=== PATIENT | female | born 1990 | race Caucasian/White ===

== ENCOUNTER 2023-03-01 14:51 | Outpatient (CLI) | payer MEDICAID, SELFPAY ==
--- NOTE | 2023-03-01 15:00 | US_ITS ---
Patient: ENRRIQUE PÉREZ Facility:?[facility] Patient ID:?[id number] Site Patient ID:?[id number] Site :?1990 Study:?US-OB Pelvis TV dating/viability-03/01/2023 4:54:35 PM Ordering Physician:?[facility] Final Report: INDICATION: Follow up viability COMPARISON: 02/18/2023 TECHNIQUE: Real-time crocker-scale imaging of the pelvis was performed. FINDINGS: Intrauterine gestational sac is present with mean sac diameter of 14.2 cm, 6 weeks 0 days. pole noted with crown-rump length of 5 millimeters, 6 weeks 1 day. No growth since the prior study. No heart tones. Right ovary normal. Left ovary not visualized. No ectopic. IMPRESSION: Intrauterine demise. Dictated by Jani Blair MD @ 03/02/2023 7:12:06 AM Signed by:?Jani Blair MD @03/02/2023 7:12:06 AM (Electronic Signature)
== END 2023-03-01 14:52 | disposition home or self-care (01) ==
LOC: US 14:55
PROVIDERS: Visit Provider Obstetrics & Gynecology
DX: O20.0 Threatened abortion (principal)
CPT/HCPCS: 76817

== ENCOUNTER 2023-03-13 21:11 | Emergency (ER) | payer MEDICAID, SELFPAY ==
[2023-03-13 21:16] VITALS: BP 127/81; PULSE 99; RESP 16; TEMP 36.6; O2SAT 96; BMI 42.1
--- NOTE | 2023-03-13 21:30 | CRLHL7_ITS ---
For Patients: As a result of the Century Cures Act, medical imaging exams and procedure reports are released immediately into your electronic medical record. You may view this report before your referring provider. If you have questions, please contact your health care provider. INDICATION: TECHNIQUE: Ultrasound pelvis transabdominal and transvaginal for better assessment or to better visualize the endometrium. Real-time sonographic images with spectral and color Doppler imaging of the ovaries were obtained. COMPARISON: March 01 2023 FINDINGS: Uterus: 8.5 x 4.8 x 5.5 cm. Normal echotexture of the myometrium. 2.3 x 1.8 x 1.9 cm heterogeneous mass in the uterine fundus. Endometrium: Transvaginal imaging was performed to better evaluate the endometrium. 9 mm in thickness. No sign of endometrial mass or fluid. There is a small amount of vascularity within the endometrium. Right ovary: 3.4 x 2.7 x 3.1 cm. No ovarian or adnexal masses. Normal venous blood flow. Arterial blood flow could not be detected. Left ovary: Surgically absent. Cul-de-sac: Small amount free fluid. IMPRESSION: Vascularity within the endometrium is concerning for retained products of conception. Additionally, arterial blood flow could not be detected in the right ovary. Although this could be to the deep posterior location of the right ovary, ovarian torsion cannot be excluded. Recommend gynecology consultation. Greater than 2 cm uterine fibroid. Findings discussed with Dr. Arzola at 12:14 a.m. on March 14, 2023. Dictated by Soila Mcclain MD @ 03/14/2023 12:15:10 AM (Electronically Signed)
[2023-03-13 22:03] LABS: Appearance Urine Clear (Clear); Bilirubin Urine Negative (Negative); Blood Urine 2+ (Negative); Color Urine Yellow (Yellow); Glucose Urine Negative (Negative); Ketones Urine Negative (Negative); Leukocyte Esterase Urine Negative (Negative); Nitrite Urine Negative (Negative); Protein Urine Negative (Negative); Specific Gravity Urine 1.025 (1.000-1.030); Urobilinogen Urine 0.2 (0.2-1.0); pH Urine 5.5 (5.0-8.5)
[2023-03-13 22:16] LABS: Basophils Absolute Auto 0.04 K/uL (0.00-0.30); Basophils Percent Auto 0.4 % (0.0-3.0); Eosinophils Absolute Auto 0.36 K/uL (0.00-0.50); Eosinophils Percent Auto 3.7 % (0.0-7.0); Hematocrit 38.5 % (33.0-51.0); Hemoglobin* 12.4 gm/dL (12.0-16.0); Immature Granulocytes Abs Auto 0.02 K/uL (0.00-0.30); Immature Granulocytes Pct Auto 0.2 %; Lymphocytes Absolute Auto 2.98 K/uL (0.90-2.90); Lymphocytes Percent Auto 30.4 % (20-44); Mean Corpuscular HGB Conc 32 gm/dL (32-36); Mean Corpuscular Hemoglobin 27 pg (26-34); Mean Corpuscular Volume 85 fL (80-100); Monocytes Percent Auto 6.3 % (0.0-11.0); Neutrophils Absolute Auto 5.77 K/uL (1.7-7.0); Platelet Count* 213 K/uL (140-440); RDW Coefficient of Variation % 13.9 % (11.5-15.5); Red Blood Count 4.54 m/uL (4.00-5.20); White Blood Count* 9.79 K/uL (4.50-11.00)
[2023-03-13 22:22] LABS: Slide Review Reflex No
[2023-03-13 22:26] LABS: WBC Urine 0-2 (0-5)
[2023-03-13 22:28] LABS: Chloride* 107 mmol/L (96-114); Potassium* 3.9 mmol/L (3.6-5.1); Sodium* 139 mmol/L (135-149)
[2023-03-13 22:30] LABS: Amylase* 63 U/L (18-89)
[2023-03-13 22:31] LABS: Anion Gap 9 mEq/L (7-15); Blood Urea Nitrogen* 12 mg/dL (5-24); Calcium* 9.6 mg/dL (8.4-10.6); Carbon Dioxide* 23 mmol/L (20-32); Creatinine* 0.7 mg/dL (0.5-1.5); Estimated Glomerular Filt Rate 119 ml/min; Glucose* 81 mg/dL (60-115)
--- NOTE | 2023-03-13 22:53 | ED_ITS ---
HPI - Abdominal Pain General Chief Complaint: Abdominal Pain Stated Complaint: severe cramping after DNC Time Seen by Provider: 03/13/23 21:15 History of Present Illness HPI narrative: Patient is a 33-year-old woman who had a D&C for missed 3 days ago. She has had some intermittent vaginal bleeding and cramping since. She has had no fevers no chills no night sweats no other abdominal pain. She is having normal bowel movements. She has had no change in her urination. She has had no chest pain shortness of breath nausea or vomiting. No other significant symptoms patient has no chronic pelvic issues. Related Data Home Medications Medication Instructions Recorded Confirmed escitalopram oxalate 20 mg tablet 20 mg PO DAILY 03/13/23 03/13/23 Allergies Allergy/AdvReac Type Severity Reaction Status Date / Time prednisone AdvReac Mild Mood Swings Verified 03/13/23 21:42 trazodone AdvReac Mild Mood Swings Verified 03/13/23 21:42 Review of Systems Status of ROS Reports: 10 or more systems reviewed and unremarkable except as noted in History and below [facility] Medical History premature rupture of membranes (PPROM) with onset of labor within 24 hours of rupture in third trimester, antepartum ?O42.013 - premature rupture of membranes, onset of labor within 24 hours of rupture, third trimester (ICD-10) 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 - depression (ICD-10) Depression ?F32.A - Depression, unspecified (ICD-10) Overweight ?E66.3 - Overweight (ICD-10) Disorder of both eustachian tubes ?H69.93 - Unspecified Eustachian tube disorder, bilateral (ICD-10) MELISSA (generalized anxiety disorder) ?F41.1 - Generalized anxiety disorder (ICD-10) Hyperemesis gravidarum ?O21.0 - Mild hyperemesis gravidarum (ICD-10) GERD (gastroesophageal reflux disease) ?K21.9 - Gastro-esophageal reflux disease without esophagitis (ICD-10) Bipolar disorder, unspecified ?F31.9 - Bipolar disorder, unspecified (ICD-10) Anxiety ?F41.9 - Anxiety disorder, unspecified (ICD-10) History of multiple miscarriages ?N96 - Recurrent loss (ICD-10) History of ?Z87.59 - Personal history of other complications of , childbirth and the puerperium (ICD-10) Social History Smoking Status: Never smoker Second hand tobacco smoke exposure: No How often do you have a drink containing alcohol: never How often do you have six or more drinks on one occasion: Never AUDIT-C Alcohol total score: 0 Non-prescribed substance use: denies use Exam Narrative: Exam Narrative: EXAM GENERAL: Patient appears comfortable and well. EYES: No scleral icterus. LYMPH: No supraclavicular or cervical lymphadenopathy. SKIN: Visible skin seen during exam normal or with benign process only. EXT: No dependent lower extremity pedal edema. HEART: Regular rate and rhythm with no murmurs, rubs, or gallops. LUNGS: Clear to auscultation bilaterally with no crackles or wheezes. ABD: Soft, non tender, non distended. PSYCH: Good eye contact, speech is not pressured. Const: Vital Signs, click to edit/add: Vital Signs - 24 hr 03/13/23 21:16 Temperature 97.9 F Pulse Rate [Right Pulse Oximeter] 99 Respiratory Rate 16 Blood Pressure [Ri ght Upper Arm] 127/81 Pulse Oximetry 96 Oxygen Delivery Me thod Room Air Course Course ED Course: Patient seen examined. Ultrasound ordered lab work ordered. Vital Signs Vital signs: Initial Vital Signs Temperature 97.9 F 03/13/23 21:16 Temperature Source Temporal Artery Scan 03/13/23 21:16 Pulse Rate 99 03/13/23 21:16 Respiratory Rate 16 03/13/23 21:16 Blood Pressure 127/81 03/13/23 21:16 Blood Pressure Mean 96 03/13/23 21:16 Blood Pressure Position Sitting 03/13/23 21:16 Pulse Oximetry 96 03/13/23 21:16 Oxygen Delivery Method Room Air 03/13/23 21:16 Vital Signs Temperature 97.9 F 03/13/23 21:16 Pulse Rate 99 03/13/23 21:16 Respiratory Rate 16 03/13/23 21:16 Blood Pressure 127/81 03/13/23 21:16 Pulse Oximetry 96 03/13/23 21:16 Oxygen Delivery Method Room Air 03/13/23 21:16 Temperature 97.9 F 03/13/23 21:16 Pulse Rate 99 03/13/23 21:16 Respiratory Rate 16 03/13/23 21:16 Blood Pressure 127/81 03/13/23 21:16 Pulse Oximetry 96 03/13/23 21:16 Oxygen Delivery Method Room Air 03/13/23 21:16 MDM - Abdominal Pain MDM Narrative Medical decision making narrative: Patient is a 33-year-old woman who comes in several days after a D&C for missed . Lab work is reassuring ultrasound shows typical post D&C findings. Patient has no prescription medication for pain control at home will discharge with close outpatient follow-up with Vicodin 1-2 every 4-6 as needed. She will return if symptoms worsen. Differential Diagnosis Differential diagnosis: Likely abdominal pain, acute appendicitis, calculus of kidney, constipation, diverticulitis, endometriosis, gastroenteritis, pancreatitis and small bowel obstruction Lab Data Labs: Lab Results 03/13/23 03/13/23 Range/Units 21:30 22:07 WBC 9.79 (4.50-11.00) K/uL RBC 4.54 (4.00-5.20) m/uL Hgb 12.4 (12.0-16.0) gm/dL Hct 38.5 (33.0-51.0) % MCV 85 (80-100) fL MCH 27 (26-34) pg MCHC 32 (32-36) gm/dL RDW Coeff of Foster 13.9 (11.5-15.5) % Plt Count 213 (140-440) K/uL Neut % (Auto) 59.0 (42.0-72.0) % Lymph % (Auto) 30.4 (20-44) % [place] % (Auto) 6.3 (0.0-11.0) % Eos % (Auto) 3.7 (0.0-7.0) % Baso % (Auto) 0.4 (0.0-3.0) % Neut # (Auto) 5.77 (1.7-7.0) K/uL Lymph # (Auto) 2.98 H (0.90-2.90) K/uL [place] # (Auto) 0.60 (0.00-0.90) K/UL Eos # (Auto) 0.36 (0.00-0.50) K/uL Baso # (Auto) 0.04 (0.00-0.30) K/uL Abs Immat Gran (auto) 0.02 (0.00-0.30) K/uL Imm/Tot Granulo (auto) 0.2 % Sodium 139 (135-149) mmol/L Potassium 3.9 (3.6-5.1) mmol/L Chloride 107 (96-114) mmol/L Carbon Dioxide 23 (20-32) mmol/L Anion Gap 9 (7-15) mEq/L BUN 12 (5-24) mg/dL Creatinine 0.7 (0.5-1.5) mg/dL Estimated Creat Clear 92.10 Estimated GFR 119 ml/min Glucose 81 (60-115) mg/dL Calcium 9.6 (8.4-10.6) mg/dL Amylase 63 (18-89) U/L Urine Color Yellow (Yellow) Urine Appearance Clear (Clear) Urine pH 5.5 (5.0-8.5) Ur Specific [place] 1.025 (1.000-1.030) Urine Protein Negative (Negative) Urine Glucose (UA) Negative (Negative) Urine Ketones Negative (Negative) Urine Blood 2+ A (Negative) Urine Nitrite Negative (Negative) Urine Bilirubin Negative (Negative) Urine Urobilinogen 0.2 (0.2-1.0) Ur Leukocyte Esterase Negative (Negative) Urine RBC 2-5 A (0-2) Urine WBC 0-2 (0-5) Urine WBC Clumps None (None) Ur Squamous Epith Cells None (None-Few) Urine Bacteria None (None) Discharge Plan Discharge Clinical Impression: Pelvic pain Condition: Stable Instructions: Pelvic Pain (ED) Additional Instructions: [place] as needed Tylenol Motrin Warm compresses Follow-up with your doctor next week. Activity Level: No Restrictions Discharge Diet: Regular Prescriptions: No Action escitalopram oxalate 20 mg tablet 20 mg PO DAILY Follow Up/Referrals: Provider,Not a Local [Primary Care Provider] - Stand Alone Forms: MyHealth Info Instructions
[2023-03-13 23:00] VITALS: BP 120/74; PULSE 85; RESP 16; TEMP 36.8; O2SAT 96
[2023-03-13 23:09] VITALS: BP 120/74; PULSE 85; RESP 16; TEMP 36.8
== END 2023-03-13 23:09 | disposition home or self-care (01) ==
LOC: ED 22:57
PROVIDERS: Emergency Provider Internal Medicine
DX: R10.2 Pelvic and perineal pain (principal)
CPT/HCPCS: 36415; 76830; 76856; 80048; 81003; 81015; 82150; 85025; 93976; 99283; 99284

== ENCOUNTER 2023-04-24 23:23 | Inpatient (IN) | payer MEDICAID, SELFPAY ==
[2023-04-24 23:35] VITALS: BP 155/89; PULSE 91; RESP 18; TEMP 36.7; O2SAT 96; BMI 40.7
[2023-04-24 23:41] LABS: Appearance Urine Clear (Clear); Bilirubin Urine Negative (Negative); Blood Urine Negative (Negative); Color Urine Yellow (Yellow); Glucose Urine Negative (Negative); Ketones Urine Negative (Negative); Leukocyte Esterase Urine Negative (Negative); Nitrite Urine Positive (Negative); Protein Urine Negative (Negative); Urobilinogen Urine 0.2 (0.2-1.0); pH Urine 7.5 (5.0-8.5)
[2023-04-25] VITALS (31 sets, daily range): BP systolic 101–147; BP diastolic 64–97; PULSE 75–120; RESP 16–22; TEMP 36.2–37; O2SAT 91–98
--- NOTE | 2023-04-25 00:07 | ED.ABDPAIN ---
HPI - Abdominal Pain General Date Seen: 04/25/23 Chief Complaint: Abdominal Pain Stated Complaint: abdominal plain Time Seen by Provider: 04/24/23 23:49 Source: patient, family and other (Here with significant other) Mode of arrival: ambulatory Limitations: no limitations History of Present Illness HPI narrative: Patient is a 33-year-old female presents here with the lower abdominal pain she describes generalized in the lower abdominal region, she has had for 2-3 days. She was seen yesterday in urgent care in [place], diagnosed with a UTI, and started on Macrobid, the pain today is worsen. She describes the throat her lower abdomen, worse when she moves or twists or turns. She vomited 3 times today, she has had normal bowel movements, denies to chew have any flank pain, no vaginal discharge. 1 month ago she was treated for miscarriage, she had a D&C. She denies any fevers chills or sweats, she has had a previous oophorectomy secondary to ovarian issue she did not take any pain medications at home, saying they will not work for her. No radiating pain. Related Data Home Medications Medication Instructions Recorded Confirmed escitalopram oxalate 20 mg tablet 20 mg PO DAILY 03/13/23 04/24/23 fluconazole 150 mg tablet 150 mg PO Q3D 04/24/23 04/24/23 nitrofurantoin 1 cap PO BID 04/24/23 04/24/23 monohydrate/macrocrystals 100 mg capsule phenazopyridine 200 mg tablet 200 mg PO 3XD 04/24/23 04/24/23 Allergies Allergy/AdvReac Type Severity Reaction Status Date / Time prednisone AdvReac Mild Mood Swings Verified 04/24/23 23:39 trazodone AdvReac Mild Mood Swings Verified 04/24/23 23:39 Review of Systems Status of ROS Reports: 10 or more systems reviewed and unremarkable except as noted in History and below [facility] Medical History premature rupture of membranes (PPROM) with onset of labor within 24 hours of rupture in third trimester, antepartum ?O42.013 - premature rupture of membranes, onset of labor within 24 hours of rupture, third trimester (ICD-10) 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 - depression (ICD-10) Depression ?F32.A - Depression, unspecified (ICD-10) Overweight ?E66.3 - Overweight (ICD-10) Disorder of both eustachian tubes ?H69.93 - Unspecified Eustachian tube disorder, bilateral (ICD-10) MELISSA (generalized anxiety disorder) ?F41.1 - Generalized anxiety disorder (ICD-10) Hyperemesis gravidarum ?O21.0 - Mild hyperemesis gravidarum (ICD-10) GERD (gastroesophageal reflux disease) ?K21.9 - Gastro-esophageal reflux disease without esophagitis (ICD-10) Bipolar disorder, unspecified ?F31.9 - Bipolar disorder, unspecified (ICD-10) Anxiety ?F41.9 - Anxiety disorder, unspecified (ICD-10) History of multiple miscarriages ?N96 - Recurrent loss (ICD-10) History of ?Z87.59 - Personal history of other complications of , childbirth and the puerperium (ICD-10) Social History Smoking Status: Never smoker Do you use any of these nicotine containing products: None Second hand tobacco smoke exposure: No How often do you have a drink containing alcohol: never How often do you have six or more drinks on one occasion: Never AUDIT-C Alcohol total score: 0 Non-prescribed substance use: denies use service: No Exam Narrative: Exam Narrative: Patient is seen in room 6, she appears to be in no distress, complains a lower abdominal discomfort. Her pupils are equal round reactive to light, there is no scleral icterus redness or TMs are normal oropharynx normal, her chest is clear bilaterally no wheezing crackles noted heart sounds are normal, light touch in the lower abdomen reproduces her discomfort, but interestingly I am able to palpate deeper with the stethoscope. Her bowel sounds are quiet, there is no organomegaly, she has absolutely no right upper quadrant or left upper quadrant tenderness, but repeat tells me pressure in the upper abdomen causes pain in the lower abdomen. No evidence of any rashes she moves all extremities independently and well. Const: Vital Signs, click to edit/add: Vital Signs - 24 hr 04/24/23 23:35 04/25/23 00:16 04/25/23 00:21 Temperature 98.0 F 98.0 F Pulse Rate 82 Pulse Rate [Right Pulse Oximeter] 91 Respiratory Rate 18 16 Blood Pressure 145/83 H Blood Pressure [Ri ght Upper Arm] 155/89 H Pulse Oximetry 96 96 Oxygen Delivery Me thod Room Air 04/25/23 00:32 04/25/23 01:02 04/25/23 01:08 Temperature 98.0 F Pulse Rate 82 79 Pulse Rate [Right Pulse Oximeter] Respiratory Rate 16 16 Blood Pressure 129/76 123/71 Blood Pressure [Ri ght Upper Arm] Pulse Oximetry 94 96 Oxygen Delivery Me thod Documenting provider has reviewed patient's vital signs: yes Course Course ED Course: I discussed with her that her presentation can be multiple etiologies. Her urinalysis done here before I was able to see her shows only positive nitrates, no evidence of white cells, be a partially treated UTI, but this also could be some other pathology causing this. I would recommend at least blood tests IV fluids, NPO status Toradol and Zofran to start with for her discomfort. And likely use of CT scan for further delineation. Reevaluation(s) Time of Reevaluation #1: 01:33 Reevaluation #1: Patient's pain improved, the use of the Toradol helped her. Her white count is elevated at 13.2. CRP elevated also, predominance of neutrophils. CT scan is reviewed by myself, this shows a collection of fluid in the pelvis adjacent to the uterus. Appears separate from the uterus. Radiology read greater than 2 hours at this time. I discussed with the patient, radiologist for likely request the ultrasound to further delineate this, we can speed up the process by getting this ordered now. I will give her some Dilaudid for the discomfort, as there will be some pressure on her lower abdomen, to get the views that we need. She was comfortable with this plan, Time of Reevaluation #2: 03:56 Reevaluation #2: I was able to talk to the medical record librarians teacher, and also the radiologist. There was a delay in getting the CT and ultrasound read. My concern is that this is a possible torsion of her remaining ovary. My medical record librarians teacher is coming in to see the patient, is alerted the surgical team. I discussed this with the patient, she will be kept NPO. Pain control with Dilaudid. Patient is ASA 1 for surgery, Vital Signs Vital signs: Initial Vital Signs Temperature 98.0 F 04/24/23 23:35 Temperature Source Temporal Artery Scan 04/24/23 23:35 Pulse Rate 91 04/24/23 23:35 Respiratory Rate 18 04/24/23 23:35 Blood Pressure 155/89 H 04/24/23 23:35 Blood Pressure Mean 111 H 04/24/23 23:35 Blood Pressure Position Sitting 04/24/23 23:35 Pulse Oximetry 96 04/24/23 23:35 Oxygen Delivery Method Room Air 04/24/23 23:35 Vital Signs Temperature 98.0 F 04/24/23 23:35 Pulse Rate 91 04/24/23 23:35 Respiratory Rate 18 04/24/23 23:35 Blood Pressure 155/89 H 04/24/23 23:35 Pulse Oximetry 96 04/24/23 23:35 Oxygen Delivery Method Room Air 04/24/23 23:35 Temperature 98.0 F 04/25/23 01:08 Pulse Rate 79 04/25/23 01:02 Respiratory Rate 16 04/25/23 01:02 Blood Pressure 123/71 04/25/23 01:02 Pulse Oximetry 96 04/25/23 01:02 Oxygen Delivery Method Room Air 04/24/23 23:35 MDM - Abdominal Pain MDM Narrative Medical decision making narrative: During the evaluation of this patient I considered multiple differential diagnosis including life-threatening differentials which are appendicitis, aortic aneurysm, mesenteric ischemia, bowel perforation, ectopic , volvulus and bowel obstruction, other differential diagnosis include but are not limited to inflammatory bowel disease, cholecystitis, pancreatitis, hepatitis, gastritis, GERD, diverticulitis, peptic ulcer disease, pyelonephritis/UTI, renal colic/stone, pelvic inflammatory disease, cervicitis, endometritis, intrauterine , dysfunctional uterine bleeding, ovarian cyst/torsion, spontaneous as well as other etiologies Medical Records Attestation: I reviewed the patient's medical records. Lab Data Attestation: I reviewed the patient's lab results. Labs: Lab Results 04/24/23 04/25/23 Range/Units 23:30 00:15 WBC 13.28 H (4.50-11.00) K/uL RBC 4.36 (4.00-5.20) m/uL Hgb 11.9 L (12.0-16.0) gm/dL Hct 36.9 (33.0-51.0) % MCV 85 (80-100) fL MCH 27 (26-34) pg MCHC 32 (32-36) gm/dL RDW Coeff of Foster 13.1 (11.5-15.5) % Plt Count 235 (140-440) K/uL Neut % (Auto) 64.6 (42.0-72.0) % Lymph % (Auto) 23.4 (20-44) % [place] % (Auto) 9.3 (0.0-11.0) % Eos % (Auto) 2.3 (0.0-7.0) % Baso % (Auto) 0.2 (0.0-3.0) % Neut # (Auto) 8.60 H (1.7-7.0) K/uL Lymph # (Auto) 3.10 H (0.90-2.90) K/uL [place] # (Auto) 1.20 H (0.00-0.90) K/UL Eos # (Auto) 0.30 (0.00-0.50) K/uL Baso # (Auto) 0.00 (0.00-0.30) K/uL Abs Immat Gran (auto) 0.00 (0.00-0.30) K/uL Imm/Tot Granulo (auto) 0.2 % Sodium 137 (135-149) mmol/L Potassium 3.4 L (3.6-5.1) mmol/L Chloride 105 (96-114) mmol/L Carbon Dioxide 24 (20-32) mmol/L Anion Gap 8 (7-15) mEq/L BUN 12 (5-24) mg/dL Creatinine 0.7 (0.5-1.5) mg/dL Estimated Creat Clear 96.33 Estimated GFR 119 ml/min Glucose 88 (60-115) mg/dL Lactate 0.6 (0.5-1.9) mmol/L Calcium 8.8 (8.4-10.6) mg/dL Total Bilirubin 1.0 (0.1-1.5) mg/dL Direct Bilirubin 0.0 (0.0-0.5) mg/dL AST 41 H (12-35) U/L ALT 32 (4-35) U/L Alkaline Phosphatase 84 (40-150) U/L C-Reactive Protein 6.8 H (0.5-1.0) mg/dL Total Protein 7.4 (6.0-8.3) g/dL Albumin 4.1 (3.3-5.0) g/dL Lipase 52 (23-300) U/L Procalcitonin 0.06 (<0.50) ng/mL Urine Color Yellow (Yellow) Urine Appearance Clear (Clear) Urine pH 7.5 (5.0-8.5) Ur Specific [place] 1.020 (1.000-1.030) Urine Protein Negative (Negative) Urine Glucose (UA) Negative (Negative) Urine Ketones Negative (Negative) Urine Blood Negative (Negative) Urine Nitrite Positive A (Negative) Urine Bilirubin Negative (Negative) Urine Urobilinogen 0.2 (0.2-1.0) Ur Leukocyte Esterase Negative (Negative) Urine RBC 0-2 (0-2) Urine WBC 0-2 (0-5) Ur Squamous Epith Cells Few (None-Few) Urine Bacteria Few A (None) Urine HCG, Qual Negative (Negative) Imaging Data CT scan - abdomen: Attestation: I have reviewed the pertinent imaging results. My impression: Complex collection of fluid just superior and adjacent to the uterus. Differential includes abscess, hemorrhagic cyst, pyosalpinx, torsion, ectopic . Ectopic unlikely as test is negative. Concerning blood flow, to the mass. Likelihood of torsion of the ovary is higher. Radiologist's impression: Patient: SUNITHA ROCKPORT Facility:?[facility] Patient ID:?[id number] Site Patient ID:?[id number]. Site :?1990 Study:?CT Abdomen/Pelvis with 100ml Xrlyzb153 contrast-04/25/2023 1:27:46 AM Ordering Physician:?Drea Kaye Final Report: INDICATION: Anterior inferior abdominal pain, s/p left oophorectomy TECHNIQUE: CT abdomen and pelvis acquired with 70 cc Isovue 370 IV contrast. COMPARISON: June 14, 2018 FINDINGS: Lower chest: Unremarkable. Liver: Unremarkable. Spleen: Unremarkable. Pancreas: Unremarkable. Gallbladder and bile ducts: Unremarkable. Adrenal glands: Unremarkable. Kidneys: Unremarkable. GI tract: Unremarkable. Appendix is normal. Vascular structures: Unremarkable. Lymph nodes: Unremarkable. Miscellaneous: No anterior abdominal wall rupture. No free air. Pelvic Organs: There is a 6.0 x 6.6 x 4.7 mass superior to the uterus measuring 29 Hounsfield units in density. Septations within this and mild fat stranding around the mass. No free fluid in the pelvis. Bones: Unremarkable for age. IMPRESSION: Greater than 6 cm soft tissue mass superior to the uterus containing septations. Mild fat stranding around the mass. Findings may represent a right ovarian torsion due to multiple ovarian cysts, a complex hemorrhagic cyst, pyosalpinx, or less likely neoplasm. Findings discussed with Dr. Shepard at 3:36 a.m. on April 25, 2023. Please note that all CT scans at this facility use dose modulation, iterative reconstruction, and/or weight-based dosing when appropriate to reduce radiation dose to as low as reasonably achievable. Dictated by Soila Mcclain MD @ 04/25/2023 3:59:37 AM (Electronic Signature) Discharge Plan Discharge Clinical Impression: Ovarian torsion, acquired, Abdominal pain Patient Disposition: XFER to OR Prescriptions: No Action escitalopram oxalate 20 mg tablet 20 mg PO DAILY fluconazole 150 mg tablet 150 mg PO Q3D phenazopyridine 200 mg tablet 200 mg PO 3XD nitrofurantoin monohyd/m-cryst 100 mg capsule 1 cap PO BID Follow Up/Referrals: Provider,Not a Local [Primary Care Provider] -
[2023-04-25 00:09] LABS: Bacteria Urine Few; RBC Urine 0-2 (0-2); Squamous Epithelial Cell Urine Few (None-Few); WBC Urine 0-2 (0-5)
[2023-04-25] MEDS: 0.9 % SODIUM CHLORIDE 1000 ml 1,000 ML IV (00:15)
[2023-04-25] MEDS: ONDANSETRON 2 MG/ML inj 4 MG IVP ×2 (00:15→10:54)
[2023-04-25] MEDS: KETOROLAC 30 MG/ML inj IVP ×3 (00:16→22:56)
[2023-04-25 00:21] LABS: Lactate* 0.6 mmol/L (0.5-1.9)
[2023-04-25 00:23] LABS: Basophils Percent Auto 0.2 % (0.0-3.0); Eosinophils Percent Auto 2.3 % (0.0-7.0); Hematocrit 36.9 % (33.0-51.0); Hemoglobin* 11.9 gm/dL (12.0-16.0); Immature Granulocytes Pct Auto 0.2 %; Lymphocytes Percent Auto 23.4 % (20-44); Mean Corpuscular HGB Conc 32 gm/dL (32-36); Mean Corpuscular Hemoglobin 27 pg (26-34); Mean Corpuscular Volume 85 fL (80-100); Monocytes Percent Auto 9.3 % (0.0-11.0); Neutrophils Percent Auto 64.6 % (42.0-72.0); Platelet Count* 235 K/uL (140-440); RDW Coefficient of Variation % 13.1 % (11.5-15.5); Red Blood Count 4.36 m/uL (4.00-5.20); White Blood Count* 13.28 K/uL (4.50-11.00)
[2023-04-25 00:24] LABS: Slide Review Reflex No
[2023-04-25 00:43] LABS: Ur HCG Qualitative* Negative (Negative)
--- NOTE | 2023-04-25 00:44 | CRLHL7_ITS ---
For Patients: As a result of the Century Cures Act, medical imaging exams and procedure reports are released immediately into your electronic medical record. You may view this report before your referring provider. If you have questions, please contact your health care provider. INDICATION: Anterior inferior abdominal pain, s/p left oophorectomy TECHNIQUE: CT abdomen and pelvis acquired with 70 cc Isovue 370 IV contrast. COMPARISON: June 14, 2018 FINDINGS: Lower chest: Unremarkable. Liver: Unremarkable. Spleen: Unremarkable. Pancreas: Unremarkable. Gallbladder and bile ducts: Unremarkable. Adrenal glands: Unremarkable. Kidneys: Unremarkable. GI tract: Unremarkable. Appendix is normal. Vascular structures: Unremarkable. Lymph nodes: Unremarkable. Miscellaneous: No anterior abdominal wall rupture. No free air. Pelvic Organs: There is a 6.0 x 6.6 x 4.7 mass superior to the uterus measuring 29 Hounsfield units in density. Septations within this and mild fat stranding around the mass. No free fluid in the pelvis. Bones: Unremarkable for age. IMPRESSION: Greater than 6 cm soft tissue mass superior to the uterus containing septations. Mild fat stranding around the mass. Findings may represent a right ovarian torsion due to multiple ovarian cysts, a complex hemorrhagic cyst, pyosalpinx, or less likely neoplasm. Findings discussed with Dr. Shepard at 3:36 a.m. on April 25, 2023. Please note that all CT scans at this facility use dose modulation, iterative reconstruction, and/or weight-based dosing when appropriate to reduce radiation dose to as low as reasonably achievable. Dictated by Soila Mcclain MD @ 04/25/2023 3:59:37 AM (Electronically Signed)
[2023-04-25 00:51] LABS: Albumin* 4.1 g/dL (3.3-5.0); Chloride* 105 mmol/L (96-114)
[2023-04-25 00:52] LABS: Potassium* 3.4 mmol/L (3.6-5.1); Sodium* 137 mmol/L (135-149)
[2023-04-25 00:54] LABS: Creatinine* 0.7 mg/dL (0.5-1.5); Est. Creatinine Clearance* 96.33; Estimated Glomerular Filt Rate 119 ml/min
[2023-04-25 00:55] LABS: Alanine Aminotransferase* 32 U/L (4-35); Alkaline Phosphatase* 84 U/L (40-150); Anion Gap 8 mEq/L (7-15); Aspartate Amino Transferase* 41 U/L (12-35); Blood Urea Nitrogen* 12 mg/dL (5-24); Calcium* 8.8 mg/dL (8.4-10.6); Carbon Dioxide* 24 mmol/L (20-32); Glucose* 88 mg/dL (60-115); Lipase* 52 U/L (23-300); Total Protein* 7.4 g/dL (6.0-8.3)
[2023-04-25 00:58] LABS: C Reactive Protein* 6.8 mg/dL (0.5-1.0)
[2023-04-25 01:11] LABS: Procalcitonin* 0.06 ng/mL (<0.50)
--- NOTE | 2023-04-25 01:36 | CRLHL7_ITS ---
For Patients: As a result of the Century Cures Act, medical imaging exams and procedure reports are released immediately into your electronic medical record. You may view this report before your referring provider. If you have questions, please contact your health care provider. INDICATION: Anterior inferior abdominal pain, status post left oophorectomy. TECHNIQUE: Ultrasound pelvis transabdominal and transvaginal for better assessment or to better visualize the endometrium. Real-time sonographic images with spectral and color Doppler imaging of the ovaries were obtained. COMPARISON: CT abdomen pelvis from same day FINDINGS: Uterus: 7.2 x 4.2 x 5.0 cm. Normal echotexture of the myometrium. No masses. Endometrium: Transvaginal imaging was performed to better evaluate the endometrium. 8.6 mm in thickness. No sign of endometrial mass or fluid. Right ovary: 6.1 x 4.8 x 4.3 cm. There is a complex, partially cystic mass on the right ovary. There is venous blood flow within the right ovary. No arterial blood flow was demonstrated. Left ovary: Surgically absent. Cul-de-sac: Small amount of free fluid. IMPRESSION: Findings concerning for right ovarian torsion with absence of arterial flow in the right ovary. There is a complex, partially cystic mass on the right ovary. Small amount of free fluid in the cul de sac. An abdominal pelvic CT performed earlier today demonstrated the cystic mass to measure 6.0 x 6.6 x 4.7 cm. Recommend gynecology consultation. Findings discussed with Dr. Shepard at 3:45 p.m. on April 25, 2023. Status post left oophorectomy. Dictated by Soila Mcclain MD @ 04/25/2023 4:07:12 AM (Electronically Signed)
[2023-04-25] MEDS: 0.9 % SODIUM CHLORIDE 1000 ml 1,000 ML 125 ML IV (01:39)
[2023-04-25] MEDS: HYDROmorphone 0.5 mg/0.5 ml inj IVP ×2 (01:39→03:56)
--- NOTE | 2023-04-25 04:55 | PM.GYNCN1 ---
SLACK COOPER - CN: HPI Data of Consult Time Seen by Provider: 04:40 Date Seen: 04/25/23 Patient: Briana Patient Consult date: 04/25/23 Requesting Physician: Dr. Larry Shepard Primary Care Provider: Not a Local Provider Consult Narrative Reason for consult: abdominal pain and pelvic mass (possible right ovarian torsion) Narrative: Radha Cheek is a 33 year old female who presented to the emergency department complaining of acute abdominal pain of 2 days duration. The pain was sudden in onset, and initially located in the mid low abdomen, with later radiation to include the entire low abdomen from the umbilicus down. She had been seen in urgent care clinic in [place] on Wednesday and thought to have a urinary tract infection. She was started on Macrobid. The pain subsequently worsened. She denies unusual vaginal discharge, vaginal bleeding, urinary urgency or frequency, or diarrhea or constipation. Physical movement exacerbates the pain. Of note, the patient underwent a D&C procedure a month ago for a failed intrauterine . The final pathology with cytogenetics showed triploidy fetus. The was reportedly not or molar . She also has a history of left salpingo-oophorectomy 5 years ago done for multiple ovarian cysts and infection. Apparently, the procedure was started as the laparoscopy, and then a laparotomy was needed. The surgery reportedly took 6 hours. She denies history of endometriosis. She and her are not currently contraceptive. OBSTETRIC HISTORY: History of 1 vaginal delivery, history of 1 early termination, history of 3 miscarriages. GYNECOLOGIC HISTORY: Cis gender female, h/o LSO cc:: CC: Review of Systems Status of ROS: Reports: 10 or more systems reviewed and unremarkable except as noted in History and below [facility] Medical History premature rupture of membranes (PPROM) with onset of labor within 24 hours of rupture in third trimester, antepartum ?O42.013 - premature rupture of membranes, onset of labor within 24 hours of rupture, third trimester (ICD-10) 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 - depression (ICD-10) Depression ?F32.A - Depression, unspecified (ICD-10) Overweight ?E66.3 - Overweight (ICD-10) Disorder of both eustachian tubes ?H69.93 - Unspecified Eustachian tube disorder, bilateral (ICD-10) MELISSA (generalized anxiety disorder) ?F41.1 - Generalized anxiety disorder (ICD-10) Hyperemesis gravidarum ?O21.0 - Mild hyperemesis gravidarum (ICD-10) GERD (gastroesophageal reflux disease) ?K21.9 - Gastro-esophageal reflux disease without esophagitis (ICD-10) Bipolar disorder, unspecified ?F31.9 - Bipolar disorder, unspecified (ICD-10) Anxiety ?F41.9 - Anxiety disorder, unspecified (ICD-10) History of multiple miscarriages ?N96 - Recurrent loss (ICD-10) History of ?Z87.59 - Personal history of other complications of , childbirth and the puerperium (ICD-10) Surgical History (Updated 04/25/23 @ 05:04 by Ema Naylor MD) History of D&C (~03/2023) ?Z98.890 - Other specified postprocedural states (ICD-10) History of left salpingo-oophorectomy (~2017) ?Z90.79 - Acquired absence of other genital organ(s) (ICD-10) ?Z90.721 - Acquired absence of ovaries, unilateral (ICD-10) Social History Smoking Status: Never smoker Do you use any of these nicotine containing products: None Second hand tobacco smoke exposure: No How often do you have a drink containing alcohol: never How often do you have six or more drinks on one occasion: Never AUDIT-C Alcohol total score: 0 Non-prescribed substance use: denies use service: No Meds Home Medications and Allergies Home Medications Medication Instructions Recorded Confirmed Type escitalopram oxalate 20 mg tablet 20 mg PO DAILY 03/13/23 04/24/23 History fluconazole 150 mg tablet 150 mg PO Q3D 04/24/23 04/24/23 History nitrofurantoin 1 cap PO BID 04/24/23 04/24/23 History monohydrate/macrocrystals 100 mg capsule phenazopyridine 200 mg tablet 200 mg PO 3XD 04/24/23 04/24/23 History Allergies Allergy/AdvReac Type Severity Reaction Status Date / Time prednisone AdvReac Mild Mood Swings Verified 04/24/23 23:39 trazodone AdvReac Mild Mood Swings Verified 04/24/23 23:39 [facility]OPER - Exam Physical Exam: Vital signs: Temp Pulse Resp BP Pulse Ox O2 Del Method 98.0 F 93 16 124/74 98 Room Air 04/25/23 01:08 04/25/23 03:54 04/25/23 03:54 04/25/23 03:54 04/25/23 03:54 04/24/23 23:35 Constitutional: Constitutional: no acute distress and cooperative Routine Abdominal Exam: Abdominal: Present hypoactive bowel sounds, soft and tenderness (Diffuse); Absent rebound SLACK COOPER - Results Labs Labs: Short CBC 04/25/23 Range/Units 00:15 WBC 13.28 H (4.50-11.00) K/uL Hgb 11.9 L (12.0-16.0) gm/dL Hct 36.9 (33.0-51.0) % Plt Count 235 (140-440) K/uL BMP 04/25/23 00:15 Sodium 137 Potassium 3.4 L Chloride 105 Carbon Dioxide 24 BUN 12 Creatinine 0.7 Glucose 88 Calcium 8.8 Liver Function 04/25/23 Range/Units 00:15 Total Bilirubin 1.0 (0.1-1.5) mg/dL Direct Bilirubin 0.0 (0.0-0.5) mg/dL AST 41 H (12-35) U/L ALT 32 (4-35) U/L Alkaline Phosphatase 84 (40-150) U/L Albumin 4.1 (3.3-5.0) g/dL Urine 04/24/23 Range/Units 23:30 Urine Color Yellow (Yellow) Urine Appearance Clear (Clear) Urine pH 7.5 (5.0-8.5) Ur Specific [place] 1.020 (1.000-1.030) Urine Protein Negative (Negative) Urine Glucose (UA) Negative (Negative) Imaging US - pelvis: Attestation: I have reviewed the pertinent imaging results. My impression: Complex, heterogeneous mass in the vicinity of the right adnexa with little blood flow documented to the ovary within, concerning for possible ovarian torsion. Differential diagnosis would include hemorrhagic ovarian cyst or torsion of fallopian tube. Radiologist's impression: Findings concerning for right ovarian torsion with absence of arterial flow in the right ovary. There is a complex, partially cystic mass on the right ovary. Small amount of free fluid in the cul de sac. An abdominal pelvic CT performed earlier today demonstrated the cystic mass to measure 6.0 x 6.6 x 4.7 cm. Recommend gynecology consultation. Assessment and Plan Assessment and plan (1) Abdominal pain: Status: Acute (2) Ovarian torsion, acquired: Problem comment: Suggested by ultrasound Status: Acute Plan I would recommend diagnostic laparoscopy. If there is ovarian torsion, untwisting the torsion could possibly result in saving of the ovary if it is still viable, and the cystic portion of the mass can be removed lower retaining the viable ovary. The patient understands that removal of the ovary and/or fallopian tube might be necessary if the tissues are nonviable. It is also possible that she has significant intra-abdominal or pelvic adhesions from her prior abdominal surgery, so I would recommend using a Castano port at the umbilicus with a cutdown technique through the fascia to potentially guard against inadvertent bowel injury with the initial port placement. The patient and I discussed general surgical risks, including bleeding, infection, or injury to other organs, as well as the possibility that a laparotomy could be needed. We reviewed postoperative pain management. Informed consent was obtained for the procedure. The PIT CREW SUPPORT WORKER will administer general anesthesia, and I have requested a TAP block as well for postoperative pain management. The patient's questions were answered. Preoperative orders were entered into the EMR
[2023-04-25] MEDS: LACTATED RINGERS 1000 ML 1,000 ML 100 ML IV ×3 (05:30→09:54)
[2023-04-25] MEDS: CEFAZOLIN 2 GM INJ IVP (06:02)
--- NOTE | 2023-04-25 06:10 | P.ANES_ITS ---
Anesthesia Charges Start Date/Time Anesthesia Start Date: 04/25/23 Anesthesia Start Time: 05:23 Stop Date/Time Anesthesia Stop Date: 04/25/23 Anesthesia Stop Time: 10:37 Summary Emergency: CLINICAL TRANSPLANT COORDINATOR
--- NOTE | 2023-04-25 06:11 | W.PM.NB ---
Nerve Block Nerve Block Time Seen by Provider: 05:35 Date Seen: 04/25/23 Type of block requested by surgeon for post-operative analgesia: TAP Side: bilateral Time out performed: Yes Verification of patient name: Yes Verification of date of : Yes Site marking: site marked Name of person performing procedure: Logan Hope Continuous monitoring Was continuous monitoring of O2 sat, B/P, soldering machine operator, recorded every 15 minutes?: Yes Procedure Checklist: sterile prep, needles and gloves Ultrasound guided. Images saved: Yes Medications given in 5ml increments after negative aspiration: Marcaine %: 0.25 mL: 30 Needle gauge: 20 and Exparel mL: 10 Needle gauge: 20 Patient tolerated procedure well: Yes Additional comments: Injected in 5ml increments after negative aspiration Block Charges Block Charge (with Pro Fee): TAP Bilateral Use of Ultrasound Machine for Block: Yes- US Guidance/pain block
[2023-04-25] MEDS: BUPIVACAINE 0.25% 30 ML INJECTION (06:18)
--- NOTE | 2023-04-25 08:54 | SUR.OPER ---
was updated @ 0730 and 0830.
--- NOTE | 2023-04-25 10:09 | PM.GSPRC ---
Operative Note Pre-op diagnosis: 1) Presumed right ovarian torsion 2) Intra-abdominal adhesions Post-op diagnosis: 1) Right ovarian ruptured hemorrhagic cyst 2) Intra-abdominal adhesions Type of Procedure: Lysis of adhesions Indications: The patient is a 33-year-old female who presented to the emergency department with acute abdominal pain. Workup revealed concern for right ovarian torsion. She was taken to the OR by Dr. Naylor please see her note for preoperative decision making and discussion. I was called to the OR initially because it was felt that the appendix was involved in the inflammatory process and her pelvis, however secondarily because of significant adhesions that precluded visualization the ovary. Procedure Description: Arrived to the OR with the patient in lithotomy position. The abdomen had been opened. I went to review the patient's preoperative imaging and noted that the sigmoid colon was sitting on top of the inflammatory mass in the pelvis. I scrubbed into the case and the Hood wound retractor was removed. There were dense adhesions between the sigmoid colon and the peritoneum. I took these down sharply using Metzenbaum scissors. There was 1 small area which was roughened, that was likely an adhesion, however I oversewed this with imbricating 0 silk suture in the event that it represented a small serosal tear. Once I was able to mobilize the sigmoid, this was reflected toward the left pelvis and a multi cystic ovary was in view. Drs. Naylor and Jim examined the pelvis, made the decision to remove the fallopian tube and oversewed the hemorrhagic cyst, obtaining hemostasis. Please see Dr. Naylor' operative note for details and decision making. Once this was done, I again examined the sigmoid colon. This appeared free of injury. I examined the appendix where Dr. Naylor had taken down an adhesion and the appendix appeared normal without inflammation. There was no injury to the appendix as the adhesion was distal to the tip. Once this was done, I turned the case back over to Dr. Naylor for closure. Findings: Dense intra-abdominal adhesions between the sigmoid and anterior abdomen. Anesthesia: GETA Surgeon: Frannie Falk MD Estimated blood loss (mL): 0 Additional Specimen Information: None for my portion of the procedure Condition: stable Disposition: PACU Date of procedure: 04/25/23
[2023-04-25] MEDS: MEPERIDINE 25 MG/ML INJ 12.5 MG IVP (10:41)
--- NOTE | 2023-04-25 10:41 | P.GYNPRC_ITS ---
Procedure Note Time Seen by Provider: 05:00 Date of procedure: 04/25/23 Pre-op diagnosis: Abdominal pain, R ovarian cysts with ovarian possible torsion Post-op diagnosis: other (Abdominal pain, R ovarian cysts, R hydrosalpinx, extensive intra-abdominal and pelvic adhesions) Procedure: Diagnostic laparoscopy with lysis of adhesions, Converted to laparotomy with extensive adhesiolysis, right salpingectomy, and right ovarian cystectomy. Intra-operative general surgery consult: Dr. Falk. Anesthesia: GETA and other (TAP block) Complications: None. Surgeon: Ema Naylor MD Medical Assistant Secretary: Joelle Fernandez Estimated blood loss (mL): 75 Pathology: specimen obtained, sent to pathology (1. Right fallopian tube, 2. Right hemorrhagic ovarian cyst ) Condition: stable Disposition: PACU Findings: Extensive intra-abdominal and pelvic adhesions involving anterior abdominal wall peritoneum, omentum, sigmoid colon, appendix, uterus, right fallopian tube, and right ovary. Right ovary dilated from midportion to fimbrial end and fluid filled, consistent with hydrosalpinx. Hemorrhagic right ovarian cyst as well as simple right ovarian cysts and cysts thought to be related to loculated fluid from adhesions surrounding the right ovary. No evidence of ovarian torsion. Procedure Description: After obtaining informed consent, the patient was taken to the operating room where general anesthesia was obtained without difficulty. She was prepared and draped in the normal sterile fashion in the low dorsal lithotomy position. A De La Torre catheter was inserted into the bladder and left to gravity drainage. A medium Graves open-sided speculum was introduced into the vagina. The cervix was visualized and grasped along its anterior lip with a single-tooth tenaculum. A Suncore uterine manipulator was placed without difficulty. The tenaculum and speculum were removed. I then changed gloves and my attention was turned to the abdomen. The inferior aspect of the umbilical fold was injected with 0.25% Marcaine plain. An 11 mm vertical incision was then made within the umbilical fold using a scalpel along the line of a previous infraumbilical scar. The subcutaneous tissues were bluntly dissected with a Annmarie clamp to the fascia. The fascia was grasped with 2 small Chuck clamps and elevated. The fascia was incised sharply with Carter scissors and the incision extended to 11 mm. The underlying peritoneum was entered bluntly with a finger. A finger was used to sweep around the incision, and omentum was noted to be adherent to the anterior abdominal wall inferiorly and to the right of the incision. A Castano port and sleeve were then advanced into the abdomen through the incision and fixed in place by insufflating the attached balloon. The trocar was removed leaving the sleeve in place. The CO2 gas flow was turned to high flow to achieve pneumoperitoneum. The 10 mm laparoscope was used then to carefully inspect the abdomen and pelvis with findings noted above. Pictures were taken for documentation purposes. The patient was placed in Trendelenburg positioning. A 5 mm port was placed in the right lower quadrant under direct visualization after first anesthetizing the skin and fascia with 0.25% Marcaine plain. An additional 5 mm port was placed lateral to the umbilicus on the left side under direct visualization after 1st anesthetizing the skin and fascia with 0.25% Marcaine plain. The 10 mm lap scope was removed and the 5 mm laparoscoped was placed through the left lateral port. A laparoscopic Metzenbaum scissors was used to lyse filmy adhesions tethering the omentum to the anterior abdominal wall. The laparoscoped was then maneuvered around the dense omental and possibly bowel adhesions to the anterior abdominal wall to the right side, and additional adhesiolysis was performed with both the Metzenbaum scissors and the Olympus Powerseal device through the right lower quadrant port. This adhesiolysis freed up the appendix from where it was attached to the right adnexa. The adhesiolysis also freed loculated fluid near the right ovary, enabling somewhat better visualization of the uterine serosa and right ovary and tube. The adhesiolysis needed to be discontinued, however, as dense adhesions were observed involving the sigmoid colon. Dr. Falk was consulted over the telephone an asked to come to the hospital to scrub in and provide further assistance. The decision was then made to abandon the laparoscopy altogether and proceed with laparotomy. Laparoscopic instruments were then removed. The patient was repositioned in the supine position. A Pfannenstiel skin incision was then made with the scalp along the line of the patient's previous Pfannenstiel scar. This incision was carried down to the underlying layer of fascia with the Bovie. The fascia was incised in the midline, and the incision was extended laterally. The underlying rectus muscles were dissected off of the fascia with a combination of sharp and blunt dissection. Perforating blood vessels were cauterized were necessary. The fascial defect from the infraumbilical port was reapproximated in a running fashion with 0 Vicryl during the dissection. The dissection took an increased amount of time given the densely adherent nature of the muscles to the fascia, and also the fact that the omentum and sigmoid colon were found to be adherent to the peritoneum in the midline from symphysis pubis to umbilicus. I was able to isolate adhesions between the omentum and peritoneum on the right side, which were doubly clamped with Karen clamps, transected, and suture ligated with 2-0 Vicryl while I was waiting for Dr. Falk. At this point, I also requested that one of my gynacology partners be contacted and scrub in to provide additional assistance, and Dr. Fernandez was able to come and scrub in. Both Drs. Falk and Jim arrived in the operating room at the same time. Please see Dr. Falk's separate operative report for details of her role in the procedure, specifically adhesiolysis and mobilization of the sigmoid colon and inspection of the colon and appendix. Once the sigmoid colon was removed from the anterior peritoneum, the Hood O retractor was placed into the incision. The right tube and ovary were carefully inspected. Adhesions between the right tube and ovary and uterine serosa were taken down sharply with Metzenbaum scissors. The tube was noted to be abnormal, with hydrosalpinx involving the distal half of the tube. The decision was made to take out the tube to decrease the likelihood of ectopic or early loss due to hydrosalpinx in the future. The tube was elevated with Kelvin clamps, and carefully dissected using the handheld LigaSure device from distal and to the uterine cornua, where it was transected and removed from the field. A small simple cyst on the right ovary was popped in aspirated of clear fluid. A hemorrhagic cyst was removed where devascularized from the ovary using the LigaSure. The excision base was then suture ligated with 3-0 chromic in a running, locking fashion for hemostasis. One small piece of Surgicel was placed over that area for additional hemostasis. Basilia was then applied to the entire adnexa for additional hemostasis. No active bleeding was observed. All instruments were then removed under direct visualization. The subfascial tissues were carefully inspected and found to be hemostatic. The fascia was reapproximated in a running fashion with a looped 0 Maxon suture. The s ubcutaneous adipose tissue copiously irrigated, found to be hemostatic, and was reapproximated with 4 interrupted sutures of 3-0 plain gut. The skin was closed in a subcuticular fashion with 4-0 Vicryl. The skin at the remaining 3 port sites was closed in a subcuticular fashion with 4-0 Vicryl. LiquiBand was then placed over the laparoscopic incisions. A silver Mepilex dressing was placed over the Pfannenstiel incision. The uterine manipulator was removed. The patient tolerated the procedure well. Sponge, lap, and needle counts were correct x2. The patient was taken to the recovery room awake and in stable condition. She received 2 g of IV Ancef preoperatively, and another 1g of IV Ancef 3-4 hours after the first dose. IV Toradol 30 mg was also administered at the conclusion of the procedure. A postsurgical debrief was done which confirmed the procedures performed, the pathology specimens sent, and the EBL.
[2023-04-25] MEDS: OXYCODONE 5 MG TABLET PO (12:44)
[2023-04-25] MEDS: LACTATED RINGERS 1000 ML 1,000 ML 125 ML IV (13:46)
--- NOTE | 2023-04-25 19:33 | PC.NURSE ---
patient up to floor at 1115, alert and oriented, tolerating a reg diet. Patient has beltran placed in ED will be removed once PO is adequate. Patent and draining. Patients 3 lap sites are C/D/I, Pfannenstiel incision is covered, C/D/I and numb per patient. Patient has 2 IV's in each hand, SL. Patient rated her pain 5/10 and states it feels like its pulling from inside. Patient was educated on how to brace a cough, laugh and sneeze to minimize pain. VSS, patient is 94% on RA. When she falls asleep she goes down to 91% and stated she did not bring her c-pap. was at bedside most of the day.
[2023-04-26] VITALS (7 sets, daily range): BP systolic 113–133; BP diastolic 58–76; PULSE 70–103; RESP 16–20; TEMP 36.4–36.7; O2SAT 95–99
[2023-04-26] MEDS: IBUPROFEN 600 MG TABLET PO ×4 (03:32→20:57)
--- NOTE | 2023-04-26 06:15 | PC.NURSE ---
SHIFT NOTE : Pt is alert and oriented. VSS on RA. Pain rated 4/10, scheduled Toradol and later Ibuprofen given for pain with pt reporting adequate relief, pt denied needing further PRN medication and acknowledged understanding that she could have something more for pain if needed. Abdominal incisions/dressings are intact with no drainage noted. Active ice to abdomen. Encouraged pt to C&DB/splint. Pt declined SCD's, ankle pumps encouraged. Pt denies SOB, CP, and N/V. Tolerating regular diet. De La Torre patent and draining adequate amounts of urine. Pt in the recliner last evening, SBA.
[2023-04-26 06:34] LABS: Hemoglobin* 10.4 gm/dL (12.0-16.0)
--- NOTE | 2023-04-26 07:40 | P.DS_ITS ---
DS: Providers Provider Date of admission: 04/25/23 10:36 Primary care physician: Not a Local Provider Admitting Clinician: Ema Naylor MD Attending Physician on discharge: Ema Naylor MD PRECIPITATOR SUPERVISOR-Discharge Summary Hospital Course Hospital Course Narrative: Patient is a [] year old admitted on [] for []. Indication for surgery: []. Intraoperative findings were notable for []. She had an uncomplicated surgery. Postoperative course has been uneventful. Vitals have been stable. She has remained afebrile. Today, on postoperative day [], she reports the pain is well controlled. She has been able to ambulate Without difficulty. She is tolerating regular diet. She is passing flatus. De La Torre catheter has been removed, and she is voiding without difficulty. Time Spent with Patient Time attestation: Total time spent providing and/or coordinating discharge services: PRECIPITATOR SUPERVISOR - Exam Physical Exam: Vital signs: Temp Pulse Resp BP Pulse Ox O2 Del Method 98.1 F 82 16 113/59 L 95 Room Air 04/26/23 03:00 04/26/23 03:00 04/26/23 03:00 04/26/23 03:00 04/26/23 03:00 04/26/23 03:00 PRECIPITATOR SUPERVISOR - DS: Data Data Completed and Pending Labs on day of discharge: Labs from last 24 hours 04/26/23 06:22 Hgb 10.4 L Preliminary micro results at discharge 04/25/23 Unknown Urine Culture - Preliminary Urine,Clean Catch > 100,000 COL/ML MIXED GRAM POSITIVE UCHE ISOLATED NO FURTHER WORKUP Procedures Procedures: Procedures Operation Date: 04/25/23 05:15 Actual Procedure Side Surgeon p diagnostic laparoscopy converted to open with extensive lysis of adhesions, right salpingectomy, right ovarian cystectomy. Right Ema Naylor MD Discharge Plan Discharge Date of Admission: 04/25/23 10:36 Attending Physician on Admission: Ema Naylor Primary Care Provider: Provider,Not a Local Discharge Medications: No Action escitalopram oxalate 20 mg tablet 20 mg PO DAILY fluconazole 150 mg tablet 150 mg PO Q3D phenazopyridine 200 mg tablet 200 mg PO 3XD nitrofurantoin monohyd/m-cryst 100 mg capsule 1 cap PO BID Follow Up Appointments: Provider,Not a Local [Primary Care Provider] -
[2023-04-26] MEDS: ESCITALOPRAM 10 MG TABLET 20 MG PO (09:32)
[2023-04-26] MEDS: OXYCODONE 5 MG TABLET PO ×3 (11:49→23:42)
[2023-04-26] MEDS: ACETAMINOPHEN 325 MG TABLET 1000 MG PO ×2 (11:52→18:18)
--- NOTE | 2023-04-26 17:17 | PM.GYNPNPO ---
SENIOR ELECTRONICS ENGINEER - A/P Assessment and plan (1) Abdominal pain: Status: Acute (2) Ovarian torsion, acquired: Problem details: Suggested by ultrasound Status: Acute Plan Postoperative Review: - Admitted for: Possible ovarian torsion/hemorrhage - Surgical procedure: - Skin incision: Pfannenstiel and 3 laparoscopic port sites - Closure: sutures - Estimated blood loss: 75 mL - Intraoperative findings: Extensive intra-abdominal and pelvic adhesions involving anterior abdominal wall peritoneum, omentum, sigmoid colon, appendix, uterus, right fallopian tube, and right ovary. Right ovary dilated from midportion to fimbrial end and fluid filled, consistent with hydrosalpinx. Hemorrhagic right ovarian cyst as well as simple right ovarian cysts and cysts thought to be related to loculated fluid from adhesions surrounding the right ovary. No evidence of ovarian torsion. - Intraoperative Complications: none - Urine output: adequate - Preop Hgb: 11.9 - Postop Hgb: 10.4 Postoperative care: - Diet: Advance as tolerated - Fluid: Encourage oral intake - Activity: Encourage ambulation and incentive spirometry - Pain: Ibuprofen, acetaminophen, and oxycodone - DVT prophylaxis: SCDs and TEDs when not ambulating Dispo: Patient is POD#1. Need the following milestones: increased ambulation and urinate without Beltran. Anticipate discharge POD#2. Postoperative Procedures: Procedures Operation Date: 04/25/23 05:15 Actual Procedure Side Surgeon p diagnostic laparoscopy converted to open with extensive lysis of adhesions, right salpingectomy, right ovarian cystectomy. Right Ema Naylor MD Time Spent With Patient Time: Total time spent is greater than 50% in coordination of care (as documented) at patient's floor/unit and/or counseling patient: Time with patient: less than 15 minutes SENIOR ELECTRONICS ENGINEER- PN:Subj Post-Op Subjective Time Seen by Provider: 08:00 Date Seen: 04/26/23 Post Operative Details: Post-operative day number 1: status post diagnostic laparoscopy with lysis of adhesions, converted to laparotomy with extensive adhesiolysis, right salpingectomy, and right ovarian cystectomy. Overnight patient had complaints of fatigue. Her pain is well controlled on oral pain medications. She is tolerating a regular diet. She has passed flatus. She is not yet ambulating without difficulty. She is urinating with Beltran. Patient denies chest pain, SOB, n/v, headache, or dizziness. Moderate amount of abdominal pain. I encouraged increased ambulation and her beltran will be removed this AM. She does not feel she will be ready to go home today. SENIOR ELECTRONICS ENGINEER-PN: Obj Exam Physical Exam: Vital signs: Temp Pulse Resp BP Pulse Ox O2 Del Method 97.7 F 103 H 18 126/64 96 Room Air 04/26/23 15:00 04/26/23 15:00 04/26/23 15:00 04/26/23 15:00 04/26/23 15:00 04/26/23 15:00 Narrative: Physical exam: General: No acute distress Psych: Alert and oriented x3, full affect HEENT: Normocephalic, atraumatic Heart: Regular rate and rhythm, no murmur rub or gallop Lungs: Clear to auscultation bilaterally Abdomen: Normoactive bowel sounds, soft, appropriately tenderness. No rebound, or guarding Incision: Pfannenstiel Dressing clean, dry, and intact. Laparoscopic port sites (3) also clean, dry, and intact Lower extremities: +1 bilateral lower extremity edema Pelvic exam: Deferred Urinary Catheter Management: Urethral: Cath placed during this visit: no SENIOR ELECTRONICS ENGINEER - PN: Obj Data Labs Labs: Laboratory Results - last 24 hr 04/26/23 06:22 Hgb 10.4 L
--- NOTE | 2023-04-26 19:23 | PC.NURSE ---
End of shift-- Very pleasant and cooperative, alert and oriented patient. VSS and pt is afebrile. SPO2 maintained >94% on RA. She c/o abdominal pain which she rated from 3-5 today which appears well managed with scheduled Motrin, Oxycodone and Tylenol. 3x lap sites are OSIRIS with skin glue and dressing across lower abdomen is C/D/I. She denied nausea and ate 50-100% of 3x meals today and tolerated it well. BS+ x4 and pt is passing flatus. She ambulated the hallways independently 4x today and tolerated it fair. She does c/o increased pain with ambulation. and son at bedside this evening and appear loving and supportive. Report to BRAYAN Soler.
--- NOTE | 2023-04-26 22:59 | PC.NURSE ---
Pt pleasant an cooperative. Up ambulating I. Tolerating diet and pain meds are controlling her pain. Voiding without difficulty. VSS. Stab sites open to air and are clean dry and intact.
[2023-04-26] MEDS: LORazepam 0.5 MG TABLET PO (23:42)
[2023-04-27 03:30] VITALS: BP 102/65; PULSE 72; RESP 18; TEMP 36.4; O2SAT 95
[2023-04-27] MEDS: ACETAMINOPHEN 500 MG TABLET 1000 MG PO (04:08)
[2023-04-27] MEDS: IBUPROFEN 600 MG TABLET PO ×2 (04:08→10:05)
[2023-04-27 07:00] VITALS: BP 122/78; PULSE 81; RESP 18; TEMP 36.2; O2SAT 97
--- NOTE | 2023-04-27 07:01 | PC.NURSE ---
23-07: pleasant and cooperative. Indep. Calls appropriately. c/o abd pain 5-12/12, see eMAR. Ice pack to abd. Lap sites OSIRIS, CDI. Lower abd dressing CDI.
--- NOTE | 2023-04-27 08:55 | P.DS_ITS ---
DS: Providers Provider Date Seen: 04/27/23 Date of admission: 04/25/23 10:36 Primary care physician: Not a Local Provider Admitting Clinician: Ema Naylor MD Attending Physician on discharge: Conchita Shin MD Date of Discharge: 04/27/23 DS: Diagnosis Discharge Diagnosis (1) Hydrosalpinx: Status: Acute (2) Right ovarian cyst: Status: Acute (3) Abdominal pain: Status: Acute (4) S/P laparotomy: Status: Acute Problem details: Right salpingectomy, right ovarian cystectomy, extensive lysis of adhesions CORPORATE STRATEGY ANALYST-Discharge Summary Hospital Course Hospital Course Narrative: Patient is a 33 year old admitted on 04/25/23 for emergency surgery due to suspected right ovarian torsion. Indication for surgery: Suspected right ovarian torsion. Intraoperative findings were notable for: Extensive intra-abdominal and pelvic adhesions involving anterior abdominal wall peritoneum, omentum, sigmoid colon, appendix, uterus, right fallopian tube, and right ovary. Right ovary dilated from midportion to fimbrial end and fluid filled, consistent with hydrosalpinx. Hemorrhagic right ovarian cyst as well as simple right ovarian cysts and cysts thought to be related to loculated fluid from adhesions surrounding the right ovary. No evidence of ovarian torsion. She had an uncomplicated surgery. Postoperative course has been uneventful. Vitals have been stable. She has remained afebrile. Today, on postoperative day 2, she reports the pain is well controlled. She has been able to ambulate Without difficulty. She is tolerating regular diet. She is passing flatus. De La Torre catheter has been removed, and she is voiding without difficulty. Time Spent with Patient Time attestation: Total time spent providing and/or coordinating discharge services: Time spent: Less than 30 minutes CORPORATE STRATEGY ANALYST - Exam Physical Exam: Vital signs: Temp Pulse Resp BP Pulse Ox O2 Del Method 97.2 F L 81 18 122/78 97 Room Air 04/27/23 07:00 04/27/23 07:00 04/27/23 07:00 04/27/23 07:00 04/27/23 07:00 04/27/23 07:00 Narrative: VITAL SIGNS: As noted above. GENERAL APPEARANCE: Alert, cooperative female in no acute distress. MOOD & AFFECT: Normal. ABDOMEN: Soft, non-distended and appropriately tender, incision covered by silver dressing this looks dry and clean. Laparoscopy incisions healing well no surrounding erythema, abnormal induration or discharge. EXTREMITIES: Nonedematous. Well perfused. Nontender. CORPORATE STRATEGY ANALYST - DS: Data Procedures Procedures: Procedures Operation Date: 04/25/23 05:15 Actual Procedure Side Surgeon p diagnostic laparoscopy converted to open with extensive lysis of adhesions, right salpingectomy, right ovarian cystectomy. Right Ema Naylor MD Discharge Plan Discharge Disposition: Home, Self-Care Date of Admission: 04/25/23 10:36 Attending Provider on Discharge: Jennifer Shin Primary Care Provider: Provider,Not a Local Condition: Stable Anticipated Discharge Date/Time: 04/27/23 08:54 Discharge Medications: New acetaminophen 500 mg Tablet 1,000 mg PO Q4H PRN (Reason: minor pain) Qty: 30 0RF docusate sodium 100 mg Capsule 100 mg PO BID PRN (Reason: Constipation) Qty: 15 0RF ibuprofen 600 mg Tablet 600 mg PO Q6H Qty: 30 0RF oxycodone 5 mg Tablet 5 mg PO Q4H PRN (Reason: Moderate Pain) Qty: 15 0RF Continued escitalopram oxalate 20 mg tablet 20 mg PO DAILY fluconazole 150 mg tablet 150 mg PO Q3D phenazopyridine 200 mg tablet 200 mg PO 3XD nitrofurantoin monohyd/m-cryst 100 mg capsule 1 cap PO BID Discharge Orders: Discharge Order (Routine); Ordered 04/27/23 Ordered By: Jennifer Shin Patient Education: Exploratory Laparotomy (DC) Activity Level: No strenuous activity and No Weight Bearing Activity Detail: No lifting more than 15 pounds for 6 weeks, nothing vaginally for 2 weeks. Discharge Diet: Regular Follow Up Appointments: Provider,Not a Local [Primary Care Provider] - Forms: [employer] Info Instructions Discharge Comments: Follow up in clinic in 7 days for post op visit and removal of silver dressing/incision check.
[2023-04-27] MEDS: ESCITALOPRAM 10 MG TABLET 20 MG PO (10:05)
--- NOTE | 2023-04-27 12:45 | PC.NURSE ---
Discharge-- Very pleasant and cooperative, alert and oriented patient discharged to home via wheelchair at just prior to 11am. VSS and pt is afebrile. SPO2 maintained >94% on RA. Pain appears well managed with motrin, oxycodone and tylenol. Dressing to lower abdomen is C/D/I and 3x lap sites are OSIRIS with skin glue. LS CTA. BS+ x4 and pt is passing flatus and tolerating a regular diet without difficulty. Pt did pass 2-3 half dollar sized blood clots vaginally this morning and MD is aware. Discharge education was provided including diagnosis info, symptoms to report, medications and follow up plan. All questions answered. SL x2 were removed with tip intact.
== END 2023-04-27 10:58 | disposition home or self-care (01) | DRG 742 ==
LOC: ED 04-25 04:28 → SS 04-25 05:11 → MEDSURG 04-25 05:14 → SS 04-25 16:21 → MEDSURG 04-27 08:55
PROVIDERS: Admitting Provider Obstetrics & Gynecology; Emergency Provider Family Medicine; Visit Provider Obstetrics & Gynecology
PROC: 0UB00ZZ Excision of Right Ovary, Open Approach (ICD-10-PCS; CPT 58661; principal; 2023-04-25 05:00)
DX: N83.291 Other ovarian cyst, right side (principal); Z68.41 Body mass index [BMI] 40.0-44.9, adult; N70.11 Chronic salpingitis; G89.18 Other acute postprocedural pain; K66.0 Peritoneal adhesions (postprocedural) (postinfection); R10.30 Lower abdominal pain, unspecified; Z53.31 Laparoscopic surgical procedure converted to open procedure; E66.3 Overweight; F41.1 Generalized anxiety disorder; F31.9 Bipolar disorder, unspecified; K21.9 Gastro-esophageal reflux disease without esophagitis; N96 Recurrent pregnancy loss
CPT/HCPCS: 36415; 64488; 74177; 76830; 76856; 76942; 80048; 80076; 81003; 81015; 81025; 83605; 83690; 840; 84145; 85018; 85025; 86140; 87086; 88305; 93976; 94761; 99140; 99284; 99285; A4344; A9270; J0330; J0665; J0690; J1100; J1170; J1885; J2175; J2250; J2405; J2704; J2710; J3010; J7030; J7120; Q9967

== ENCOUNTER 2023-05-04 18:23 | Emergency (ER) | payer MEDICAID, SELFPAY ==
[2023-05-04 18:32] VITALS: BP 142/95; PULSE 111; RESP 18; TEMP 36.7; O2SAT 98; BMI 42.1
--- NOTE | 2023-05-04 18:35 | CRLHL7_ITS ---
For Patients: As a result of the 21st Century Cures Act, medical imaging exams and procedure reports are released immediately into your electronic medical record. You may view this report before your referring provider. If you have questions, please contact your health care provider. INDICATION: Postoperative fever, pain in umbilicus. TECHNIQUE: CT abdomen and pelvis acquired with 112 cc Isovue 370 IV contrast. COMPARISON: April 25, 2023. FINDINGS: Lower chest: Scattered atelectasis. Liver: Unremarkable. Normal in size and attenuation. No suspicious masses. Gallbladder and bile ducts: Unremarkable. No stones or inflammation. No biliary dilatation. Pancreas: Unremarkable. No mass or inflammation. Spleen: Unremarkable. Normal in size. No masses. Adrenal glands: Unremarkable. No nodules. Kidneys: Unremarkable. No suspicious masses, stones, or hydronephrosis. GI tract: Unremarkable. Normal in caliber. No sign of mass or inflammation. Normal appendix. Vasculature: Abdominal aorta is normal in caliber. Mesenteric arteries are patent. Lymph nodes: No lymphadenopathy. Peritoneum/Abdominal Wall: Postsurgical changes in the pelvic and lower periumbilical soft tissue region with some edema/inflammation, without drainable fluid collection. Dominant focal area phlegmonous change measures approximately 2.3 centimeters (series 2/image 92, series 5/image 95), in the periumbilical region. Tiny foci of subcutaneous emphysema (series 2/image 85), not unexpected in the postoperative period. No free air or significant free fluid. Pelvis: Postsurgical changes in the pelvic and lower periumbilical soft tissue region with some edema/inflammation, without drainable fluid collection. Bones: Unremarkable for age. IMPRESSION: Postsurgical changes in the pelvic and lower periumbilical soft tissue region with some edema/inflammation, but without drainable fluid collection. Dominant focal area phlegmonous change, measures 2.3 centimeters in the periumbilical soft tissues. Tiny focus of subcutaneous emphysema, not unexpected. Recommend correlation with physical examination to exclude cellulitis. Otherwise, no intra abdominal/pelvic abnormality. Please note that all CT scans at this facility use dose modulation, iterative reconstruction, and/or weight-based dosing when appropriate to reduce radiation dose to as low as reasonably achievable. Dictated by Salbador Rodriguez MD @ 05/04/2023 9:12:22 PM (Electronically Signed)
[2023-05-04 18:36] VITALS: O2SAT 97
[2023-05-04 18:37] VITALS: BP 124/88; PULSE 98; RESP 18; O2SAT 99
--- NOTE | 2023-05-04 18:45 | ED_ITS ---
HPI - General Adult General Date Seen: 05/04/23 <Keyona Tidwell MD - Last Filed: 05/06/23 09:14> Chief complaint: Fever <Keyona Tidwell MD - Last Filed: 05/06/23 09:14> Stated complaint: Fever post op <Keyona Tidwell MD - Last Filed: 05/06/23 09:14> Time Seen by Provider: 05/04/23 18:25 <Keyona Tidwell MD - Last Filed: 05/06/23 09:14> Source: patient and other <Keyona Tidwell MD - Last Filed: 05/06/23 09:14> Mode of arrival: ambulatory <MD Cheikh Morel Last Filed: 05/06/23 09:14> Limitations: no limitations <Keyona Tidwell MD - Last Filed: 05/06/23 09:14> History of Present Illness HPI narrative: Patient is a 33-year-old woman who is 1 week status post left cystectomy and oophorectomy. For the past couple of days on and off she says she has been running fevers in the 99-100 range. She has had some abdominal pain which she localizes to left and just inferior to the umbilicus. She has not had nausea or vomiting, has had chills today. Maybe a little mild dysuria. No lower extremity swelling or pain, she does say that the upper left leg is numb since surgery. She has not had chest pain shortness of breath or cough. General health is otherwise good, she does not smoke or drink. I received a call from the on-call OB, Dr. Davies, who related that the surgery was somewhat complicated by adhesions and was converted from laparoscopic to open. There was some concern about possible bowel injury so she asked that she have a CT with oral and IV contrast. <Keyona Tidwell MD - Last Filed: 05/06/23 09:14> Related Data Home medications: Home Medications Medication Instructions Recorded Confirmed escitalopram oxalate 20 mg tablet 20 mg PO DAILY 03/13/23 04/24/23 fluconazole 150 mg tablet 150 mg PO Q3D 04/24/23 04/24/23 nitrofurantoin 1 cap PO BID 04/24/23 04/24/23 monohydrate/macrocrystals 100 mg capsule phenazopyridine 200 mg tablet 200 mg PO 3XD 04/24/23 04/24/23 Previous Rx's Medication Instructions Recorded acetaminophen 500 mg tablet 1,000 mg (2 x 500 mg) PO Q4H PRN 04/27/23 minor pain #30 tabs docusate sodium 100 mg capsule 100 mg PO BID PRN Constipation #15 04/27/23 caps ibuprofen 600 mg tablet 600 mg PO Q6H #30 tabs 04/27/23 oxycodone 5 mg tablet 5 mg PO Q4H PRN Moderate Pain #15 04/27/23 tabs <Keyona Tidwell MD - Last Filed: 05/06/23 09:14> Allergies/adverse reactions: Allergies Allergy/AdvReac Type Severity Reaction Status Date / Time prednisone AdvReac Mild Mood Swings Verified 05/04/23 19:32 trazodone AdvReac Mild Mood Swings Verified 05/04/23 19:32 <Keyona Tidwell MD - Last Filed: 05/06/23 09:14> Review of Systems Status of ROS: Reports: 10 or more systems reviewed and unremarkable except as noted in History and below <Keyona Tidwell MD - Last Filed: 05/06/23 09:14> [facility] Medical History: Medical History premature rupture of membranes (PPROM) with onset of labor within 24 hours of rupture in third trimester, antepartum ?O42.013 - premature rupture of membranes, onset of labor within 24 hours of rupture, third trimester (ICD-10) 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 - depression (ICD-10) Depression ?F32.A - Depression, unspecified (ICD-10) Overweight ?E66.3 - Overweight (ICD-10) Disorder of both eustachian tubes ?H69.93 - Unspecified Eustachian tube disorder, bilateral (ICD-10) MELISSA (generalized anxiety disorder) ?F41.1 - Generalized anxiety disorder (ICD-10) Hyperemesis gravidarum ?O21.0 - Mild hyperemesis gravidarum (ICD-10) GERD (gastroesophageal reflux disease) ?K21.9 - Gastro-esophageal reflux disease without esophagitis (ICD-10) Bipolar disorder, unspecified ?F31.9 - Bipolar disorder, unspecified (ICD-10) Anxiety ?F41.9 - Anxiety disorder, unspecified (ICD-10) History of multiple miscarriages ?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 - Recurrent loss (ICD-10) History of ?Z87.59 - Personal history of other complications of , childbirth and the puerperium (ICD-10) <Keyona Tidwell MD - Last Filed: 05/06/23 09:14> Surgical History: Surgical History History of D&C (~03/2023) ?Z98.890 - Other specified postprocedural states (ICD-10) History of left salpingo-oophorectomy (~2017) ?Z90.79 - Acquired absence of other genital organ(s) (ICD-10) ?Z90.721 - Acquired absence of ovaries, unilateral (ICD-10) <Keyona Tidwell MD - Last Filed: 05/06/23 09:14> Social History: Social History Smoking Status: Never smoker Do you use any of these nicotine containing products: None Second hand tobacco smoke exposure: No How often do you have a drink containing alcohol: never How often do you have six or more drinks on one occasion: Never AUDIT-C Alcohol total score: 0 Non-prescribed substance use: denies use service: No <Keyona Tidwell MD - Last Filed: 05/06/23 09:14> Exam Narrative: Exam Narrative: Vital signs as noted above. In general, an alert, well-appearing patient. Head: Normocephalic, atraumatic. Eyes: Pupils are equal reactive. Extraocular movements are full. Conjunctivae are normal. ENT: Mucous membranes are moist. Throat is normal. Neck: Supple without lymphadenopathy. Heart: Regular rate and rhythm. No murmur or rub. Lungs: Clear bilaterally. No increased work of breathing, crackles or wheezes. Abdomen: Soft and nondistended. A little bit of localized tenderness but no rebound guarding or rigidity. Laparoscopic incisions are healing well, her low pelvic incision actually looks incredibly well healed. There is no erythema, drainage etcetera. Extremities: Well perfused. No edema. No calf tenderness. Pulses intact. Neurologic: Patient is alert and oriented to person and place. Speech is fluent. Face is symmetric. Moves all extremities equally. Affect: Normal. Skin: Warm and dry. Well perfused. <Keyona Tidwell MD - Last Filed: 05/06/23 09:14> Const: Vital Signs, click to edit/add: Vital Signs - 24 hr 05/04/23 18:32 05/04/23 18:36 05/04/23 18:37 Temperature 98.0 F Pulse Rate Pulse Rate [Right Pulse Oximeter] 111 H 98 Respiratory Rate 18 18 Blood Pressure Blood Pressure [Ri ght Upper Arm] 142/95 H 124/88 Pulse Oximetry 98 97 99 Oxygen Delivery Me thod Room Air Room Air Room Air 05/04/23 21:56 05/04/23 22:00 Temperature Pulse Rate 86 Pulse Rate [Right Pulse Oximeter] Respiratory Rate 12 Blood Pressure 117/86 Blood Pressure [Ri ght Upper Arm] Pulse Oximetry 98 97 Oxygen Delivery Me thod <Keyona Tidwell MD - Last Filed: 05/06/23 09:14> Vital Signs, click to edit/add: Vital Signs - 24 hr 05/04/23 18:32 05/04/23 18:36 05/04/23 18:37 Temperature 98.0 F Pulse Rate Pulse Rate [Right Pulse Oximeter] 111 H 98 Respiratory Rate 18 18 Blood Pressure Blood Pressure [Ri ght Upper Arm] 142/95 H 124/88 Pulse Oximetry 98 97 99 Oxygen Delivery Me thod Room Air Room Air Room Air 05/04/23 21:56 05/04/23 22:00 Temperature Pulse Rate 86 Pulse Rate [Right Pulse Oximeter] Respiratory Rate 12 Blood Pressure 117/86 Blood Pressure [Ri ght Upper Arm] Pulse Oximetry 98 97 Oxygen Delivery Me thod <Tarik Burton MD - Last Filed: 05/04/23 22:17> Course Course ED Course: Plan will be to establish an IV and do the CT scan as requested. Also will check a UA, basic labs. Abdominal exam is benign, certainly no evidence of peritonitis. She is afebrile here, nontoxic in appearance. Labs are notable for mildly elevated white blood cell count of 14, hemoglobin is 10.9. No significant left shift. Metabolic panel is unremarkable. Lactate is 1.3, LFTs notable for mild elevations in the transaminases otherwise benign. CRP is 4.3. UA is pretty unremarkable, 0-2 red cells, 2-[address] scan of the abdomen by my review did not show any evidence of perforation, abscess, obstruction, or other clear acute intra-abdominal findings. Awaiting radiology read. I have signed this out to Dr. Burton who will follow up on CT results, and discuss with on-call OB, and arrange disposition. <Keyona Tidwell MD - Last Filed: 05/06/23 09:14> Vital Signs Vital signs: Initial Vital Signs Temperature 98.0 F 05/04/23 18:32 Temperature Source Temporal Artery Scan 05/04/23 18:32 Pulse Rate 111 H 05/04/23 18:32 Respiratory Rate 18 05/04/23 18:32 Blood Pressure 142/95 H 05/04/23 18:32 Blood Pressure Mean 110 H 05/04/23 18:32 Blood Pressure Position Sitting 05/04/23 18:32 Pulse Oximetry 98 05/04/23 18:32 Oxygen Delivery Method Room Air 05/04/23 18:32 Vital Signs Temperature 98.0 F 05/04/23 18:32 Pulse Rate 111 H 05/04/23 18:32 Respiratory Rate 18 05/04/23 18:32 Blood Pressure 142/95 H 05/04/23 18:32 Pulse Oximetry 98 05/04/23 18:32 Oxygen Delivery Method Room Air 05/04/23 18:32 Temperature 98.0 F 05/04/23 22:27 Pulse Rate 98 05/04/23 22:27 Respiratory Rate 12 05/04/23 22:27 Blood Pressure 124/88 05/04/23 22:27 Pulse Oximetry 97 05/04/23 22:00 Oxygen Delivery Method Room Air 05/04/23 18:37 <Keyona Tidwell MD - Last Filed: 05/06/23 09:14> Initial Vital Signs Temperature 98.0 F 05/04/23 18:32 Temperature Source Temporal Artery Scan 05/04/23 18:32 Pulse Rate 111 H 05/04/23 18:32 Respiratory Rate 18 05/04/23 18:32 Blood Pressure 142/95 H 05/04/23 18:32 Blood Pressure Mean 110 H 05/04/23 18:32 Blood Pressure Position Sitting 05/04/23 18:32 Pulse Oximetry 98 05/04/23 18:32 Oxygen Delivery Method Room Air 05/04/23 18:32 Vital Signs Temperature 98.0 F 05/04/23 18:32 Pulse Rate 111 H 05/04/23 18:32 Respiratory Rate 18 05/04/23 18:32 Blood Pressure 142/95 H 05/04/23 18:32 Pulse Oximetry 98 05/04/23 18:32 Oxygen Delivery Method Room Air 05/04/23 18:32 Temperature 98.0 F 05/04/23 22:27 Pulse Rate 98 05/04/23 22:27 Respiratory Rate 12 05/04/23 22:27 Blood Pressure 124/88 05/04/23 22:27 Pulse Oximetry 97 05/04/23 22:00 Oxygen Delivery Method Room Air 05/04/23 18:37 <Tarik Burton MD - Last Filed: 05/04/23 22:17> Medical Decision Making MDM Narrative Medical decision making narrative: This patient had an abdominal surgery and came in for evaluation of possible postoperative complications. Dr. Tdiwell was caring for this patient until the end of her shift when we were just waiting for results from the radiologist report on CT imaging of her abdomen and pelvis. This returns with typical findings of postsurgical changes but no significant worrisome findings. I did speak with the OBGYN physician on-call, Dr. Davies, who reviewed the results and is satisfied with these findings. The patient has a follow-up a ppointment in 3 days and is instructed to return if worsening symptoms occur. <Tarik Burton MD - Last Filed: 05/04/23 22:17> Lab Data Labs: Lab Results 05/04/23 05/04/23 Range/Units 19:00 19:32 WBC 14.26 H (4.50-11.00) K/uL RBC 4.00 (4.00-5.20) m/uL Hgb 10.9 L (12.0-16.0) gm/dL Hct 33.8 (33.0-51.0) % MCV 85 (80-100) fL MCH 27 (26-34) pg MCHC 32 (32-36) gm/dL RDW Coeff of [place] 13.0 (11.5-15.5) % Plt Count 369 (140-440) K/uL Neut % (Auto) 65.6 (42.0-72.0) % Lymph % (Auto) 24.5 (20-44) % [place] % (Auto) 7.1 (0.0-11.0) % Eos % (Auto) 2.1 (0.0-7.0) % Baso % (Auto) 0.4 (0.0-3.0) % Neut # (Auto) 9.40 H (1.7-7.0) K/uL Lymph # (Auto) 3.50 H (0.90-2.90) K/uL [place] # (Auto) 1.00 H (0.00-0.90) K/UL Eos # (Auto) 0.30 (0.00-0.50) K/uL Baso # (Auto) 0.10 (0.00-0.30) K/uL Abs Immat Gran (auto) 0.00 (0.00-0.30) K/uL Imm/Tot Granulo (auto) 0.3 % Sodium 140 (135-149) mmol/L Potassium 3.5 L (3.6-5.1) mmol/L Chloride 98 (96-114) mmol/L Carbon Dioxide 26 (20-32) mmol/L Anion Gap 16 H (7-15) mEq/L BUN 15 (5-24) mg/dL Creatinine 0.8 (0.5-1.5) mg/dL Estimated Creat Clear 80.59 Estimated GFR 101 ml/min Glucose 103 (60-115) mg/dL Lactate 1.3 (0.5-1.9) mmol/L Calcium 9.2 (8.4-10.6) mg/dL Total Bilirubin 0.5 (0.1-1.5) mg/dL Direct Bilirubin 0.0 (0.0-0.5) mg/dL AST 45 H (12-35) U/L ALT 57 H (4-35) U/L Alkaline Phosphatase 101 (40-150) U/L C-Reactive Protein 4.3 H (0.5-1.0) mg/dL Total Protein 8.2 (6.0-8.3) g/dL Albumin 4.5 (3.3-5.0) g/dL Urine Color Yellow (Yellow) Urine Appearance Clear (Clear) Urine pH 6.5 (5.0-8.5) Ur Specific [place] 1.025 (1.000-1.030) Urine Protein Trace A (Negative) Urine Glucose (UA) Negative (Negative) Urine Ketones Negative (Negative) Urine Blood Trace-intact A (Negative) Urine Nitrite Negative (Negative) Urine Bilirubin Negative (Negative) Urine Urobilinogen 0.2 (0.2-1.0) Ur Leukocyte Esterase Trace A (Negative) Urine RBC 0-2 (0-2) Urine WBC 2-5 (0-5) Ur Squamous Epith Cells Moderate A (None-Few) Urine Bacteria Moderate A (None) <Keyona Tidwell MD - Last Filed: 05/06/23 09:14> Lab Results 05/04/23 05/04/23 Range/Units 19:00 19:32 WBC 14.26 H (4.50-11.00) K/uL RBC 4.00 (4.00-5.20) m/uL Hgb 10.9 L (12.0-16.0) gm/dL Hct 33.8 (33.0-51.0) % MCV 85 (80-100) fL MCH 27 (26-34) pg MCHC 32 (32-36) gm/dL RDW Coeff of [place] 13.0 (11.5-15.5) % Plt Count 369 (140-440) K/uL Neut % (Auto) 65.6 (42.0-72.0) % Lymph % (Auto) 24.5 (20-44) % [place] % (Auto) 7.1 (0.0-11.0) % Eos % (Auto) 2.1 (0.0-7.0) % Baso % (Auto) 0.4 (0.0-3.0) % Neut # (Auto) 9.40 H (1.7-7.0) K/uL Lymph # (Auto) 3.50 H (0.90-2.90) K/uL [place] # (Auto) 1.00 H (0.00-0.90) K/UL Eos # (Auto) 0.30 (0.00-0.50) K/uL Baso # (Auto) 0.10 (0.00-0.30) K/uL Abs Immat Gran (auto) 0.00 (0.00-0.30) K/uL Imm/Tot Granulo (auto) 0.3 % Sodium 140 (135-149) mmol/L Potassium 3.5 L (3.6-5.1) mmol/L Chloride 98 (96-114) mmol/L Carbon Dioxide 26 (20-32) mmol/L Anion Gap 16 H (7-15) mEq/L BUN 15 (5-24) mg/dL Creatinine 0.8 (0.5-1.5) mg/dL Estimated Creat Clear 80.59 Estimated GFR 101 ml/min Glucose 103 (60-115) mg/dL Lactate 1.3 (0.5-1.9) mmol/L Calcium 9.2 (8.4-10.6) mg/dL Total Bilirubin 0.5 (0.1-1.5) mg/dL Direct Bilirubin 0.0 (0.0-0.5) mg/dL AST 45 H (12-35) U/L ALT 57 H (4-35) U/L Alkaline Phosphatase 101 (40-150) U/L C-Reactive Protein 4.3 H (0.5-1.0) mg/dL Total Protein 8.2 (6.0-8.3) g/dL Albumin 4.5 (3.3-5.0) g/dL Urine Color Yellow (Yellow) Urine Appearance Clear (Clear) Urine pH 6.5 (5.0-8.5) Ur Specific [place] 1.025 (1.000-1.030) Urine Protein Trace A (Negative) Urine Glucose (UA) Negative (Negative) Urine Ketones Negative (Negative) Urine Blood Trace-intact A (Negative) Urine Nitrite Negative (Negative) Urine Bilirubin Negative (Negative) Urine Urobilinogen 0.2 (0.2-1.0) Ur Leukocyte Esterase Trace A (Negative) Urine RBC 0-2 (0-2) Urine WBC 2-5 (0-5) Ur Squamous Epith Cells Moderate A (None-Few) Urine Bacteria Moderate A (None) <Tarik Burton MD - Last Filed: 05/04/23 22:17> Imaging Data CT scan - abdomen: Radiologist's impression: Postsurgical changes in the pelvic and lower periumbilical soft tissue region with some edema/inflammation, but without drainable fluid collection. Dominant focal area phlegmonous change, measures 2.3 centimeters in the periumbilical soft tissues. Tiny focus of subcutaneous emphysema, not unexpected. Recommend correlation with physical examination to exclude cellulitis. Otherwise, no intra abdominal/pelvic abnormality. <Tarik Burton MD - Last Filed: 05/04/23 22:17> Discharge Plan Discharge Clinical Impression: Postop check, Abdominal pain <Keyona Tidwell MD - Last Filed: 05/06/23 09:14> Patient Disposition: Home w/ Parent or Adult <Keyona Tidwell MD - Last Filed: 05/06/23 09:14> Condition: Stable <Keyona Tidwell MD - Last Filed: 05/06/23 09:14> Additional Instructions: Follow-up with clinic appointment in 3 days as scheduled. Continue current plans otherwise. Return if worsening symptoms occur. <Keyona Tidwell MD - Last Filed: 05/06/23 09:14> Prescriptions: No Action escitalopram oxalate 20 mg tablet 20 mg PO DAILY fluconazole 150 mg tablet 150 mg PO Q3D phenazopyridine 200 mg tablet 200 mg PO 3XD nitrofurantoin monohyd/m-cryst 100 mg capsule 1 cap PO BID acetaminophen 500 mg Tablet 1,000 mg PO Q4H PRN (Reason: minor pain) Qty: 30 0RF docusate sodium 100 mg Capsule 100 mg PO BID PRN (Reason: Constipation) Qty: 15 0RF ibuprofen 600 mg Tablet 600 mg PO Q6H Qty: 30 0RF oxycodone 5 mg Tablet 5 mg PO Q4H PRN (Reason: Moderate Pain) Qty: 15 0RF <Keyona Tidwell MD - Last Filed: 05/06/23 09:14> Follow Up/Referrals: Provider,Not a Local [Primary Care Provider] - <Keyona Tidwell MD - Last Filed: 05/06/23 09:14> Stand Alone Forms: MyHealth Info Instructions <Keyona Tidwell MD - Last Filed: 05/06/23 09:14>
[2023-05-04] MEDS: 0.9 % SODIUM CHLORIDE 1000 ml 1,000 ML IV (19:08)
[2023-05-04 19:10] LABS: Lactate Sepsis w/Reflex* 1.3 mmol/L (0.5-1.9)
[2023-05-04 19:13] LABS: Basophils Percent Auto 0.4 % (0.0-3.0); Eosinophils Percent Auto 2.1 % (0.0-7.0); Hematocrit 33.8 % (33.0-51.0); Hemoglobin* 10.9 gm/dL (12.0-16.0); Immature Granulocytes Pct Auto 0.3 %; Lymphocytes Percent Auto 24.5 % (20-44); Mean Corpuscular HGB Conc 32 gm/dL (32-36); Mean Corpuscular Hemoglobin 27 pg (26-34); Mean Corpuscular Volume 85 fL (80-100); Monocytes Percent Auto 7.1 % (0.0-11.0); Neutrophils Percent Auto 65.6 % (42.0-72.0); Platelet Count* 369 K/uL (140-440); White Blood Count* 14.26 K/uL (4.50-11.00)
[2023-05-04 19:15] LABS: Slide Review Reflex No
--- NOTE | 2023-05-04 19:17 | ED.NURSE ---
Received report from BRAYAN Montejo.
[2023-05-04 19:25] LABS: Albumin* 4.5 g/dL (3.3-5.0); Chloride* 98 mmol/L (96-114)
[2023-05-04 19:26] LABS: Potassium* 3.5 mmol/L (3.6-5.1); Sodium* 140 mmol/L (135-149)
[2023-05-04 19:28] LABS: Creatinine* 0.8 mg/dL (0.5-1.5); Est. Creatinine Clearance* 80.59; Estimated Glomerular Filt Rate 101 ml/min
[2023-05-04 19:29] LABS: Alanine Aminotransferase* 57 U/L (4-35); Alkaline Phosphatase* 101 U/L (40-150); Anion Gap 16 mEq/L (7-15); Aspartate Amino Transferase* 45 U/L (12-35); Bilirubin Total* 0.5 mg/dL (0.1-1.5); Blood Urea Nitrogen* 15 mg/dL (5-24); Calcium* 9.2 mg/dL (8.4-10.6); Carbon Dioxide* 26 mmol/L (20-32); Glucose* 103 mg/dL (60-115); Total Protein* 8.2 g/dL (6.0-8.3)
[2023-05-04 19:32] LABS: C Reactive Protein* 4.3 mg/dL (0.5-1.0)
[2023-05-04 19:39] LABS: Appearance Urine Clear (Clear); Bilirubin Urine Negative (Negative); Blood Urine Trace-intact (Negative); Color Urine Yellow (Yellow); Glucose Urine Negative (Negative); Ketones Urine Negative (Negative); Leukocyte Esterase Urine Trace (Negative); Nitrite Urine Negative (Negative); Protein Urine Trace (Negative); Specific Gravity Urine 1.025 (1.000-1.030); Urobilinogen Urine 0.2 (0.2-1.0); pH Urine 6.5 (5.0-8.5)
[2023-05-04 19:52] LABS: Bacteria Urine Moderate; RBC Urine 0-2 (0-2); Squamous Epithelial Cell Urine Moderate (None-Few)
[2023-05-04] MEDS: HYDROmorphone 0.5 mg/0.5 ml inj IVP (21:51)
[2023-05-04 21:56] VITALS: BP 117/86; PULSE 86; RESP 12; O2SAT 98
[2023-05-04 22:00] VITALS: O2SAT 97
[2023-05-04 22:27] VITALS: BP 124/88; PULSE 98; RESP 12; TEMP 36.7
== END 2023-05-04 22:28 | disposition home or self-care (01) ==
PROVIDERS: Emergency Provider Emergency Medicine
DX: R10.9 Unspecified abdominal pain (principal)
CPT/HCPCS: 36415; 74177; 80048; 80076; 81001; 83605; 85025; 86140; 87040; 87086; 94761; 96374; 99284; J1170; J7030; Q9965; Q9967

== ENCOUNTER 2023-05-17 13:00 | Emergency (ER) | payer MEDICAID, SELFPAY ==
[2023-05-17 13:14] VITALS: BP 119/86; PULSE 120; RESP 18; TEMP 36.9; O2SAT 98; BMI 42.1
--- NOTE | 2023-05-17 14:09 | CRLHL7_ITS ---
For Patients: As a result of the Century Cures Act, medical imaging exams and procedure reports are released immediately into your electronic medical record. You may view this report before your referring provider. If you have questions, please contact your health care provider. INDICATION: Right lower quadrant pain, possible ovarian cyst. Right salpingectomy about 3 weeks ago, left salpingectomy and oophorectomy several years ago. COMPARISON: Ultrasound 04/25/2023, CT 05/04/2023 TECHNIQUE: TV: Transvaginal ultrasound of the pelvis was performed to better visualize the genitourinary organs, such as the ovaries and/or endometrium. Color-flow and spectral Doppler imaging of the right ovary ovaries is performed. FINDINGS: Reported last menstrual period: Not provided. The uterus is normal in size and position and measures 8.0 x 3.5 x 4.7 cm. No uterine masses. The endometrial stripe measures 1.0 cm in double thickness. No endometrial masses. The cervix is normal. Two small nabothian cysts. The right ovary measures 4.3 x 1.8 x 2.9 cm. Somewhat elongated tubular structure which measures 2.7 x 1.1 x 2.8 cm is seen at the right ovary. Overall, appearance is similar to the CT obtained 05/04/2023. There is normal arterial and venous color Doppler flow and normal arterial and venous waveforms on duplex Doppler. The left ovary and fallopian tube are reported to be surgically absent. In the left pelvis, clearly in the region of the left adnexa there is a simple appearing cystic structure that measures 2.0 x 1.6 x 2.1 cm. This may be a peritoneal inclusion cyst. No free fluid. IMPRESSION: Small right ovarian or adnexal cyst appears fairly similar compared to the CT obtained 05/04/2023. There is not a large amount of pelvic free fluid or hemoperitoneum. As discussed with Dr. Burton at 5:25 p.m. [employer] on 05/17/2023. Dictated by Radha Nelson MD @ 05/17/2023 5:26:45 PM (Electronically Signed)
--- NOTE | 2023-05-17 14:11 | ED.ABDPAIN ---
HPI - Abdominal Pain General Chief Complaint: Abdominal Pain Stated Complaint: Lower R abdominal pain Time Seen by Provider: 05/17/23 13:02 History of Present Illness HPI narrative: This 33-year-old female comes in reporting right lower quadrant abdominal pain that began rather suddenly last evening. She states that she has a history of ovarian cysts. She has had her left ovary and fallopian tube removed in the more distant past and her right fallopian tube removed about a month ago. She reports some chills and measured a temperature of 100? F. She arrives here with normal vital signs. She does have pain in the right lower quadrant with rebound tenderness that is suspicious for an ovarian cyst. She states that she still has her appendix. Related Data Home Medications Medication Instructions Recorded Confirmed escitalopram oxalate 20 mg tablet 20 mg PO DAILY 03/13/23 05/17/23 Previous Rx's Medication Instructions Recorded acetaminophen 500 mg tablet 1,000 mg (2 x 500 mg) PO Q4H PRN 04/27/23 minor pain #30 tabs docusate sodium 100 mg capsule 100 mg PO BID PRN Constipation #15 04/27/23 caps ibuprofen 600 mg tablet 600 mg PO Q6H #30 tabs 04/27/23 oxycodone 5 mg tablet 5 mg PO Q4H PRN Moderate Pain #15 04/27/23 tabs lidocaine 4 % topical patch 1 patch topical Q24H PRN pain #15 05/07/23 (Lidocaine Pain Relief) ea hydrocodone 5 mg-acetaminophen 325 1 tab PO Q4-6H PRN pain #15 tabs 05/17/23 mg tablet ketorolac 10 mg tablet 10 mg PO Q8H 5 days #15 tabs 05/17/23 Allergies Allergy/AdvReac Type Severity Reaction Status Date / Time prednisone AdvReac Mild Mood Swings Verified 05/07/23 13:54 trazodone AdvReac Mild Mood Swings Verified 05/07/23 13:54 Review of Systems Status of ROS Reports: 10 or more systems reviewed and unremarkable except as noted in History and below Narrative Constitutional: No fevers, no weight gain or loss. Eyes: No discharge. No vision changes. HENT: No congestion, no sore throat, no ear pain. Cardiovascular: No chest pain, no palpitations. Respiratory: No shortness of breath, no wheezes, no cough. Gastrointestinal: No vomiting, no diarrhea. Right lower quadrant abdominal pain. Genitourinary: No dysuria, no hematuria. Musculoskeletal: Normal range of motion. Skin: No rashes, no pruritis. Neurological: No dizziness, weakness, sensory change, speech change. Endo/Heme/Allergies: No bruising or bleeding. No polydipsia. Pysch: no suicidality, no anxiety, no insomnia. All other systems reviewed and are negative. [facility] Medical History premature rupture of membranes (PPROM) with onset of labor within 24 hours of rupture in third trimester, antepartum ?O42.013 - premature rupture of membranes, onset of labor within 24 hours of rupture, third trimester (ICD-10) 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 - depression (ICD-10) Depression ?F32.A - Depression, unspecified (ICD-10) Overweight ?E66.3 - Overweight (ICD-10) Disorder of both eustachian tubes ?H69.93 - Unspecified Eustachian tube disorder, bilateral (ICD-10) MELISSA (generalized anxiety disorder) ?F41.1 - Generalized anxiety disorder (ICD-10) Hyperemesis gravidarum ?O21.0 - Mild hyperemesis gravidarum (ICD-10) GERD (gastroesophageal reflux disease) ?K21.9 - Gastro-esophageal reflux disease without esophagitis (ICD-10) Bipolar disorder, unspecified ?F31.9 - Bipolar disorder, unspecified (ICD-10) Anxiety ?F41.9 - Anxiety disorder, unspecified (ICD-10) History of multiple miscarriages ?N96 - Recurrent loss (ICD-10) History of ?Z87.59 - Personal history of other complications of , childbirth and the puerperium (ICD-10) Surgical History History of D&C (~03/2023) ?Z98.890 - Other specified postprocedural states (ICD-10) History of left salpingo-oophorectomy (~2017) ?Z90.79 - Acquired absence of other genital organ(s) (ICD-10) ?Z90.721 - Acquired absence of ovaries, unilateral (ICD-10) Social History Smoking Status: Never smoker Do you use any of these nicotine containing products: None Second hand tobacco smoke exposure: No How often do you have a drink containing alcohol: never How often do you have six or more drinks on one occasion: Never AUDIT-C Alcohol total score: 0 Non-prescribed substance use: denies use Little interest or pleasure in doing things: several days Feeling down, depressed, or hopeless: more than half the days service: No Exam Narrative: Exam Narrative: Constitutional: Well-developed, well-nourished, no acute distress. HEENT: Normocephalic, atraumatic. Neck: Normal range of motion. Nontender. Supple. Heart: Regular. No murmurs. Normal rate. Intact distal pulses. Lungs: Clear to auscultation. No chest discomfort. No wheezes, rhonchi, or rales. Abdomen: Normal bowel sounds. Tenderness in the right lower quadrant overlying the area where the right ovary typically would be. Rebound tenderness is present. Genitalia: Deferred. Back: No midline tenderness. Normal range of motion. Extremities: Normal range of motion. No injury. Skin: Intact. No rash. Warm. No erythema or pallor. Neurologic: No altered sensation. No weakness. Alert and oriented. Psychiatric: No suicidality. No anxiety or depression. No insomnia. Nursing notes and vitals signs are reviewed. Const: Vital Signs, click to edit/add: Vital Signs - 24 hr 05/17/23 13:14 05/17/23 16:50 Temperature 98.4 F Pulse Rate [Pulse Oximeter] 120 H 99 Respiratory Rate 18 18 Blood Pressure [Ri ght Upper Arm] 119/86 130/78 Pulse Oximetry 98 99 Oxygen Delivery Me thod Room Air Course Vital Signs Vital signs: Initial Vital Signs Temperature 98.4 F 05/17/23 13:14 Temperature Source Temporal Artery Scan 05/17/23 13:14 Pulse Rate 120 H 05/17/23 13:14 Respiratory Rate 18 05/17/23 13:14 Blood Pressure 119/86 05/17/23 13:14 Blood Pressure Mean 97 05/17/23 13:14 Blood Pressure Position Sitting 05/17/23 13:14 Pulse Oximetry 98 05/17/23 13:14 Oxygen Delivery Method Room Air 05/17/23 13:14 Vital Signs Temperature 98.4 F 05/17/23 13:14 Pulse Rate 120 H 05/17/23 13:14 Respiratory Rate 18 05/17/23 13:14 Blood Pressure 119/86 05/17/23 13:14 Pulse Oximetry 98 05/17/23 13:14 Oxygen Delivery Method Room Air 05/17/23 13:14 Temperature 98.4 F 05/17/23 13:14 Pulse Rate 99 05/17/23 16:50 Respiratory Rate 18 05/17/23 16:50 Blood Pressure 130/78 05/17/23 16:50 Pulse Oximetry 99 05/17/23 16:50 Oxygen Delivery Method Room Air 05/17/23 13:14 Medications Administered Medications: Discontinued Medications Generic Name Dose Route Start Last Admin Trade Name Freq PRN Reason Stop Dose Admin Hydromorphone HCl 0.5 mg 05/17/23 17:24 05/17/23 17:31 Hydromorphone 0.5 Mg/0.5 Ml Inj IVP 05/17/23 17:25 0.5 mg ONCE ONE Administration Ketorolac Tromethamine 30 mg 05/17/23 14:09 05/17/23 14:25 Ketorolac 30 Mg/Ml Inj IVP 05/17/23 14:10 30 mg ONCE ONE Administration MDM - Abdominal Pain MDM Narrative Medical decision making narrative: This patient comes in with rather sudden onset of right lower quadrant abdominal pain that she states is similar to ovarian cyst that she has had in the past numerous times. She had a surgery about 3 weeks ago where her right fallopian tube was removed. There were also some adhesions at that time identified in the surgery. Today she arrives with right lower quadrant pain but has normal vital signs. An IV was established and labs are acquired which returned with reassuring findings. Her white count is slightly elevated at 11.5. An ultrasound of the pelvis by transvaginal approaches obtained and does show reassuring findings. There is a small cyst on the right ovary. This may be leaking fluid to explain the patient's pain. She may have postoperative pain related to adhesions. There are no findings that trigger concern otherwise at this time. I stated that we could do a CT scan of the abdomen again but this was just done less than 2 weeks ago. The patient feels okay to return home and did received prescriptions for Toradol and some tablets of [place]. I advised her to return if she acquires of fever or pain is not improving. Lab Data Labs: Lab Results 05/17/23 Range/Units 14:20 WBC 11.56 H (4.50-11.00) K/uL RBC 4.28 (4.00-5.20) m/uL Hgb 11.5 L (12.0-16.0) gm/dL Hct 35.3 (33.0-51.0) % MCV 83 (80-100) fL MCH 27 (26-34) pg MCHC 33 (32-36) gm/dL RDW Coeff of Foster 13.0 (11.5-15.5) % Plt Count 238 (140-440) K/uL Neut % (Auto) 70.3 (42.0-72.0) % Lymph % (Auto) 20.3 (20-44) % [place] % (Auto) 7.3 (0.0-11.0) % Eos % (Auto) 1.7 (0.0-7.0) % Baso % (Auto) 0.2 (0.0-3.0) % Neut # (Auto) 8.10 H (1.7-7.0) K/uL Lymph # (Auto) 2.30 (0.90-2.90) K/uL [place] # (Auto) 0.80 (0.00-0.90) K/UL Eos # (Auto) 0.20 (0.00-0.50) K/uL Baso # (Auto) 0.00 (0.00-0.30) K/uL Abs Immat Gran (auto) 0.00 (0.00-0.30) K/uL Imm/Tot Granulo (auto) 0.2 % Sodium 138 (135-149) mmol/L Potassium 3.7 (3.6-5.1) mmol/L Chloride 104 (96-114) mmol/L Carbon Dioxide 24 (20-32) mmol/L Anion Gap 10 (7-15) mEq/L BUN 12 (5-24) mg/dL Creatinine 0.7 (0.5-1.5) mg/dL Estimated Creat Clear 92.10 Estimated GFR 119 ml/min Glucose 96 (60-115) mg/dL Calcium 9.0 (8.4-10.6) mg/dL Imaging Data US - abdomen: Radiologist's impression: Small right ovarian or adnexal cyst appears fairly similar compared to the CT obtained 05/04/2023. There is not a large amount of pelvic free fluid or hemoperitoneum. Discharge Plan Discharge Clinical Impression: Ovarian cyst, Abdominal pain Patient Disposition: Home, Self-Care Condition: Stable Additional Instructions: Take medications as needed and indicated. Follow up with MD or return if symptoms are persistent or worsening. Prescriptions: New hydrocodone-acetaminophen 5-325 mg tablet 1 tab PO Q4-6H PRN (Reason: pain) Qty: 15 0RF ketorolac 10 mg tablet 10 mg PO Q8H 5 Days Qty: 15 0RF No Action lidocaine [Lidocaine Pain Relief] 4 % adhesive patch,medicated 1 patch topical Q24H PRN (Reason: pain) Qty: 15 1RF Rx Instructions: may leave on for up to 12 hrs escitalopram oxalate 20 mg tablet 20 mg PO DAILY acetaminophen 500 mg Tablet 1,000 mg PO Q4H PRN (Reason: minor pain) Qty: 30 0RF docusate sodium 100 mg Capsule 100 mg PO BID PRN (Reason: Constipation) Qty: 15 0RF ibuprofen 600 mg Tablet 600 mg PO Q6H Qty: 30 0RF oxycodone 5 mg Tablet 5 mg PO Q4H PRN (Reason: Moderate Pain) Qty: 15 0RF Follow Up/Referrals: Ema Naylor MD [Primary Care Provider] - Stand Alone Forms: [facility] Info Instructions
[2023-05-17] MEDS: KETOROLAC 30 MG/ML inj IVP (14:25)
[2023-05-17 14:34] LABS: Basophils Percent Auto 0.2 % (0.0-3.0); Eosinophils Percent Auto 1.7 % (0.0-7.0); Hematocrit 35.3 % (33.0-51.0); Hemoglobin* 11.5 gm/dL (12.0-16.0); Immature Granulocytes Pct Auto 0.2 %; Lymphocytes Percent Auto 20.3 % (20-44); Mean Corpuscular HGB Conc 33 gm/dL (32-36); Mean Corpuscular Hemoglobin 27 pg (26-34); Mean Corpuscular Volume 83 fL (80-100); Monocytes Percent Auto 7.3 % (0.0-11.0); Neutrophils Percent Auto 70.3 % (42.0-72.0); Platelet Count* 238 K/uL (140-440); Red Blood Count 4.28 m/uL (4.00-5.20); White Blood Count* 11.56 K/uL (4.50-11.00)
[2023-05-17 14:41] LABS: Slide Review Reflex No
[2023-05-17 14:52] LABS: Chloride* 104 mmol/L (96-114); Sodium* 138 mmol/L (135-149)
[2023-05-17 14:53] LABS: Potassium* 3.7 mmol/L (3.6-5.1)
[2023-05-17 14:55] LABS: Anion Gap 10 mEq/L (7-15); Carbon Dioxide* 24 mmol/L (20-32); Creatinine* 0.7 mg/dL (0.5-1.5); Estimated Glomerular Filt Rate 119 ml/min
[2023-05-17 14:56] LABS: Blood Urea Nitrogen* 12 mg/dL (5-24); Glucose* 96 mg/dL (60-115)
[2023-05-17 16:50] VITALS: BP 130/78; PULSE 99; RESP 18; O2SAT 99
[2023-05-17] MEDS: HYDROmorphone 0.5 mg/0.5 ml inj IVP (17:31)
== END 2023-05-17 18:13 | disposition home or self-care (01) ==
PROVIDERS: Emergency Provider Emergency Medicine Emergency Medical Services; PCP Obstetrics & Gynecology
DX: N83.201 Unspecified ovarian cyst, right side (principal)
CPT/HCPCS: 36415; 76830; 80048; 85025; 93976; 96374; 96375; 99284; J1170; J1885

== ENCOUNTER 2023-05-29 12:53 | Emergency (ER) | payer MEDICAID, SELFPAY ==
[2023-05-29 12:55] VITALS: BP 122/82; PULSE 98; RESP 18; TEMP 36.2; O2SAT 99; BMI 42.1
--- NOTE | 2023-05-29 13:17 | ED_ITS ---
HPI - Back Pain/Injury General Time Seen by Provider: 13:17 Date Seen: 05/29/23 Chief Complaint: Back Injury/Pain Stated Complaint: Severe back pain Time Seen by Provider: 05/29/23 13:17 Source: patient and RN notes reviewed Mode of arrival: ambulatory Limitations: no limitations History of Present Illness HPI Narrative: This 33-year-old female is coming in with low back pain, right greater than left. It started last night. She has noted some pain into her back with urination. She is noticing no hematuria, no dysuria, no fevers. She has had urinary tract infection before but has never had any history of kidney infection per report. She has had some nausea overnight with this. Normal bowel movements. No chance for , both fallopian tubes are gone, 6 weeks ago had to have a fallopian tube a and ovary removed. Since that surgery, has been doing physical therapy for left thigh a numbness, likely reportedly stemming from positioning. The pain does not go into her legs. When she moves her legs, sometimes she will feel increased low back pain. She has not tried anything at home for her symptoms. MD elicited complaint: back pain Related Data Home Medications Medication Instructions Recorded Confirmed escitalopram oxalate 20 mg tablet 20 mg PO DAILY 03/13/23 05/17/23 Previous Rx's Medication Instructions Recorded acetaminophen 500 mg tablet 1,000 mg (2 x 500 mg) PO Q4H PRN 04/27/23 minor pain #30 tabs docusate sodium 100 mg capsule 100 mg PO BID PRN Constipation #15 04/27/23 caps ibuprofen 600 mg tablet 600 mg PO Q6H #30 tabs 04/27/23 oxycodone 5 mg tablet 5 mg PO Q4H PRN Moderate Pain #15 04/27/23 tabs lidocaine 4 % topical patch 1 patch topical Q24H PRN pain #15 05/07/23 (Lidocaine Pain Relief) ea hydrocodone 5 mg-acetaminophen 325 1 tab PO Q4-6H PRN pain #15 tabs 05/17/23 mg tablet ketorolac 10 mg tablet 10 mg PO Q8H 5 days #15 tabs 05/17/23 cephalexin 500 mg tablet 500 mg PO TID #15 tabs 05/29/23 Allergies Allergy/AdvReac Type Severity Reaction Status Date / Time prednisone AdvReac Mild Mood Swings Verified 05/07/23 13:54 trazodone AdvReac Mild Mood Swings Verified 05/07/23 13:54 Review of Systems Status of ROS: Reports: 6 or more systems reviewed and unremarkable except as noted in History and below [facility] Medical History premature rupture of membranes (PPROM) with onset of labor within 24 hours of rupture in third trimester, antepartum ?O42.013 - premature rupture of membranes, onset of labor within 24 hours of rupture, third trimester (ICD-10) 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 - depression (ICD-10) Depression ?F32.A - Depression, unspecified (ICD-10) Overweight ?E66.3 - Overweight (ICD-10) Disorder of both eustachian tubes ?H69.93 - Unspecified Eustachian tube disorder, bilateral (ICD-10) MELISSA (generalized anxiety disorder) ?F41.1 - Generalized anxiety disorder (ICD-10) Hyperemesis gravidarum ?O21.0 - Mild hyperemesis gravidarum (ICD-10) GERD (gastroesophageal reflux disease) ?K21.9 - Gastro-esophageal reflux disease without esophagitis (ICD-10) Bipolar disorder, unspecified ?F31.9 - Bipolar disorder, unspecified (ICD-10) Anxiety ?F41.9 - Anxiety disorder, unspecified (ICD-10) History of multiple miscarriages ?N96 - Recurrent loss (ICD-10) History of ?Z87.59 - Personal history of other complications of , childbirth and the puerperium (ICD-10) Surgical History History of D&C (~03/2023) ?Z98.890 - Other specified postprocedural states (ICD-10) History of left salpingo-oophorectomy (~2017) ?Z90.79 - Acquired absence of other genital organ(s) (ICD-10) ?Z90.721 - Acquired absence of ovaries, unilateral (ICD-10) Social History Smoking Status: Never smoker Do you use any of these nicotine containing products: None Second hand tobacco smoke exposure: No How often do you have a drink containing alcohol: never How often do you have six or more drinks on one occasion: Never AUDIT-C Alcohol total score: 0 Non-prescribed substance use: denies use Little interest or pleasure in doing things: several days Feeling down, depressed, or hopeless: more than half the days service: No Exam Const: Vital Signs, click to edit/add: Vital Signs - 24 hr 05/29/23 12:55 05/29/23 14:57 Temperature 97.2 F L Pulse Rate [Pulse Oximeter] 98 74 Respiratory Rate 18 Blood Pressure [Ri ght Upper Arm] 122/82 124/82 Pulse Oximetry 99 100 Oxygen Delivery Me thod Room Air Room Air 33-year-old female is alert, interactive , no apparent distress. Initially had her eyes closed when I came in but it is very pleasant and conversive with me. Sclera clear. Able speak in complete sentences. Lungs clear with good air entry, no wheezing or crackles. CV regular rate and rhythm, no murmur, normal S1-S2 no S3-S4. Abdomen is soft, mild tenderness which she states is from her prior surgery, this is in the suprapubic area. Otherwise no rebound or guarding, nontender elsewhere. Patient is able to roll onto her side, no midline tenderness of her back. Points to her low back where she is feeling her symptoms more she is feeling in both low back areas but right is greater than left. There is no significant tenderness on palpation of her low back area. She is ambulatory into the ER of her own accord. Documenting provider has reviewed patient's vital signs: yes Course Course ED Course: Patient does have low back pain that seems to be associated with increased pain with urination. Urinary system infection certainly comes to mind. It is possible that this could just be a low back issue. Urinalysis has been collected, will also order some basic labs. At this time I do not see that we need any imaging. Reevaluation(s) Time of Reevaluation #1: 14:05 Reevaluation #1: Reviewed with patient that her urine certainly looks infected. They will work to start an IV, obtain the basic labs I have ordered. I have ordered 2 g IV Rocephin. Would appear that she has urinary tract infection. Time of Reevaluation #2: 15:14 Reevaluation #2: Reviewed with patient her laboratory findings, it appears that she has a UTI. White blood count is normal. She has received her IV Rocephin here, is feeling better. Vital Signs Vital signs: Initial Vital Signs Temperature 97.2 F L 05/29/23 12:55 Temperature Source Temporal Artery Scan 05/29/23 12:55 Pulse Rate 98 05/29/23 12:55 Respiratory Rate 18 05/29/23 12:55 Blood Pressure 122/82 05/29/23 12:55 Blood Pressure Mean 95 05/29/23 12:55 Blood Pressure Position Supine 05/29/23 12:55 Pulse Oximetry 99 05/29/23 12:55 Oxygen Delivery Method Room Air 05/29/23 12:55 Vital Signs Temperature 97.2 F L 05/29/23 12:55 Pulse Rate 98 05/29/23 12:55 Respiratory Rate 18 05/29/23 12:55 Blood Pressure 122/82 05/29/23 12:55 Pulse Oximetry 99 05/29/23 12:55 Oxygen Delivery Method Room Air 05/29/23 12:55 Temperature 97.2 F L 05/29/23 12:55 Pulse Rate 74 05/29/23 14:57 Respiratory Rate 18 05/29/23 12:55 Blood Pressure 124/82 05/29/23 14:57 Pulse Oximetry 100 05/29/23 14:57 Oxygen Delivery Method Room Air 05/29/23 14:57 Medications Administered Medications: Discontinued Medications Generic Name Dose Route Start Last Admin Trade Name Freq PRN Reason Stop Dose Admin Ceftriaxone Sodium 2 gm/ 100 mls @ 200 mls/hr 05/29/23 14:04 05/29/23 14:59 Sodium Chloride IVPB 05/29/23 14:05 Infused ONCE ONE Infusion Ketorolac Tromethamine 15 mg 05/29/23 13:32 05/29/23 14:17 Ketorolac 15 Mg/Ml Inj IVP 05/29/23 13:33 15 mg ONCE ONE Administration Ondansetron HCl 4 mg 05/29/23 13:32 05/29/23 14:15 Ondansetron 2 Mg/Ml Inj IVP 05/29/23 13:33 4 mg ONCE ONE Administration MDM - Back Pain/Injury Medical Records Attestation: I reviewed the patient's medical records. Medical records narrative: Did review patient's CT reports from both April 25 and the from this year. Neither of those had any evidence of any kidney stones. Thus, do not feel we need to reimage, do not have concerns at this time that were missing underlying obstructive urinary pathology. Lab Data Attestation: I reviewed the patient's lab results. Labs: Lab Results 05/29/23 05/29/23 Range/Units 14:10 Unknown WBC 8.57 (4.50-11.00) K/uL RBC 4.37 (4.00-5.20) m/uL Hgb 11.8 L (12.0-16.0) gm/dL Hct 36.8 (33.0-51.0) % MCV 84 (80-100) fL MCH 27 (26-34) pg MCHC 32 (32-36) gm/dL RDW Coeff of Foster 13.5 (11.5-15.5) % Plt Count 207 (140-440) K/uL Neut % (Auto) 61.3 (42.0-72.0) % Lymph % (Auto) 29.3 (20-44) % [place] % (Auto) 6.0 (0.0-11.0) % Eos % (Auto) 2.8 (0.0-7.0) % Baso % (Auto) 0.4 (0.0-3.0) % Neut # (Auto) 5.26 (1.7-7.0) K/uL Lymph # (Auto) 2.51 (0.90-2.90) K/uL [place] # (Auto) 0.50 (0.00-0.90) K/UL Eos # (Auto) 0.24 (0.00-0.50) K/uL Baso # (Auto) 0.03 (0.00-0.30) K/uL Abs Immat Gran (auto) 0.02 (0.00-0.30) K/uL Imm/Tot Granulo (auto) 0.2 % Sodium 139 (135-149) mmol/L Potassium 3.8 (3.6-5.1) mmol/L Chloride 104 (96-114) mmol/L Carbon Dioxide 25 (20-32) mmol/L Anion Gap 10 (7-15) mEq/L BUN 11 (5-24) mg/dL Creatinine 0.9 (0.5-1.5) mg/dL Estimated Creat Clear 71.63 Estimated GFR 88 ml/min Glucose 98 (60-115) mg/dL Calcium 8.9 (8.4-10.6) mg/dL Urine Color Yellow (Yellow) Urine Appearance Slightly Cloudy A (Clear) Urine pH 5.5 (5.0-8.5) Ur Specific [place] 1.020 (1.000-1.030) Urine Protein Negative (Negative) Urine Glucose (UA) Negative (Negative) Urine Ketones Negative (Negative) Urine Blood Trace-intact A (Negative) Urine Nitrite Positive A (Negative) Urine Bilirubin Negative (Negative) Urine Urobilinogen 0.2 (0.2-1.0) Ur Leukocyte Esterase Trace A (Negative) Urine RBC 2-5 A (0-2) Urine WBC 5-10 A (0-5) Ur Squamous Epith Cells Few (None-Few) Urine Bacteria Many A (None) Critical Care Time Critical Care Time Critical Care Time: No Discharge Plan Discharge Clinical Impression: UTI (urinary tract infection) Patient Disposition: Home, Self-Care Condition: Stable Instructions: Urinary Tract Infection in Women (ED) Additional Instructions: Start oral antibiotic tomorrow morning and take as prescribed. Can use Tylenol and/or ibuprofen per bottle directions if needed for discomfort. If you are not improving over the next couple days, are worsening at any point with development of fevers, abdominal pain, vomiting, do recommend re-evaluation. Do recommend drinking plenty of fluids. Activity Level: Activity as Tolerated Prescriptions: New cephalexin 500 mg tablet 500 mg PO TID Qty: 15 0RF No Action lidocaine [Lidocaine Pain Relief] 4 % adhesive patch,medicated 1 patch topical Q24H PRN (Reason: pain) Qty: 15 1RF Rx Instructions: may leave on for up to 12 hrs escitalopram oxalate 20 mg tablet 20 mg PO DAILY hydrocodone-acetaminophen 5-325 mg tablet 1 tab PO Q4-6H PRN (Reason: pain) Qty: 15 0RF ketorolac 10 mg tablet 10 mg PO Q8H 5 Days Qty: 15 0RF acetaminophen 500 mg Tablet 1,000 mg PO Q4H PRN (Reason: minor pain) Qty: 30 0RF docusate sodium 100 mg Capsule 100 mg PO BID PRN (Reason: Constipation) Qty: 15 0RF ibuprofen 600 mg Tablet 600 mg PO Q6H Qty: 30 0RF oxycodone 5 mg Tablet 5 mg PO Q4H PRN (Reason: Moderate Pain) Qty: 15 0RF Follow Up/Referrals: Ema Naylor MD [Primary Care Provider] - Stand Alone [facility]
[2023-05-29 14:00] LABS: Appearance Urine Slightly Cloudy (Clear); Bilirubin Urine Negative (Negative); Blood Urine Trace-intact (Negative); Color Urine Yellow (Yellow); Glucose Urine Negative (Negative); Ketones Urine Negative (Negative); Leukocyte Esterase Urine Trace (Negative); Nitrite Urine Positive (Negative); Protein Urine Negative (Negative); Urobilinogen Urine 0.2 (0.2-1.0); pH Urine 5.5 (5.0-8.5)
[2023-05-29 14:12] LABS: Bacteria Urine Many; Squamous Epithelial Cell Urine Few (None-Few)
[2023-05-29] MEDS: ONDANSETRON 2 MG/ML inj 4 MG IVP (14:15)
[2023-05-29] MEDS: KETOROLAC 15 MG/ML inj IVP (14:17)
[2023-05-29 14:18] LABS: Basophils Absolute Auto 0.03 K/uL (0.00-0.30); Basophils Percent Auto 0.4 % (0.0-3.0); Eosinophils Absolute Auto 0.24 K/uL (0.00-0.50); Eosinophils Percent Auto 2.8 % (0.0-7.0); Hematocrit 36.8 % (33.0-51.0); Hemoglobin* 11.8 gm/dL (12.0-16.0); Immature Granulocytes Abs Auto 0.02 K/uL (0.00-0.30); Immature Granulocytes Pct Auto 0.2 %; Lymphocytes Absolute Auto 2.51 K/uL (0.90-2.90); Lymphocytes Percent Auto 29.3 % (20-44); Mean Corpuscular HGB Conc 32 gm/dL (32-36); Mean Corpuscular Hemoglobin 27 pg (26-34); Mean Corpuscular Volume 84 fL (80-100); Neutrophils Absolute Auto 5.26 K/uL (1.7-7.0); Neutrophils Percent Auto 61.3 % (42.0-72.0); Platelet Count* 207 K/uL (140-440); RDW Coefficient of Variation % 13.5 % (11.5-15.5); Red Blood Count 4.37 m/uL (4.00-5.20); White Blood Count* 8.57 K/uL (4.50-11.00)
[2023-05-29 14:22] LABS: Slide Review Reflex No
[2023-05-29] MEDS: cefTRIAXone 2 GM in 0.9 % SODIUM CHLORIDE Mini-bag 100 ML IVPB (14:22)
[2023-05-29 14:49] LABS: Chloride* 104 mmol/L (96-114); Potassium* 3.8 mmol/L (3.6-5.1); Sodium* 139 mmol/L (135-149)
[2023-05-29 14:52] LABS: Anion Gap 10 mEq/L (7-15); Blood Urea Nitrogen* 11 mg/dL (5-24); Carbon Dioxide* 25 mmol/L (20-32); Creatinine* 0.9 mg/dL (0.5-1.5); Est. Creatinine Clearance* 71.63; Estimated Glomerular Filt Rate 88 ml/min; Glucose* 98 mg/dL (60-115)
[2023-05-29 14:53] LABS: Calcium* 8.9 mg/dL (8.4-10.6)
[2023-05-29 14:57] VITALS: BP 124/82; PULSE 74; O2SAT 100
== END 2023-05-29 15:32 | disposition home or self-care (01) ==
PROVIDERS: Emergency Provider Family Medicine; PCP Obstetrics & Gynecology
DX: N39.0 Urinary tract infection, site not specified (principal)
CPT/HCPCS: 36415; 80048; 81001; 85025; 87086; 87186; 96365; 96375; 99283; 99284; J0696; J1885; J2405

== ENCOUNTER 2023-08-26 14:00 | Outpatient (RCR) | payer MEDICAID, SELFPAY | END 2023-10-12 14:29 | disposition home or self-care (01) | PROVIDERS: PCP Obstetrics & Gynecology; Visit Provider Obstetrics & Gynecology | DX: K66.0 Peritoneal adhesions (postprocedural) (postinfection) (principal); R20.0 Anesthesia of skin; R26.81 Unsteadiness on feet; R29.898 Other symptoms and signs involving the musculoskeletal system; M54.50 Low back pain, unspecified; Z74.09 Other reduced mobility; R53.1 Weakness; Z51.89 Encounter for other specified aftercare | CPT/HCPCS: 97110; 97140; 97162; 97164 ==

== ENCOUNTER 2023-11-15 14:47 | Outpatient (CLI) | payer MEDICAID, SELFPAY ==
--- OUTSIDE RECORDS SUMMARY | 2023-11-15 14:49 | XMS_ITS | Referral Summary ---
Author Name Unknown Organization [facility] Address [address] [place] [id number] Care Team Providers Care Clipman Name Role Phone Esperanza Mcbride Primary Care Provider Unavailab le Allergies No known active allergies Medications No known medications Active Problems Problem Noted Date Diagnosed Date PID (pelvic inflammatory disease) 06/04/2018 LLQ abdominal pain 06/03/2018 Encounter for care of lactating harsh r 06/03/2018 IUD (intrauterine device) in place 06/03/2018 Bacterial vaginosis 06/03/2018 Left ovarian cyst 06/03/2018 Endometritis 06/03/2018 Social History Tobacco Use Types Packs/Day Years Used Date Smoking Tobacco: Never Smokeless Tobacco: Never Alcohol Use Standard Drinks/Week Comments No 0 (1 standard drink = 0.6 oz pur e alcohol) Adolescent Education Answer Date Record ed Getting School Help Needed Not on file 04/18 Sex and Gender Information Value Date Recorded Sex Assigned at Not on file Gender Identity Not on file Sexual Orientation Not on file Last Filed Vital Signs Vital Sign Reading Time Taken Comments Blood Pressure 125/89 06/06/2018 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 Pulse 112 06/03/2018 5:50 AM [employer]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 Temperature 36.9 ??C (98.5 ??F) 06/06/2018 11:[address] Respiratory Rate 18 06/06/2018 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 Oxygen Saturation 97% 06/06/2018 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 Inhaled Oxygen Concentration - - Weight 86.6 kg (191 lb) 06/03/2018 11:53 AM [employer]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
--- OUTSIDE RECORDS SUMMARY | 2023-11-15 14:49 | XMS_ITS | Encounter Summary ---
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 communications manager [address] [place] [address] Maria Del Carmen Mueller MD [address] [place] [address] Refill (escitalopram oxalate (LEXAPRO) 20 MG tablet [Pharmacy Med Name: ESCITALOPRAM 20 MG TABLET]) Social History Tobacco Use Types Packs/Day Years Used Date Smoking Tobacco: Never Smokeless Tobacco: Never Alcohol Use Standard Drinks/Week Comments Not Currently 0 (1 standard drink = 0.6 oz pur e alcohol) Sex and Gender Information Value Date Recorded Sex Assigned at Not on file Gender Identity Not on file Sexual Orientation Not on file documented as of this encounter Nursing Notes * Rebekah Gaona RN - 08/09/2023 3:26 PM CST RN will deny per message below COREMAKER * Linda Hunter - 08/09/2023 3:17 PM CST Patient states she no longer comes to this clinic and she will contact her pharmacy. Patient asks we disregard this request. Routing back to refill team to remove pended medication and close encounter. 08/09/23 3:18 PM COREMAKER * Shae Pinzon - 08/09/2023 3:11 PM CST Medication Refill - Due for Visit Medication still pending, patient is due to be seen in the next 30 days. Called patient, was: unable to reach patient. 1st call attempted. Left message to call back. Scheduling Action: Patient needs to schedule an appointment in the next 30 days. If able to schedule, please document date of appointment and route to clinician/pool identified in nursing documentation below. COREMAKER * Marion Luna - 08/09/2023 1:36 PM CST Further Assistance Needed on Refill from [employer] Patient is due for Qualifying Visit with OBGYN. Medication is still pending. Patient is due for a Office/Video Visit in the next 90 days.. Call Patient and document using .JEREDSHA. After attempting to schedule patient: Please route to: Dr. Fritz castillo previously signed by Dr. Mueller. Requested Prescriptions Pending Prescriptions Disp Refills escitalopram oxalate (LEXAPRO) 20 MG tablet [Pharmacy Med Name: ESCITALOPRAM 20 MG TABLET] 90 Tablet 0 Sig: TAKE 1 TABLET BY MOUTH EVERY DAY COREMAKER * Rosendo, Aide Surescripts Prov Query - 08/07/2023 12:32 PM CST escitalopram oxalate (LEXAPRO) 20 MG tablet [Pharmacy Med Name: ESCITALOPRAM 20 MG TABLET] Antidepressants -> The most recent order on 06/02/2023. -> Refill x 3 months (until due for an office visit) Last qualifying visit: 10/12/2022 (with CONRAD GOMEZ) Next scheduled visit: None Last ordered by MARIA DEL CARMEN MUELLER M: 06/02/2022 (431 days ago) QTY: 90, Refills: 3, Sig: take 1 tablet (20 mg) by mouth daily. (changed but equivalent) Age: 33 [employer] Emb[employer]ded Refills, Reference: [id number], 08/07/2023 12:32:23 PM HAND COREMAKER, Pool: JACOBO MAK RN ([id number]) COREMAKER documented in this encounter Plan of Treatment Not on file documented as of this encounter Visit Diagnoses Not on filedocumented in this encounter Care Teams Genetic Counselor Relationship Specialty Start Date End Date No Primary/Referring, Phy PCP - General 02/17/22 documented as of this encounter
--- OUTSIDE RECORDS SUMMARY | 2023-11-15 14:49 | XMS_ITS | Clinical Summary ---
Author Name Unknown Organization [facility] Address [address] [place] [address] Care Team Providers Care Restorative Care Technician Name Role Phone No Primary/Referring, Phy Primary Care Provider Unavailable Source Comments You are receiving this document as you are listed as the primary care provider,follow-up provider, or the patient has been referred to you for consultation.This is in compliance with the Medicare and[facility] EHR Incentive Program,which states Providers who transition their patient to another setting of careor provider of care or refers their patient to another provider of care shouldprovide summary care record for each transition of care or referral. [place]akie/Budist Allergies Active Allergy Reactions Criticality Noted Date Comments Prednisone Other, see comments 02/05/2020 Mood swings Trazodone Other, see comments 02/05/2020 Mood swings Medications Medication Sig Dispensed Refills Start Date End Date Status clindamycin (CLEOCIN T) 1 % external solutionIndications :Hidradenitis suppurativa Apply twice daily to areas prone to hidradenitis suppurativa bumps 60 mL 6 02/03/2022 Active fluticasone propionate (FLONASE) 50 MCG/ACT nasal solution Place 1 [place] into both nostrils daily. 04/09/2022 Active escitalopram oxalate (LEXAPRO) 20 MG tablet Take 1 Tablet (20 mg) by mouth daily. 90 Tablet 3 06/02/2022 Active vitamin-ferrous fumarate-folic acid (PRENATALPLUS) 27-1 MG tablet Take 1 Tablet by mouth daily. Active Active Problems Problem Noted Date Diagnosed Date Class 3 severe obesity with body mass index (BMI) of 40.0 to 44.9 in adult 04/20/2022 Dysmenorrhea 09/03/2021 MELISSA (generalized anxiety disorder) 12/13/2020 Insomnia, idiopathic 12/13/2020 GERD with esophagitis 10/13/2019 Tachycardia 10/14/2017 Other acne 10/28/2012 Overweight (BMI 25.0-29.9) 10/28/2012 Depressive disorder 09/01/2006 Overview: Overview: On prozac and wellbutrin Resolved Problems Problem Noted Date Diagnosed Date Resolved Date PID (pelvic inflammatory disease) 06/04/2018 08/17/2022 Bacterial vaginosis 06/03/2018 11/06/19 Encounter for car e of lactating mother 06/03/2018 08/17/2022 Endometritis 06/03/2018 08/17/2022 LLQ abdominal pain 06/03/2018 IUD (intrauterine device) in place 06/03/2018 08/17/2022 Left ovarian cyst 06/03/2018 08/17/2022 (normal spontaneous vaginal delivery) 04/16/2018 08/17/2022 premature rupture of membranes (PPROM) with onset of labor within 24 hours of rupture in third trimester, antepartum 04/16/2018 08/17/2022 Hyperemesis gravidarum 10/14/201708/17 Encounter for supervision of normal first , unspecified trimester 10/12/2017 023 Overview: 27 y.o. Medical concerns: hyperemesis - was in [facility] ED 09/20/17 and received IV fluids and script for ODT Zofran, which is helping; History of miscarriage; History of bipolar disorder - not currently on medication for this; Recurrent UTIs, GERD Early GTT indicated: BMI of 31.84 and history of 1st degree relative with diabetes; gestational glucose lab is ordered; Patient informed of this but due to hyperemesis, most likely will not be able to go early testing until nausea/vomiting is well controlled 01/02/2007 Elective AB 06/17/15 SAB at 9wks +4 Genetic screening: considering options BMI:31.84; Up to 15# Recommended wt gain Ultrasound 09/29/17 showing IUP at 7wks +1 with NBA 05/17/18 Flu vaccine: states usually declines Pertussis Vaccine: Peds: to FOB: [place] GERD (gastroesophageal reflux disease) 10/28/2012 08/17/2022 Overview: Overview: Uses OTC prilosec Encounters Date Type Department Care Team Description 10/14/2023 Refill [facility] 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 [address] [place] [id number] Mariia Briggs MD Refill (escitalopram oxalate (LEXAPRO) 20 MG tablet [Pharmacy Med Name: ESCITALOPRAM 20 MG TABLET]) from Last 3 Months Immunizations Name Administration Dates Next Due 4vHPV (Gardasil) 09/05/2007,05/05/2007, 7 Influenza IIV4 (Quadrivalent) 0.5mL (24404) 05/05,03/18/2018 Tdap 03/03/2018,04/29/2017 Social History Tobacco Use Types Packs/Day Years [...] Sign Reading Time Taken Comments Blood Pressure 127/88 10/12/2022 1:46 PM CDT Pulse 102 10/12/2022 1:46 PM CDT Temperature 36.8 ??C (98.3 ??F) 04/16/2022 4:07 AM CD T Respiratory Rate 16 04/16/2022 6:05 AM CDT Oxygen Saturation 98% 04/16/2022 6:05 AM CDT Inhaled Oxygen Concentration - - Weight 99 kg (218 lb 3.2 oz) 10/12/2022 1:46 PM CDT Height 157.5 cm (5' 2) 04/16/2022 4:07 AM CDT Body Mass Index 39.91 04/16/2022 4:07 AM CDT Plan of Treatment Health Maintenance Due Date Last Done Comments Hep C Screening (Preventive Services) 1990 HIV Screening (Preventive Services) 2008 Adult Preventive Visit 01/25/2010 HepB (1) 01/25/2011 COVID-19 Vaccine (1 - 2022-2 4 season) 2023 Influenza (Season Ended) 2024 019, 03/18/2018 Cervical Cancer Screening 03/26/20242020, 04/29/2017 (Completed) DTaP/Tdap/Td (3 - Tdap) 03/03/2028 03/03/20 18, 04/29/2017 Zoster/Shingles (1 of 2) 01/25/2042 HPV Vaccine Completed 09/05/2007, 05/05/2007, 03/04/2007 HepA Aged Out No longer eligi ble based on patient's age to complete this topic Hib Aged Out No longer eligi ble based on patient's age to complete this topic IPV (Polio) Aged Out No longer eligi ble based on patient's age to complete this topic MCV4 Aged Out No longer eligi ble based on patient's age to complete this topic Pneumococcal Aged Out No longer eligi ble based on patient's age to complete this topic [id number] [place] [address] Radha Cheek Personal/Family Self 1990 [id number] [place] [address] Radha Cheek Personal/Family Self 1990 [id number] [place] [address] Radha Cheek Personal/Family Self 1990 RETURNED MA[address] [id number] [facility] [facility] [facility] [facility] [address] [place] [address] Radha Cheek Personal/Family Self 1990 RETURNED MA[address] [id number] [place] [address] Radha Cheek Personal/Family Self 1990 RETURNED MAIL [id number] [place] [address] Radha Cheek Personal/Family Self 1990 RETURNED MAIL [id number] [place] [address] Care Teams Restorative Care Technician Relationship Specialty Start Date End Date No Primary/Referring, Phy PCP - General 02/17/22
--- OUTSIDE RECORDS SUMMARY | 2023-11-15 14:49 | XMS_ITS | Clinical Summary ---
Author Name Unknown Organization [facility] Address [address] [place] [address] Care Team Providers Care Bridge Ironworker Helper Name Role Phone Esperanza Mcbride Primary Care Provider Unavailab le Allergies No known active allergies Medications No known medications Active Problems Problem Noted Date Diagnosed Date PID (pelvic inflammatory disease) 06/04/2018 LLQ abdominal pain 06/03/2018 Encounter for care of lactating harsh r 06/03/2018 IUD (intrauterine device) in place 06/03/2018 Bacterial vaginosis 06/03/2018 Left ovarian cyst 06/03/2018 Endometritis 06/03/2018 Family History Medical History Relation Comments Diabetes Father Kidney Disease Father on dialysis Bipolar Disorder Mother Glaucoma No family hx of Macular Degeneration No family hx of Relation Status Comments Father Mother Social History Tobacco Use Types Packs/Day Years [...] Comments Blood Pressure 125/89 06/06/2018 11:24 AM HOT BRAIDER Pulse 112 06/03/2018 5:50 AM HOT BRAIDER Temperature 36.9 ??C (98.5 ??F) 06/06/2018 11:[address] Respiratory Rate 18 06/06/2018 11:24 AM HOT BRAIDER Oxygen Saturation 97% 06/06/2018 11:24 AM HOT BRAIDER Inhaled Oxygen Concentration - - Weight 86.6 kg (191 lb) 06/03/2018 11:53 AM HOT BRAIDER Height 157.5 cm (5' 2) 06/03/2018 11:53 AM HOT BRAIDER Body Mass Index 34.93 06/03/2018 11:53 AM HOT BRAIDER Plan of Treatment Not on file Advance Directives For more information, please contact: [phone] * Full Code (Latest Code Status on File) Date Activated Date Inactivated Comments 06/03/2018 12:21 PM 06/06/2018 1:45 PM Question Answer Comments Code status determined by: Discussion with isaiah nt/legal decision maker Care Teams Bridge Ironworker Helper Relationship Specialty Start Date End Date Esperanza Mcbride PCP - General 06/03/18
--- OUTSIDE RECORDS SUMMARY | 2023-11-15 14:49 | XMS_ITS | Encounter Summary ---
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 Per documentation in 08/07/23 refill encounter: Patient states she no longer comes to this clinic and she will contact her pharmacy. Patient asks we disregard this request. Routing back to refill team to remove pended medication and close encounter. 08/09/23 3:18 PM * August Anaya - 10/14/2023 2:13 PM CDT escitalopram oxalate (LEXAPRO) 20 MG tablet [Pharmacy Med Name: ESCITALOPRAM 20 MG TABLET] Antidepressants -> An office visit is overdue (performed over 12 months ago, required every 12 months). -> The most recent order on 06/02/2023. -> Refill x 3 months (courtesy refill. overdue for an office visit) Last qualifying visit: 10/12/2022 (with CONRAD GOMEZ) Next scheduled visit: None Last ordered by MARIA DEL CARMEN MUELLER M: 06/02/2022 (499 days ago) QTY: 90, Refills: 3, Sig: take 1 tablet (20 mg) by mouth daily. (changed but equivalent) Age: 33 [employer] Emb[employer] Refills, Reference: [id number], 10/14/2023 2:13:42 PM CDT, Pool: JACOBO GREENE RN ([id number]) documented in this encounter Plan of Treatment Not on file documented as of this encounter Visit Diagnoses Not on filedocumented in this encounter Care Teams Tongue Binder Relationship Specialty Start Date End Date No Primary/Referring, Phy PCP - General 02/17/22 documented as of this encounter
--- NOTE | 2023-11-15 15:00 | US_ITS ---
Patient: SUNITHA PÉREZ Facility:?[facility] RIS Patient ID:?[id number] Site Patient ID:?[id number]. Site :?1990 Study:?US-Pelvis PELVIS TA & TV-11/15/2023 3:41:00 PM Ordering Physician:ANA M PATEL Final Report: CLINICAL HISTORY: Pelvic and perineal pain TECHNIQUE: 2D crocker scale ultrasound. In addition color Doppler and spectral Doppler analysis was performed of the pelvis using a transvaginal approach. Comparison 05/17/2023 FINDINGS: On transvaginal imaging, the myometrium has a normal uniform echotexture. The uterus measures 8.0 x 4.5 x 5.6 cm. Incidental calcification within the lower uterine segment measuring 5 x 5 x 2 millimeters. The endometrial lining appears normal and measures 5 mm in thickness. The right ovary measures 8.0 x 3.4 x 5.3 cm in size and the left ovary is not visualized. The right ovary demonstrates normal arterial and venous blood flow on color Doppler and spectral Doppler analysis. Circumscribed anechoic right ovarian cyst is present measuring 7.7 x 3.0 x 4.1 cm. IMPRESSION: Simple right ovarian cyst measuring 7.7 x 3.0 x 4.1 cm. No torsion or excess pelvic free fluid. Nonvisualization of the left ovary. Dictated by Jani Blair MD @ 11/16/2023 1:07:53 PM Signed by:?Jani Blair MD @11/16/2023 1:07:53 PM (Electronic Signature)
== END 2023-11-15 14:48 | disposition home or self-care (01) ==
LOC: US 14:47
PROVIDERS: PCP Emergency Medicine; Visit Provider Physician Assistant
DX: R10.2 Pelvic and perineal pain (principal); N83.201 Unspecified ovarian cyst, right side
CPT/HCPCS: 76830; 76856; 93976

== ENCOUNTER 2023-11-24 18:59 | Emergency (ER) | payer MEDICAID, SELFPAY ==
[2023-11-24 19:05] VITALS: BP 147/86; PULSE 84; RESP 18; TEMP 36.7; O2SAT 100; BMI 42.1
--- NOTE | 2023-11-24 19:13 | CRLHL7_ITS ---
For Patients: As a result of the Century Cures Act, medical imaging exams and procedure reports are released immediately into your electronic medical record. You may view this report before your referring provider. If you have questions, please contact your health care provider. INDICATION: Pelvic pain. TECHNIQUE: Transvaginal ultrasound examination of the pelvis was performed. Grayscale and color Doppler images were obtained. COMPARISON: Pelvic ultrasound 11/15/2023. FINDINGS: Uterus: Measures 7.4 x 3.6 x 4.6 cm. Normal in echotexture. No suspicious masses. Endometrium: 3 mm. No significant endometrial free fluid. Right Ovary: Measures 8.1 x 3.7 x 4.6 cm. 7.2 x 3.1 x 6.0 cm simple appearing right ovarian cyst, without significant associated vascularity on the color Doppler images. Normal arterial and venous flow on color Doppler imaging. The left ovary is surgically absent. Status post bilateral salpingectomy. Cul-de-sac: No free fluid. IMPRESSION: 1. Stable 7.2 cm right ovarian cyst. 2. Otherwise, unremarkable pelvic ultrasound examination. Dictated by Kip Fernandez MD @ 11/24/2023 9:25:00 PM (Electronically Signed)
[2023-11-24 20:21] LABS: Appearance Urine Cloudy (Clear); Bilirubin Urine Negative (Negative); Blood Urine 3+ (Negative); Color Urine Amber (Yellow); Glucose Urine Negative (Negative); Ketones Urine Negative (Negative); Leukocyte Esterase Urine Negative (Negative); Nitrite Urine Positive (Negative); Protein Urine Negative (Negative); Specific Gravity Urine >= 1.030 (1.000-1.030); Urobilinogen Urine 0.2 (0.2-1.0); pH Urine 5.5 (5.0-8.5)
[2023-11-24 20:35] LABS: Bacteria Urine Many; RBC Urine >100 (0-2); Squamous Epithelial Cell Urine Moderate (None-Few)
--- NOTE | 2023-11-24 21:02 | ED.GENADULT ---
HPI - General Adult General Chief complaint: Abdominal Pain Stated complaint: ultrasound Time Seen by Provider: 11/24/23 21:02 History of Present Illness HPI narrative: Pt c/o pain in right lower quadrant that started yesterday. Pt states she was advised to come to ER by OB clinic for ultrasound to recheck 7 cm cyst on right ovary, which is pt's only remaining ovary . Pt dx with this cyst two weeks ago. Pt states plan was to recheck ultrasound six weeks later, but now pt is experiencing pain and has concerns for ovarian torsion or cyst bursting. Hx multiple cysts. 33-year-old woman presenting to emergency department with concern of right lower abdominal pain. Uncertain quality really. This escalated now over the last couple of days. Sounds as though it is related to intercourse. This pain actually was going on for about 2 weeks or so. Did have an ultrasound done at that time noting a 7 cm ovarian cyst on the right. She does have a history of ovarian cysts and describes rupture/leaking and secondary infection of the left side resulting in an abscess formation, oophorectomy and salpingectomy. She actually has bilateral salpingectomy as described. Any fever. No dysuria. She does however note a history of recurrent urinary tract infections. Sounds like these are also post coital historically. Was recommended apparently by OB to come in for ultrasound this evening. Has had menses since last week. Does not sound as though this is atypical but removing NuvaRing is what results in her menses. Related Data Previous Rx's ?Medication ?Instructions ?Recorded aripiprazole 5 mg tablet (Abilify) 5 mg PO QHS #30 tabs 11/18/23 escitalopram oxalate 20 mg tablet 20 mg PO DAILY #90 tabs 11/18/23 propranolol 10 mg tablet 10 mg PO TID PRN anxiety #90 tabs 11/18/23 Allergies Allergy/AdvReac Type Severity Reaction Status Date / Time prednisone AdvReac Mild Mood Swings Verified 11/24/23 19:11 trazodone AdvReac Mild Mood Swings Verified 11/24/23 19:11 Review of Systems Status of ROS: Reports: 6 or more systems reviewed and unremarkable except as noted in History and below [facility] Medical History Tubo-ovarian abscess (2018) ?N70.93 - Salpingitis and oophoritis, unspecified (ICD-10) Postoperative ileus ?K91.89 - Other postprocedural complications and disorders of digestive system (ICD-10) ?K56.7 - Ileus, unspecified (ICD-10) Right ovarian cyst (04/25/23) ?N83.201 - Unspecified ovarian cyst, right side (ICD-10) 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 - depression (ICD-10) Hyperemesis gravidarum ?O21.0 - Mild hyperemesis gravidarum (ICD-10) 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 No alcohol use. Smoking Status: Never smoker Do you use any of these nicotine containing products: None Second hand tobacco smoke exposure: No How often do you have a drink containing alcohol: never How often do you have six or more drinks on one occasion: Never AUDIT-C Alcohol total score: 0 Non-prescribed substance use: marijuana (any form) Little interest or pleasure in doing things: more than half the days Feeling down, depressed, or hopeless: nearly every day service: No Exam Narrative: Exam Narrative: Pleasant. NAD. Quite calm. Breathing easily. Heart in regular rate and rhythm. Abdomen is soft overweight. She is tender in the suprapubic area centrally and notes than some pain into the right flank with palpation here. Also on the right adnexal area she is tender with similar radiation. Does not have right upper quadrant pain. Sore to percussion in the right flank but not the left. Const: Vital Signs, click to edit/add: Vital Signs - 24 hr 11/24/23 19:05 Temperature 98.0 F Pulse Rate [Pulse Oximeter] 84 Respiratory Rate 18 Blood Pressure [Ri ght Upper Arm] 147/86 H Pulse Oximetry 100 Oxygen Delivery Me thod Room Air Documenting provider has reviewed patient's vital signs: yes Course Vital Signs Vital signs: Initial Vital Signs Temperature 98.0 F 11/24/23 19:05 Temperature Source Temporal Artery Scan 11/24/23 19:05 Pulse Rate 84 11/24/23 19:05 Respiratory Rate 18 11/24/23 19:05 Blood Pressure 147/86 H 11/24/23 19:05 Blood Pressure Mean 106 H 11/24/23 19:05 Blood Pressure Position Sitting 11/24/23 19:05 Pulse Oximetry 100 11/24/23 19:05 Oxygen Delivery Method Room Air 11/24/23 19:05 Vital Signs Temperature 98.0 F 11/24/23 19:05 Pulse Rate 84 11/24/23 19:05 Respiratory Rate 18 11/24/23 19:05 Blood Pressure 147/86 H 11/24/23 19:05 Pulse Oximetry 100 11/24/23 19:05 Oxygen Delivery Method Room Air 11/24/23 19:05 Temperature 98.0 F 11/24/23 19:05 Pulse Rate 84 11/24/23 19:05 Respiratory Rate 18 11/24/23 19:05 Blood Pressure 147/86 H 11/24/23 19:05 Pulse Oximetry 100 11/24/23 19:05 Oxygen Delivery Method Room Air 11/24/23 19:05 Medical Decision Making MDM Narrative Medical decision making narrative: Without tubes I think less likely it to be experiencing a torsion. Cyst might be leaking exacerbating her pain. This could be partly related to menses or urinary tract infection of some sort. I do not think this is gallbladder pain. Vitals and discomfort would not suggest pyelo. By the time I am seeing Ms. Cheek she has already received an ultrasound. Reported to me is that it was unchanged from prior. Radiology over-read noting comparison from November 14 with a 7.2 cm right ovarian cyst that looks stable. No fluid in the cul-de-sac noted. Urinalysis looks positive for infection particularly with nitrate. Has a good deal blood which might be menstrual. Reviewing records a with some negative urine cultures however last positive was similar appearing in May 27. Grew out E coli which was broadly sensitive. Think will this point treat for urinary tract infection with cultures pending. See patient discharge plan for further discussion/plan Lab Data Lab results reviewed: Yes I reviewed the patient's lab results Labs: Lab Results 11/24/23 Range/Units 20:10 Urine Color Nieves A (Yellow) Urine Appearance Cloudy A (Clear) Urine pH 5.5 (5.0-8.5) Ur Specific [place] >= 1.030 (1.000-1.030) Urine Protein Negative (Negative) Urine Glucose (UA) Negative (Negative) Urine Ketones Negative (Negative) Urine Blood 3+ A (Negative) Urine Nitrite Positive A (Negative) Urine Bilirubin Negative (Negative) Urine Urobilinogen 0.2 (0.2-1.0) Ur Leukocyte Esterase Negative (Negative) Urine RBC >100 A (0-2) Urine WBC 5-10 A (0-5) Ur Squamous Epith Cells Moderate A (None-Few) Urine Bacteria Many A (None) Discharge Plan Discharge Clinical Impression: Ovarian cyst, Pelvic pain, Cystitis Patient Disposition: Home w/ Parent or Adult Condition: Stable Additional Instructions: Stay well-hydrated. Return for marked increase in persistent pain, associated vomiting or fever. A urine culture will be pending here. Otherwise cephalexin from [facility]. Please contact your OB about the cyst here again today; that it has been persistent. Can take up to 800 mg of ibuprofen or up to 1000 mg of acetaminophen per dose. Prescriptions: No Action escitalopram oxalate 20 mg tablet 20 mg PO DAILY Qty: 90 3RF aripiprazole [Abilify] 5 mg tablet 5 mg PO QHS Qty: 30 12RF propranolol 10 mg tablet 10 mg PO TID PRN (Reason: anxiety) Qty: 90 1RF Follow Up/Referrals: Lay Baldwin MD [Staff Physician] - Stand Alone Forms: [employer] Info Instructions
--- OUTSIDE RECORDS SUMMARY | 2023-11-24 21:25 | XMS_ITS | Encounter Summary ---
Author Organization [facility] Address [address] [address] Care Team Providers Care Business Analytics Analyst Name Role Phone No Primary/Referring, Phy Primary Care Provider Unavailable Reason for Visit * Reason Comments Refill escitalopram oxalate (LEXAPRO) 20 MG tablet [Pharmacy Med Name: ESCITALOPRAM 20 MG TABLET] Encounter Details Date Type Department Care Team (Late st Contact Info) Description 08/07/2023 Refill [facility] administrative office specialist [address] [place] [phone] Maria Del Carmen Mueller MD [address] [place] [address] Refill (escitalopram oxalate (LEXAPRO) 20 MG tablet [...] CST RN will deny per message below ESSOR OF COMMUNICATION * Linda Hunter - 08/09/2023 3:17 PM CST Patient states she no longer comes to this clinic and she will contact her pharmacy. Patient asks we disregard this request. Routing back to refill team to remove pended medication and close encounter. 08/09/23 3:18 PM ESSOR OF COMMUNICATION * Shae Pinzon - 08/09/2023 3:11 PM [...] to clinician/pool identified in nursing documentation below. ESSOR OF COMMUNICATION * Marion Luna - 08/09/2023 1:36 PM CST Further Assistance Needed on Refill from Machine Binder Stripper Patient is due for Qualifying Visit with OBGYN. Medication is still pending. Patient is due for a Office/Video Visit in the next 90 days.. Call Patient and document using .MONSTER. After attempting to schedule patient: Please route to: Dr. Fritz castillo previously signed by Dr. Mueller. Requested Prescriptions Pending Prescriptions Disp Refills escitalopram oxalate (LEXAPRO) 20 MG tablet [Pharmacy Med Name: ESCITALOPRAM 20 MG TABLET] 90 Tablet 0 Sig: TAKE 1 TABLET BY MOUTH EVERY DAY ESSOR OF COMMUNICATION * Rosendo, Out Surescripts Prov Query - 08/07/2023 12:32 PM [...] Age: 33 [employer] Embedded Refills, Reference: [id number], 08/07/2023 12:32:23 PM PROFESSOR OF COMMUNICATION, Pool: JACOBO MAK RN ([id number]) ESSOR OF COMMUNICATION documented in this encounter Plan of Treatment Not on file documented as of this encounter Visit Diagnoses Not on filedocumented in this encounter Care Teams Business Analytics Analyst Relationship Specialty Start Date End Date No Primary/Referring, y PCP - General 02/17/22 documented as of this encounter
--- OUTSIDE RECORDS SUMMARY | 2023-11-24 21:25 | XMS_ITS | Clinical Summary ---
Author Organization [facility] Address [address] [place] [address] Care Team Providers Care Lawn Care Professional Name Role Phone No Primary/Referring, Phy Primary Care Provider Unavailable Source Comments You are receiving this document as you are listed as the primary care provider,follow-up provider, or the patient has been referred to you for consultation.This is in compliance with the Medicare and[facility] EHR Incentive Program,which states Providers who transition their patient to another setting of careor provider of care or refers their patient to another provider of care shouldprovide summary care record for each transition of care or referral. [facility] Allergies Active Allergy Reactions Criticality Noted Date [...] (FLONASE) 50 MCG/ACT nasal solution Place 1 [place] into both nostrils daily. 04/09/2022 Active escitalopram [...] disease) 06/04/2018 08/17/2022 Bacterial vaginosis 06/03/2018 11/06/19 22 Encounter for car e of lactating mother [...] y.o. Medical concerns: hyperemesis - was in [place] ED 09/20/17 and received IV fluids and [...] Type Department Care Team Description 10/14/2023 Refill [facility] healthcare consultant [address] [place] [phone] Mariia Briggs MD Refill (escitalopram oxalate (LEXAPRO) 20 MG tablet [Pharmacy Med Name: ESCITALOPRAM 20 MG TABLET]) from Last 3 Months Immunizations Name Administration Dates Next Due 4vHPV (Gardasil) 09/05/2007,05/05/2007, 7 Influenza IIV4 (Quadrivalent) 0.5mL (28462) 05/05,03/18/2018 Tdap 03/03/2018,04/29/2017 Social History Tobacco Use [...] age to complete this topic [address] [id number] [place] [address] Radha Cheek Personal/Family Self 1990 [address] [id number] [place] [address] Radha Cheek Personal/Family Self 1990 [address] [place] [address] Radha Cheek Personal/Family Self 1990 RETURNED MAIL [id number] [place] [address] Radha Cheek Personal/Family Self 1990 RETURNED MAIL [id number] [place] [address] Radha Cheek Personal/Family Self 1990 RETURNED MA[id number] [place] [address] Radha Cheek Personal/Family Self 1990 RETURNED MAIL [id number] [place] [address] Care Teams Lawn Care Professional Relationship Specialty Start Date End Date No Primary/Referring, Phy PCP - General 02/17/22
--- OUTSIDE RECORDS SUMMARY | 2023-11-24 21:25 | XMS_ITS | Clinical Summary ---
Author Organization [facility] Address [address] [place] [address]. [place] [address] Care Team Providers Care Cinnamon Grinder Name Role Phone Esperanza Mcbride Primary Care [...] Comments Blood Pressure 125/89 06/06/2018 11:24 AM [facility]ON Pulse 112 06/03/2018 5:50 AM [facility] Temperature 36.9 ??C (98.5 ??F) 06/06/2018 11:[address] Respiratory Rate 18 06/06/2018 11:24 AM BLOCK [facility]ON Oxygen Saturation 97% 06/06/2018 11:24 AM [facility] Inhaled Oxygen Concentration - - Weight 86.6 kg (191 lb) 06/03/2018 11:53 AM [facility]ON Height 157.5 cm (5' 2) 06/03/2018 11:53 AM [facility] Body Mass Index 34.93 06/03/2018 11:53 AM [facility] Plan of Treatment Not on file Advance Directives For more information, please contact: [phone] * Full Code (Latest Code Status on File) Date Activated Date Inactivated Comments 06/03/2018 12:21 PM 06/06/2018 1:45 PM Question Answer Comments Code status determined by: Discussion with isaiah pack/legal decision maker Care Teams Cinnamon Grinder Relationship Specialty Start Date End Date Esperanza Mcbride PCP - General 06/03/18
--- OUTSIDE RECORDS SUMMARY | 2023-11-24 21:25 | XMS_ITS | Referral Summary ---
Author Organization [facility] Address [address] [place] [address]. [place] [address] Care Team Providers Care Rn International Name Role Phone Esperanza Mcbride Primary Care [...] Comments Blood Pressure 125/89 06/06/2018 11:24 AM LEASING ASSISTANT Pulse 112 06/03/2018 5:50 AM LEASING ASSISTANT Temperature 36.9 ??C (98.5 ??F) 06/06/2018 11:[address] Respiratory Rate 18 06/06/2018 11:24 AM LEASING ASSISTANT Oxygen Saturation 97% 06/06/2018 11:24 AM LEASING ASSISTANT Inhaled Oxygen Concentration - - Weight 86.6 kg (191 lb) 06/03/2018 11:53 AM LEASING ASSISTANT Height 157.5 cm (5' 2) 06/03/2018 11:53 AM LEASING ASSISTANT Body Mass Index 34.93 06/03/2018 11:53 AM LEASING ASSISTANT Plan of Treatment Not on file Advance Directives For more information, please contact: [phone] * Full Code (Latest Code Status on File) Date Activated Date Inactivated Comments 06/03/2018 12:21 PM 06/06/2018 1:45 PM Question Answer Comments Code status determined by: Discussion with isaiah pack/legal decision maker Care Teams Rn International Relationship Specialty Start Date End Date Esperanza Mcbride PCP - General 06/03/18
--- OUTSIDE RECORDS SUMMARY | 2023-11-24 21:25 | XMS_ITS | Encounter Summary ---
Author Organization [facility] Address [address], [place] [address] Care Team Providers Care Clinical Pharmacist Name Role Phone No Primary/Referring, Phy Primary Care Provider Unavailable Reason for Visit * Reason Comments Refill escitalopram oxalate (LEXAPRO) 20 MG tablet [Pharmacy Med Name: ESCITALOPRAM 20 MG TABLET] Encounter Details Date Type Department Care Team (Late st Contact Info) Description 10/14/2023 Refill [facility] barber tool sharpener [address] [place] [phone] Maria Del Carmen Mueller MD [address] [place] [address] Refill (escitalopram oxalate (LEXAPRO) 20 MG tablet [...] close encounter. 08/09/23 3:18 PM * August Anayawcomm - 10/14/2023 2:13 PM CDT escitalopram oxalate (LEXAPRO) 20 MG tablet [Pharmacy Med Name: ESCITALOPRAM 20 MG TABLET] Antidepressants -> An office visit is overdue (performed over 12 months ago, required every 12 months). -> The most recent order on 06/02/2023. -> Refill x 3 months (courtesy refill. overdue for an office visit) Last qualifying visit: 10/12/2022 (with CORNAD GOMEZ) Next scheduled visit: None Last ordered by MARIA DEL CARMEN MUELLER M: 06/02/2022 (499 days ago) QTY: 90, Refills: 3, Sig: take 1 tablet (20 mg) by mouth daily. (changed but equivalent) Age: 33 [employer] Emb[employer]ded Refills, Reference: [id number], 10/14/2023 2:13:42 PM CDT, Pool: JACOBO GREENE RN ([id number]) documented in this encounter Plan of Treatment Not on file documented as of this encounter Visit Diagnoses Not on filedocumented in this encounter Care Teams Clinical Pharmacist Relationship Specialty Start Date End Date No Primary/Referring, Phy PCP - General 02/17/22 documented as of this encounter
== END 2023-11-24 22:00 | disposition home or self-care (01) ==
PROVIDERS: Emergency Provider Family Medicine; PCP Family Medicine
DX: N30.90 Cystitis, unspecified without hematuria (principal); N83.201 Unspecified ovarian cyst, right side; R10.2 Pelvic and perineal pain
CPT/HCPCS: 76830; 81001; 87086; 87186; 93976; 99284

== ENCOUNTER 2023-12-20 13:00 | Outpatient (RCR) | payer OTHER, SELFPAY ==
--- NOTE | 2023-12-09 12:55 | PT.OPEX ---
PT [place] Outpatient Eval PT [facility] Outpatient Eval Start: 12/08/23 13:37 Freq: Status: Active Protocol: Document 12/08/23 13:37 ARR (Rec: 12/08/23 16:50 ARR [id number]) E-signed By Betsey Wells DPT Physical Therapy Outpatient Evaluation Insurance Information Recert Due Date 03/07/24 Insurance Name Medicaid Medical Diagnosis N94.10 dyspareunia Treating Diagnosis K59.00 Constipation, unspecified R10.2 Pelvic and perineal pain N39.46 Mixed incontinence ( Urge and stress incontinence) Referring JAS Phillips ([facility]) Subjective Subjective -Subjective: Has scar tissue and pain with intercourse, feels maybe due to surgeries. Has had x 2 surgeries one on L for fallopian tube and ovary removal with complications of ovary bursting and infection/ abscess. Then had fallopian tubes removed on R. Has scar tissue formation due to these surgeries. 2nd surgery also had to remove part of the colon and detach it from wall of stomach. Also reopened same scar and removed R fallopian tube. Hopes to improve scar tissue mobility. Also has digestive issues ? since a child has had GERD and heartburn. As a child was constipated. Has not been formally diagnosed with PCOS and not with endo. Tends to skip breakfast or eats later -Urinary: Occasionally 1x/wk ? can happen and unaware that she leaked with sitting. At times does have to change underwear, can be a few drops up to a full bladder. Occasionally uses hand on belly to empty. --Activity that causes leakage : not able to tell --Delay of urination: can delay --Urinary urgency (any incontinence): occasionally, and will have incontinence maybe 5-10% of the time. --Strain to start: not usually . Will push a little to make sure she fully empties. --Hydration: 1-2 bottles of water inconsistently (16-32) / 1 cup coffee / 1 bottles or 2 mini-cans / occasional alcohol (230) --Daytime urination: 5-6x --Nocturia: 0-1x --Dysuria: none, occasional lower abdominal pain --Pressure/heaviness: no -Bowel: 1-2x/week. --Thomas chart: Thomas type 3-4 --Do you feel bowels fully evacuate with BM: yes --Fecal leakage: has happened but not typical --Fecal urgency: yes --Straining with BM: --Pain with BM: occasionally, maybe gas pains --Do you use pressure with hands to assist with BM: no --Flatus incontinence: no --Abdominal/rectal pain or symptoms: --Do foods increase or decrease symptoms: no --Do you take bowel supplements: no --Fiber intake: unsure -Sexual: --Marinoff scale: 2. Pain with deeper thrusting. Positions on back. -Menstrual history: Was on Nuva ring but stopped ? was supposed to prevent cysts so stopped it. Is sensitive to estrogen, can raise HR. --Painful periods: will get heavy bleeding and painful cycles. --Regular cycles: yes -: G/P 10/03 (7 yrs old) vaginal with epidural -Length of pushing: long nearly 1 day (17 hrs of labor) --Forceps or vacuum: no --Tearing or episiotomy: episiotomy OTHER: --Pain with gynocological exam : no --Any chronic yeast infections : yes. Last one over 1 year ago. Is susceptible to this --Chronic UTIs: yes, in last 6 months have had x 2. Has had recurring issues since age 4 y /o. --Vaginal dryness: sometimes yes and itchy -Surgical PMHx: -PMHx: R ovarian cyst 7 cm, h/ o of ovarian cysts and describes rupture/leaking and secondary infection of the left side resulting in an abscess formation, oophorectomy and salpingectomy . left salpingoopherectomy in 2017 and a right salpingectomy in April 2023. Patient was found to have extensive adhesions during these surgeries. Of note, no signs of endometriosis at either surgery. She actually has bilateral salpingectomy as described. Recurring UTIs post -coital with most recent on . Postoperative ileus, h/ o multiple miscarriages, depression, s/p laparotomy, hydrosalpinx, h/o Dc&C 03/27, bipolar, overweight , GERD, MELISSA, PCOS. 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 constantly tight. Increases in pain: at night when laying down will tense up . Location: low back equal both sides. -Goals: improve flexibility with scar tissue. Reduce back pain Objective Other/Pertinent Objective -Slumped sitting and standing posture with rounded shoulders and forward head Functional Test Performed & Score PFQ: -bladder -Prolapse 08/19 Sexual Total 20 Assessment Assessment/Impression Pt is a 33 y/o female who presents with concerns of pelvic pain with intercourse, abdominal pain, with significant PMHx for x 2 abdominal surgeries with left salpingoopherectomy in 2017 ( prior to this had rupture/ leaking and secondary infection resulting in abscess formation) and a right salpingectomy in April 2023. Pt also has long standing history of constipation with BM occurring 1-2x/week, history of back pain, x1 vaginal delivery with episiotomy also likely contributing. Future sessions to further assess into internal and external assessment. Initial assessment focused on subjective gathering and education in bladder/bowel health.. Patient is a good candidate for skilled therapy to target deficits described above. Skilled PT intervention is necessary for use of therapeutic exercise manual therapy, neuromuscular re- education, gait training, and therapeutic activity. Functional impairments include difficulty with: reduce pain with intercourse, resolve constipation, and urinary incontinence. See appropriate sections of PT eval for complete list of goals and POC . D/C plan and criteria is for pt to achieve the goals as listed below or until max rehab potential is met. Pt was agreeable with plan of care and goals established. Evaluation and internal vaginal PFM assessment/ treatment with patient consent was requested and obtained. Plan of Care Rehabilitation Potential Good Physical Therapy Goals STG (within 6 visits) 1)Pt will initiate HEP without increased pain/symptoms 2)Pt will report at least 30% improvement in pain/symptoms since start of therapy for improved sexual health 3) Pt will report resolved urinary incontinence at least 80% of the time for improved health of vaginal tissues LTG (within 12 visits) 1)Pt will be indep in HEP for senior living mgmt. of pain/ symptoms 2)Pt will report at least 60% improvement in pain/symptoms since start of therapy for improved sexual health 3)Pt will report Marinoff scale not exceeding 1 4) Pt will report improved BM to at least 3-4x/wk without straining to empty Treatment Plan/Direct Interventions Gait Training,Joint Mobilization,Manual Therapy, Neuromuscular Re-ed,Self-Care/ Home Management,Therapeutic Activities,Therapeutic Exercises,Traction (Mechanical ) Frequency/Duration 1x/wk for a total of 12 visits within 90 days Patient Will Be Discharged From Therapy Skills Plateau,Independent w/ HEP Evaluation Billing Untimed Code Treatment Minutes 30 Complexity Moderate Certification Information Initial Certification Date 12/08/23 Ending Certification Date 03/07/24 Provider Signature Required Yes Provider Signature Shows Agreement With POC & Medical Necessity Physician NPI Number Write NPI# Here Physician Comment/Change : Physician Signature & Date Requested Please Sign/Date Here
== END 2024-04-12 08:47 | disposition home or self-care (01) ==
PROVIDERS: PCP Family Medicine; Visit Provider Physician Assistant
DX: N94.10 Unspecified dyspareunia (principal); K59.00 Constipation, unspecified; R10.2 Pelvic and perineal pain; N39.46 Mixed incontinence; Z51.89 Encounter for other specified aftercare
CPT/HCPCS: 97012; 97162; 97535

== ENCOUNTER 2023-12-28 15:40 | Outpatient (CLI) | payer OTHER, SELFPAY ==
--- OUTSIDE RECORDS SUMMARY | 2023-12-28 15:42 | XMS_ITS | Referral Summary ---
Author Organization [facility] Address [address] [place] [address]. [place] [address] Care Team Providers Care Accounting Tutor Name Role Phone Esperanza Mcbride Primary Care [...] Comments Blood Pressure 125/89 06/06/2018 11:24 AM VEGETABLE CANNER Pulse 112 06/03/2018 5:50 AM VEGETABLE CANNER Temperature 36.9 ??C (98.5 ??F) 06/06/2018 11:[address] Respiratory Rate 18 06/06/2018 11:24 AM VEGETABLE CANNER Oxygen Saturation 97% 06/06/2018 11:24 AM VEGETABLE CANNER Inhaled Oxygen Concentration - - Weight 86.6 kg (191 lb) 06/03/2018 11:53 AM VEGETABLE CANNER Height 157.5 cm (5' 2) 06/03/2018 11:53 AM VEGETABLE CANNER Body Mass Index 34.93 06/03/2018 11:53 AM VEGETABLE CANNER Plan of Treatment Not on file Advance Directives For more information, please contact: [phone] * Full Code (Latest Code Status on File) Date Activated Date Inactivated Comments 06/03/2018 12:21 PM 06/06/2018 1:45 PM Question Answer Comments Code status determined by: Discussion with isaiah pack/legal decision maker Care Teams Accounting Tutor Relationship Specialty Start Date End Date Esperanza Mcbride PCP - General 06/03/18
--- OUTSIDE RECORDS SUMMARY | 2023-12-28 15:42 | XMS_ITS | Encounter Summary ---
Author Organization [facility] Address [address] [address] Care Team Providers Care Software Recruiter Name Role Phone No Primary/Referring, Phy Primary Care Provider Unavailable Reason for Visit * Reason Comments Refill escitalopram oxalate (LEXAPRO) 20 MG tablet [Pharmacy Med Name: ESCITALOPRAM 20 MG TABLET] Encounter Details Date Type Department Care Team (Late st Contact Info) Description 10/14/2023 Refill [facility] director of collections [address] [place] [id number] Maria Del Carmen Mueller MD [address] [place] [address] Refill (escitalopram oxalate (LEXAPRO) 20 MG tablet [...] Age: 33 [employer] Embedded Refills, Reference: [id number], 10/14/2023 2:13:42 PM CDT, Pool: JACOBO GREENE RN ([id number]) documented in this encounter Plan of Treatment Not on file documented as of this encounter Visit Diagnoses Not on filedocumented in this encounter Care Teams Software Recruiter Relationship Specialty Start Date End Date No Primary/Referring, Phy PCP - General 02/17/22 documented as of this encounter
--- OUTSIDE RECORDS SUMMARY | 2023-12-28 15:42 | XMS_ITS | Clinical Summary ---
Author Organization [facility] Address [address] [place] [address]. [place] [address] Care Team Providers Care Sound System Installer Name Role Phone Esperanza Mcbride Primary Care [...] Comments Blood Pressure 125/89 06/06/2018 11:[address] Pulse 112 06/03/2018 5:50 AM [address] OF THE [address] Temperature 36.9 ??C (98.5 ??F) 06/06/2018 11:[address] Respiratory Rate 18 06/06/2018 11:24 AM [address] Oxygen Saturation 97% 06/06/2018 11:24 AM FRI[address] OF THE [address] Inhaled Oxygen Concentration - - Weight 86.6 kg (191 lb) 06/03/2018 11:53 AM FRIEND OF THE [address] Height 157.5 cm (5' 2) 06/03/2018 11:53 AM FRI[address] OF THE [address] Body Mass Index 34.93 06/03/2018 11:53 AM FRIEND OF THE [address] Plan of Treatment Not on file Advance Directives For more information, please contact: [phone] * Full Code (Latest Code Status on File) Date Activated Date Inactivated Comments 06/03/2018 12:21 PM 06/06/2018 1:45 PM Question Answer Comments Code status determined by: Discussion with isaiah pack/legal decision maker Care Teams Sound System Installer Relationship Specialty Start Date End Date Esperanza Mcbride PCP - General 06/03/18
--- OUTSIDE RECORDS SUMMARY | 2023-12-28 15:42 | XMS_ITS | Clinical Summary ---
Author Organization [facility] Address [address] [place] [address] Care Team Providers Care Ocean Forwarder Name Role Phone No Primary/Referring, Phy Primary Care Provider Unavailable Source Comments You are receiving this document as you are listed as the primary care provider,follow-up provider, or the patient has been referred to you for consultation.This is in compliance with the Medicare and[facility] EHR Incentive Program,which states Providers who transition their patient to another setting of careor provider of care or refers their patient to another provider of care shouldprovide summary care record for each transition of care or referral. [facility] Allergies Active Allergy Reactions Criticality Noted Date [...] (FLONASE) 50 MCG/ACT nasal solution Place 1 [place] into both nostrils daily. 04/09/2022 Active escitalopram [...] y.o. Medical concerns: hyperemesis - was in [place] ED 09/20/17 and received IV fluids and [...] Type Department Care Team Description 10/14/2023 Refill [facility] muck miner [address] [place] [id number] Mariia Briggs MD Refill (escitalopram oxalate (LEXAPRO) 20 MG tablet [Pharmacy Med Name: ESCITALOPRAM 20 MG TABLET]) from Last 3 Months Immunizations Name Administration Dates Next Due 4vHPV (Gardasil) 09/05/2007,05/05/2007, 7 Influenza IIV4 (Quadrivalent) 0.5mL (51660) 05/05,03/18/2018 Tdap 03/03/2018,04/29/2017 Social History Tobacco Use [...] on patient's age to complete this topic Care Teams Ocean Forwarder Relationship Specialty Start Date End Date No Primary/Referring, Phy PCP - General 02/17/22
--- NOTE | 2023-12-28 15:45 | CRLHL7_ITS ---
For Patients: As a result of the Century Cures Act, medical imaging exams and procedure reports are released immediately into your electronic medical record. You may view this report before your referring provider. If you have questions, please contact your health care provider. INDICATION: Follow up ovarian cyst. TECHNIQUE: Transabdominal and transvaginal pelvic ultrasound. COMPARISON: 11/24/2019 or, 11/15/2023, 05/17/2023 ultrasounds. FINDINGS: Uterus is anteverted and measures 7.2 x 3.9 x 4.4 cm. Endometrial stripe thickness 5 mm. Left ovary has been surgically removed. No left adnexal mass. Again seen is a large simple right adnexal cystic lesion. The cyst conforms to the contour of the surrounding pelvic structures. There is now a 2nd cystic lesion either within or adjacent to the 1st measuring 7 cm in diameter. Doppler flow detected within the wall/septum between the 2 cysts. The entire right adnexal cystic lesion, inclusive of the new and previously seen cysts, measures 9.8 x 9.6 x 7.9 cm. Trace pelvic free fluid. IMPRESSION: Right adnexal cystic lesion with new 2nd cystic lesion either within the or immediately adjacent. Appearance of the dominant and more long-standing cyst suggested maybe a peritoneal inclusion cyst. Consider pelvic MRI for further characterization. Dictated by Дмитрий Gilbert MD @ 12/29/2023 11:36:52 AM (Electronically Signed)
== END 2023-12-28 15:41 | disposition home or self-care (01) ==
LOC: US 15:41
PROVIDERS: PCP Family Medicine; Visit Provider Obstetrics & Gynecology
DX: N83.209 Unspecified ovarian cyst, unspecified side (principal)
CPT/HCPCS: 76830; 76856; 93976

== ENCOUNTER 2024-04-02 20:39 | Emergency (ER) | payer BC, SELFPAY ==
[2024-04-02] VITALS (10 sets, daily range): BP systolic 117–124; BP diastolic 78–80; PULSE 79–102; RESP 16; TEMP 36.8; O2SAT 94–100; BMI 42.1
--- OUTSIDE RECORDS SUMMARY | 2024-04-02 20:42 | XMS_ITS | Clinical Summary ---
Author Organization [facility] Address [address] [place] [address]. [place] [address] Care Team Providers Care Diesel Engine Operator Name Role Phone Esperanza Mcbride MD Primary Care Provider Allergies No known active allergies Medications No [...] Comments Blood Pressure 125/89 06/06/2018 11:24 AM NATURAL RESOURCES ENGINEER Pulse 112 06/03/2018 5:50 AM NATURAL RESOURCES ENGINEER Temperature 36.9 ??C (98.5 ??F) 06/06/2018 11:[address] Respiratory Rate 18 06/06/2018 11:24 AM NATURAL RESOURCES ENGINEER Oxygen Saturation 97% 06/06/2018 11:24 AM NATURAL RESOURCES ENGINEER Inhaled Oxygen Concentration - - Weight 86.6 kg (191 lb) 06/03/2018 11:53 AM NATURAL RESOURCES ENGINEER Height 157.5 cm (5' 2) 06/03/2018 11:53 AM NATURAL RESOURCES ENGINEER Body Mass Index 34.93 06/03/2018 11:53 AM NATURAL RESOURCES ENGINEER Plan of Treatment Not on file Advance Directives For more information, please contact: [phone] * Full Code (Latest Code Status on File) Date Activated Date Inactivated Comments 06/03/2018 12:21 PM 06/06/2018 1:45 PM Question Answer Comments Code status determined by: Discussion with isaiah nt/legal decision maker Care Teams Diesel Engine Operator Relationship Specialty Start Date End Date Esperanza Mcbride MD PCP - General 06/03/18
--- OUTSIDE RECORDS SUMMARY | 2024-04-02 20:42 | XMS_ITS | Clinical Summary ---
Author Organization [facility] Address [address] [place] [address] Care Team Providers Care Phytochemistry Professor Name Role Phone No Primary/Referring, Phy Primary Care Provider Unavailable Source Comments You are receiving this document as you are listed as the primary care provider,follow-up provider, or the patient has been referred to you for consultation.This is in compliance with the Medicare and[facility] EHR Incentive Program,which states Providers who transition their patient to another setting of careor provider of care or refers their patient to another provider of care shouldprovide summary care record for each transition of care or referral. [facility] Allergies Active Allergy Reactions Criticality Noted Date [...] (FLONASE) 50 MCG/ACT nasal solution Place 1 [place] into both nostrils daily. 04/09/2022 Active escitalopram [...] Overweight (BMI 25.0-29.9) 10/28/2012 Depressive disorder 09/01/2006 Overview (05/07/2021): Overview: On prozac and wellbutrin Resolved Problems [...] normal first , unspecified trimester 10/12/2017 023 Overview (05/07/2021): 27 y.o. Medical concerns: hyperemesis - was in [place] ED 09/20/17 and received IV fluids and [...] Barber GERD (gastroesophageal reflux disease) 10/28/2012 08/17/2022 Overview (05/07/2021): Overview: Uses OTC prilosec Immunizations Name Administration Dates Next Due 4vHPV (Gardasil) 09/05/2007,05/05/2007, 7 Influenza IIV4 (Quadrivalent) 0.5mL (65103) 05/05,03/18/2018 Tdap 03/03/2018,04/29/2017 Social History Tobacco Use [...] Visit 01/25/2010 HepB (1) 01/25/2011 COVID-19 Vaccine ( - 2023-2 5 season) 2024 Influenza (#1) 2024 05/17/2019, 03/18/2018 Cervical Cancer Screening 03/26/20242020, 04/29/2017 (Completed) [...] age to complete this topic Care Teams Phytochemistry Professor Relationship Specialty Start Date End Date No Primary/Referring, Phy PCP - General 02/17/22
--- OUTSIDE RECORDS SUMMARY | 2024-04-02 20:42 | XMS_ITS | Referral Summary ---
Author Organization [facility] Address [address] [place] [address]. [place] [address] Care Team Providers Care Weigh Tank Operator Name Role Phone Esperanza Mcbride MD [...] Comments Blood Pressure 125/89 06/06/2018 11:24 AM TALENT DEVELOPMENT CONSULTANT Pulse 112 06/03/2018 5:50 AM TALENT DEVELOPMENT CONSULTANT Temperature 36.9 ??C (98.5 ??F) 06/06/2018 11:[address] Respiratory Rate 18 06/06/2018 11:24 AM TALENT DEVELOPMENT CONSULTANT Oxygen Saturation 97% 06/06/2018 11:24 AM TALENT DEVELOPMENT CONSULTANT Inhaled Oxygen Concentration - - Weight 86.6 kg (191 lb) 06/03/2018 11:53 AM TALENT DEVELOPMENT CONSULTANT Height 157.5 cm (5' 2) 06/03/2018 11:53 AM TALENT DEVELOPMENT CONSULTANT Body Mass Index 34.93 06/03/2018 11:53 AM TALENT DEVELOPMENT CONSULTANT Plan of Treatment Not on file Advance Directives For more information, please contact: [phone] * Full Code (Latest Code Status on File) Date Activated Date Inactivated Comments 06/03/2018 12:21 PM 06/06/2018 1:45 PM Question Answer Comments Code status determined by: Discussion with isaiah nt/legal decision maker Care Teams Weigh Tank Operator Relationship Specialty Start Date End Date Esperanza Mcbride MD PCP - General 06/03/18
--- NOTE | 2024-04-02 20:49 | ED.GENADULT ---
HPI - General Adult General Time Seen by Provider: 20:49 Date Seen: 04/02/24 Chief complaint: Unspecified Complaint, Adult Stated complaint: Throat hurt, swollen tonsils, hard to breath Time Seen by Provider: 04/02/24 20:49 Source: patient, RN notes reviewed and old records reviewed Mode of arrival: ambulatory Limitations: no limitations History of Present Illness HPI narrative: 34-year-old female who comes in today with sore throat. This is been going on for 2 days. Came in tonight because she feels like her throat is swollen. No cough, no fevers, no vomiting. Pain with swallowing. No hives or known allergic contacts. Related Data Previous Rx's ?Medication ?Instructions ?Recorded propranolol 10 mg tablet 10 mg PO TID PRN anxiety #90 tabs 11/18/23 clindamycin HCl 300 mg capsule 300 mg PO TID #21 caps 12/16/23 escitalopram oxalate 20 mg tablet 20 mg PO DAILY #90 tabs 12/16/23 aripiprazole 10 mg tablet (Abilify) 10 mg PO QHS #30 tabs 12/23/23 trazodone 50 mg tablet 25 - 50 mg (0.5 - 1 x 50 mg) PO 12/23/23 QDAY #30 tabs Allergies Allergy/AdvReac Type Severity Reaction Status Date / Time prednisone AdvReac Mild Mood Swings Verified 04/02/24 21:45 trazodone AdvReac Mild Mood Swings Verified 04/02/24 21:45 PFSH PFSH Medical History Tubo-ovarian abscess (2018) ?N70.93 - Salpingitis and oophoritis, unspecified (ICD-10) Postoperative ileus ?K91.89 - Other postprocedural complications and disorders of digestive system (ICD-10) ?K56.7 - Ileus, unspecified (ICD-10) Right ovarian cyst (04/25/23) ?N83.201 - Unspecified ovarian cyst, right side (ICD-10) 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 - depression (ICD-10) Hyperemesis gravidarum ?O21.0 - Mild hyperemesis gravidarum (ICD-10) 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 No alcohol use. Smoking Status: Never smoker Do you use any of these nicotine containing products: None Second hand tobacco smoke exposure: No How often do you have a drink containing alcohol: never How often do you have six or more drinks on one occasion: Never AUDIT-C Alcohol total score: 0 Non-prescribed substance use: marijuana (any form) Little interest or pleasure in doing things: several days Feeling down, depressed, or hopeless: several days service: No Exam Narrative: Exam Narrative: General: Well-developed and well-nourished, no acute distress Head: Atraumatic and normocephalic Eyes: Pupils are equal reactive, extraocular motions intact, conjunctiva clear ENT: External nose and ears are normal, posterior pharynx without erythema or exudate, no tonsillar asymmetry, no stridor, hoarse voice which clears longer patient tox Neck: No midline cervical tenderness, full spontaneous range of motion the neck, trachea midline, no adenopathy Heart: Regular rate and rhythm no murmurs or thrills Lungs: Clear to auscultation bilaterally without wheezes or crackles Abdomen: Soft, nontender, nondistended with active bowel sounds Musculoskeletal: No tenderness, deformity, or edema Neurologic: Awake, alert, and oriented x3, no gross focal neurologic deficits, cranial nerves intact as tested Psych: Mood and affect are appropriate Skin: No rashes Const: Vital Signs, click to edit/add: Vital Signs - 24 hr 04/02/24 20:45 04/02/24 20:53 04/02/24 20:54 Temperature 98.2 F Pulse Rate 93 92 Pulse Rate [Left P ulse Oximeter] 102 H Respiratory Rate 16 Blood Pressure 124/80 Blood Pressure [Ri ght Upper Arm] 117/78 Pulse Oximetry 99 100 100 Oxygen Delivery Me thod Room Air 04/02/24 21:00 04/02/24 21:15 04/02/24 21:22 Temperature Pulse Rate 92 82 Pulse Rate [Left P ulse Oximeter] Respiratory Rate Blood Pressure Blood Pressure [Ri ght Upper Arm] Pulse Oximetry 98 98 99 Oxygen Delivery Me thod 04/02/24 21:44 04/02/24 21:45 Temperature Pulse Rate 80 79 Pulse Rate [Left P ulse Oximeter] Respiratory Rate Blood Pressure Blood Pressure [Ri ght Upper Arm] Pulse Oximetry 96 94 Oxygen Delivery Me thod Course Course ED Course: Patient seen and examined, presents today with sore throat which is been going on for couple of days. On exam here, no stridor and handling secretions. Does have voice hoarseness. Posterior pharynx with no asymmetry or erythema to suggest peritonsillar abscess, suspect laryngitis. Fluids, Toradol, Decadron are ordered along with CT scan to evaluate for deeper space infection. Racemic epinephrine neb for comfort. Reevaluation(s) Time of Reevaluation #1: 21:48 Reevaluation #1: Labs independently interpreted by me with negative strep test, normal basic panel. CT scan of the neck independently interpreted by me does not demonstrate tonsillar swelling or peritonsillar abscess or phlegmon, lower airways are widely patent are with no edema or narrowing. Time of Reevaluation #2: 21:59 Reevaluation #2: Reviewed radiology interpretation CT scan which does not demonstrate acute abnormality. Patient will be started on prednisone burst and discharged Time of Reevaluation #3: 22:10 Reevaluation #3: Patient recheck, maintain airway, still hoarse but no stridor, vital is stable. I did review patient's allergies and prednisone as cause severe mood swings in the past, patient may be better off with the Decadron given in the emergency department and Tylenol ibuprofen for home. Vital Signs Vital signs: Initial Vital Signs Temperature 98.2 F 04/02/24 20:45 Temperature Source Temporal Artery Scan 04/02/24 20:45 Pulse Rate 102 H 04/02/24 20:45 Pulse Rhythm Regular 04/02/24 20:45 Respiratory Rate 16 04/02/24 20:45 Blood Pressure 117/78 04/02/24 20:45 Blood Pressure Mean 91 04/02/24 20:45 Blood Pressure Position Sitting 04/02/24 20:45 Pulse Oximetry 99 04/02/24 20:45 Oxygen Delivery Method Room Air 04/02/24 20:45 Vital Signs Temperature 98.2 F 04/02/24 20:45 Pulse Rate 102 H 04/02/24 20:45 Respiratory Rate 16 04/02/24 20:45 Blood Pressure 117/78 04/02/24 20:45 Pulse Oximetry 99 04/02/24 20:45 Oxygen Delivery Method Room Air 04/02/24 20:45 Temperature 98.2 F 04/02/24 20:45 Pulse Rate 79 04/02/24 21:45 Respiratory Rate 16 04/02/24 20:45 Blood Pressure 124/80 04/02/24 20:53 Pulse Oximetry 94 04/02/24 21:45 Oxygen Delivery Method Room Air 04/02/24 20:45 Medications Administered Medications: Generic Name Dose Route Start Last Admin Trade Name Freq PRN Reason Stop Dose Admin Dexamethasone 10 mg 04/02/24 20:59 04/02/24 21:16 Dexamethasone 10 Mg/Ml Inj IVP 04/02/24 21:00 10 mg ONCE ONE Administration Epinephrine 0.5 ml 04/02/24 20:59 04/02/24 21:16 Racepinephrine Hcl 0.5 Ml Vial.Neb NEB 04/02/24 21:00 0.5 ml ONCE ONE Administration Ketorolac Tromethamine 15 mg 04/02/24 20:59 04/02/24 21:16 Ketorolac 15 Mg/Ml Inj IVP 04/02/24 21:00 15 mg ONCE ONE Administration Medical Decision Making Lab Data Labs: Lab Results 04/02/24 04/02/24 Range/Units 21:05 21:11 Sodium 137 (135-149) mmol/L Potassium 3.5 L (3.6-5.1) mmol/L Chloride 104 (96-114) mmol/L Carbon Dioxide 25 (20-32) mmol/L Anion Gap 8 (7-15) mEq/L BUN 11 (5-24) mg/dL Creatinine 0.8 (0.5-1.5) mg/dL Estimated Creat Clear 79.85 Estimated GFR 100 ml/min Glucose 88 (60-115) mg/dL Calcium 9.2 (8.4-10.6) mg/dL Group A Strep DNA NOT DETECTED (Not Detectd) Discharge Plan Discharge Clinical Impression: Laryngitis Patient Disposition: Home, Self-Care Condition: Stable Instructions: Pharyngitis (ED) Additional Instructions: Salt water gargle, 1 t tbsp of salt in 8 oz warm water every 2-3 hours. Do not swallow. Tylenol and ibuprofen as needed for pain Lots of fluids Use a humidifier if available Prescriptions: No Action escitalopram oxalate 20 mg tablet 20 mg PO DAILY Qty: 90 3RF clindamycin HCl 300 mg capsule 300 mg PO TID Qty: 21 0RF propranolol 10 mg tablet 10 mg PO TID PRN (Reason: anxiety) Qty: 90 1RF trazodone 50 mg tablet 25 - 50 mg PO QDAY Qty: 30 12RF aripiprazole [Abilify] 10 mg tablet 10 mg PO QHS Qty: 30 12RF Follow Up/Referrals: Keyona Anderson MD [Primary Care Provider] - Stand Alone Forms: MyHealth Info Instructions
--- NOTE | 2024-04-02 20:59 | CRLHL7_ITS ---
For Patients: As a result of the Century Cures Act, medical imaging exams and procedure reports are released immediately into your electronic medical record. You may view this report before your referring provider. If you have questions, please contact your health care provider. Indication: Hoarseness, throat pain, cough, loss of voice, history of GERD Technique: CT of the neck following 112 mL Isovue 370 IV contrast. Comparison: None Findings: Brain and orbits: Visualized portions demonstrate no acute abnormality. Sinuses and mastoids: Visualized portions demonstrate no acute abnormality. Sweeper Cleaner Industrial spaces: No significant abnormality appreciated. Oral cavity, floor of mouth, and base of tongue: No significant abnormality appreciated. Pharynx: No significant abnormality appreciated. Larynx/hypopharynx: No significant abnormality appreciated. Submandibular and parotid spaces: No significant abnormality appreciated. Thyroid space: No significant abnormality appreciated. Lymph nodes: No gross lymphadenopathy appreciated. Vascular structures: No significant abnormality appreciated. Bones: No significant abnormality appreciated. Upper chest: No significant abnormality appreciated. Impression: No acute abnormality appreciated. Please note that all CT scans at this facility use dose modulation, iterative reconstruction, and/or weight-based dosing when appropriate to reduce radiation dose to as low as reasonably achievable. Dictated by Tavo Stein MD @ 04/02/2024 9:55:44 PM (Electronically Signed)
--- OUTSIDE RECORDS SUMMARY | 2024-04-02 21:09 | XMS_ITS | Clinical Summary ---
Author Organization [facility] Address [address] [place] [address]. [place] [address] Care Team Providers Care Industry Consultant Name Role Phone Esperanza Mcbride MD Primary [...] Comments Blood Pressure 125/89 06/06/2018 11:24 AM CEILING INSULATION BLOWER Pulse 112 06/03/2018 5:50 AM CEILING INSULATION BLOWER Temperature 36.9 ??C (98.5 ??F) 06/06/2018 11:[address] Respiratory Rate 18 06/06/2018 11:24 AM CEILING INSULATION BLOWER Oxygen Saturation 97% 06/06/2018 11:24 AM CEILING INSULATION BLOWER Inhaled Oxygen Concentration - - Weight 86.6 kg (191 lb) 06/03/2018 11:53 AM CEILING INSULATION BLOWER Height 157.5 cm (5' 2) 06/03/2018 11:53 AM CEILING INSULATION BLOWER Body Mass Index 34.93 06/03/2018 11:53 AM CEILING INSULATION BLOWER Plan of Treatment Not on file Advance Directives For more information, please contact: [phone] * Full Code (Latest Code Status on File) Date Activated Date Inactivated Comments 06/03/2018 12:21 PM 06/06/2018 1:45 PM Question Answer Comments Code status determined by: Discussion with isaiah nt/legal decision maker Care Teams Industry Consultant Relationship Specialty Start Date End Date Esperanza Mcbride MD PCP - General 06/03/18
--- OUTSIDE RECORDS SUMMARY | 2024-04-02 21:09 | XMS_ITS | Clinical Summary ---
Author Organization [facility] Address [address] [place] [address] Care Team Providers Care Dealer Support Technician Name Role Phone No Primary/Referring, Phy Primary Care Provider Unavailable Source Comments You are receiving this document as you are listed as the primary care provider,follow-up provider, or the patient has been referred to you for consultation.This is in compliance with the Medicare and[facility] Hospitalcaid EHR Incentive Program,which states Providers who transition their patient to another setting of careor provider of care or refers their patient to another provider of care shouldprovide summary care record for each transition of care or referral. [facility] Allergies Active Allergy Reactions Criticality Noted Date [...] (FLONASE) 50 MCG/ACT nasal solution Place 1 [place] into both nostrils daily. 04/09/2022 Active escitalopram [...] y.o. Medical concerns: hyperemesis - was in [place] ED 09/20/17 and received IV fluids and [...] (Gardasil) 09/05/2007,05/05/2007, 7 Influenza IIV4 (Quadrivalent) 0.5mL (91181) 05/05,03/18/2018 Tdap 03/03/2018,04/29/2017 Social History Tobacco Use [...] age to complete this topic Care Teams Dealer Support Technician Relationship Specialty Start Date End Date No Primary/Referring, Phy PCP - General 02/17/22
--- OUTSIDE RECORDS SUMMARY | 2024-04-02 21:09 | XMS_ITS | Referral Summary ---
Author Organization [facility] Address [address] [place] [address]. [place] [address] Care Team Providers Care Medical Imaging Technologist Name Role Phone Esperanza Mcbride MD Primary [...] Comments Blood Pressure 125/89 06/06/2018 11:24 AM ANALYTICS MANAGER Pulse 112 06/03/2018 5:50 AM ANALYTICS MANAGER Temperature 36.9 ??C (98.5 ??F) 06/06/2018 11:[address] Respiratory Rate 18 06/06/2018 11:24 AM ANALYTICS MANAGER Oxygen Saturation 97% 06/06/2018 11:24 AM ANALYTICS MANAGER Inhaled Oxygen Concentration - - Weight 86.6 kg (191 lb) 06/03/2018 11:53 AM ANALYTICS MANAGER Height 157.5 cm (5' 2) 06/03/2018 11:53 AM ANALYTICS MANAGER Body Mass Index 34.93 06/03/2018 11:53 AM ANALYTICS MANAGER Plan of Treatment Not on file Advance Directives For more information, please contact: [phone] * Full Code (Latest Code Status on File) Date Activated Date Inactivated Comments 06/03/2018 12:21 PM 06/06/2018 1:45 PM Question Answer Comments Code status determined by: Discussion with isaiah nt/legal decision maker Care Teams Medical Imaging Technologist Relationship Specialty Start Date End Date Esperanza Mcbride MD PCP - General 06/03/18
[2024-04-02] MEDS: RACEPINEPHRINE HCL 0.5 ML VIAL.NEB NEB (21:16)
[2024-04-02] MEDS: dexAMETHasone 10 MG/ML inj IVP (21:16)
[2024-04-02] MEDS: KETOROLAC 15 MG/ML inj IVP (21:16)
[2024-04-02 21:30] LABS: Chloride* 104 mmol/L (96-114); Potassium* 3.5 mmol/L (3.6-5.1); Sodium* 137 mmol/L (135-149)
[2024-04-02 21:32] LABS: Creatinine* 0.8 mg/dL (0.5-1.5); Est. Creatinine Clearance* 79.85; Estimated Glomerular Filt Rate 100 ml/min
[2024-04-02 21:33] LABS: Anion Gap 8 mEq/L (7-15); Blood Urea Nitrogen* 11 mg/dL (5-24); Calcium* 9.2 mg/dL (8.4-10.6); Carbon Dioxide* 25 mmol/L (20-32); Glucose* 88 mg/dL (60-115)
[2024-04-02 21:35] LABS: Strep A DNA Probe* NOT DETECTED (Not Detectd)
== END 2024-04-02 22:22 | disposition home or self-care (01) ==
PROVIDERS: Emergency Provider Family Medicine; PCP Family Medicine
DX: J04.0 Acute laryngitis (principal)
CPT/HCPCS: 36415; 70491; 80048; 87651; 94640; 94761; 96374; 96375; 99284; 99285; J1100; J1885; Q9967

== ENCOUNTER 2025-02-07 23:50 | Observation (INO) | payer BC, SELFPAY ==
[2025-02-07 23:53] VITALS: BP 139/81; PULSE 122; RESP 18; TEMP 37.3; O2SAT 99; BMI 42.1
--- OUTSIDE RECORDS SUMMARY | 2025-02-07 23:53 | XMS_ITS | Clinical Summary ---
Author Organization [facility] Address [address] [place] [address]. [place] [address] Care Team Providers Care Helicopter Repairer Name Role Phone Esperanza Mcbride MD Primary [...] School Help Needed Not on file 04/18 Comments No Sex and Gender Information Value Date Recorded Sex Assigned at Not on file Legal Sex Female 4:34 AM SOCCER COACH Gender Identity Not on file Sexual Orientation Not on file Last Filed Vital Signs Vital Sign Reading Time Taken Comments Blood Pressure 125/89 06/06/2018 11:24 AM SOCCER COACH Pulse 112 06/03/2018 5:50 AM SOCCER COACH Temperature 36.9 C (98.5 F) 06/06/2018 11:24 AM SOCCER COACH Respiratory Rate 18 06/06/2018 11:24 AM SOCCER COACH Oxygen Saturation 97% 06/06/2018 11:24 AM SOCCER COACH Inhaled Oxygen Concentration - - Weight 86.6 kg (191 lb) 06/03/2018 11:53 AM SOCCER COACH Height 157.5 cm (5' 2) 06/03/2018 11:53 AM SOCCER COACH Body Mass Index 34.93 06/03/2018 11:53 AM SOCCER COACH Plan of Treatment Not on file Insurance [employer] Advance Directives For more information, please contact: [phone] * Full Code (Latest Code Status on File) Date Activated Date Inactivated Comments 06/03/2018 12:21 PM 06/06/2018 1:45 PM Question Answer Comments Code status determined by: Discussion with isaiah nt/legal decision maker Care Teams Helicopter Repairer Relationship Specialty Start Date End Date Esperanza Mcbride MD PCP - General 06/03/18
--- OUTSIDE RECORDS SUMMARY | 2025-02-07 23:53 | XMS_ITS | Clinical Summary ---
Author Organization [facility] Address [address] [place] [address] Care Team Providers Care Journeyman Mechanic Name Role Phone No Primary/Referring, Phy Primary Care Provider Unavailable Source Comments You are receiving this document as you are listed as the primary care provider,follow-up provider, or the patient has been referred to you for consultation.This is in compliance with the Medicare and[facility] EHR Incentive Program,which states Providers who transition their patient to another setting of careor provider of care or refers their patient to another provider of care shouldprovide summary care record for each transition of care or referral. [facility] Allergies Active Allergy Reactions Criticality Noted Date Comments Prednisone Other, see comments 02/05/2020 Mood swings Trazodone Other, see comments 02/05/2020 Mood swings Medications clindamycin (CLEOCIN T) 1 % external solutionIndicat ions:Hidradenit is suppurativa Apply twice daily to areas prone to hidradenitis suppurativa bumps 60 mL 6 2 Active fluticasone propionate (FLONASE) 50 MCG/ACT nasal solution Place 1 [place] into both nostrils daily. 2 Active escitalopram oxalate (LEXAPRO) 20 MG tablet Take 1 Tablet (20 mg) by mouth daily. 90 Tablet 3 2 Active vitamin-ferrous fumarate-folic acid (PRENATALPLUS) 27-1 MG [...] y.o. Medical concerns: hyperemesis - was in [place] ED 09/20/17 and received IV fluids and [...] Overview (05/07/2021): Overview: Uses OTC prilosec Immunizations Immunization Administration Dates Next Due 4vHPV (Gardasil) 09/05/2007,05/05/2007, 7 Influenza IIV4 (Quadrivalent) 0.5mL (94817) 05/05,03/18/2018 Tdap 03/03/2018,04/29/2017 Social History Tobacco Use Types Packs/Day Years Used Date Smoking Tobacco: Never Smokeless Tobacco: Never Alcohol Use Standard Drinks/Week Comments Not Currently 0 (1 standard drink = 0.6 oz pur e alcohol) Comments No Sex and Gender Information Value Date Recorded Sex Assigned at Not on file Legal Sex Female 10:13 PM CDT Gender Identity Not on file Sexual Orientation Not on file Last Filed Vital Signs Vital Sign Reading Time Taken Comments Blood Pressure 127/88 10/12/2022 1:46 PM CDT Pulse 102 10/12/2022 1:46 PM CDT Temperature 36.8 C (98.3 F) 04/16/2022 4:07 AM CDT Respiratory Rate 16 04/16/2022 6:05 AM CDT Oxygen Saturation 98% 04/16/2022 6:05 AM CDT Inhaled Oxygen Concentration - - Weight 99 kg (218 lb 3.2 oz) 10/12/2022 1:46 PM CDT Height 157.5 cm (5' 2) 04/16/2022 4:07 AM CDT Body Mass Index 39.91 04/16/2022 4:07 AM CDT Plan of Treatment Upcoming Encounters Date Type Department Care Team (Late st Contact Info) Description 04/25/2025 10:00 AM CDT Office Visit Specialty [facility] [address] [place] [address] Ana Paula Alvarez, PACheikhC [address] [facility] [address] [place] [address] Health Maintenance Due Date Last Done Comments Hep C Screening (Preventive Services) 1992 HIV Screening (Preventive Services) 2008 Adult Preventive Visit 01/25/2010 HepB Vaccine (1) 01/25/2011 COVID-19 Vaccine (1 - 2023-2 5 season) 2024 Cervical Cancer Screening 03/26/20242020, 04/29/2017 (Completed) Influenza Vaccine (#1) 2025 9, 03/18/2018 DTaP/Tdap/Td Vaccine (3 - Tdap) 03/03/2028 03/03/2018, 04/29/2017 Zoster/Shingles Vaccine (1 o f 2) 01/25/2042 HPV Vaccine Completed 09/05/2007, 05/05/2007, 03/04/2007 HepA Vaccine Aged Out No longer eligi ble based on patient's age to complete this topic Hib Vaccine Aged Out No longer eligi ble based on patient's age to complete this topic IPV (Polio) Vaccine Aged Out No longe r eligible based on patient's age to complete this topic MCV4 Vaccine Aged Out No longer eligi ble based on patient's age to complete this topic Meningococcal B Vaccine Aged Out No l onger eligible based on patient's age to complete this topic Pneumococcal Vaccine Aged Out No long er eligible based on patient's age to complete this topic Insurance FULLY INSURED HP FULLY INSURED HP FULLY INSURED HP FULLY INSURED Care Teams Journeyman Mechanic Relationship Specialty Start Date End Date No Primary/Referring, Phy PCP - General 02/17/22
--- OUTSIDE RECORDS SUMMARY | 2025-02-07 23:53 | XMS_ITS | Clinical Summary ---
Author Organization [facility] Address [facility] [place] [address] Care Team Providers Care Credentialer Name Role Phone PeoplesKeyona MD Unavailable [facility] Primary Care Provider Unavailabl e Allergies Active Allergy Reactions Criticality Noted Date Comments Prednisone Other - Describe In Comment Field Mood swings Trazodone Other - Describe In Comment Field Mood swings Medications clindamycin phosphate 1% topical 1 % external solution APPLY TWICE DAILY TO AREAS PRONE TO HIDRADENITIS SUPPURATIVA BUMPS 2 Active fluticasone (50 mcg per actuation) nasal solution (FLONASE)Indica tions:Allergic rhinitis, unspecified seasonality, unspecified trigger Inhale 1 [place] into affected nostril(s) once daily. 16 g 3 2 Active escitalopram oxalate (LEXAPRO) 20 mg tablet Take 20 mg by mouth once daily. 2 Active Active Problems Problem Noted Date Diagnosed Date Eustachian tube disorder, bilateral 08/28/2021 MELISSA (generalized anxiety disorder) 12/13/2020 Insomnia, idiopathic 12/13/2020 GERD with esophagitis 10/13/2019 Overweight (BMI 25.0-29.9) 10/28/2012 Unspecified contraceptive management 10/28/2012 Overview (10/28/2012): [facility] Other acne 10/28/2012 DEPRESSION under psychiatry care 09/01/2006 Overview (10/28/2012): On prozac and wellbutrin Resolved Problems Problem Noted Date Diagnosed Date Resolved Date IUD (intrauterine device) in place 06/03/2018 02/05/2020 (normal spontaneous vaginal delivery) 04/16/2018 10/14/2019 premature rupture of membranes (PPROM) with onset of labor within 24 hours of rupture in third trimester, antepartum 04/16/2018 10/14/2019 Tachycardia 10/14/2017 02/05/2020 Hyperemesis gravidarum 10/14/201710/13 Encounter for supervision of normal first , unspecified trimester 10/12/2017 020 Overview (10/12/2017): 27 y.o. Medical concerns: hyperemesis - was in [place] ED 09/20/17 and received IV fluids and [...] FOB: [place] GERD (gastroesophageal reflux disease) 10/28/2012 10/13/2019 Overview (10/28/2012): Uses OTC prilosec Abdominal pain, other specified site 04/29/2007 10/14/2019 Overview (04/29/2007): Suprapubic Urinary tract infection, site not specified 04/29/2007 10/14/2019 Overview (04/29/2007): Urine Culture + for >100,000 colonies of e.coli sensitive to Septra Started on Septra 04/25 but has only taken 2 tablets since then. Unspecified , withou t mention of complication, unspecified 03/04/2007 10/14/2019 BIPOLAR DISORDER in childhoo d per patinet report, under psychiatry care 09/01/2006 10/14/2019 Immunizations Immunization Administration Dates Next Due Human Papilloma Virus Vaccine 09/05/2007, 007,03/04/2007 09/06/2007 Influenza, IIV4 05/17/2019,03/18/2018 Tdap 03/03/2018,04/29/2017 Family History Medical History Relation Name Comments Diabetes Father Diabetes type II Father Good Health Father Hypertension Maternal Grandfather Diabetes type II Maternal Grandmother Heart Disease Maternal Grandmother Hypertension Maternal Grandmother Psychiatric illness Maternal Grandmother depression Allergies Mother Good Health Mother Psychiatric illness Mother bipolar Relation Name Status Comments Father Alive Maternal Grandfather Alive Maternal Grandmother Alive Mother Alive Paternal Grandfather Dad adopted Other Paternal Grandmother Dad adopted Alive Social History Tobacco Use Types Packs/Day Years Used Date Smoking Tobacco: Never Passive Smoke Exposure: Never Smokeless Tobacco: Never Tobacco Cessation:Counseling Given: Not Answered Alcohol Use Standard Drinks/Week Comments No 0 (1 standard drink = 0.6 oz pur e alcohol) PHQ-2 Answer Date Recorded PHQ-2 TOTAL SCORE 2 06/08/2022 Social Connections Answer Date Recorded Frequency of Communication with Friends and Fami ly Not on file 07/05/2021 Financial Resource Strain Answer Date R ecorded Difficulty of Paying Living Expenses Not on file 07/05/2021 Difficulty of Paying Living Expenses Not on file 07/05/2021 Comments Unknown Sex and Gender Information Value Date Recorded Sex Assigned at Female 02/05/2020 7:38 AM CDT 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 Gender Identity Female 02/05/2020 7:38 AM CDT Sexual Orientation Straight 02/05/2020 7: 38 AM CDT Occupation Industry Job Start Date Job End Date student Not on file Not on file Not on file Obstetrics History Para Term AB IAB SAB Ectopic Multiple Livin g Live Births 5 1 0 1 3 1 2 0 0 1 1 Date Outcome GA Total Labor Labor/2nd/3rd Weight Sex Type Anes PTL Netta A1 A5 Name Clin 2006 IAB 2014 SAB 9w4 d 2017 35w 4d 2.65 kg (5 lb 13.5 oz) M Vag IV Meds, Epidu ral Y Livin g 6 9 HARTLE Y,BB BERNIE [place] pesek Delivery Location:[facility] (UTD 2000 MB L&D TRIAGE) 2022 SAB SPONTA NEOUS Last Filed Vital Signs Vital Sign Reading Time Taken Comments Blood Pressure 119/75 04/23/2023 6:53 PM CDT Pulse 101 04/23/2023 6:53 PM CDT Temperature 36.6 C (97.8 F) 04/23/2023 6:53 PM CDT Respiratory Rate 21 04/23/2023 6:53 PM CDT Oxygen Saturation 98% 04/23/2023 6:53 PM CDT Inhaled Oxygen Concentration - - Weight 104.3 kg (230 lb) 04/23/2023 6:53 PM CDT Height 157.5 cm (5' 2) 03/10/2023 12:42 PM CDT Body Mass Index 42.07 03/10/2023 12:42 PM CDT Plan of Treatment Health Maintenance Due Date Last Done Comments Hepatitis C screening for age 18-79 01/25/2010 Hepatitis B series for 19+ (1 of 3 - 19+ 3-dose series) 01/25/2011 BMI (ht and wt on same day) for age 18+ 06/08/2023 06/08/2022, 07/17/2021, 11/09/2020, Additional history exists Depression screening for age 12+ 06/08/2023 06/08/2022, 06/08/2022, 12/11/2020, Additional history exists COVID-19 vaccine series ( season) 2024 Influenza Vaccine (#1) 2025 05/17/2019, 2017 Pap test for age 21-65 12/15/2026 , 12/16/2023, 06/03/2020 (Completed outside of [facility]), Additional history exists Tetanus booster 03/03/2028 03/03/2018, 04/29/2017 HIV for age 15-65 Completed 10/12/2017 Pneumococcal series for age 6-49 Aged Out No longer eligible based on patient's age to complete this topic Procedures Procedure Name Priority Date/Time Associated Diagnosis Comments MARKET RELATIONSHIP MANAGER THIN PREP PAP SCREEN IMAGED Routine 12/16/2023 2:17 PM CDT ANTI HIV 1/2 Routine 10/12/2017 1:32 PM CDT Encounter for supervision of normal first , unspecified trimester (HC) from Last 3 Months or Most Recently Relevant to Health Maintenance Results * MARKET RELATIONSHIP MANAGER THIN PREP PAP SCREEN IMAGED (12/16/2023 2:17 PM CDT) Case Report Gynecologic Cytology Report Case: [id number] Authorizing Provider: Keyona Anderson MD Collected: 12/16/2023 1417 Ordering Location: [facility] Received: 12/20/2023 1247 First Screen: Nieves Hartley Specimen: MARKET RELATIONSHIP MANAGER ThinPrep Vial Screening, Cervical/Vaginal 12/28/2023 11:14 AM CDT [facility] INTERPRETATION/ RESULT NEGATIVE FOR INTRAEPITHELIAL LESION OR MALIGNANCY (NIL) (none) 12/28/2023 11:14 AM CDT [facility] at 1114 CDT SPECIMEN ADEQUACY Satisfactory for evaluation Endocervical component present 12/28/2023 11:14 AM CDT [facility] HPV REQUEST HPV and PAP 12/28/2023 11:14 AM CDT [facility] Date of LMP 10/14/2023 12/28/2023 11:14 AM CDT [facility] Last Pap Date 12/28/2023 11:14 AM CDT [facility] Comment:unknown Last Pap Result First Pap/Unknown 11:14 AM CDT [facility] Abnormal Pap or [place] Bx in last 5 years No 12/28/2023 11:14 AM CDT [facility] Menstrual Status Irregular Periods 12/28/2023 11:14 AM CDT [facility] [place] Bx Done Today No 12/28/2023 11:14 AM CDT [facility] Additional Information 12/28/2023 11:14 AM CDT [facility] Comment: Interpreted at [facility] - [address], [place] [address] Automated Review Successful 12/28/2023 11:14 AM CDT [facility] Comment:Specimen processed s uccessfully by automated form setter supervisor device, ThinPrep Imaging System, [employer] ANCILLARY TESTING MARKET RELATIONSHIP MANAGER HPV Ordered, Please see separate report 12/28/2023 11:14 AM CDT [facility] Note The pap test is a screening technique, not a diagnostic procedure. It is used primarily to screen for squamous cancers and precursor lesions. Published studies have shown that it is subject to both false negative and false positive results. The pap test should not be used as the sole means to diagnose or exclude pre-malignant and malignant lesions. 12/28/2023 11:14 AM CDT [facility] Other (Cervical/Vagina l) 12/16/2023 2:17 PM CDT 12/20/2023 12:47 PM CDT Keyona Anderson MD PATHOLOGY/CYTOLOGY Final Result [facility] [address] [place] [address], [place] * ANTI HIV 1/2 (10/12/2017 1:32 PM CDT) HIV-1/HIV-2 ANTIBODY Non-Reacti ve Non-Reacti ve 10/12/2017 9:51 PM CDT [facility] Comment:HIV-1 p24 and HIV-1/ HIV-2 Ab not detected. Blood BLOOD SPECIMEN / Unknown Venipuncture / Unknown 10/12/2017 1:32 PM CDT 10/12/2017 1:32 PM CDT Esperanza Mcbride MD SEND OUTS Final Res ult [facility] [address] [place] [address], from Last 3 Months or Most Recently Relevant to Health Maintenance Insurance [facility] Advance Directives * Full Code (Latest Code Status on File) Date Activated Date Inactivated Comments 03/10/2023 12:39 PM 03/10/2023 5:51 PM Question Answer Comments Code Status Discussion: Reviewed Preferences * Full Code Date Activated Date Inactivated Comments 04/17/2018 12:16 AM 04/18/2018 4:07 PM * Full Code Date Activated Date Inactivated Comments 04/29/2007 12:45 AM 04/29/2007 10:54 PM Care Teams Credentialer Relationship Specialty Start Date End Date [facility] PCP - General 11/13/24 Keyona Whitt MD Obstetrics and Gynecology 03/29/23
--- NOTE | 2025-02-08 00:03 | CRLHL7_ITS ---
For Patients: As a result of the Century Cures Act, medical imaging exams and procedure reports are released immediately into your electronic medical record. You may view this report before your referring provider. If you have questions, please contact your health care provider. INDICATION: Pelvic pain, fever. History of left salpingo-oophorectomy in 2018 and right salpingectomy in 2022. TECHNIQUE: Ultrasound pelvis transabdominal and transvaginal for better assessment or to better visualize the endometrium. Real-time sonographic images with spectral and color Doppler imaging of the ovaries were obtained. COMPARISON: None. FINDINGS: Uterus: 8.2 x 4.2 x 5.3 cm. Normal echotexture of the myometrium. No masses. Endometrium: Transvaginal imaging was performed to better evaluate the endometrium. Endometrial thickness measures 9 mm. No sign of endometrial mass or fluid. Right ovary measures 10.0 x 6.7 x 7.5 cm. Left ovary is surgically absent. There is a 4.8 x 4.7 x 4.8 cm hypoechoic cystic lesion with thin internal echogenic foci within the right ovary. There is a large 8.9 cm simple right intra-ovarian versus paraovarian cystic lesion. Appropriate blood flow within the right ovary. Other: Small volume simple free fluid in the pelvic cul-de-sac. IMPRESSION: 1. 8.9 cm simple right intra-ovarian versus paraovarian cystic lesion. No prior studies available for comparison. Differential considerations include a simple cyst, a peritoneal inclusion cyst given the history of previous surgery, and a cystic ovarian neoplasm (less favored). This can be further evaluated with an MRI, if not previously performed. 2. 4.8 cm hypoechoic cystic lesion with thin internal echogenic foci within the right ovary, suspicious for a hemorrhagic cyst. Recommend follow-up ultrasound in 8-12 weeks to evaluate for resolution. 3. Unremarkable uterus and endometrial stripe. Dictated by Renato Otoole MD @ 02/08/2025 1:48:16 AM (Electronically Signed)
[2025-02-08 00:09] LABS: Appearance Urine Cloudy (Clear)
--- NOTE | 2025-02-08 00:13 | ED_ITS ---
HPI - General Adult General Time Seen by Provider: 00:13 Date Seen: 02/08/25 Chief complaint: Urogenital Problems, Female Stated complaint: ovarian cyst/low grade fever Time Seen by Provider: 02/08/25 00:12 Source: patient Mode of arrival: ambulatory History of Present Illness HPI narrative: Radha is a 35-year-old female with a past medical history of tubal ovarian abscess status post left salpingo-oophorectomy 2018 who presents to the emergency department for evaluation of right lower abdominal/pelvic pain. Patient reports pain started a few days ago. Patient describes the pain as an intermittent pressure stabbing pain in her right lower abdomen and pelvic region which occasionally radiates up into her upper abdomen and also occasionally radiates to the left. Patient reports today she had low-grade fever at home. Patient denies any chest pain, shortness of breath, back pain, nausea, vomiting, dysuria, hematuria, vaginal bleeding, vaginal discharge. Patient took over-the- counter pain reliever prior to arrival. Patient concern for ovarian cyst/abscess. Patient still has her appendix. Related Data Home Medications ?Medication ?Instructions ?Recorded ?Confirmed No Known Home Medications 02/07/25 08/0 12/27 Allergies Allergy/AdvReac Type Severity Reaction Status Date / Time prednisone AdvReac Mild Mood Swings Verified 02/07/25 23:57 trazodone AdvReac Mild Mood Swings Verified 02/07/25 23:57 Review of Systems Narrative: Past medical history, past surgical history, medications, allergies, family history, and social history were reviewed with the patient. No additional pert inent items. A medically appropriate review of systems was performed with pertinent positives and negatives noted in HPI, all other systems negative. 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 No alcohol use. Smoking Status: Never smoker Do you use any of these nicotine containing products: None Second hand tobacco smoke exposure: No How often do you have a drink containing alcohol: never How often do you have six or more drinks on one occasion: Never AUDIT-C Alcohol total score: 0 Non-prescribed substance use: marijuana (any form) service: No Exam Narrative: Exam Narrative: General: Afebrile, no acute distress HEENT: Normocephalic, atraumatic, conjunctiva normal. MMM Neck: non-tender, supple Cardio: regular rate. regular rhythm Resp: Normal work of breathing, no respiratory distress, lungs clear bilaterally, no wheezing, rhonchi, rales Chest/Back: no visual signs of trauma, no midline tenderness, no CVA tenderness Abdomen: soft, non distension, +TTP RLQ, no peritoneal signs Neuro: alert and fully oriented. CN II-XII grossly intact. Grossly normal strength and sensation in all extremities. MSK: no deformities. Normal range of motion Integumentary/Skin: no rash visualized, normal color Psych: normal affect, normal behavior Const: Vital Signs, click to edit/add: Vital Signs - 24 hr 02/07/25 23:53 02/08/25 00:55 02/08/25 01:40 Temperature 99.1 F 98.5 F Pulse Rate [Right Pulse Oximeter] 122 H 110 H Respiratory Rate 18 18 Blood Pressure [Ri ght Upper Arm] 139/81 140/90 H Pulse Oximetry 99 99 99 Oxygen Delivery Me thod Room Air Room Air 02/08/25 03:06 Temperature 98.5 F Pulse Rate [Right Pulse Oximeter] 105 H Respiratory Rate 18 Blood Pressure [Ri ght Upper Arm] 135/78 Pulse Oximetry 99 Oxygen Delivery Me thod Room Air Course Vital Signs Vital signs: Initial Vital Signs Temperature 99.1 F 02/07/25 23:53 Temperature Source Temporal Artery Scan 02/07/25 23:53 Pulse Rate 122 H 02/07/25 23:53 Pulse Rhythm Regular 02/07/25 23:53 Respiratory Rate 18 02/07/25 23:53 Blood Pressure 139/81 02/07/25 23:53 Blood Pressure Mean 100 02/07/25 23:53 Blood Pressure Position Sitting 02/07/25 23:53 Pulse Oximetry 99 02/07/25 23:53 Oxygen Delivery Method Room Air 02/07/25 23:53 Vital Signs Temperature 99.1 F 02/07/25 23:53 Pulse Rate 122 H 02/07/25 23:53 Respiratory Rate 18 02/07/25 23:53 Blood Pressure 139/81 02/07/25 23:53 Pulse Oximetry 99 02/07/25 23:53 Oxygen Delivery Method Room Air 02/07/25 23:53 Temperature 98.5 F 02/08/25 03:06 Pulse Rate 105 H 02/08/25 03:06 Respiratory Rate 18 02/08/25 03:06 Blood Pressure 135/78 02/08/25 03:06 Pulse Oximetry 99 02/08/25 03:06 Oxygen Delivery Method Room Air 02/08/25 03:06 Medications Administered Medications: Discontinued Medications Generic Name Dose Route Start Last Admin Trade Name Freq PRN Reason Stop Dose Admin Hydromorphone HCl 0.5 mg 02/08/25 02:55 02/08/25 01:41 Hydromorphone 0.5 Mg/0.5 Ml Inj IVP 02/08/25 02:56 0.5 mg ONCE ONE Administration Hydromorphone HCl 0.5 mg 02/08/25 02:56 02/08/25 03:34 Hydromorphone 0.5 Mg/0.5 Ml Inj IVP 02/08/25 02:57 0.5 mg ONCE ONE Administration Medical Decision Making MDM Narrative Medical decision making narrative: Radha is a 35-year-old female with a past medical history of tubal ovarian abscess status post left salpingo-oophorectomy 2017 who presents to the emergency department for evaluation of right lower abdominal/pelvic pain. Upon arrival patient is nontoxic appearing, afebrile, in distress secondary to pain. Patient slightly tachycardic upon arrival with a heart rate of 122, blood pressure 139/81, oxygen 99% on room air. Differential diagnosis includes but is not limited to versus ectopic versus cystitis versus pyelonephritis versus nephrolithiasis versus appendicitis versus ovarian cyst versus torsion among others. Urine negative. Urinalysis with trace leukocyte esterase, positive nitrates, 5-10 white blood cells, moderate squamous cells, many bacteria. Patient with no urinary symptoms so will hold off on antibiotics at this time and follow-up urine culture. Patient agrees with this plan. comprehensive labs remarkable for leukocytosis with white blood cell count 12.23, no acute metabolic or electrolyte abnormality. I personally reviewed interpreted pelvic ultrasound which demonstrates Na 0.9 cm simple right intra ovarian versus paraovarian cystic lesion. A 4.8 cm hypoechoic cystic lesion within the tax intern al echogenic foci of the right ovary suspicious for hemorrhagic cyst. No evidence of torsion, appropriate blood flow within the right ovary. I discussed results with patient on re-evaluation patient with ongoing pain, patient received multiple doses of IV Dilaudid. I discussed patient management with OB who agrees with admission for pain control, re-evaluation, possible surgical intervention if no improvement of symptoms. Will keep patient NPO. Patien understands and agrees with the plan. Lab Data Labs: Lab Results 02/08/25 02/08/25 Range/Units 00:02 00:50 WBC 12.23 H (4.50-11.00) K/uL RBC 4.67 (4.00-5.20) m/uL Hgb 12.5 (12.0-16.0) gm/dL Hct 38.4 (33.0-51.0) % MCV 82 (80-100) fL MCH 27 (26-34) pg MCHC 33 (32-36) gm/dL RDW Coeff of Foster 13.6 (11.5-15.5) % Plt Count 221 (140-440) K/uL Neut % (Auto) 75.1 H (42.0-72.0) % Lymph % (Auto) 14.3 L (20-44) % [place] % (Auto) 8.7 (0.0-11.0) % Eos % (Auto) 1.4 (0.0-7.0) % Baso % (Auto) 0.3 (0.0-3.0) % Neut # (Auto) 9.20 H (1.7-7.0) K/uL Lymph # (Auto) 1.70 (0.90-2.90) K/uL Florence # (Auto) 1.10 H (0.00-0.90) K/UL Eos # (Auto) 0.20 (0.00-0.50) K/uL Baso # (Auto) 0.00 (0.00-0.30) K/uL Abs Immat Gran (auto) 0.00 (0.00-0.30) K/uL Imm/Tot Granulo (auto) 0.2 % Sodium 137 (135-149) mmol/L Potassium 3.9 (3.6-5.1) mmol/L Chloride 102 (96-114) mmol/L Carbon Dioxide 26 (20-32) mmol/L Anion Gap 9 (7-15) mEq/L BUN 12 (5-24) mg/dL Creatinine 0.9 (0.5-1.5) mg/dL Estimated Creat Clear 70.32 Estimated GFR 87 ml/min Glucose 117 H (60-115) mg/dL Calcium 9.4 (8.4-10.6) mg/dL Total Bilirubin 1.0 (0.1-1.5) mg/dL AST 30 (12-35) U/L ALT 22 (4-35) U/L Alkaline Phosphatase 91 (40-150) U/L Total Protein 7.8 (6.0-8.3) g/dL Albumin 4.4 (3.3-5.0) g/dL Urine Color Yellow (Yellow) Urine Appearance Cloudy A (Clear) Urine pH 7.5 (5.0-8.5) Ur Specific [place] 1.020 (1.000-1.030) Urine Protein Negative (Negative) Urine Glucose (UA) Negative (Negative) Urine Ketones Negative (Negative) Urine Blood Negative (Negative) Urine Nitrite Positive A (Negative) Urine Bilirubin Negative (Negative) Urine Urobilinogen 0.2 (0.2-1.0) Ur Leukocyte Esterase Trace A (Negative) Urine RBC 0-2 (0-2) Urine WBC 5-10 A (0-5) Ur Squamous Epith Cells Moderate A (None-Few) Amorphous Sediment Few A (None) Urine Bacteria Many A (None) Urine Mucus Few A (None) Urine HCG, Qual Negative (Negative) Discharge Plan Discharge Clinical Impression: Pelvic pain, Ovarian cyst Patient Disposition: Admitted As Observation Condition: Stable
[2025-02-08 00:22] LABS: Ur HCG Qualitative* Negative (Negative)
[2025-02-08 00:55] VITALS: O2SAT 99
[2025-02-08 00:58] LABS: Hematocrit 38.4 % (33.0-51.0); Hemoglobin* 12.5 gm/dL (12.0-16.0); Immature Granulocytes Abs Auto 0.00 K/uL (0.00-0.30); Immature Granulocytes Pct Auto 0.2 %; Lymphocytes Absolute Auto 1.70 K/uL (0.90-2.90); Mean Corpuscular HGB Conc 33 gm/dL (32-36); Mean Corpuscular Hemoglobin 27 pg (26-34); Mean Corpuscular Volume 82 fL (80-100); RDW Coefficient of Variation % 13.6 % (11.5-15.5); Red Blood Count 4.67 m/uL (4.00-5.20); White Blood Count* 12.23 K/uL (4.50-11.00)
[2025-02-08 00:59] LABS: Slide Review Reflex No
--- OUTSIDE RECORDS SUMMARY | 2025-02-08 01:03 | XMS_ITS | Clinical Summary ---
Author Organization [facility] Address [facility] [place] [address] Care Team Providers Care Orthotist Name Role Phone PeoplesKeyona MD Unavailable [facility] Primary Care Provider Unavailabl e Allergies Active [...] rhinitis, unspecified seasonality, unspecified trigger Inhale 1 [place] into affected nostril(s) once daily. 16 g [...] y.o. 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 (UTD 2000 MB L&D TRIAGE) [...] 12/15/2026 , 12/16/2023, 06/03/2020 (Completed outside of [facility]), Additional history exists Tetanus booster 03/03/2028 03/03/2018, 04/29/2017 HIV for age 15-65 Completed 10/12/2017 Pneumococcal series for age 6-49 Aged Out No longer eligible based on patient's age to complete this topic Procedures Procedure Name Priority Date/Time Associated Diagnosis Comments RESEARCH TECHNOLOGIST THIN PREP PAP SCREEN IMAGED Routine 12/16/2023 2:17 PM CDT ANTI HIV 1/2 Routine 10/12/2017 1:32 PM CDT Encounter for supervision of normal first , unspecified trimester (HC) from Last 3 Months or Most Recently Relevant to Health Maintenance Results * RESEARCH TECHNOLOGIST THIN PREP PAP SCREEN IMAGED (12/16/2023 2:17 PM CDT) Case Report Gynecologic Cytology Report Case: [id number] Authorizing Provider: eKyona Anderson MD Collected: 12/16/2023 1417 Ordering Location: [facility] Received: 12/20/2023 1247 First Screen: Nieves Hartley Specimen: RESEARCH TECHNOLOGIST ThinPrep Vial Screening, Cervical/Vaginal 12/28/2023 11:14 AM CDT [facility] INTERPRETATION/ RESULT NEGATIVE FOR INTRAEPITHELIAL LESION OR MALIGNANCY (NIL) (none) 12/28/2023 11:14 AM CDT [facility] at 1114 CDT SPECIMEN ADEQUACY Satisfactory for evaluation Endocervical component present 12/28/2023 11:14 AM CDT [facility] HPV REQUEST HPV and PAP 12/28/2023 11:14 AM CDT [facility] Date of LMP 10/14/2023 12/28/2023 11:14 AM CDT [facility] Last Pap Date 12/28/2023 11:14 AM CDT [facility] Comment:unknown Last Pap Result First Pap/Unknown 11:14 AM CDT [facility] Abnormal Pap or Garner Bx in last 5 years No 12/28/2023 11:14 AM CDT [facility] Menstrual Status Irregular Periods 12/28/2023 11:14 AM CDT [facility] Garner Bx Done Today No 12/28/2023 11:14 AM CDT [facility] Additional Information 12/28/2023 11:14 AM CDT [facility] Comment: Interpreted at [facility] - [address], [place] [address] Automated Review Successful 12/28/2023 11:14 AM CDT [facility] Comment:Specimen processed s uccessfully by automated photostat operator device, ThinPrep Imaging System, [employer] ANCILLARY TESTING RESEARCH TECHNOLOGIST HPV Ordered, Please see separate report 12/28/2023 11:14 AM CDT [facility] Note The pap test is a [...] and malignant lesions. 12/28/2023 11:14 AM CDT [facility] Other (Cervical/Vagina l) 12/16/2023 2:17 PM CDT 12/20/2023 12:47 PM CDT Keyona Anderson MD PATHOLOGY/CYTOLOGY Final Result [facility] [address] [place] [address], [place] * ANTI HIV 1/2 (10/12/2017 1:32 PM CDT) HIV-1/HIV-2 ANTIBODY Non-Reacti ve Non-Reacti ve 10/12/2017 9:51 PM CDT [facility] Comment:HIV-1 p24 and HIV-1/ HIV-2 Ab not detected. Blood BLOOD SPECIMEN / Unknown Venipuncture / Unknown 10/12/2017 1:32 PM CDT 10/12/2017 1:32 PM CDT Esperanza Mcbride MD SEND OUTS Final Res ult [facility] [address] [place] [address], from Last 3 Months or Most Recently Relevant to Health Maintenance Insurance [facility] Advance Directives * Full Code (Latest Code Status on File) Date Activated Date Inactivated Comments 03/10/2023 12:39 PM 03/10/2023 5:51 PM Question Answer Comments Code Status Discussion: Reviewed Preferences * Full Code Date Activated Date Inactivated Comments 04/17/2018 12:16 AM 04/18/2018 4:07 PM * Full Code Date Activated Date Inactivated Comments 04/29/2007 12:45 AM 04/29/2007 10:54 PM Care Teams Orthotist Relationship Specialty Start Date End Date [facility] PCP - General 11/13/24 Keyona Whitt MD Obstetrics and Gynecology 03/29/23
--- OUTSIDE RECORDS SUMMARY | 2025-02-08 01:03 | XMS_ITS | Clinical Summary ---
Author Organization [facility] Address [address] [place] [address]. 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 Gender Identity Not on file Sexual Orientation Not on file Last Filed Vital Signs Vital Sign Reading Time Taken Comments Blood Pressure 125/89 06/06/2018 11:24 AM SKILLED LABOR Pulse 112 06/03/2018 5:50 AM SKILLED LABOR Temperature 36.9 C (98.5 F) 06/06/2018 11:24 AM SKILLED LABOR Respiratory Rate 18 06/06/2018 11:24 AM SKILLED LABOR Oxygen Saturation 97% 06/06/2018 11:24 AM SKILLED LABOR Inhaled Oxygen Concentration - - Weight 86.6 kg (191 lb) 06/03/2018 11:53 AM SKILLED LABOR Height 157.5 cm (5' 2) 06/03/2018 11:53 AM SKILLED LABOR Body Mass Index 34.93 06/03/2018 11:53 AM SKILLED LABOR Plan of Treatment Not on file Insurance [employer] Advance Directives For more information, please contact: [phone] * Full Code (Latest Code Status on File) Date Activated Date Inactivated Comments 06/03/2018 12:21 PM 06/06/2018 1:45 PM Question Answer Comments Code status determined by: Discussion with isaiah nt/legal decision maker Care Teams Acid Splicer Relationship Specialty Start Date End Date Esperanza Mcbride MD PCP - General 06/03/18
--- OUTSIDE RECORDS SUMMARY | 2025-02-08 01:03 | XMS_ITS | Clinical Summary ---
Author Organization [employer] Address [address] [place] [id number] Care Team Providers Care Collator Operator Name Role Phone No Primary/Referring, Phy Primary Care Provider Unavailable Source Comments You are receiving this document as you are listed as the primary care provider,follow-up provider, or the patient has been referred to you for consultation.This is in compliance with the Medicare and[facility] EHR Incentive Program,which states Providers who transition their patient to another setting of careor provider of care or refers their patient to another provider of care shouldprovide summary care record for each transition of care or referral. [employer] Allergies Active Allergy Reactions Criticality Noted Date Comments Prednisone Other, see comments 02/05/2020 Mood swings Trazodone Other, see comments 02/05/2020 Mood swings Medications clindamycin (CLEOCIN T) 1 % external solutionIndicat ions:Hidradenit is suppurativa Apply twice daily to areas prone to hidradenitis suppurativa bumps 60 mL 6 2 Active fluticasone propionate (FLONASE) 50 MCG/ACT nasal solution Place 1 [place] into both nostrils daily. 2 Active escitalopram [...] y.o. Medical concerns: hyperemesis - was in [facility] ED 09/20/17 and received IV fluids and [...] (Gardasil) 09/05/2007,05/05/2007, 7 Influenza IIV4 (Quadrivalent) 0.5mL (51305) 05/05,03/18/2018 Tdap 03/03/2018,04/29/2017 Social History Tobacco Use [...] [facility] [address] [place] [address] Ana Paula Alvarez, PACheikhC [address] [facility] [address] [place] [address] Health Maintenance Due Date Last Done Comments [...] FULLY INSURED [employer] Care Teams Collator Operator Relationship Specialty Start Date End Date No Primary/Referring, Phy PCP - General 02/17/22
[2025-02-08 01:26] LABS: Albumin* 4.4 g/dL (3.3-5.0); Chloride* 102 mmol/L (96-114); Sodium* 137 mmol/L (135-149)
[2025-02-08 01:27] LABS: Potassium* 3.9 mmol/L (3.6-5.1)
[2025-02-08 01:29] LABS: Alanine Aminotransferase* 22 U/L (4-35); Anion Gap 9 mEq/L (7-15); Aspartate Amino Transferase* 30 U/L (12-35); Blood Urea Nitrogen* 12 mg/dL (5-24); Carbon Dioxide* 26 mmol/L (20-32); Creatinine* 0.9 mg/dL (0.5-1.5); Est. Creatinine Clearance* 70.32; Estimated Glomerular Filt Rate 87 ml/min
[2025-02-08 01:30] LABS: Alkaline Phosphatase* 91 U/L (40-150); Bilirubin Total* 1.0 mg/dL (0.1-1.5); Calcium* 9.4 mg/dL (8.4-10.6); Glucose* 117 mg/dL (60-115); Total Protein* 7.8 g/dL (6.0-8.3)
[2025-02-08 01:40] VITALS: BP 140/90; PULSE 110; RESP 18; TEMP 36.9; O2SAT 99
[2025-02-08 03:06] VITALS: BP 135/78; PULSE 105; RESP 18; TEMP 36.9; O2SAT 99
--- NOTE | 2025-02-08 05:03 | PM.GYNCN1 ---
COFFEE MAKER - CN: HPI Data of Consult Time Seen by Provider: 05:03 Date Seen: 02/08/25 Patient: [facility] Patient Requesting Physician: Joelle Fernandez MD Primary Care Provider: Keyona Anderson MD Consult Narrative Reason for consult: pelvic pain Narrative: Radha Cheek is a 35 year old female who presented to the ED of acute on chronic pelvic pain. Radha has an extensive history of dysfunctional ovarian cysts. She's been evaluated multiple times in the office and ED for intermittent pelvic cramping/pain and dyspareunia. She history is notable for tubal ovarian abscess requiring mini laparotomy with left salpingo-oophorectomy and lysis of adhesions in 2017. She then had a laparoscopy converted to laparotomy on 04/25/2023 with extensive lysis of adhesions, right salpingectomy, and right ovarian cystectomy. General surgery assisted given the adhesions involving bowel. Surgical pathology from her laparotomy in 2022 showed right fimbriated fallopian tube with chronic salpingitis, hydrosalpinx, and surface adhesions. She was evaluated by Dr. Baker on 11/17/23 due to intermittent pain and dyspaurenia with ultrasound showing right ovary with simple cyst measuring 7.7 cm in greatest dimension. No torsion noted at that time. Radha presented to the ED for RLQ pain 11/24/23 with pelvic US showing: stable 7.2 cm right ovarian cyst. Otherwise unremarkable. She had an additional follow up pelvic ultrasound on 12/28/23. Again seen is a large simple right adnexal cystic lesion. The cyst conforms to the contour of the surrounding pelvic structures. There is now a 2nd cystic lesion either within or adjacent to the 1st measuring 7 cm in diameter. Doppler flow detected within the wall/septum between the 2 cysts. The entire right adnexal cystic lesion, inclusive of the new and previously seen cysts, measures 9.8 x 9.6 x 7.9 cm. Trace pelvic free fluid. IMPRESSION: Right adnexal cystic lesion with new 2nd cystic lesion either within the or immediately adjacent. Appearance of the dominant and more long-standing cyst suggested maybe a peritoneal inclusion cyst. Consider pelvic MRI for further characterization. Subsequently, she lost her insurance and was never able to follow-up with the pelvic MRI or Dr. Baker in clinic. She presents today with the same right lower quadrant pelvic pain. Pelvic ultrasound today showed: IMPRESSION: 1. 8.9 cm simple right intra-ovarian versus paraovarian cystic lesion. No prior studies available for comparison. Differential considerations include a simple cyst, a peritoneal inclusion cyst given the history of previous surgery, and a cystic ovarian neoplasm (less favored). This can be further evaluated with an MRI, if not previously performed. 2. 4.8 cm hypoechoic cystic lesion with thin internal echogenic foci within the right ovary, suspicious for a hemorrhagic cyst. Recommend follow-up ultrasound in 8-12 weeks to evaluate for resolution. Appropriate blood flow within the right ovary. Report that she's been having intermittent pain for days that ranges from 5-8/10. However, she was hesitant to seek care as she fears surgery and loss of her remaining ovary. She was tearful about the possibility. Tonight she ate a bag of pretzel before midnight and started having worsening on RLQ with chills. Thus, she presented to the ED for evaluation. Radha and her still desire another child. She is looking in vitro fertilization due to not being able to conceive having unprotected intercourse since 2018. She does not have a history of endometriosis. Has not been on ovarian suppression in years. Reports trying various forms of control such as COCP, Depo Provera, Nuvaring, nexplanon. Had copper IUD but not Mirena IUD. Reports that all systemic hormones causes significant mood issues. Nexplanon and copper IUD causes abnormal menstruation. She has had 4 pregnancies so far and has 1 child, who was delivered vaginally. She had 2 pregnancies prior to her son was born and 1 after that resulted in a miscarriage. She denies any history of ectopic . She denies any history of sexually transmitted infections or abnormal Pap smears. cc:: CC: Joelle Fernandez MD 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 No alcohol use. Smoking Status: Never smoker Do you use any of these nicotine containing products: None Second hand tobacco smoke exposure: No How often do you have a drink containing alcohol: never How often do you have six or more drinks on one occasion: Never AUDIT-C Alcohol total score: 0 Non-prescribed substance use: marijuana (any form) service: No Meds Home Medications and Allergies Home Medications ?Medication ?Instructions ?Recorded ?Confirmed ?Type No Known Home Medications 02/07/25 02/07/25 History Allergies Allergy/AdvReac Type Severity Reaction Status Date / Time prednisone AdvReac Mild Mood Swings Verified 02/07/25 23:57 trazodone AdvReac Mild Mood Swings Verified 02/07/25 23:57 COFFEE MAKER - Exam Physical Exam: Vital signs: Temp Pulse Resp BP Pulse Ox O2 Del Method 98.5 F 105 H 18 135/78 99 Room Air 02/08/25 03:06 02/08/25 03:06 02/08/25 03:06 02/08/25 03:06 02/08/25 03:06 02/08/25 03:06 Narrative: Physical exam: General: No acute distress. Tearful when discussing treatment plan. Moves well when undressing for pelvic exam. Psych: Alert and oriented x4, full affect HEENT: Normocephalic, atraumatic Lungs: Unlabored breathing. Abdomen: Central adiposity noted, soft, no rebound, or guarding. Tender to deep palpation on RLQ and suprapubic area. No peritoneal sign/ acute abdomen. Incision(s): Well healed Pfannenstiel Lower extremities: No edema or erythema Pelvic exam: Mons normal, clitoris normal, urethral meatus normal. Labia minora and majora normal in appearance bilaterally. Perineum and anus normal appearance. Vaginal introitus normal appearance. Bimanual exam reveals uterus to be soft, nontender, mobile, anteverted, of normal size and texture. No CMT. Tenderness on right adenxa. Vaginitis panel and GC/Chlam COFFEE MAKER - Results Labs Labs: Short CBC 02/08/25 Range/Units 00:50 WBC 12.23 H (4.50-11.00) K/uL Hgb 12.5 (12.0-16.0) gm/dL Hct 38.4 (33.0-51.0) % Plt Count 221 (140-440) K/uL BMP 02/08/25 00:50 Sodium 137 Potassium 3.9 Chloride 102 Carbon Dioxide 26 BUN 12 Creatinine 0.9 Glucose 117 H Calcium 9.4 Liver Function 02/08/25 Range/Units 00:50 Total Bilirubin 1.0 (0.1-1.5) mg/dL AST 30 (12-35) U/L ALT 22 (4-35) U/L Alkaline Phosphatase 91 (40-150) U/L Albumin 4.4 (3.3-5.0) g/dL Urine 02/08/25 Range/Units 00:02 Urine Color Yellow (Yellow) Urine Appearance Cloudy A (Clear) Urine pH 7.5 (5.0-8.5) Ur Specific [place] 1.020 (1.000-1.030) Urine Protein Negative (Negative) Urine Glucose (UA) Negative (Negative) Assessment and Plan Assessment and plan (1) Ovarian cyst: Status: Acute Assessment and Plan: - Intra vs paraovarian vs peritoneal inclusion cyst (2) Dyspareunia: Problem comment: suspected to be due to recurrent ovarian cyst, hx of tubo-ovarian abscess Status: Acute (3) Pelvic pain: Status: Acute Plan - Will admit for obs secondary to pain control. An additional dose of dilaudid given. Vistaril given. Will schedule tylenol and ibuprofen. Oxycodon 5-10 mg Q4H PRN - NPO in case of need for urgent procedure. - Discussed with her the complexity of her case. She is at very high risk for surgical complications, including bowel injuries due to previous surgeries documenting extensive adhesions. I was honest that if we need to operate on her, she will likely lose her remaining ovary. If that were to occur, she will need long-term hormone replacement therapy to decrease her risk of cardiovascular disease, osteoporosis, dementia, all cause mortality etc. we would keep her on hormone replacement until the age of 52 to stimulate anticipated age of natural menopause. - if patient receives, appropriate hormone replacement, we can obviate a lot of risks with premature hypoestrogenism. - given that she still has a uterus, uterine protection with progesterone due to risk of hyperplasia, dysplasia, carcinoma of the endometrium with unopposed estrogen. She would need hormone replacement for over a decade. Thus the most reliable, requiring the least amount of maintenance is Mirena IUD for endometrial protection. - if she retains her ovary, she needs ovarian suppression. She is apprehensive about systemic hormonal therapy. The Mirena provided inconsistent ovarian suppression but better than nothing if she is opposed to more systemic forms. - ideally, we would be able to control her pain and do a more extensive outpatient workup given as it is not cleared what the nature of large cyst on her ovary is. Her hemorrhagic cyst will most likely resolve. But I suspect that the 7-8 cm cyst is the same 1 we have been monitoring. An MRI could help characterize whether it is truly associated with the ovary or a peritoneal cyst formed due to adhesive disease. This information is valuable as we were invested in preserving her remaining ovary. Possible drainage by IR. - additionally, if she needs surgery, for best outcome that surgery should be planned. We would need to coordinate with General surgery, do bowel prep, possible stents on right side. - Patient is requesting rest as she's feeling better, pain went from 8/10 to 5/10. Will continue to monitor and see how she does in AM - Discussed with radiology. can get her in for an MRI around 11 am.
[2025-02-08] MEDS: ACETAMINOPHEN 500 MG TABLET 1000 MG PO ×2 (05:11→11:06)
[2025-02-08] MEDS: LACTATED RINGERS 1000 ML 1,000 ML 125 ML IV (05:11)
[2025-02-08 05:25] VITALS: BP 113/76; PULSE 103; RESP 18; TEMP 37.5; O2SAT 96
[2025-02-08] MEDS: ONDANSETRON 2 MG/ML inj 4 MG IVP (05:51)
[2025-02-08 06:08] LABS: Bacterial Vaginosis* Negative (Negative); Candida glab/krus NOT DETECTED (No Detected)
[2025-02-08 06:39] LABS: Chlamydia DNA Amplified* NOT DETECTED (No Detected); GC DNA Amplified* NOT DETECTED (No Detected)
--- NOTE | 2025-02-08 07:38 | CRLHL7_ITS ---
For Patients: As a result of the Century Cures Act, medical imaging exams and procedure reports are released immediately into your electronic medical record. You may view this report before your referring provider. If you have questions, please contact your health care provider. INDICATION: Right adnexal cyst COMPARISON: Pelvic ultrasound 02/08/2025 TECHNIQUE: Mulitplanar, mutliparametric MR imaging of the pelvis without and with intravenous contrast. Contrast: 20 mL Dotarem FINDINGS: Ovaries: There is a right adnexal multiloculated cystic lesion measuring 8.7 x 7.4 x 8.4 centimeters (01/20, 03/18) with enhancing septations and possible minimal proteinaceous/hemorrhagic contents. There is a solid enhancing nodular component measuring 0.7 x 0.5 centimeters (01/22, 15/). Diffusion restriction and dynamic contrast sequences were not obtained. Left ovary is not visualized. Uterus: Measures 7.9 x 5 x 3.5 centimeters (/29, 9/16) endometrial thickness measures 0.7 centimeters. Junctional zone is normal measuring 0.4 centimeters. Bladder: Unremarkable. Bowel: Unremarkable. Lymph nodes: No lymphadenopathy. Other: Trace fluid in the pelvis. Bones: Unremarkable. IMPRESSION: The right adnexal cystic lesion is likely of ovarian origin with multiple enhancing septations and a small nodular enhancing component (O-RADS 4). Consider gynecologic oncologic consultation. No lymphadenopathy. Dictated by Gayla Paredes MD @ 02/08/2025 12:25:53 PM (Electronically Signed)
[2025-02-08] MEDS: IBUPROFEN 600 MG TABLET PO ×2 (07:40→14:25)
[2025-02-08 07:59] VITALS: BP 124/80; PULSE 98; RESP 16; TEMP 37.1; O2SAT 97
[2025-02-08 12:13] VITALS: BP 126/83; PULSE 94; RESP 16; TEMP 37.1; O2SAT 97
--- NOTE | 2025-02-08 13:06 | PM.GYNPNNOR ---
Progress Note: A&P Assessment and plan (1) Adnexal mass: Problem details: Multi lobulated, cystic, multi septated, 8.7 x 7.8 x 8.7 cm right lower quadrant mass that appears to be ovarian in origin. Status: Acute Assessment and Plan: 1. Refer to Mobile Phone Salesperson/Onc: either [facility] or [facility]. 2. Discharge home with ibuprofen, oxycodone and colace. 3. CA-125 ordered for throughness, not suspicious for ovarian malignancy. 4. Refer to psychiatric provider for medication management of generalized anxiety disorder and bipolar disorder Has been on: Depakote, Wellbutrin, Celexa, Lexapro, Prozac, Abilify and Zoloft in the past with limited response. Is interested in the [employer] [employer] test. 5. [facility]. 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 One of these masses is 4.8 x 4.7 x 4.8 cm hypoechoic cystic lesion with thin internal echogenic foci within the right ovary most consistent with a hemorrhagic corpus luteum. There is a 2nd cystic structure that measures 8.9 cm in its largest diameter that was called intra-ovarian versus paraovarian by ultrasound which could not be well delineated. This fluid collection has been noted on previous ultrasound on 11/15/2023, 11/24/2023 and 12/28/2023. At those ultrasounds in 2023 this larger cystic area measured approximately 7 cm in its largest diameter. This patient has a history of extensive pelvic adhesive disease. She underwent an attempted laparoscopy that converted to a mini-laparotomy in June of 2018 for lysis of adhesions, left salpingo oophorectomy for ruptured tubo-ovarian abscess. She then had an attempted laparoscopy which converted to a laparotomy in June of 2023 for right lower quadrant pain and a multi cystic mass that was complex in the right ovary measuring 6.1 x 4.8 x 4.3 cm. This procedure took nearly 5 hours of operative time most of which was used for lysis of adhesions. A right salpingectomy was performed on 04/25/2023 for hydrosalpinx. The cystic mass is noted on ultrasound were noted to be multi cystic peritoneal inclusion cysts within the right adnexa that were ruptured during the procedure. Right ovary was noted to be adherent to the right pelvic sidewall. No endometriosis was noted in either surgery. On pathology what was thought to be a hemorrhagic cyst was noted to be hemorrhagic adhesion bands and reactive mesothelial cells and not a cyst wall. The right fallopian tube showed chronic salpingitis, hydrosalpinx and surface adhesions. The pathology results from 07/04/2018 showed a left ovary and tube with tubo-ovarian abscess and adhesions. The left ovary and bilateral fallopian tubes are surgically absent. Patient has the right ovary and uterus. The patient was given multiple doses of IV Dilaudid in the emergency department as well as in the Center room that she was placed for observation. She was then changed over to oral ibuprofen, Tylenol and oxycodone. She remains NPO for possible surgery due to pain and 2 cystic masses within the right pelvis. An MRI was ordered in an attempt to delineate the ovary from a the large cystic fluid collection measuring 8.9 cm on ultrasound to see if this is possibly a peritoneal inclusion cyst not an ovarian cyst/mass. If it appears to be a peritoneal inclusion cyst on MRI this fluid could be amenable to drainage with CT guidance by Interventional radiologist. The MRI results shows: There is a right adnexal, multiloculated, cystic lesion measuring 8.7 x 7.4 x 8.4 cm with enhancing septations and possible minimal proteinaceous/hemorrhagic contents. There is a solid enhancing nodular component measuring 0.7 x 0.5 cm. Diffusion restriction and dynamic contrast sequences were not obtained. Left ovary is surgically absent. The uterus measures 7.9 x 5.0 x 3.5 cm. The endometrial thickness is 0.7 cm. The junctional zone appears normal. Bladder, bowel, lymph nodes and bones are unremarkable and there is no evidence of lymphadenopathy. There is trace fluid within the pelvis. The radiologist recommended gynecologic oncologic consultation. This was reviewed with the patient in detail. I had talked to her briefly this morning about considering evaluation by Gynecologic Oncology due to the complexity of her pelvic adhesive disease which would make surgery very challenging and would be safer for her to have this done be a surgeon who commonly performs challenging procedures. From the MRI result the large cyst mass in the RLQ is not amenable to CT-guided drainage by interventional radiology. CA-125 ordered. Radha reports her pain was down to 3-4/10 prior to the MRI but went up to a 5/10 after the MRI due to laying on her side for some of the images. She had some nausea with one episode of emesis this morning but reports the nausea has resolved. I am not planning on performing her surgery as her pain has been relatively well controlled with oral pain medications so I advanced her diet and will be able to discharge her home today. She has a lifelong history of problems with generalized anxiety. She has been on multiple medications that she states have worked for a while and then she becomes ?tolerant? to them in the stop working. She has never had a psychiatric provider except when she was a child at approximately age 14. She is not currently on any medications for her mood disorder. She declined a prescription for any medications at this time. I will be placing referral for a psychiatric provider for her. She understands that it may take a few months for her to get an appointment with someone. Is interested in the [employer]. CONTINUUM OF CARE MANAGER-PN: Obj Exam Physical Exam: Vital signs: Temp Pulse Resp BP Pulse Ox O2 Del Method 98.7 F 94 16 126/83 97 Room Air 02/08/25 12:13 02/08/25 12:13 02/08/25 12:13 02/08/25 12:13 02/08/25 12:13 02/08/25 12:13 Narrative: General: Pleasant, , well groomed woman in no acute distress. Vital signs: Included in her electronic medical record. Psychiatric: Flat affect. Normal speech pattern and eye contact. Alert and oriented x3. Heart: Regular rate and rhythm without gallop, rub or murmur. Chest: Clear to auscultation bilaterally. Abdomen: Soft, mild tenderness to deep palpation just superior to the patient's right hip and slightly medial to the patient's right hip and some mild right flank tenderness. Otherwise nontender. Normal bowel sounds throughout. Extremities: No pain or edema. CONTINUUM OF CARE MANAGER - PN: Obj Data Labs Labs: Laboratory Results - last 24 hr 02/08/25 02/08/25 02/08/25 00:02 00:50 04:50 WBC 12.23 H RBC 4.67 Hgb 12.5 Hct 38.4 MCV 82 MCH 27 MCHC 33 RDW Coeff of [place] 13.6 Plt Count 221 Neut % (Auto) 75.1 H Lymph % (Auto) 14.3 L [place] % (Auto) 8.7 Eos % (Auto) 1.4 Baso % (Auto) 0.3 Neut # (Auto) 9.20 H Lymph # (Auto) 1.70 [place] # (Auto) 1.10 H Eos # (Auto) 0.20 Baso # (Auto) 0.00 Abs Immat Gran (auto) 0.00 Imm/Tot Granulo (auto) 0.2 Sodium 137 Potassium 3.9 Chloride 102 Carbon Dioxide 26 Anion Gap 9 BUN 12 Creatinine 0.9 Estimated Creat Clear 70.32 Estimated GFR 87 Glucose 117 H Calcium 9.4 Total Bilirubin 1.0 AST 30 ALT 22 Alkaline Phosphatase 91 Total Protein 7.8 Albumin 4.4 Urine Color Yellow Urine Appearance Cloudy A Urine pH 7.5 Ur Specific [place] 1.020 Urine Protein Negative Urine Glucose (UA) Negative Urine Ketones Negative Urine Blood Negative Urine Nitrite Positive A Urine Bilirubin Negative Urine Urobilinogen 0.2 Ur Leukocyte Esterase Trace A Urine RBC 0-2 Urine WBC 5-10 A Ur Squamous Epith Cells Moderate A Amorphous Sediment Few A Urine Bacteria Many A Urine Mucus Few A Urine HCG, Qual Negative Vaginal Bacterial Vaginosis Negative Vaginal Em species NOT DETECTED Vag C. glabrata/krusei NOT DETECTED Vag T. vaginalis NOT DETECTED C.trachomatis Ampl DNA NOT DETECTED N.gonorrhoeae Ampl DNA NOT DETECTED
== END 2025-02-08 15:30 | disposition home or self-care (01) ==
LOC: ED 02-08 01:05 → OB 02-08 04:22
PROVIDERS: Obstetrics & Gynecology; Admitting Provider Obstetrics & Gynecology; Emergency Provider Emergency Medicine; PCP Family Medicine; Visit Provider Obstetrics & Gynecology
DX: R19.09 Other intra-abdominal and pelvic swelling, mass and lump (principal); N94.89 Other specified conditions associated with female genital organs and menstrual cycle; R10.2 Pelvic and perineal pain; N94.10 Unspecified dyspareunia; F41.1 Generalized anxiety disorder
CPT/HCPCS: 36415; 72197; 76830; 76856; 80053; 81001; 81025; 81513; 85025; 86304; 87086; 87481; 87491; 87591; 87661; 93976; 94761; 96374; 96375; 96376; 99285; A9270; A9575; G0378; J1171; J2405; J7120

== ENCOUNTER 2025-02-17 15:54 | Emergency (ER) | payer BC, SELFPAY ==
--- OUTSIDE RECORDS SUMMARY | 2025-02-13 09:00 | XMS_ITS ---
Author Organization [facility] Address [address] [place] [address] Care Team Providers Care Last Inserter Name Role Phone None, No PCP Primary Care Provider Michela Casey Unavailable [phone] Allergies Allergen (clinical drug ingredient) Drug/Non Drug Allergy documented on EMR Reaction Allergy Type Onset Date Status prednisone predniSONE Unknown Drug Allergy Activ e trazodone traZODone Unknown Drug Allergy Active Results Component Value Reference Range Notes THINPREP TIS AND HPV mRNA E6 /E7 W/ REFLEX 16, 18/45HPV Reviewed date:02/16/2025 07:12:01 PM Interpretation: Performing Lab:[id number] Brianna Haji, [id number] Mic Banks Notes/Report: CLINICAL INFORMATION: Other high risk factor, specify ANNUAL LMP: NONE GIVEN PREV. PAP: NONE GIVEN PREV. BX: NONE GIVEN SOURCE: Cervix, Endocer vix STATEMENT OF ADEQUACY: Satisfactory for evaluation. Endocervical/transformation zone component present. Age and/or menstrual status not provided INTERPRETATION/RESULT: Cytology Results: Negative for intraepithelial lesion or malignancy. COMMENT: This Pap test has been evaluated with the ThinPrep(R) Imaging System. LABORER WHARF: ITALIA ARAYA(ASCP) CT Screening Location: [address] [address] CLIA [id number] Slide preparation performed at: [facility], [address] [place] [address] CLIA: [id number] COMMENT EXPLANATORY NOTE: The Pap is a screening test for cervical cancer. It is not a diagnostic test and is subject to false negative and false positive results. It is most reliable when a satisfactory sample, regularly obtained, is submitted with relevant clinical findings and history, and when the Pap result is evaluated along with historic and current clinical information. HPV mRNA E6/E7 Not Detected Not Detected Methodology: Pump Servicer Helper-Mediated Amplification This assay detects E6/E7 viral messenger RNA (mRNA) from 14 high-risk HPV types (16,18,31,33,35,39,45,51,52,5 6,58,59,66,68). Cervical sources are required for HPV testing. If a vaginal source from a patient who has had a total hysterectomy with removal of cervix was submitted, please contact the testing laboratory for alternative testing options. 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 Medications Medication SIG (Take, Route, Frequency, Duration) Notes Start Date End Date Status Macrobid Active Social History Tobacco Use: Social History Observation Description Date Details (start date - stop date) Never Smoker NA - NA Tobacco Use/Smoking Question Answer Notes Are you a nonsmoker Problems Problem Type SNOMED Code ICD Code Onset Dates Problem Status W/U Status Risk Notes Problem Ovarian cyst (06607199) Ovarian cyst (N83.209) Active confirmed Vital Signs Blood pressure systolic 128 mm Hg 02/14/20 25 Blood pressure diastolic 84 mm Hg 025 Height 62.5 in 02/13/2025 Weight 227 lbs 02/13/2025 BMI 40.85 kg/m2 02/13/2025 Encounters Encounter Location Date Provider Diagnosis [facility] [address] [place] [address] 02/13/2025 Michela Peterson Ovarian cyst N83.209 ; Encounter for gynecological examination (general) (routine) without abnormal findings Z01.419 and Encounter for screening for human papillomavirus (HPV) Z11.51 Assessments Encounter Date Diagnosis (ICD Code) Assessment Notes Treatment Notes Treatment Clinical Notes Section Notes 02/13/2025 Ovarian cyst (ICD-10 - N83.209) PT HERE FOR PCO BUT ACTUALLY FU [facility] ER AT [facility]- HX OF LG OVARIAN CYST AND PAIN LAST WEEKEND AND US AND MRI SHOW 8CM WITH AN ECHOGENIC ARE AND NL CA 125- PREV LSO AND RT TUBE REMOVED SEPARATELY AND TOLD WITH ADHESIONS ALMOST HAD A COLON RESECTION- [facility] REF TO [facility] AND REV CAN GET ANOTHER OPINION FROM [place] ON[facility]=DR JETT PARED[place]- WILL REF THERE AND ACTIVITY REV AND IF INCREASED PAIN ER- REV NO EVIDENCE OF PCO ON ULTRASOUND BUT IF WANTS LABS WILL ORDER WITH ANNUAL LABS AND PCO LABS - QUES ANSWERED 02/13/2025 Encounter for gynecological examination (general) (routine) without abnormal findings (ICD-10 - Z01.419) 02/13/2025 Encounter for screening for human papillomavirus (HPV) (ICD-10 - Z11.51) Plan Of Treatment Treatment Notes Assessment Notes Ovarian cyst PT HERE FOR PCO BUT ACTUALLY FU FROM ER AT [facility]- HX OF LG OVARIAN CYST AND PAIN LAST WEEKEND AND US AND MRI SHOW 8CM WITH AN ECHOGENIC ARE AND NL CA 125- PREV LSO AND RT TUBE REMOVED SEPARATELY AND TOLD WITH ADHESIONS ALMOST HAD A COLON RESECTION- [facility] AND REV CAN GET ANOTHER OPINION FROM [place] [facility]=DR JETT PARED[place]- WILL REF THERE AND ACTIVITY REV AND IF INCREASED PAIN ER- REV NO EVIDENCE OF PCO ON ULTRASOUND BUT IF WANTS LABS WILL ORDER WITH ANNUAL LABS AND PCO LABS - QUES ANSWERED Progress Notes * Radha CHEEK MDOB:[birth year] (35 yo F)Acc No.[id number]:02/13/2025 Patient: Radha GODINEZ Provider: Jose Juan Peterson MD :1990 A ge:35 Y S ex:Female Date:02/13/2025 Address[address] Pcp:No PCP None Subjective: * Chief Complaints: * 1 . 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 2. LUCY faxed. 3. Lmp- 01/10/25. 4. Pap- unsure. 5. concerns- testing for PCOS, ovarian cysts. 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 * HPI: D epression Screening: PHQ-9 L ittle interest or pleasure in doing things?Several days F eeling down, depressed, or hopeless S everal days T rouble falling or staying asleep, or sleeping too much S everal days F eeling tired or having little energy S everal days P oor appetite or overeating N ot at all F eeling bad about yourself or that you are a failure, or have let yourself or your family down N ot at all T rouble concentrating on things, such as reading the newspaper or watching television S everal M oving or speaking so slowly that other people could have noticed; or the opposite, being so fidgety or restless that you have been moving around a lot more than usual N ot at all T houghts that you would be better off or of hurting yourself in some way N ot at all T otal Score 5 I nterpretation M ild Depression see cc. * ROS: A ll Other Systems: Review of Systems (ROS) S ee HPI for details. * Medical History: M edical History Verified. * Surgical History: D ilation and curettage of uterus after (procedure) 07/27, Left salpingo-oophorectomy (procedure) 07/22, Laparoscopic excision of hydrosalpinx (procedure) 07/27. * Hospitalization/Major Diagno stic Procedure: o varian cyst. 02/08/25. * Family History: N o Family History documented.. * Social History: T obacco Use: T obacco Use/Smoking A re you a n onsmoker D rugs/Alcohol: D rugs H ave you used drugs other than those for medical reasons in the past 12 months? No. Do you drink alcohol?: 0. * Medications: T aking Macrobid , Medication List reviewed and reconciled with the patient * Allergies: p redniSONE, traZODone. Objective: * Vitals: H t:62.5in, Wt:227lbs, BP:128/84mm Hg, BMI:40.85Index. * Examination: * General Examination: GENERAL APPEARANCE: i n no acute distress, alert, well hydrated, in no distress. INOCULATOR: l abia without lesions or masses, vaginal mucosa pink, no lesions, cervix without lesions, nontender, uterus anteverted, non tender, adnexa nontender, perineum within normal limits, anus within normal limits. PSYCH: a lert, oriented, judgment and insight good, mood/affect full range, speech clear. Assessment: * Assessment: 1. O varian cyst - N83.209 (Primary) 2 . E ncounter for gynecological examination (general) (routine) without abnormal findings - Z01.419 3 . E ncounter for screening for human papillomavirus (HPV) - Z11.51 Plan: * Treatment: 2. E ncounter for gynecological examination (general) (routine) without abnormal findings L AB: THINPREP TIS AND HPV mRNA E6/E7 W/ REFLEX 16, 18/45HPV (Collection Date & Time - 02/13/2025 03:26 PM) Value Reference Range H PV mRNA E6/E7 Not Detected Not Detected - * Michela Peterson 02/16/2025 0 7:11:43 PM CDT > TELE TO MAKE APPT TO REV LABS-NEEDS [facility]FORMIN 3.?Encounter for screening for human papillomavirus (HPV)?LAB: THINPREP TIS AND HPV mRNA E6/E7 W/ REFLEX 16, 18/45HPV (Collection Date & Time - 02/13/2025 03:26 PM)* Value Reference Range H PV mRNA E6/E7 Not Detected Not Detected - * Michela Peterson 02/16/2025 0 7:11:43 PM CDT > TELE TO MAKE APPT TO REV LABS-NEEDS [facility]FORMIN * Images: Billing Information: * Visit Code: 93631 Office Visit, New Pt., Level 3. * Procedure Codes: * Electronic signature of Danica Peterson MD on 02/17/2025 at 03:57 PM CDT Sign off status: Pending * Provider: Jose Juan Peterson MD Date: 0 02/13/2025 Generated for Altagracia summers/Rayshawn/eTdelvissmitting on: 0 02/17/2025 03:57 PM CDT History and Physical Notes * HPI (History of Present Illness) Category Sub-Category Detail Notes Category Not es Depression Screening PHQ-9 Little inte rest or pleasure in doing things: Several days see cc Feeling down, depressed, or hopeless: Se veral days Trouble falling or staying asleep, or sl eeping too much: Several days Feeling tired or having little energy: S everal days Poor appetite or overeating: Not at all Feeling bad about yourself o r that you are a failure, or have let yourself or your family down: Not at all Trouble concentrating on thi ngs, such as reading the newspaper or watching television: Several days Moving or speaking so slowly that other people could have noticed; or the opposite, being so fidgety or restless that you have been moving around a lot more than usual: Not at all Thoughts that you would be b manfred off or of hurting yourself in some way: Not at all Total Score: 5 Interpretation: Mild Depression Examination Category Sub-Category Detail Notes Category Not es *General Examination GENERAL APPEARANCE: in no a cute distress, alert, well hydrated, in no distress PSYCH: alert, oriented, alex gment and insight good, mood/affect full range, speech clear INOCULATOR: labia without lesion s or masses, vaginal mucosa pink, no lesions, cervix without lesions, nontender, uterus anteverted, non tender, adnexa nontender, perineum within normal limits, anus within normal limits
--- OUTSIDE RECORDS SUMMARY | 2025-02-13 10:59 | XMS_ITS ---
Author Organization [facility] Address [address] [place] [address] Care Team Providers Care Publishing Specialist Name Role Phone None, No PCP Primary Care Provider Michela Casey Unavailable [phone] Results Component Value Reference Range Notes MVP (Multiplex Vaginitis) (I H) Reviewed date:02/16/2025 07:12:01 PM Interpretation: Performing Lab: Notes/Report: [facility] ([id number]), [place] Lot: [id number], Expiry: 2025-09-23 Nurses Assistant: womens Bacterial vaginosis NEGATIVE Negative Em group NOT DETECTED Not Detected Em glabrata/krusei NOT DETECTED Not Detected Trichomonas vaginalis NOT DETECTED Not Detected REASON FOR VISIT IH MVP Medications Medication SIG (Take, Route, Frequency, Duration) Notes Start Date End Date Status Macrobid Active Encounters Encounter Location Date Provider Diagnosis [facility] [address] [place] [address] 02/13/2025 Michela Peterson Acute vaginitis N76.0 Assessments Encounter Date Diagnosis (ICD Code) Assessment Notes Treatment Notes Treatment Clinical Notes Section Notes 02/13/2025 Acute vaginitis (ICD-10 - N76.0) Plan Of Treatment No Information Progress Notes * Radha CHEEK MDOB:[birth year] (35 yo F)Acc No.[id number]:02/13/2025 Patient: Salima FUCHS Radha Gaffney Provider: Jose Juan Peterson MD :1990 A ge:35 Y S ex:Female Date:02/13/2025 Address:[address] [place], [place] [phone] Pcp:No PCP None Subjective: * Chief Complaints: * 1 . IH MVP. * Medical History: * Medications: T aking Macrobid Objective: * Vitals: Assessment: * Assessment: 1. A cute vaginitis - N76.0 (Primary) Plan: * Treatment: Value Reference Range B acterial vaginosis NEGATIVE Negative - * C andida glabrata/krusei NOT DETECTED Not Detected - * C andida group NOT DETECTED Not Detected - * T richomonas vaginalis NOT DETECTED Not Detected - * Michela Peterson 02/16/2025 0 7:11:43 PM CDT > TELE TO MAKE APPT TO REV LABS-NEEDS [facility]FORMIN * Procedure Codes: 8 1515 NFCT DS BV&VAGINITIS DNA ALG, Modifiers: QW * Images: Billing Information: * Visit Code: * Procedure Codes: 28684 NFCT DS BV&VAGINITIS DNA ALG. Modifiers: QW * Electronic signature of Danica Peterson MD on 02/17/2025 at 03:56 PM CDT Sign off status: Pending * Provider: Jose Juan Peterson MD Date: 0 02/13/2025 Generated for Altagracia summers/Rayshawn/Kavitaitting on: 0 02/17/2025 03:56 PM CDT
--- OUTSIDE RECORDS SUMMARY | 2025-02-15 04:30 | XMS_ITS ---
Author Organization [employer] Address [address] [place] [address] Care Team Providers Care Gis Analyst Name Role Phone None, No PCP Primary Care Provider Michela Casey [phone] Results Component Value Reference Range Notes LIPID PANEL Reviewed date:02/16/2025 07:12:01 PM Interpretation: Performing Lab:[facility] Perlae[address] Maximilian Donahue Notes/Report: 0; 0; 0; 0; [...] of LDL-C. Jaxon SS et al. DAVID. 2013;310(19): 7827-9583 (http://education.[employer].com/faq/HKI890) CHOL/HDLC RATIO 4.6 <5.0 (calc) NON HDL CHOLESTEROL 147 <130 mg/dL (calc) For patients with diabetes plus 1 major ASCVD risk factor, treating to a non-HDL-C goal of <100 mg/dL (LDL-C of <70 mg/dL) is considered a therapeutic option. COMPREHENSIVE METABOLIC PANMeredith L (CMP) Reviewed date:02/16/2025 07:12:01 PM Interpretation: Performing Lab:[facility] [employer] [address] FloorPrep SolutionsNew [facility], [facility] InstituteTzjrCB[address] Maximilian Donahue Notes/Report: 0; 0; 0; 0; 0; 0 GLUCOSE 89 65-99 mg/dL Fasting reference interval UREA NITROGEN (BUN) 12 7-25 mg/dL [...] Reviewed date:02/16/2025 07:12:01 PM Interpretation: Performing Lab:[facility] [facility], [facility] InstituteZholIS[address] Maximilian Donahue Notes/Report: 0; 0; 0; 0; [...] MPV 11.3 7.5-12.5 fL ABSOLUTE NEUTROPHILS 5296 5753-5352 cells/uL ABSOLUTE LYMPHOCYTES 2533 850-3900 cells/uL ABSOLUTE MONOCYTES 417 200-950 cells/uL ABSOLUTE EOSINOPHILS 221 15-500 cells/uL ABSOLUTE BASOPHILS 34 0-200 cells/uL NEUTROPHILS 62.3 LYMPHOCYTES 29.8 MONOCYTES 4.9 EOSINOPHILS 2.6 BASOPHILS 0.4 HEMOGLOBIN A1c Reviewed date:02/16/2025 07:12:01 PM Interpretation: Performing Lab:[facility] Hj[address] [facility], [facility] HospitalTfgfXG[address] Maximilian Donahue Notes/Report: 0; 0; 0; 0; 0; 0 HEMOGLOBIN A1c 5.6 <5.7 % For the purpose of screening for the presence of diabetes: <5.7% Consistent with the absence of diabetes 5.7-6.4% Consistent with increased risk for diabetes (prediabetes) > or =6.5% Consistent with diabetes This assay result is consistent with a decreased risk of diabetes. Currently, no consensus exists regarding use of hemoglobin A1c for diagnosis of diabetes in children. According to [place] Diabetes Association (ADA) guidelines, hemoglobin A1c <7.0% represents optimal control in non- diabetic patients. Different metrics may apply to specific patient populations. Standards of Medical Care in Diabetes(ADA). INSULIN Reviewed date:02/16/2025 07:12:01 PM Interpretation: Performing Lab:[facility] Olfo[address], [facility] HospitalHzbaMJ[address] Maximilian Donahue Notes/Report: 0; 0; 0; 0; 0; 0 INSULIN 27.0 Reference Range < or = 18.4 Risk: Optimal < or = 18.4 Moderate NA High >18.4 Adult cardiovascular event risk category cut points (optimal, moderate, high) are based on Insulin Reference Interval studies performed at [facility] in 2021. 17 HYDROXYPROGESTERONE, LC/M S/MS Reviewed date:02/16/2025 07:12:01 PM Interpretation: Performing Lab:[facility]Y [facility]/Nayeli [facility],[address] [address] Counts Include [address], WashingtonJywlzswbbjPI[address] Prudence Pedraza MD,PhD,MAX Notes/Report: 0; 0; 0; 0; 0; 0 DHEA-S (IH) Reviewed date:02/16/2025 07:12:01 PM Interpretation: Performing Lab: Notes/Report: Access 2 ([id number]), [place] [facility] FSH (IH) Reviewed date:02/16/2025 07:12:01 PM Interpretation: Performing Lab: Notes/Report: Access 2 ([id number]), [place] [facility] LH (IH) Reviewed date:02/16/2025 07:12:01 PM Interpretation: Performing Lab: Notes/Report: Access 2 ([id number]), [place] [facility] Prolactin (IH) Reviewed date:02/16/2025 07:12:01 PM Interpretation: Performing Lab: Notes/Report: Access 2 ([id number]), [place] [facility] Testosterone, Total (IH) Reviewed date:02/16/2025 07:12:01 PM Interpretation: Performing Lab: Notes/Report: Access 2 ([id number]), [place] [facility] TSH (IH) Reviewed date:02/16/2025 07:12:01 PM Interpretation: Performing Lab: Notes/Report: Access 2 ([id number]), [place] [facility] Sex Hormone Binding Globulin (IH) Reviewed date:02/16/2025 07:12:01 PM Interpretation: Performing Lab: Notes/Report: Access 2 ([id number]), [place] [facility] Sensitive Estradiol (IH) Reviewed date:02/16/2025 07:12:01 PM Interpretation: Performing Lab: Notes/Report: Access 2 ([id number]), [place] [facility] Testosterone, Free (IH) Reviewed date:02/16/2025 07:12:01 PM Interpretation: Performing Lab: Notes/Report: Access 2 ([id number]), [place] [facility] REASON FOR VISIT Fasting Sendout + IH Labs Medications Medication SIG (Take, Route, Frequency, Duration) Notes Start Date End Date Status Macrobid Active Encounters Encounter Location Date Provider Diagnosis [facility] [address] [place] [address] 02/15/2025 Michela Peterson Annual visit for general adult medical examination without abnormal findings Z00.00 and Irregular menstruation, unspecified N92.6 Assessments Encounter Date Diagnosis (ICD Code) Assessment Notes Treatment Notes Treatment Clinical Notes Section Notes 02/15/2025 Annual visit for general adult medical examination without abnormal findings (ICD-10 - Z00.00) 02/15/2025 Irregular menstruation, unspecified (ICD-10 - N92.6) Plan Of Treatment No Information Progress Notes * Radha CHEEK MDOB:[birth year] (35 yo F)Acc No.[id number]:02/15/2025 Patient: Radha GODINEZ Provider: Jose Juan Peterson MD :1990 A ge:35 Y S ex:Female Date:02/15/2025 Address:[address] [place], [place] [id number] Pcp:No PCP None Subjective: * Chief Complaints: [...] - % * A BSOLUTE NEUTROPHILS 5296 4161-6124 - cells/uL * L YMPHOCYTES 29.8 - [...] 2.1 to 103.3 - mIU/m L * Kristina Petersonette N 02/16/2025 0 7:11:43 PM CDT > [...] - % * A BSOLUTE NEUTROPHILS 5296 5773-2601 - cells/uL * L YMPHOCYTES 29.8 - [...] 4443 ASSAY THYROID STIM HORMONE - IH, 02740 DEHYDROEPIANDROSTERONE - IH, 42328 ASSAY OF ESTRADIOL - IH, 80495 GONADOTROPIN (FSH) - IH, 81556 GONADOTROPIN (LH) - IH, 29175 ASSAY OF PROLACTIN - IH, 71716 ASSAY OF SEX HORMONE GLOBUL - IH, 97396 ASSAY OF TESTOSTERONE - IH, 93245 ASSAY OF TOTAL TESTOSTERONE - IH * Images: Jomaring Information: * Visit Code: * Procedure Codes: 90085 ASSAY THYROID STIM HORMONE - IH. 88707 DEHYDROEPIANDROSTERONE - IH. 14049 ASSAY OF ESTRADIOL - IH. 10216 GONADOTROPIN (FSH) - IH. 01038 GONADOTROPIN (LH) - IH. 24889 ASSAY OF PROLACTIN - IH. 03835 ASSAY OF SEX HORMONE GLOBUL - IH. 83353 ASSAY OF TESTOSTERONE - IH. 90621 ASSAY OF TOTAL TESTOSTERONE - IH. * Electronic signature of Danica Peterson MD on 02/17/2025 at 03:56 PM CDT Sign off status: Pending * Provider: Jose Juan Peterson MD Date: 0 02/15/2025 Generated for Altagracia summers/Rayshawn/Frances on: 0 02/17/2025 03:56 PM CDT
--- OUTSIDE RECORDS SUMMARY | 2025-02-17 15:57 | XMS_ITS | Patient Health Record ---
Author Organization [employer] Address [address] [place] [address] Care Team Providers Care American Studies Professor Name Role Phone None, No PCP Primary Care Provider Michela Casey [phone] Allergies Allergen (clinical drug ingredient) Drug/Non Drug Allergy documented on EMR Reaction Allergy Type Onset Date Status prednisone predniSONE Unknown Drug Allergy Activ e trazodone traZODone Unknown Drug Allergy Active Results Component Value Reference Range Notes LIPID PANEL Reviewed date:02/16/2025 07:12:01 PM Interpretation: Performing Lab:CB, [facility] [address], [place] ApelXU[address] Maximilian Donahue Notes/Report: 0; 0; 0; 0; 0; 0 CHOLESTEROL, TOTAL 188 <200 mg/dL HDL CHOLESTEROL 41 > OR = 50 mg/dL TRIGLYCERIDES 135 <150 mg/dL LDL-CHOLESTEROL 122 Reference range: <100 Desirable range <100 mg/dL for primary prevention; <70 mg/dL for patients with CHD or diabetic patients with > or = 2 CHD risk factors. LDL-C is now calculated using the Jaxon-Cesar calculation, which is a validated novel method providing better accuracy than the Friedewald equation in the estimation of LDL-C. Jaxon NOWAK et al. DAVID. 2013;310(19): 9159-4225 (http://education.[employer].Supportie/faq/CSQ317) CHOL/HDLC RATIO 4.6 <5.0 (calc) NON HDL CHOLESTEROL 147 <130 mg/dL (calc) For patients with diabetes plus 1 major ASCVD risk factor, treating to a non-HDL-C goal of <100 mg/dL (LDL-C of <70 mg/dL) is considered a therapeutic option. COMPREHENSIVE METABOLIC PANE L (CMP) Reviewed date:02/16/2025 07:12:01 PM Interpretation: Performing Lab:[facility] [place] [id number] [facility] Center[address] Maximilian Donahue Notes/Report: 0; 0; 0; 0; [...] Reviewed date:02/16/2025 07:12:01 PM Interpretation: Performing Lab:[facility] Centere1355 [facility]xInd[facility] Center[address] Maximilian Donahue Notes/Report: 0; 0; 0; 0; [...] MPV 11.3 7.5-12.5 fL ABSOLUTE NEUTROPHILS 5296 8013-3465 cells/uL ABSOLUTE LYMPHOCYTES 2533 850-3900 cells/uL ABSOLUTE MONOCYTES 417 200-950 cells/uL ABSOLUTE EOSINOPHILS 221 15-500 cells/uL ABSOLUTE BASOPHILS 34 0-200 cells/uL NEUTROPHILS 62.3 LYMPHOCYTES 29.8 MONOCYTES 4.9 EOSINOPHILS 2.6 BASOPHILS 0.4 HEMOGLOBIN A1c Reviewed date:02/16/2025 07:12:01 PM Interpretation: Performing Lab:Michelle WEISS [facility] F[address], [place] PljaFS[address] Maximilian Donahue Notes/Report: 0; 0; 0; 0; [...] diagnosis of diabetes in children. According to [place] Diabetes Association (ADA) guidelines, hemoglobin A1c <7.0% represents optimal control in non- diabetic patients. Different metrics may apply to specific patient populations. Standards of Medical Care in Diabetes(ADA). INSULIN Reviewed date:02/16/2025 07:12:01 PM Interpretation: Performing Lab:Michelle WEISS-Jim Perlae[address] [facility], Basho TechnologiesGvgwAR[address] Maximilian Donhaue Notes/Report: 0; 0; 0; 0; 0; 0 INSULIN 27.0 Reference Range < or = 18.4 Risk: Optimal < or = 18.4 Moderate NA High >18.4 Adult cardiovascular event risk category cut points (optimal, moderate, high) are based on Insulin Reference Interval studies performed at [facility] in 2021. 17 HYDROXYPROGESTERONE, LC/M S/MS Reviewed date:02/16/2025 07:12:01 PM Interpretation: Performing Lab:Michelle BHANDARI/Nayeli [facility],[address] [address], HustlerFqqmqriqkeIK[address] Prudence Pedraza MD,PhD,MAX Notes/Report: 0; 0; 0; 0; 0; 0 DHEA-S (IH) Reviewed date:02/16/2025 07:12:01 PM Interpretation: Performing Lab: Notes/Report: Access 2 ([id number]), [place] [facility] FSH (IH) Reviewed date:02/16/2025 07:12:01 PM Interpretation: Performing Lab: Notes/Report: Access 2 ([id number]), [place] [facility] LH (IH) Reviewed date:02/16/2025 07:12:01 PM Interpretation: Performing Lab: Notes/Report: Access 2 ([id number]), [place] [facility] Prolactin (IH) Reviewed date:02/16/2025 07:12:01 PM Interpretation: Performing Lab: Notes/Report: Access 2 ([id number]), [place] [facility] Testosterone, Total (IH) Reviewed date:02/16/2025 07:12:01 PM Interpretation: Performing Lab: Notes/Report: Access 2 ([id number]), [place] [facility] TSH (IH) Reviewed date:02/16/2025 07:12:01 PM Interpretation: Performing Lab: Notes/Report: Access 2 ([id number]), [place] [facility] Sex Hormone Binding Globulin (IH) Reviewed date:02/16/2025 07:12:01 PM Interpretation: Performing Lab: Notes/Report: Access 2 ([id number]), [facility] Lab Sensitive Estradiol (IH) Reviewed date:02/16/2025 07:12:01 PM Interpretation: Performing Lab: Notes/Report: Access 2 ([id number]), [place] [facility] Testosterone, Free (IH) Reviewed date:02/16/2025 07:12:01 PM Interpretation: Performing Lab: Notes/Report: Access 2 ([id number]), [place] [facility] MVP (Multiplex Vaginitis) (I H) Reviewed date:02/16/2025 07:12:01 PM Interpretation: Performing Lab: Notes/Report: APV Xpert ([id number]), Gucash Lot: [id number], Expiry: 2025-09-23 Accounting Support Specialist: womens THINPREP TIS AND HPV mRNA E6 /E7 W/ REFLEX 16, 18/45HPV Reviewed date:02/16/2025 07:12:01 PM Interpretation: Performing Lab:FRANKIE, Edúkame [facility]-Jpnyxqufhs[address] Brianna Haji, BxrxxrwpxnSK[address] Mic Banks Notes/Report: CLINICAL INFORMATION: Other high risk factor, specify ANNUAL LMP: NONE GIVEN PREV. PAP: NONE GIVEN PREV. BX: NONE GIVEN SOURCE: Cervix, Endocer vix STATEMENT OF ADEQUACY: Satisfactory for evaluation. Endocervical/transformatio n zone component present. Age and/or menstrual status not provided INTERPRETATION/RESULT: Cytology Results: Negative for intraepithelial lesion or malignancy. COMMENT: This Pap test has been evaluated with the AvaamoPrep(R) Imaging System. ADMINISTRATIVE FELLOW: ITALIA ARAYA(ASCP) CT Screening Location: [address] [address] CLIA [id number] Slide preparation performed at: [facility], [address] [place] [address] CLIA: [id number] COMMENT EXPLANATORY NOTE: The Pap is a [...] mRNA E6/E7 Not Detected Not Detected Methodology: School Business Administrator-Mediated Amplification This assay detects E6/E7 viral messenger RNA (mRNA) from 14 high-risk HPV types (16,18,31,33,35,39,45,51,5 2,56,58,59,66,68). Cervical sources are required for HPV testing. If a vaginal source from a patient who has had a total hysterectomy with removal of cervix was submitted, please contact the testing laboratory for alternative testing options. For additional information, please refer to http://education.nooked/faq/NMV815q1 (This link if provided for information/ educational purposes only.) Reason For Referral No Information Medications Medication SIG (Take, Route, Frequency, Duration) Notes Start Date End Date Status Macrobid Active Social History Tobacco Use: Social History Observation Description Date Details (start date - stop date) Never Smoker NA - NA Tobacco Use/Smoking Question Answer Notes Are you a nonsmoker Problems Problem Type SNOMED Code ICD Code Onset Dates Problem Status W/U Status Risk Notes Problem Irregular menstruation, unspecified (N92.6) Active confirmed Problem Ovarian cyst (53103458) Ovarian cyst (N83.209) Active confirmed Vital Signs Blood pressure diastolic 84 mm Hg 02/13/2025 Height 62.5 in 02/13/2025 Blood pressure systolic 128 mm Hg 02/13/2025 Weight 227 lbs 02/13/2025 BMI 40.85 kg/m2 02/13/2025 Encounters Encounter Location Date Provider Diagnosis [address] [address] 02/13/2025 Michela Peterson Acute vaginitis N76. [address] [address] 02/15/2025 Michela Peterson Annual visit for gen eral adult medical examination without abnormal findings Z00.00 and Irregular menstruation, unspecified N92.[address] [address] 02/13/2025 Michela Peterson Ovarian cyst N83.209 ; Encounter for gynecological examination (general) (routine) without abnormal findings Z01.419 and Encounter for screening for human papillomavirus (HPV) Z11.51 [place] [address] [place] [address] 02/16/2025 Michela Peterson [place] [address] [place] [address] 02/14/[address] [address] 02/14/2025 Michela Peterson [place] [address] [place] [address] 02/13/2025 Michela Peterson Assessments Encounter Date Diagnosis (ICD Code) Assessment Notes Treatment Notes Treatment Clinical Notes Section Notes 02/13/2025 Ovarian cyst (ICD-10 - N83.209) PT HERE FOR PCO BUT ACTUALLY FU FROM ER AT [facility]- HX OF LG OVARIAN CYST AND PAIN LAST WEEKEND AND US AND MRI SHOW 8CM WITH AN ECHOGENIC ARE AND NL CA 125- PREV LSO AND RT TUBE REMOVED SEPARATELY AND TOLD WITH ADHESIONS ALMOST HAD A COLON RESECTION- [facility] REF TO [facility] [employer] SUPERVISOR ONC AND REV CAN GET ANOTHER OPINION FROM [place] ONC=DR JETT PAREDES- WILL REF THERE AND ACTIVITY REV AND IF INCREASED PAIN ER- REV NO EVIDENCE OF PCO ON ULTRASOUND BUT IF WANTS LABS WILL ORDER WITH ANNUAL LABS AND PCO LABS - QUES ANSWERED 02/13/2025 Acute vaginitis (ICD-10 - N76.0) 02/15/2025 Irregular menstruation, unspecified (ICD-10 - N92.6) 02/15/2025 Annual visit for general adult medical examination without abnormal findings (ICD-10 - Z00.00) 02/13/2025 Encounter for gynecological examination (general) (routine) without abnormal findings (ICD-10 - Z01.419) 02/13/2025 Encounter for screening for human papillomavirus (HPV) (ICD-10 - Z11.51) Plan Of Treatment No Information Insurance Providers Payer Name Payer Address Payer Phone Subscriber Number Group Number Insured Name Patient Relationship to Insured Coverage Start Date Coverage End Date [place] (Ins Bill) [address] [address] [place] [address] [id number] Radha Cheek Self - patient is the insured 5 Medical (General) History Surgical History Surgery Date(Month/Year) Dilation and curettage of uterus after a bortion (procedure) 07/27 Left salpingo-oophorectomy (procedure) 0 07/22 Laparoscopic excision of hydrosalpinx (p rocedure) 07/27 Hospitalization History Reason Date(Month/Year) ovarian cyst. 02/08/25
--- OUTSIDE RECORDS SUMMARY | 2025-02-17 15:57 | XMS_ITS | Clinical Summary ---
Author Organization [facility] Address [address] [place] [address]. [place] [address] Care Team Providers Care Relay Associate Name Role Phone Esperanza Mcbride MD Primary Care Provider [phone] Allergies No known active allergies Medications No [...] on file Legal Sex Female 4:34 AM DOLL REPAIRER Gender Identity Not on file Sexual Orientation Not on file Last Filed Vital Signs Vital Sign Reading Time Taken Comments Blood Pressure 125/89 06/06/2018 11:24 AM DOLL REPAIRER Pulse 112 06/03/2018 5:50 AM DOLL REPAIRER Temperature 36.9 C (98.5 F) 06/06/2018 11:24 AM DOLL REPAIRER Respiratory Rate 18 06/06/2018 11:24 AM DOLL REPAIRER Oxygen Saturation 97% 06/06/2018 11:24 AM DOLL REPAIRER Inhaled Oxygen Concentration - - Weight 86.6 kg (191 lb) 06/03/2018 11:53 AM DOLL REPAIRER Height 157.5 cm (5' 2) 06/03/2018 11:53 AM DOLL REPAIRER Body Mass Index 34.93 06/03/2018 11:53 AM DOLL REPAIRER Plan of Treatment Not on file Insurance [employer] Advance Directives For more information, please contact: [phone] * Full Code (Latest Code Status on File) Date Activated Date Inactivated Comments 06/03/2018 12:21 PM 06/06/2018 1:45 PM Question Answer Comments Code status determined by: Discussion with isaiah nt/legal decision maker Care Teams Relay Associate Relationship Specialty Start Date End Date Esperanza Mcbride MD PCP - General 06/03/18
--- OUTSIDE RECORDS SUMMARY | 2025-02-17 15:57 | XMS_ITS | CCD ---
Author Name Interface, [id number] Address [address] [place] [address] [facility] Address [address] [place] [address] Reason for Visit Social History Date Name Value Sex Female
--- OUTSIDE RECORDS SUMMARY | 2025-02-17 15:57 | XMS_ITS | Clinical Summary ---
Author Organization [facility] Address [facility] [place] [address] Care Team Providers Care Net Developer Programmer Name Role Phone PeoplesKeyona MD Unavailable [facility] Primary Care Provider Unavailabl e Allergies Active [...] rhinitis, unspecified seasonality, unspecified trigger Inhale 1 [place] into affected nostril(s) once daily. 16 g [...] y.o. Medical concerns: hyperemesis - was in [place] ED 09/20/17 and received IV fluids and [...] AM CDT Legal Sex Female 5:41 AM RELIABILITY TECHNOLOGIST Gender Identity Female 02/05/2020 7:38 AM CDT [...] 9 HARTLE Y,BB BERNIE [place] pesek Delivery Location:[facility] (UTD 2000 MB L&D TRIAGE) 2022 SAB [...] 12/15/2026 , 12/16/2023, 06/03/2020 (Completed outside of [facility]), Additional history exists Tetanus booster 03/03/2028 03/03/2018, 04/29/2017 HIV for age 15-65 Completed 10/12/2017 Pneumococcal series for age 6-49 Aged Out No longer eligible based on patient's age to complete this topic Procedures Procedure Name Priority Date/Time Associated Diagnosis Comments WATERPROOFER HELPER THIN PREP PAP SCREEN IMAGED Routine 12/16/2023 2:17 PM CDT ANTI HIV 1/2 Routine 10/12/2017 1:32 PM CDT Encounter for supervision of normal first , unspecified trimester (HC) from Last 3 Months or Most Recently Relevant to Health Maintenance Results * WATERPROOFER HELPER THIN PREP PAP SCREEN IMAGED (12/16/2023 2:17 PM CDT) Case Report Gynecologic Cytology Report Case: [id number] Authorizing Provider: Keyona Anderson MD Collected: 12/16/2023 1417 Ordering Location: [facility] Received: 12/20/2023 1247 First Screen: Nieves Hartley Specimen: WATERPROOFER HELPER ThinPrep Vial Screening, Cervical/Vaginal 12/28/2023 11:14 AM CDT [facility] INTERPRETATION/ RESULT NEGATIVE FOR INTRAEPITHELIAL LESION OR MALIGNANCY (NIL) (none) 12/28/2023 11:14 AM CDT [facility] at 1114 CDT SPECIMEN ADEQUACY Satisfactory for evaluation Endocervical component present 12/28/2023 11:14 AM CDT [facility] HPV REQUEST HPV and PAP 12/28/2023 11:14 AM CDT [facility] Date of LMP 10/14/2023 12/28/2023 11:14 AM CDT [facility] Last Pap Date 12/28/2023 11:14 AM CDT [facility] Comment:unknown Last Pap Result First Pap/Unknown 11:14 AM CDT [facility] Abnormal Pap or Willmar Bx in last 5 years No 12/28/2023 11:14 AM CDT [facility] Menstrual Status Irregular Periods 12/28/2023 11:14 AM CDT [facility] Willmar Bx Done Today No 12/28/2023 11:14 AM CDT [facility] Additional Information 12/28/2023 11:14 AM CDT [facility] Comment: Interpreted at [facility] - [address], [place] [address] Automated Review Successful 12/28/2023 11:14 AM CDT [facility] Comment:Specimen processed s uccessfully by automated crossing supervisor device, ThinPrep Imaging System, [employer] ANCILLARY TESTING WATERPROOFER HELPER HPV Ordered, Please see separate report 12/28/2023 11:14 AM CDT [facility] Note The pap test is a [...] and malignant lesions. 12/28/2023 11:14 AM CDT [facility] Other (Cervical/Vagina l) 12/16/2023 2:17 PM CDT 12/20/2023 12:47 PM CDT Keyona Anderson MD PATHOLOGY/CYTOLOGY Final Result [facility] [address] [place] [address], [place] * ANTI HIV 1/2 (10/12/2017 1:32 PM CDT) HIV-1/HIV-2 ANTIBODY Non-Reacti ve Non-Reacti ve 10/12/2017 9:51 PM CDT [facility] Comment:HIV-1 p24 and HIV-1/ HIV-2 Ab not detected. Blood BLOOD SPECIMEN / Unknown Venipuncture / Unknown 10/12/2017 1:32 PM CDT 10/12/2017 1:32 PM CDT Esperanza Mcbride MD SEND OUTS Final Res ult [facility] [address] [place] [address], from Last 3 Months or Most Recently Relevant to Health Maintenance Insurance [facility] Advance Directives * Full Code (Latest Code Status on File) Date Activated Date Inactivated Comments 03/10/2023 12:39 PM 03/10/2023 5:51 PM Question Answer Comments Code Status Discussion: Reviewed Preferences * Full Code Date Activated Date Inactivated Comments 04/17/2018 12:16 AM 04/18/2018 4:07 PM * Full Code Date Activated Date Inactivated Comments 04/29/2007 12:45 AM 04/29/2007 10:54 PM Care Teams Net Developer Programmer Relationship Specialty Start Date End Date [facility] PCP - General 11/13/24 Keyona Whitt MD Obstetrics and Gynecology 03/29/23
--- OUTSIDE RECORDS SUMMARY | 2025-02-17 15:57 | XMS_ITS | Clinical Summary ---
Author Organization [facility] Address [address] [place] [address] Care Team Providers Care Novelty Twister Operator Name Role Phone No Primary/Referring, Phy Primary Care Provider Unavailable Source Comments You are receiving this document as you are listed as the primary care provider,follow-up provider, or the patient has been referred to you for consultation.This is in compliance with the Medicare and[facility] Hospital[facility] EHR Incentive Program,which states Providers who transition their patient to another setting of careor provider of care or refers their patient to another provider of care shouldprovide summary care record for each transition of care or referral. [facility] Allergies Active Allergy Reactions Criticality Noted Date Comments Prednisone Other, see comments 02/05/2020 Mood swings Trazodone Other, see comments 02/05/2020 Mood swings Medications clindamycin (CLEOCIN T) 1 % external solutionIndicat ions:Hidradenit is suppurativa Apply twice daily to areas prone to hidradenitis suppurativa bumps 60 mL 6 2 Active fluticasone propionate (FLONASE) 50 MCG/ACT nasal solution Place 1 [place] into both nostrils daily. 2 Active escitalopram [...] y.o. Medical concerns: hyperemesis - was in [place] ED 09/20/17 and received IV fluids and [...] (Gardasil) 09/05/2007,05/05/2007, 7 Influenza IIV4 (Quadrivalent) 0.5mL (61631) 05/05,03/18/2018 Tdap 03/03/2018,04/29/2017 Social History Tobacco Use [...] [facility] [address] [place] [address] Ana Paula Alvarez, PACheikhC [address] [facility] [address] [place] [address] Health Maintenance Due Date Last Done Comments [...] FULLY INSURED HP FULLY INSURED Care Teams Novelty Twister Operator Relationship Specialty Start Date End Date No Primary/Referring, Phy PCP - General 02/17/22
[2025-02-17 16:13] VITALS: BP 122/90; PULSE 115; RESP 20; TEMP 36.6; O2SAT 100; BMI 42.1
--- NOTE | 2025-02-17 16:22 | ED.FEMALEGU ---
HPI - Female Genitourinary General Time Seen by Provider: 16:22 Date Seen: 02/17/25 Chief complaint: Vaginal Bleeding Stated complaint: passed large blood clot Time Seen by Provider: 02/17/25 16:21 Source: patient, RN notes reviewed and old records reviewed Mode of arrival: ambulatory Limitations: no limitations History of Present Illness HPI Narrative: This 35-year-old female is coming in after talking to an OB nurse with concern heavy menstrual bleeding and pelvic/right lower quadrant pain. She has a known right adnexal cystic lesion, was hospitalized recently. Her notes were reviewed. Her menstrual cycle started this last , quickly went from light to heavy. She has had increasing heaviness, blood through her underwear today and then when she went to change past quite a large clot. This is not typical for her. Her periods have been more irregular recently. She does not take control. She states she tried different forms of control in did not suppress her ovarian cystic disease. She was observed and discharged on February 08 here for a multilobulated, cystic, multi septated, 8.7 by 7.8 x 8.7 cm right lower quadrant mass that appears to be ovarian in origin. Her CA 125 was negative. She had ultrasound an MRI done. Her history is complex. She has a history of extensive pelvic adhesive disease. She had an attempted laparoscopy that converted to a mini laparotomy in June of 2018 for lysis of adhesions, left salpingo oophorectomy for ruptured tubo-ovarian abscess. In June of 2023 she had an attempted laparoscopy converted to laparotomy for right lower quadrant pain and a multi cystic mass that was complex in the right ovary measuring 6.1 x 4.8 x 4.3 cm. This procedure took nearly 5 hours of operative time, most of which was use for lysis of adhesions. She did have a right salpingectomy on 04/25/2023 for hydrosalpinx. The cystic mass that was noted on ultrasound were multi cystic peritoneal inclusion cysts within the right adnexa that were ruptured during the procedure. Right ovary was noted to be adherent to the right pelvic sidewall. There was no endometriosis noted in either surgery. On pathology what was thought to be hemorrhagic cyst was noted to be hemorrhagic adhesion bands and reactive mesothelial cells and not assist wall. The right fallopian tube showed chronic salpingitis, hydrosalpinx and surface adhesions. The pathology from 2018 surgery showed a left ovary into with tubo-ovarian abscess and adhesions. The left ovary and bilateral fallopian tubes are surgically absent. Patient still has her right ovary and uterus. As far as blood loss from symptoms, patient has felt a bit more fatigued/tired but no shortness of breath, no tachycardia, no presyncope symptoms. Related Data Home Medications ?Medication ?Instructions ?Recorded ?Confirmed No Known Home Medications 02/17/25 02/17/25 Allergies Allergy/AdvReac Type Severity Reaction Status Date / Time prednisone AdvReac Mild Mood Swings Verified 02/07/25 23:57 trazodone AdvReac Mild Mood Swings Verified 02/07/25 23:57 Review of Systems Status of ROS: Reports: 6 or more systems reviewed and unremarkable except as noted in History and below [facility] Medical History Dyspareunia Numbness of left anterior thigh ?R20.0 - Anesthesia of skin (ICD-10) Tubo-ovarian abscess (2018) ?N70.93 - Salpingitis and oophoritis, unspecified (ICD-10) Postoperative ileus ?K91.89 - Other postprocedural complications and disorders of digestive system (ICD-10) ?K56.7 - Ileus, unspecified (ICD-10) Right ovarian cyst (04/25/23) ?N83.201 - Unspecified ovarian cyst, right side (ICD-10) 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 - depression (ICD-10) Hyperemesis gravidarum ?O21.0 - Mild hyperemesis gravidarum (ICD-10) 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 No alcohol use. Smoking Status: Never smoker Do you use any of these nicotine containing products: None Second hand tobacco smoke exposure: No How often do you have a drink containing alcohol: never How often do you have six or more drinks on one occasion: Never AUDIT-C Alcohol total score: 0 Non-prescribed substance use: marijuana (any form) service: No Exam Const: Vital Signs, click to edit/add: Vital Signs - 24 hr 02/17/25 16:13 02/17/25 16:57 02/17/25 18:04 Temperature 97.9 F Pulse Rate [Pulse Oximeter] 115 H 98 Respiratory Rate 20 16 Blood Pressure [Ri ght Upper Arm] 122/90 H 142/87 H Pulse Oximetry 100 98 100 Oxygen Delivery Me thod Room Air Room Air This patient is alert, interactive, no apparent distress, lying in the bed in exam room 7. Sclera clear, no icterus, symmetrical facial function. Able to speak in complete sentences, speech is normal. Lungs are clear, good air entry, no wheezing crackles, no accessory muscle use, no tachypnea. CV regular rate and rhythm, no murmur, normal S1-S2 come was 3 is 4. Abdomen is obese but soft, does not seem distended. She has some lower suprapubic tenderness and right lower quadrant tenderness but no definite rebound or guarding. Do feel like I can feel the right ovarian mass that is present on prior imaging. Documenting provider has reviewed patient's vital signs: yes Course Course ED Course: Will have patient observed on pulse oximetry, do think her initial elevated heart rate may have something to do with anxiety. Will see where her hemoglobin is and make sure there is no contribution with any significant anemia. She is tender in the right lower quadrant, she is aware of potential for torsion. Will do a limited pelvic ultrasound to see if there is blood flow. I have reviewed with her that this is very likely something that they do not want to do surgical here if there were torsion, she states awareness of this from conversation with the OB/gyne from the hospitalist. She does state that she did get into [facility] but does not have an appointment until the beginning of March. I will just let the OB Gyne on-call know. Reevaluation(s) Time of Reevaluation #1: 18:09 Reevaluation #1: Have reviewed with patient that her US per [facility] is showing blood flow, no torsion. Her hemoglobin is excellent and stable compared to last one on February 08. Tsh and coag screening labs are normal. She only passed a couple small clots before going to ultrasound, has had minimal flow since. Consultations Consultation #1: Did speak with Dr. Baker again. We reviewed the reassuring blood flow per [facility]. We reviewed labs are stable. As far as bleeding, we could use progesterone if patient needs it but she has had minimal bleeding since she passed clots. She also agrees that we can have patient observed. She did stress that if patient has concerns for torsion or anything that might require surgery regarding this remaining ovary, patient does need to transfer to Gyne Onc, preferably with robotic skills. Time: 18:10 Vital Signs Vital signs: Initial Vital Signs Temperature 97.9 F 02/17/25 16:13 Temperature Source Temporal Artery Scan 02/17/25 16:13 Pulse Rate 115 H 02/17/25 16:13 Respiratory Rate 20 02/17/25 16:13 Blood Pressure 122/90 H 02/17/25 16:13 Blood Pressure Mean 100 02/17/25 16:13 Pulse Oximetry 100 02/17/25 16:13 Oxygen Delivery Method Room Air 02/17/25 16:13 Vital Signs Temperature 97.9 F 02/17/25 16:13 Pulse Rate 115 H 02/17/25 16:13 Respiratory Rate 20 02/17/25 16:13 Blood Pressure 122/90 H 02/17/25 16:13 Pulse Oximetry 100 02/17/25 16:13 Oxygen Delivery Method Room Air 02/17/25 16:13 Temperature 97.9 F 02/17/25 16:13 Pulse Rate 98 02/17/25 18:04 Respiratory Rate 16 02/17/25 18:04 Blood Pressure 142/87 H 02/17/25 18:04 Pulse Oximetry 100 02/17/25 18:04 Oxygen Delivery Method Room Air 02/17/25 18:04 MDM - Female Genitourinary Lab Data Attestation: I reviewed the patient's lab results. Labs: Lab Results 02/17/25 Range/Units 16:36 WBC 11.19 H (4.50-11.00) K/uL RBC 4.84 (4.00-5.20) m/uL Hgb 12.8 (12.0-16.0) gm/dL Hct 39.7 (33.0-51.0) % MCV 82 (80-100) fL MCH 26 (26-34) pg MCHC 32 (32-36) gm/dL RDW Coeff of Foster 13.4 (11.5-15.5) % Plt Count 279 (140-440) K/uL Neut % (Auto) 59.2 (42.0-72.0) % Lymph % (Auto) 31.5 (20-44) % [place] % (Auto) 6.3 (0.0-11.0) % Eos % (Auto) 2.3 (0.0-7.0) % Baso % (Auto) 0.5 (0.0-3.0) % Neut # (Auto) 6.60 (1.7-7.0) K/uL Lymph # (Auto) 3.50 H (0.90-2.90) K/uL [place] # (Auto) 0.70 (0.00-0.90) K/UL Eos # (Auto) 0.30 (0.00-0.50) K/uL Baso # (Auto) 0.10 (0.00-0.30) K/uL Abs Immat Gran (auto) 0.00 (0.00-0.30) K/uL Imm/Tot Granulo (auto) 0.2 % INR 0.95 (0.91-1.10) APTT 27 (23-33) Seconds Lactate 1.5 (0.5-1.9) mmol/L TSH 2.120 (0.270-4.200) uIU/mL Imaging Data US pelvis: Attestation: I have reviewed the pertinent imaging results. Radiologist's impression: Patient: [facility] Facility:?[facility] Patient ID:?[id number] Site Patient ID:?[id number]. Site :?1990 Study:?US-Pelvis TV-02/17/2025 5:38:55 PM Ordering Physician:Bruna Leon Final Report: INDICATION: Pain, bleeding. Prior left oophorectomy. TECHNIQUE: Ultrasound pelvis transvaginal for better assessment or to better visualize the endometrium. Real-time sonographic images with spectral and color Doppler imaging of the ovaries were obtained. COMPARISON: Pelvic MRI 02/08/2025. FINDINGS: Uterus: 7.4 x 4.0 x 4.9 cm. Normal echotexture of the myometrium. No masses. Endometrium: Transvaginal imaging was performed to better evaluate the endometrium. Endometrial thickness measures 5 mm. No sign of endometrial mass or fluid. Right ovary measures 8.7 x 6.2 x 5.7 cm. Left ovary is surgically absent. There is an 8.4 cm cyst with a single thin septation within the right ovary. Normal arterial and venous blood flow within the right ovary. Cul-de-sac: Tiny volume of simple free fluid. IMPRESSION: 1. Normal endometrial stripe thickness. 2. 8.4 cm cyst with a single thin septation within the right ovary, better evaluated on the recent comparison pelvic MRI. No evidence for ovarian torsion. Dictated by Renato Otoole MD @ 02/17/2025 6:25:03 PM (Electronic Signature) Discharge Plan Discharge Clinical Impression: Adnexal mass, Vaginal bleeding Patient Disposition: Home, Self-Care Condition: Stable Instructions: Menorrhagia (ED) Additional Instructions: Monitor bleeding, if bleeding is progressively heavy and bleeding through maxi pad an hour for over 2 hours, becoming symptomatic from bleeding such is escalating heart rate, shortness of breath, lightheadedness/dizziness, need to seek re-evaluation. Progesterone can be considered to shot dysfunctional uterine bleeding down if it continues. Right now there is a blood supply to the ovary but should you develop significant pain concerning for torsion, our OB Gyne surgeons recommend that you proceed to [facility] for further evaluation and management in the interim. Otherwise, keep appointment for Danni to meet with a specialist. Activity Level: Activity as Tolerated Prescriptions: No Action No Known Home Medications Follow Up/Referrals: eKyona Anderson MD [Primary Care Provider, Family Practice] Stand Alone Forms: [employer] Info Instructions
--- NOTE | 2025-02-17 16:35 | CRLHL7_ITS ---
For Patients: As a result of the Century Cures Act, medical imaging exams and procedure reports are released immediately into your electronic medical record. You may view this report before your referring provider. If you have questions, please contact your health care provider. INDICATION: Pain, bleeding. Prior left oophorectomy. TECHNIQUE: Ultrasound pelvis transvaginal for better assessment or to better visualize the endometrium. Real-time sonographic images with spectral and color Doppler imaging of the ovaries were obtained. COMPARISON: Pelvic MRI 02/08/2025. FINDINGS: Uterus: 7.4 x 4.0 x 4.9 cm. Normal echotexture of the myometrium. No masses. Endometrium: Transvaginal imaging was performed to better evaluate the endometrium. Endometrial thickness measures 5 mm. No sign of endometrial mass or fluid. Right ovary measures 8.7 x 6.2 x 5.7 cm. Left ovary is surgically absent. There is an 8.4 cm cyst with a single thin septation within the right ovary. Normal arterial and venous blood flow within the right ovary. Cul-de-sac: Tiny volume of simple free fluid. IMPRESSION: 1. Normal endometrial stripe thickness. 2. 8.4 cm cyst with a single thin septation within the right ovary, better evaluated on the recent comparison pelvic MRI. No evidence for ovarian torsion. Dictated by Renato Otoole MD @ 02/17/2025 6:25:03 PM (Electronically Signed)
--- OUTSIDE RECORDS SUMMARY | 2025-02-17 16:44 | XMS_ITS | CCD ---
Author Name Interface, [id number] Address [address] [place] [address] [facility] Address [address] [place] [address] Reason for Visit Social History Date Name Value Sex Female
--- OUTSIDE RECORDS SUMMARY | 2025-02-17 16:44 | XMS_ITS | CCD ---
Author Name [facility], [id number] Address [address] [place] [address] [facility] Address [address] [place] [address] Reason for Visit Social History Date Name Value Sex Female
[2025-02-17 16:55] LABS: Lactate* 1.5 mmol/L (0.5-1.9)
[2025-02-17 16:57] VITALS: O2SAT 98
[2025-02-17 16:57] LABS: Hematocrit 39.7 % (33.0-51.0); Hemoglobin* 12.8 gm/dL (12.0-16.0); Immature Granulocytes Pct Auto 0.2 %; Mean Corpuscular HGB Conc 32 gm/dL (32-36); Mean Corpuscular Hemoglobin 26 pg (26-34); Mean Corpuscular Volume 82 fL (80-100); RDW Coefficient of Variation % 13.4 % (11.5-15.5); Red Blood Count 4.84 m/uL (4.00-5.20); White Blood Count* 11.19 K/uL (4.50-11.00)
[2025-02-17 17:02] LABS: Immature Granulocytes Abs Auto 0.00 K/uL (0.00-0.30); Lymphocytes Absolute Auto 3.50 K/uL (0.90-2.90)
[2025-02-17 17:03] LABS: Slide Review Reflex No
[2025-02-17 17:18] LABS: INR 0.95 (0.91-1.10); Prothrombin Time 13.4 Seconds
[2025-02-17 17:48] LABS: TSH With Reflex to FT4* 2.120 uIU/mL (0.270-4.200)
[2025-02-17 18:04] VITALS: BP 142/87; PULSE 98; RESP 16; O2SAT 100
[2025-02-17 18:30] VITALS: BP 142/87; PULSE 90; RESP 16; TEMP 36.8
== END 2025-02-17 18:31 | disposition home or self-care (01) ==
PROVIDERS: Emergency Provider Family Medicine; PCP Family Medicine
DX: R19.09 Other intra-abdominal and pelvic swelling, mass and lump (principal); N93.9 Abnormal uterine and vaginal bleeding, unspecified
CPT/HCPCS: 36415; 76830; 83605; 84443; 85025; 85610; 85730; 93976; 94761; 99284

== ENCOUNTER 2025-03-01 11:35 | Emergency (ER) | payer BC, SELFPAY ==
--- OUTSIDE RECORDS SUMMARY | 2025-02-13 10:59 | XMS_ITS ---
Author Organization [facility] Address [address] [place] [address] Care Team Providers Care Commercial Sewing Instructor Name Role Phone None, No PCP Primary Care Provider Michela Casey [phone] Results Component Value Reference Range Notes MVP (Multiplex Vaginitis) (I H) Reviewed date:02/16/2025 07:12:01 PM Interpretation: Performing Lab: Notes/Report: [facility] ([id number]), [place] Lot: [id number], Expiry: 2025-09-23 Lift Team Technician: womens Bacterial vaginosis NEGATIVE Negative Em group NOT DETECTED Not Detected Em glabrata/krusei NOT DETECTED Not Detected Trichomonas vaginalis NOT DETECTED Not Detected REASON FOR VISIT IH MVP Medications Medication SIG (Take, Route, Frequency, Duration) Notes Start Date End Date Status Macrobid Active Encounters Encounter Location Date Provider Diagnosis [facility] [address] [place], [place] [id number] 02/13/2025 Michela Peterson Acute vaginitis N76.0 Assessments Encounter Date Diagnosis (ICD Code) Assessment Notes Treatment Notes Treatment Clinical Notes Section Notes 02/13/2025 Acute vaginitis (ICD-10 - N76.0) Plan Of Treatment Next Appt Details Provider Name:Michela Peterson , 04/10/2025 08:45:00 AM, [address] [place], [address], Provider Name:Michela Peterson , 04/17/2025 09:15:00 AM, [address] [place], [address], Progress Notes * Radha CHEEK MDOB:[birth year] (35 yo F)Acc No.[id number]:02/13/2025 Patient: Radha GODINEZ Provider: Jose Juan Peterson MD :1990 A ge:35 Y S ex:Female Date:02/13/2025 Address:[address] [place], [place] [phone] Pcp:No PCP None Subjective: * Chief Complaints: [...] Information: * Visit Code: * Procedure Codes: 36066 NFCT DS BV&VAGINITIS DNA ALG. Modifiers: QW * Sign off status: Completed Addendum: * true * Provider: Jose Juan Peterson MD Date: 0 02/13/2025 Generated for Printi ng/Faxing/eTransmitting on: 0 03/01/2025 11:37 AM CDT
--- OUTSIDE RECORDS SUMMARY | 2025-02-14 10:05 | XMS_ITS | Encounter Summary ---
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 [address] [place] [phone] Mass Ovary Social History Tobacco Use Types Packs/Day Years Used Date Smoking Tobacco: Never Assessed Comments Unknown Sex and Gender Information Value Date Recorded Sex Assigned at Not on file Legal Sex Female 11:00 AM CDT Gender Identity Not on file Sexual Orientation Not on file documented as of this encounter Plan of Treatment Upcoming Encounters Date Type Department Care Team (Latest Contact Info) Description 03/08/2025 9:15 AM CDT Clinical Communication Virtual Review in [place], [place] 200 [place] [address] 03/09/2025 9:30 AM CDT Comprehensive Visit Department of Obstetrics and Gynecology in [place], [place] [address] [place] [phone] Chen Carlisle M.D. [address] [place] [phone] documented as of this encounter Procedures Procedure Name Priority Date/Time Associated Diagnosis Comments INTERPRETATION OF OUTSIDE MR ABDOMEN AND OR PELVIS RAD - Routine (most inpatients and all outpatients) 02/14/2025 10:04 AM CDT Mass Ovary documented in this encounter Results * Interpretation of Outside MR Abdomen and or Pelvis (02/14/2025 10:04 AM CDT) Anatomical Region Laterality Modality Abdominal RST LOS, Abdominal ARZ LOS, Abdominal FLA LOS, Abdomen, Other, Pelvis N/A Magnetic Resonance Impressions 02/22/2025 8:16 PM CDT 1. Multilobulated and multicystic right adnexal cystic lesion, likely arising from the right ovary and/or salpinx. This may represent a hemorrhagic cyst and hydrosalpinx. No convincing evidence of malignancy. 2. Mildly prominent right iliac lymph nodes measuring up to 8 mm. 3. Mild nonspecific peritoneal thickening in the posterior cul-de-sac. No endometriomas or evidence of deep infiltrative endometriosis. Narrative 02/22/2025 8:16 PM CDT EXAM: INTERPRETATION OF OUTSIDE MR PELVIS WITHOUT AND WITH IV CONTRAST FROM [facility] DATED 02/08/2025. COMPARISON: Pelvic ultrasound from 02/08/[address] abdomen and pelvis with IV contrast from 04/25/2023. FINDINGS: ANTERIOR COMPARTMENT: - BLADDER: Not involved. MIDDLE COMPARTMENT: - UTERUS: Anteverted and measures 5.0 x 3.6 x 8.4 cm. The endometrium measures 9 mm in bilayer thickness. No adenomyosis. Nabothian cysts. No serosal deposits. Anteflexed. - UTERINE LIGAMENTS: No thickening or nodularity. - VAGINA: No serosal deposit. - OVARIES: The right ovary is visualized and is abnormal in appearance. Multilobulated complex cystic lesion likely arising from the right ovary and/or salpinx measures approximately 8.2 x 8.0 x 8.1 cm (transverse by AP by cc; series 8, image 9; series 9, image 13). This lesion contains a 5.2 x 4.6 cm cystic lesion containing mildly T1 hyperintense, T2 hyperintense, nonenhancing content in the dependent portion, more inferiorly, and a 9.2 x 6.5 cm fusiform cystic lesion more superiorly. The former may represent a hemorrhagic cyst and the latter may represent a hydrosalpinx. No convincing evidence of malignancy. The left ovary is surgically absent. No endometriomas. - FALLOPIAN TUBES: Not dilated. POSTERIOR COMPARTMENT: - RECTUM: No superficial deposits or evidence of deep infiltrative endometriosis. - TORUS UTERINUS: Not thickened. - UTEROSACRAL LIGAMENTS: Mild symmetric thickening bilaterally. - POUCH OF CLAY: Not involved. - Additional sites in the posterior compartment: No involvement of the posterior vaginal fornix and rectovaginal septum. ADDITIONAL SITES: - APPENDIX: Not visualized. - LYMPH NODES: Mildly prominent right iliac lymph nodes. For example, 8 mm lymph nodes (series 17, image 23-24). - FREE FLUID: Small amount of free fluid within the posterior cul-de-sac. - KIDNEYS: Not within the field of view. - URETERS: Not involved. OTHER: No other sites of involvement. No aggressive osseous lesions. Procedure Note Maki Platt M.D., Ph.D. - 02/22/2025 EXAM: [facility] COMPARISON: Pelvic ultrasound from 02/08/[address] abdomen and pelviswith IV contrast from 04/25/2023. FINDINGS: ANTERIOR COMPARTMENT: - BLADDER: Not involved. MIDDLE COMPARTMENT: - UTERUS: Anteverted and measures 5.0 x 3.6 x 8.4 cm. The endometriummeasures 9 mm in bilayer thickness. No adenomyosis. Nabothian cysts. Noserosal deposits. Anteflexed. - UTERINE LIGAMENTS: No thickening or nodularity. - VAGINA: No serosal deposit. - OVARIES: The right ovary is visualized and is abnormal in appearance.Multilobulated complex cystic lesion likely arising from the right ovaryand/or salpinx measures approximately 8.2 x 8.0 x 8.1 cm (transverse by APby cc; series 8, image 9; series 9, image 13). This lesion contains a 5.2 x 4.6 cm cystic lesion containingmildly T1 hyperintense, T2 hyperintense, nonenhancing content in thedependent portion, more inferiorly, and a 9.2 x 6.5 cm fusiform cysticlesion more superiorly. The former may represent a hemorrhagic cyst and the latter may represent a hydrosalpinx.No convincing evidence of malignancy. The left ovary is surgically absent.No endometriomas. - FALLOPIAN TUBES: Not dilated. POSTERIOR COMPARTMENT: - RECTUM: No superficial deposits or evidence of deep infiltrativeendometriosis. - TORUS UTERINUS: Not thickened. - UTEROSACRAL LIGAMENTS: Mild symmetric thickening bilaterally. - POUCH OF CLAY: Not involved. - Additional sites in the posterior compartment: No involvement of theposterior vaginal fornix and rectovaginal septum. ADDITIONAL SITES: - APPENDIX: Not visualized. - LYMPH NODES: Mildly prominent right iliac lymph nodes. For example, 8 mmlymph nodes (series 17, image 23-24). - FREE FLUID: Small amount of free fluid within the posterior cul-de-sac. - KIDNEYS: Not within the field of view. - URETERS: Not involved. OTHER: No other sites of involvement. No aggressive osseous lesions. IMPRESSION: 1. Multilobulated and multicystic right adnexal cystic lesion, likelyarising from the right ovary and/or salpinx. This may represent ahemorrhagic cyst and hydrosalpinx. No convincing evidence of malignancy. 2. Mildly prominent right iliac lymph nodes measuring up to 8 mm. 3. Mild nonspecific peritoneal thickening in the posterior cul-de-sac. Noendometriomas or evidence of deep infiltrative endometriosis. us Elena Dueñas M.D., M.P.H. IMG MRI PROCEDURES Final Result documented in this encounter Visit Diagnoses Diagnosis Mass Ovary documented in this encounter
--- OUTSIDE RECORDS SUMMARY | 2025-02-15 04:30 | XMS_ITS ---
Author Organization [employer] [facility] [place] [address] [place] [address] Care Team Providers Care Automatic Print Developer Name Role Phone None, No PCP Primary Care Provider Michela Casey Unavailable [phone] Results Component Value Reference Range Notes 17 HYDROXYPROGESTERONE, LC/M S/MS (Not yet reviewed by provider) Interpretation: Performing Lab:Michelle BHANDARI/Nayeli [facility] [place],[address] [facility] CenterCA[address] Prudence Pedraza MD,PhD,MAX Notes/Report: 0; 0; 0; 0; 0; 0 17-HYDROXYPROGESTERONE 20 Adult Female Reference Ranges for 17-Hydroxyprogesterone: Pre-Menopausal Mid Follicular: 23-102 ng/dL Pre-Menopausal Surge: 67-349 ng/dL Pre-Menopausal Mid Luteal: 139-431 ng/dL Postmenopausal Phase: < or = 45 ng/dL : First Trimester: 78-457 ng/dL Second Trimester: 90-357 ng/dL Third Trimester: 144-578 ng/dL This test was developed and its analytical performance characteristics have been determined by [facility]. It has not been cleared or approved by the FDA. This assay has been validated pursuant to the CLIA regulations and is used for clinical purposes. LIPID PANEL Reviewed date:02/16/2025 07:12:01 PM Interpretation: Performing Lab:Michelle WEISS-Jim [address], Jim CarranzaWklxWL[address] Maximilian Donahue Notes/Report: 0; 0; 0; 0; 0; 0 CHOLESTEROL, TOTAL 188 <200 mg/dL HDL CHOLESTEROL 41 > OR = 50 mg/dL TRIGLYCERIDES 135 <150 mg/dL LDL-CHOLESTEROL 122 Reference range: <100 Desirable range <100 mg/dL for primary prevention; <70 mg/dL for patients with CHD or diabetic patients with > or = 2 CHD risk factors. LDL-C is now calculated using the Jaxon-Guerrero calculation, which is a validated novel method providing better accuracy than the Friedewald equation in the estimation of LDL-C. Jaxon SS et al. DAVID. 2013;310(33): 8093-3279 (http://education.Authorly.avolution/faq/TXK151) CHOL/HDLC RATIO 4.6 <5.0 (calc) NON HDL CHOLESTEROL 147 <130 mg/dL (calc) For patients with diabetes plus 1 major ASCVD risk factor, treating to a non-HDL-C goal of <100 mg/dL (LDL-C of <70 mg/dL) is considered a therapeutic option. COMPREHENSIVE METABOLIC PANE L (CMP) Reviewed date:02/16/2025 07:12:01 PM Interpretation: Performing Lab:CB, [facility]-[address], Jim RepeJC[address] Maximilian Donahue Notes/Report: 0; 0; 0; 0; 0; 0 GLUCOSE 89 65-99 mg/dL Fasting referen ce interval UREA NITROGEN (BUN) 12 7-25 mg/dL CREATININE 0.82 0.50-0.97 mg/dL EGFR 97 > OR = 60 mL/min/1.73m2 BUN/CREATININE RATIO SEE NOTE: 6-22 (calc) Not Reported: BUN and Creatinine are within reference range. SODIUM 138 135-146 mmol/L POTASSIUM 4.1 3.5-5.3 mmol/L CHLORIDE 105 98-110 mmol/L CARBON DIOXIDE 25 20-32 mmol/L CALCIUM 9.0 8.6-10.2 mg/dL PROTEIN, TOTAL 7.2 6.1-8.1 g/dL ALBUMIN 4.3 3.6-5.1 g/dL GLOBULIN 2.9 1.9-3.7 g/dL (calc) ALBUMIN/GLOBULIN RATIO 1.5 1.0-2.5 (calc) BILIRUBIN, TOTAL 0.6 0.2-1.2 mg/dL ALKALINE PHOSPHATASE 96 31-125 U/L AST 14 10-30 U/L ALT 16 6-29 U/L CBC (INCLUDES DIFF/PLT) Reviewed date:02/16/2025 07:12:01 PM Interpretation: Performing Lab:ABHISHEK [facility] [address], [facility] HospitalAeecXG[address] Maximilian Donahue Notes/Report: 0; 0; 0; 0; 0; 0 WHITE BLOOD CELL COUNT 8.5 3.8-10.8 Thousand/ uL RED BLOOD CELL COUNT 4.59 3.80-5.10 Million/uL HEMOGLOBIN 12.3 11.7-15.5 g/dL HEMATOCRIT 38.6 35.0-45.0 % MCV 84.1 80.0-100.0 fL MCH 26.8 27.0-33.0 pg MCHC 31.9 32.0-36.0 g/dL For adults, a slight decrease in the calculated MCHC value (in the range of 30 to 32 g/dL) is most likely not clinically significant; however, it should be interpreted with caution in correlation with other red cell parameters and the patient's clinical condition. RDW 13.9 11.0-15.0 % PLATELET COUNT 244 140-400 Thousand/uL MPV 11.3 7.5-12.5 fL ABSOLUTE NEUTROPHILS 5296 0776-5028 cells/uL ABSOLUTE LYMPHOCYTES 2533 850-3900 cells/uL ABSOLUTE MONOCYTES 417 200-950 cells/uL ABSOLUTE EOSINOPHILS 221 15-500 cells/uL ABSOLUTE BASOPHILS 34 0-200 cells/uL NEUTROPHILS 62.3 LYMPHOCYTES 29.8 MONOCYTES 4.9 EOSINOPHILS 2.6 BASOPHILS 0.4 HEMOGLOBIN A1c Reviewed date:02/16/2025 07:12:01 PM Interpretation: Performing Lab:ABHISHEK [facility] [address] [employer] [facility], [facility] Care HospitalWzjwQQ[address] Maximilian Donahue Notes/Report: 0; 0; 0; 0; 0; 0 HEMOGLOBIN A1c 5.6 <5.7 % metrics may apply to specific patient populations. Standards of Medical Care in Diabetes(ADA). For the purpose of screening for the presence of diabetes: <5.7% Consistent with the absence of diabetes 5.7-6.4% Consistent with increased risk for diabetes (prediabetes) > or =6.5% Consistent with diabetes This assay result is consistent with a decreased risk of diabetes. Currently, no consensus exists regarding use of hemoglobin A1c for diagnosis of diabetes in children. According to [place] Diabetes Association (ADA) guidelines, hemoglobin A1c <7.0% represents optimal control in non- diabetic patients. Different INSULIN Reviewed date:02/16/2025 07:12:01 PM Interpretation: Performing Lab:CB, [facility]-[place] [address], [facility] CenterEuraIL[address] Maximilian Donahue Notes/Report: 0; 0; 0; 0; 0; 0 INSULIN 27.0 Adult cardiovascular event risk category cut points (optimal, moderate, high) are based on Insulin Reference Interval studies performed at [facility] in 2021. Reference Range < or = 18.4 Risk: Optimal < or = 18.4 Moderate NA High >18.4 DHEA-S (IH) Reviewed date:02/16/2025 07:12:01 PM Interpretation: Performing Lab: Notes/Report: Access 2 ([id number]), [place] [facility] FSH (IH) Reviewed date:02/16/2025 07:12:01 PM Interpretation: Performing Lab: Notes/Report: Access 2 ([id number]), [place] [facility] LH ([facility]) Reviewed date:02/16/2025 07:12:01 PM Interpretation: Performing Lab: Notes/Report: Access 2 ([id number]), [place] [facility] Prolactin (IH) Reviewed date:02/16/2025 07:12:01 PM Interpretation: Performing Lab: Notes/Report: Access 2 ([id number]), [place] [facility] Testosterone, Total (IH) Reviewed date:02/16/2025 07:12:01 PM Interpretation: Performing Lab: Notes/Report: Access 2 ([id number]), [place] [facility] TSH (IH) Reviewed date:02/16/2025 07:12:01 PM Interpretation: Performing Lab: Notes/Report: Access 2 ([id number]), [place] [facility] Sex Hormone Binding Globulin (IH) Reviewed date:02/16/2025 07:12:01 PM Interpretation: Performing Lab: Notes/Report: Access 2 ([id number]), [place] [facility] Sensitive Estradiol (IH) Reviewed date:02/16/2025 07:12:01 PM Interpretation: Performing Lab: Notes/Report: Access 2 ([id number]), [place] [facility] Testosterone, Free (IH) Reviewed date:02/16/2025 07:12:01 PM Interpretation: Performing Lab: Notes/Report: Access 2 ([id number]), [place] [facility] REASON FOR VISIT Fasting Sendout + IH Labs Medications Medication SIG (Take, Route, Frequency, Duration) Notes Start Date End Date Status Macrobid Active Encounters Encounter Location Date Provider Diagnosis [address] [place] [id number] 02/15/2025 Michela Peterson Annual visit for general adult medical examination without abnormal findings Z00.00 and Irregular menstruation, unspecified N92.6 Assessments Encounter Date Diagnosis (ICD Code) Assessment Notes Treatment Notes Treatment Clinical Notes Section Notes 02/15/2025 Annual visit for general adult medical examination without abnormal findings (ICD-10 - Z00.00) 02/15/2025 Irregular menstruation, unspecified (ICD-10 - N92.6) Plan Of Treatment Pending Test Test Name Order Date 17 HYDROXYPROGESTERONE, LC/MS/MS 025 Next Appt Details Provider Name:Michela Peterson , 04/10/2025 08:45:00 AM, [address] [place], [address], Provider Name:Michela Peterson , 04/17/2025 09:15:00 AM, [address] [place], [address], Progress Notes * Radha CHEEK MDOB:[birth year] (35 yo F)Acc No.[id number]:02/15/2025 Patient: Salima Radha FUCHS Provider: Jose Juan Peterson MD :1990 A ge:35 Y S ex:Female Date:02/15/2025 Address:[address] [place], [place] [id number] Pcp:No PCP None Subjective: * Chief Complaints: * 1 . Fasting Sendout + IH Labs. * Medical History: * Medications: T aking Macrobid Objective: * Vitals: Assessment: * Assessment: 1. I rregular menstruation, unspecified - N92.6 2 . A nnual visit for general adult medical examination without abnormal findings - Z00.00 (Primary) Plan: * Treatment: Value Reference Range T RIGLYCERIDES 135 <150 - mg/dL * C HOLESTEROL, TOTAL 188 <200 - mg/dL * H DL CHOLESTEROL 41 L > OR = 50 - mg/dL * L DL-CHOLESTEROL 122 H - mg/dL (calc) * C HOL/HDLC RATIO 4.6 <5.0 - (calc) * N ON HDL CHOLESTEROL 147 H <130 - mg/dL (calc) * Michela Peterson N 02/16/2025 0 7:11:43 PM CDT > TELE TO MAKE APPT TO REV LABS-NEEDS METFOR[facility] ?LAB: COMPREHENSIVE METABOLIC PANEL (CMP) (Collection Date & Time - 02/15/2025 09:32 AM)* Value Reference Range G LUCOSE 89 65-99 - mg/dL * U SOFIA NITROGEN (BUN) 12 7-25 - mg/dL * C REATININE 0.82 0.50-0.97 - mg/dL * B UN/CREATININE RATIO SEE NOTE: 6-22 - (calc) * S ODIUM 138 135-146 - mmol/L * P OTASSIUM 4.1 3.5-5.3 - mmol/L * C HLORIDE 105 98-110 - mmol/L * C ARBON DIOXIDE 25 20-32 - mmol/L * C ALCIUM 9.0 8.6-10.2 - mg/dL * P ROTEIN, TOTAL 7.2 6.1-8.1 - g/dL * A LBUMIN 4.3 3.6-5.1 - g/dL * G LOBULIN 2.9 1.9-3.7 - g/dL (calc ) * A LBUMIN/GLOBULIN RATIO 1.5 1.0-2.5 - (calc) * B ILIRUBIN, TOTAL 0.6 0.2-1.2 - mg/dL * A LKALINE PHOSPHATASE 96 31-125 - U/L * A ST 14 10-30 - U/L * A LT 16 6-29 - U/L * E GFR 97 > OR = 60 - mL/min/1 .73m2 * Michela Peterson 02/16/2025 0 7:11:43 PM CDT > TELE TO MAKE APPT TO REV LABS-NEEDS METFORMIN ?LAB: CBC (INCLUDES DIFF/PLT) (Collection Date & Time - 02/15/2025 09:32 AM) * Value Reference Range W SAJAN BLOOD CELL COUNT 8.5 3.8-10.8 - Thousan d/uL * R ED BLOOD CELL COUNT 4.59 3.80-5.10 - Million/ uL * H EMOGLOBIN 12.3 11.7-15.5 - g/dL * H EMATOCRIT 38.6 35.0-45.0 - % * M CV 84.1 80.0-100.0 - fL * M CH 26.8 L 27.0-33.0 - pg * M CHC 31.9 L 32.0-36.0 - g/dL * R DW 13.9 11.0-15.0 - % * P LATELET COUNT 244 140-400 - Thousand/u L * N EUTROPHILS 62.3 - % * A BSOLUTE NEUTROPHILS 5296 2642-2148 - cells/uL * L YMPHOCYTES 29.8 - % * A BSOLUTE LYMPHOCYTES 2533 850-3900 - cells/uL * M ONOCYTES 4.9 - % * A BSOLUTE MONOCYTES 417 200-950 - cells/uL * E OSINOPHILS 2.6 - % * A BSOLUTE EOSINOPHILS 221 15-500 - cells/uL * B ASOPHILS 0.4 - % * A BSOLUTE BASOPHILS 34 0-200 - cells/uL * M PV 11.3 7.5-12.5 - fL * Michela Peterson 02/16/2025 0 7:11:43 PM CDT > TELE TO MAKE APPT TO REV LABS-NEEDS METFORMIN ?LAB: HEMOGLOBIN A1c (Collection Date & Time - 02/15/2025 09:32 AM)* Value Reference Range H EMOGLOBIN A1c 5.6 <5.7 - % * Michela Peterson 02/16/2025 0 7:11:43 PM CDT > TELE TO MAKE APPT TO REV LABS-NEEDS METFORMIN ?LAB: INSULIN (Collection Date & Time - 02/15/2025 09:32 AM)* Value Reference Range I NSULIN 27.0 H - uIU/mL * Michela Peterson 02/16/2025 0 7:11:43 PM CDT > TELE TO MAKE APPT TO REV LABS-NEEDS METFORMIN ?LAB: 17 HYDROXYPROGESTERONE, LC/MS/MS (Collection Date & Time - 02/15/2025 09:32 AM)* Michela Peterson 02/16/2025 0 7:11:43 PM CDT > TELE TO MAKE APPT TO REV LABS-NEEDS [facility] ?LAB: TSH (IH) (Collection Date & Time - 02/16/2025 04:23 PM)* Value Reference Range T SH3 2.40 0.45 to 5.33 - uIU/m L * Michela Peterson 02/16/2025 0 7:11:43 PM CDT > TELE TO MAKE APPT TO REV LABS-NEEDS METFORMIN ?LAB: Testosterone, Total (IH) (Collection Date & Time - 02/16/2025 04:25 PM)* Value Reference Range T estosterone, Total (IH) 29 0-75 - ng/dL * Michela Peterson 02/16/2025 0 7:11:43 PM CDT > TELE TO MAKE APPT TO REV LABS-NEEDS METFORMIN ?LAB: Testosterone, Free (IH) (Collection Date & Time - 02/16/2025 04:29 PM) * Value Reference Range F r Testo 4.76 0.20 to 5.50 - pg/mL * Michela Peterson 02/16/2025 0 7:11:43 PM CDT > TELE TO MAKE APPT TO REV LABS-NEEDS METFORMIN ?LAB: Sex Hormone Binding Globulin (IH) (Collection Date & Time - 02/16/2025 04:29 PM)* Value Reference Range S HBG 21 18-136 - nmol/L * Michela Peterson 02/16/2025 0 7:11:43 PM CDT > TELE TO MAKE APPT TO REV LABS-NEEDS METFORMIN ?LAB: DHEA-S (IH) (Collection Date & Time - 02/16/2025 04:34 PM)* Value Reference Range D HE-S 182 23-266 - ug/dL * Michela Peterson 02/16/2025 0 7:11:43 PM CDT > TELE TO MAKE APPT TO REV LABS-NEEDS METFORMIN ?LAB: Prolactin (IH) (Collection Date & Time - 02/16/2025 04:36 PM)* Value Reference Range P RL 11.5 3.34-26.72 - ng/mL * Michela Peterson 02/16/2025 0 7:11:43 PM CDT > TELE TO MAKE APPT TO REV LABS-NEEDS METFORMIN ?LAB: Sensitive Estradiol (IH) (Collection Date & Time - 02/16/2025 04:50 PM)* Value Reference Range S NSE2 19 A 20 to 433 - pg/mL * Michela Peterson 02/16/2025 0 7:11:43 PM CDT > TELE TO MAKE APPT TO REV LABS-NEEDS METFORMIN ?LAB: FSH (IH) (Collection Date & Time - 02/16/2025 04:51 PM)* Value Reference Range h FSH 7.2 1.8 to 22.5 - mIU/mL * Michela Peterson 02/16/2025 0 7:11:43 PM CDT > TELE TO MAKE APPT TO REV LABS-NEEDS METFORMIN ?LAB: LH () (Collection Date & Time - 02/16/2025 04:51 PM)* Value Reference Range h LH 5.9 2.1 to 103.3 - mIU/m L * Michela Peterson 02/16/2025 0 7:11:43 PM CDT > TELE TO MAKE APPT TO REV LABS-NEEDS [facility] 2.?Irregular menstruation, unspecified?LAB: LIPID PANEL (Collection Date & Time - 02/15/2025 09:32 AM)* Value Reference Range T RIGLYCERIDES 135 <150 - mg/dL * C HOLESTEROL, TOTAL 188 <200 - mg/dL * H DL CHOLESTEROL 41 L > OR = 50 - mg/dL * L DL-CHOLESTEROL 122 H - mg/dL (calc) * C HOL/HDLC RATIO 4.6 <5.0 - (calc) * N ON HDL CHOLESTEROL 147 H <130 - mg/dL (calc) * Michela Peterson 02/16/2025 0 7:11:43 PM CDT > TELE TO MAKE APPT TO REV LABS-NEEDS METFORMIN ?LAB: COMPREHENSIVE METABOLIC PANEL (CMP) (Collection Date & Time - 02/15/2025 09:32 AM)* Value Reference Range G LUCOSE 89 65-99 - mg/dL * U SOFIA NITROGEN (BUN) 12 7-25 - mg/dL * C REATININE 0.82 0.50-0.97 - mg/dL * B UN/CREATININE RATIO SEE NOTE: 6-22 - (calc) * S ODIUM 138 135-146 - mmol/L * P OTASSIUM 4.1 3.5-5.3 - mmol/L * C HLORIDE 105 98-110 - mmol/L * C ARBON DIOXIDE 25 20-32 - mmol/L * C ALCIUM 9.0 8.6-10.2 - mg/dL * P ROTEIN, TOTAL 7.2 6.1-8.1 - g/dL * A LBUMIN 4.3 3.6-5.1 - g/dL * G LOBULIN 2.9 1.9-3.7 - g/dL (calc ) * A LBUMIN/GLOBULIN RATIO 1.5 1.0-2.5 - (calc) * B ILIRUBIN, TOTAL 0.6 0.2-1.2 - mg/dL * A LKALINE PHOSPHATASE 96 31-125 - U/L * A ST 14 10-30 - U/L * A LT 16 6-29 - U/L * E GFR 97 > OR = 60 - mL/min/1 .73m2 * Michela Peterson 02/16/2025 0 7:11:43 PM CDT > TELE TO MAKE APPT TO REV LABS-NEEDS METFORMIN ?LAB: CBC (INCLUDES DIFF/PLT) (Collection Date & Time - 02/15/2025 09:32 AM) * Value Reference Range W SAJAN BLOOD CELL COUNT 8.5 3.8-10.8 - Thousan d/uL * R ED BLOOD CELL COUNT 4.59 3.80-5.10 - Million/ uL * H EMOGLOBIN 12.3 11.7-15.5 - g/dL * H EMATOCRIT 38.6 35.0-45.0 - % * M CV 84.1 80.0-100.0 - fL * M CH 26.8 L 27.0-33.0 - pg * M CHC 31.9 L 32.0-36.0 - g/dL * R DW 13.9 11.0-15.0 - % * P LATELET COUNT 244 140-400 - Thousand/u L * N EUTROPHILS 62.3 - % * A BSOLUTE NEUTROPHILS 5296 5376-5753 - cells/uL * L YMPHOCYTES 29.8 - % * A BSOLUTE LYMPHOCYTES 2533 850-3900 - cells/uL * M ONOCYTES 4.9 - % * A BSOLUTE MONOCYTES 417 200-950 - cells/uL * E OSINOPHILS 2.6 - % * A BSOLUTE EOSINOPHILS 221 15-500 - cells/uL * B ASOPHILS 0.4 - % * A BSOLUTE BASOPHILS 34 0-200 - cells/uL * M PV 11.3 7.5-12.5 - fL * Michela Peterson 02/16/2025 0 7:11:43 PM CDT > TELE TO MAKE APPT TO REV LABS-NEEDS METFORMIN ?LAB: HEMOGLOBIN A1c (Collection Date & Time - 02/15/2025 09:32 AM)* Value Reference Range H EMOGLOBIN A1c 5.6 <5.7 - % * Michela Peterson 02/16/2025 0 7:11:43 PM CDT > TELE TO MAKE APPT TO REV LABS-NEEDS METFORMIN ?LAB: INSULIN (Collection Date & Time - 02/15/2025 09:32 AM)* Value Reference Range I NSULIN 27.0 H - uIU/mL * Michela Peterson 02/16/2025 0 7:11:43 PM CDT > TELE TO MAKE APPT TO REV LABS-NEEDS METFORMIN ?LAB: 17 HYDROXYPROGESTERONE, LC/MS/MS (Collection Date & Time - 02/15/2025 09:32 AM)* Michela Peterson 02/16/2025 0 7:11:43 PM CDT > TELE TO MAKE APPT TO REV LABS-NEEDS METFORMIN ?LAB: TSH (IH) (Collection Date & Time - 02/16/2025 04:23 PM)* Value Reference Range T SH3 2.40 0.45 to 5.33 - uIU/m L * Michela Peterson 02/16/2025 0 7:11:43 PM CDT > TELE TO MAKE APPT TO REV LABS-NEEDS METFORMIN ?LAB: Testosterone, Total (IH) (Collection Date & Time - 02/16/2025 04:25 PM)* Value Reference Range T estosterone, Total (IH) 29 0-75 - ng/dL * Michela Peterson 02/16/2025 0 7:11:43 PM CDT > TELE TO MAKE APPT TO REV LABS-NEEDS METFORMIN ?LAB: Testosterone, Free (IH) (Collection Date & Time - 02/16/2025 04:29 PM) * Value Reference Range F r Testo 4.76 0.20 to 5.50 - pg/mL * Michela Peterson 02/16/2025 0 7:11:43 PM CDT > TELE TO MAKE APPT TO REV LABS-NEEDS METFORMIN ?LAB: Sex Hormone Binding Globulin (IH) (Collection Date & Time - 02/16/2025 04:29 PM)* Value Reference Range S HBG 21 18-136 - nmol/L * Michela Peterson 02/16/2025 0 7:11:43 PM CDT > TELE TO MAKE APPT TO REV LABS-NEEDS METFORMIN ?LAB: DHEA-S (IH) (Collection Date & Time - 02/16/2025 04:34 PM)* Value Reference Range D HE-S 182 23-266 - ug/dL * Michela Peterson 02/16/2025 0 7:11:43 PM CDT > TELE TO MAKE APPT TO REV LABS-NEEDS METFORMIN ?LAB: Prolactin (IH) (Collection Date & Time - 02/16/2025 04:36 PM)* Value Reference Range P RL 11.5 3.34-26.72 - ng/mL * Michela Peterson 02/16/2025 0 7:11:43 PM CDT > TELE TO MAKE APPT TO REV LABS-NEEDS METFORMIN ?LAB: Sensitive Estradiol (IH) (Collection Date & Time - 02/16/2025 04:50 PM)* Value Reference Range S NSE2 19 A 20 to 433 - pg/mL * Michela Peterson 02/16/2025 0 7:11:43 PM CDT > TELE TO MAKE APPT TO REV LABS-NEEDS METFORMIN ?LAB: FSH (IH) (Collection Date & Time - 02/16/2025 04:51 PM)* Value Reference Range h FSH 7.2 1.8 to 22.5 - mIU/mL * ElisabethhanyMichela N 02/16/2025 0 7:11:43 PM CDT > TELE TO MAKE APPT TO REV LABS-NEEDS METFORMIN ?LAB: LH (IH) (Collection Date & Time - 02/16/2025 04:51 PM)* Value Reference Range h LH 5.9 2.1 to 103.3 - mIU/m L * Michela Peterson N 02/16/2025 0 7:11:43 PM CDT > TELE TO MAKE APPT TO REV LABS-NEEDS METFORMIN * Procedure Codes: 8 4443 ASSAY THYROID STIM HORMONE - IH, 57554 DEHYDROEPIANDROSTERONE - IH, 12898 ASSAY OF ESTRADIOL - IH, 75735 GONADOTROPIN (FSH) - IH, 29461 GONADOTROPIN (LH) - IH, 98020 ASSAY OF PROLACTIN - IH, 51176 ASSAY OF SEX HORMONE GLOBUL - IH, 79237 ASSAY OF TESTOSTERONE - IH, 35739 ASSAY OF TOTAL TESTOSTERONE - IH * Images: Billing Information: * Visit Code: * Procedure Codes: 52308 ASSAY THYROID STIM HORMONE - IH. 17159 DEHYDROEPIANDROSTERONE - IH. 96495 ASSAY OF ESTRADIOL - IH. 31650 GONADOTROPIN (FSH) - IH. 30216 GONADOTROPIN (LH) - IH. 30129 ASSAY OF PROLACTIN - IH. 84573 ASSAY OF SEX HORMONE GLOBUL - IH. 60425 ASSAY OF TESTOSTERONE - IH. 28402 ASSAY OF TOTAL TESTOSTERONE - IH. * Sign off status: Completed Addendum: * true * Provider: Jose Juan Peterson MD Date: 0 02/15/2025 Generated for Altagracia ng/Rayshawn/eTdelvissmitting on: 0 03/01/2025 11:36 AM CDT
--- OUTSIDE RECORDS SUMMARY | 2025-02-27 04:45 | XMS_ITS ---
Author Organization 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 Medications Medication SIG (Take, Route, Frequency, Duration) Notes Start Date End Date Status metFORMIN HCl 500 MG 1 tablet with a robyn l Orally Once a day; Duration: 90 days 02/27/2025 Active Macrobid Not-Taking Social History Tobacco Use: Social History Observation Description Date Details (start date - stop date) Never Smoker NA - NA Tobacco Use/Smoking Question Answer Notes Are you a nonsmoker Problems Problem Type SNOMED Code ICD Code Onset Dates Problem Status W/U Status Risk Notes Problem Insulin resistance (843902133) Insulin resistance (E88.819) Active confirmed Vital Signs Blood pressure systolic 126 mm Hg 02/28/20 25 Blood pressure diastolic 80 mm Hg 025 Height 62.5 in 02/27/2025 Weight 229.2 lbs 02/27/2025 BMI 41.25 kg/m2 02/27/2025 Encounters Encounter Location Date Provider Diagnosis [facility] [address] [place] [address] 02/27/2025 Michela Peterson Insulin resistance E88.819 and Ovarian cyst N83.209 Assessments Encounter Date Diagnosis (ICD Code) Assessment Notes Treatment Notes Treatment Clinical Notes Section Notes 02/27/2025 Insulin resistance (ICD-10 - E88.819) LABS REV ADN INSULIN RESISTANT AND PROB PCO WITH IRREG MENSES BUT LSO AND LG CYST ON RT OVARY HARDTO DX PCO BUT WITH ELEVATED INSULIN NEEDS METFORMIN AND WILL START 500QHS ADN SE REV ADN AFTER SURG 1 MTH OUT RTC AND REDO INSULIN AND SEE IF NEEDS INCREASE TO 500 IN AM- RBA REV AND DAD WITH INSULIN DIABETIC AND LOST BOTH LEGS AND IN HIS 60S- HER HGB A1C AND FASTING NL- REV LIPIDS AND EXERCISE AFTER HRECOVERED AFTER SURG 02/27/2025 Ovarian cyst (ICD-10 - N83.209) APPT WITH HOSPERS AND REGGIE KOROMA WK AND ACTIVITY REV AGAIN-NL CA 125 [facility] [place] REF TO HOSPERS PNEUMATIC HOIST OPERATOR ONC SO REF TO REGGIE Plan Of Treatment Medication Medication Name Sig Start Date Stop Date Notes metFORMIN HCl 500 MG 1 tablet with a robyn l Orally Once a day; Duration: 90 days 02/27/2025 Treatment Notes Assessment Notes Insulin resistance LABS REV ADN INSULIN RESISTANT AND PROB PCO WITH IRREG MENSES BUT LSO AND LG CYST ON RT OVARY HARDTO DX PCO BUT WITH ELEVATED INSULIN NEEDS METFORMIN AND WILL START 500QHS ADN SE REV ADN AFTER SURG 1 MTH OUT RTC AND REDO INSULIN AND SEE IF NEEDS INCREASE TO 500 IN AM- RBA REV AND DAD WITH INSULIN DIABETIC AND LOST BOTH LEGS AND IN HIS 60S- HER HGB A1C AND FASTING NL- REV LIPIDS AND EXERCISE AFTER HRECOVERED AFTER SURG Ovarian cyst APPT WITH HERNANDES LIZ KOROMA WK AND ACTIVITY REV AGAIN-NL CA 125 [facility] AND [place] REF TO HOSPERS PNEUMATIC HOIST OPERATOR ONC SO REF TO REGGIEMILEY Koroma Appt Details Provider Name:Michela Peterson , 04/10/2025 08:45:00 AM, [address] [place], [address], Provider Name:Michela Peterson , 04/17/2025 09:15:00 AM, [address] [place], [address], Progress Notes * Radha CHEEK MDOB:[birth year] (35 yo F)Acc No.[id number]:02/27/2025 Progress Notes Patient: Radha GODINEZ Provider: Jose Juan Peterson MD :1990 A ge:35 Y S ex:Female Date:02/27/2025 Address:[address] [place], [place] [id number] Pcp:No PCP None Subjective: * Chief Complaints: * 1 . needs metformin see TE. 2. Labs. 3. Concerns- denies. 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 * HPI: * General: SEE CC. * ROS: A ll Other Systems: Review of Systems (ROS) S ee HPI for details. * Medical History: M edical History Verified. * Branch Administrator History: D ate of Last Period: . * Surgical History: D ilation and curettage [...] Do you drink alcohol?: 0. * Medications: N ot-Taking Macrobid , Medication List reviewed and reconciled with the patient * Allergies: p redniSONE, traZODone. Objective: * Vitals: H t: 62.5 in, Wt:229.2lbs, BP:126/80mm Hg, BMI:41.25Index. * Examination: * General Examination: GENERAL APPEARANCE: i n no acute distress, alert, well hydrated, in no distress. PSYCH: a lert, oriented, judgment and insight good, mood/affect full range, speech clear. Assessment: * Assessment: 1. O varian cyst - N83.209 2 . I nsulin resistance - E88.819 (Primary) Plan: * Treatment: 2. O varian cyst Notes: APPT WITH MICHAELLY NEXT WK AND ACTIVITY REV AGAIN-NL CA 125 [facility] AND [place] REF TO [facility] PNEUMATIC HOIST OPERATOR ONC SO REF TO REGGIE * Preventive Medicine: YOUR PREVENTIVE WELLNESS PLAN: B reast Cancer Screening (Mammogram): My last mammogram was done on: N ever C ervical Cancer Screening (Pap Smear): My last Pap smear was done on: O steoporosis Screening (Bone Density Measurement): My last bone density was done on: N ever C olorectal Cancer Screening: Last Done Colonoscopy N ever * Images: Billing Information: * Visit Code: 66496 Office Visit, Est Pt., Level 3. * Procedure Codes: * Electronic signature of Danica Peterson MD on 03/01/2025 at 11:36 AM CDT Sign off status: Pending * Provider: Jose Juan Peterson MD Date: 0 02/27/2025 Generated for Altagracia summers/Rayshawn/eTdelvissmitting on: 03/01/2025 11:36 AM CDT History and Physical Notes * HPI (History of Present Illness) Category Sub-Category Detail Notes Category Not es *General SEE CC Examination Category Sub-Category Detail Notes Category Not es *General Examination GENERAL APPEARANCE: in no a cute distress, alert, well hydrated, in no distress PSYCH: alert, oriented, alex gment and insight good, mood/affect full range, speech clear
--- OUTSIDE RECORDS SUMMARY | 2025-03-01 11:36 | XMS_ITS | Encounter Summary ---
Author Organization [facility] Address [address] [place] [address] Care Team Providers Care Process Design Engineer Name Role Phone Unavailable Primary Care Provider Unavailabl e Encounter Details Date Type Department Care Team (Latest Contact Info) Description 02/23/2025 Results Follow-Up Department of Obstetrics and Gynecology in [place], [place] [address] [place] [phone] Becca Schultz R.N. Interpretation of Outside MR Abdomen and or Pelvis Social History Tobacco Use Types Packs/Day Years [...] AM CDT Clinical Communication Virtual Review in [place], [place] 200 [place] [address] 03/09/2025 9:30 AM CDT Comprehensive Visit Department of Obstetrics and Gynecology in [place], [place] [address] [place] [phone] Chen Carlisle M.D. [address] [place] [phone] documented as of this encounter Visit Diagnoses Not on filedocumented in this encounter
--- OUTSIDE RECORDS SUMMARY | 2025-03-01 11:36 | XMS_ITS | Clinical Summary ---
Author Organization [facility] Address [address] [place] [address] Care Team Providers Care Comfort Station Supervisor Name Role Phone Unavailable Primary Care Provider Unavailabl e Source Comments Patient records contain information from all sites at [facility]. For routine questions regarding patient records, call [phone] during business hours, M-F 8:00 AM - 5:00 PM Central Time. Record requests for emergency care only can be directed to [phone] at any time.[facility] Encounters Date Type Department Care Team Description 02/23/2025 Results Follow-Up Department of Obstetrics and Gynecology in [place], [place] [address] [place] [phone] Becca Schultz R.N. Interpretation of Outside MR Abdomen and or Pelvis 02/14/2025 10:05 AM CDT Ancillary Procedure Department of Radiology in [place], [place] [address] [place] [phone] Elena Dueñas M.D., M.P.H. Mass Ovary 02/14/2025 Orders Only Department of Obstetrics and Gynecology in [place], [place] [address] [place] [phone] Elena Dueñas M.D., M.P.H. Mass Ovary (Primary Dx) 02/12/2025 Clinical Communication Department of Obstetrics and Gynecology, Division of Gynecologic Oncology in [place], [place] [address] [place] [phone] Prescheduling, Provider Triage from Last 3 Months Social History Tobacco Use Types Packs/Day Years Used Date Smoking Tobacco: Never Assessed Comments Unknown Sex and Gender Information Value Date Recorded Sex Assigned at Not on file Legal Sex Female 11:00 AM CDT Gender Identity Not on file Sexual Orientation Not on file Plan of Treatment Upcoming Encounters Date Type Department Care Team (Latest Contact Info) Description 03/08/2025 9:15 AM CDT Clinical Communication Virtual Review in [place], [place] 200 [place] [address] 03/09/2025 9:30 AM CDT Comprehensive Visit Department of Obstetrics and Gynecology in [place], [place] [address] [place] [phone] Chen Carlisle M.D. [address] [place] [phone] Health Maintenance Due Date Last Done Comments HIV Screening 1992 Hepatitis C Screening 1992 Hepatitis B Vaccines (1 of 3 - 19+ 3-dose series) 01/25/2011 COVID-19 Vaccine (2023-2 5 season) 2024 Depression Screening (Annual PHQ-2) 07/05/2024 Influenza Vaccine (#1) 2025 9, 03/18/2018 Cervical/Vaginal Cancer Screening 12/15/2026 12/16/2023 DTaP,Tdap,and Td Vaccines (3 - Td or Tdap) 03/03/2028 03/03/2018, 04/29/2017 HPV Vaccines Completed 09/05/2007, 05/05/2007, 03/04/2007 IPV Vaccines Aged Out No longer eligi ble based on patient's age to complete this topic Pneumococcal vaccine (0-49 years) Aged Out No longer eligible b ased on patient's age to complete this topic Procedures Procedure Name Priority Date/Time Associated Diagnosis Comments INTERPRETATION OF OUTSIDE MR ABDOMEN AND OR PELVIS RAD - Routine (most inpatients and all outpatients) 02/14/2025 10:04 AM CDT Mass Ovary OUTSIDE MR BODY Routine 02/08/2025 10:55 AM CDT OUTSIDE US BODY Routine 02/08/2025 1:05 AM CDT from Last 3 Months Results * Interpretation of Outside MR Abdomen [...] PELVIS WITHOUT AND WITH IV CONTRAST FROM [facility] DATED 02/08/2025. COMPARISON: Pelvic ultrasound from 02/08/2025 [...] OUTSIDE MR PELVIS [facility] 02/[facility]. COMPARISON: Pelvic ultrasound from 02/08/2025 [...] Noendometriomas or evidence of deep infiltrative endometriosis. Elena Dueñas M.D., M.P.H. IMG MRI PROCEDURES Final Result * MR pelvis wo/w con-Outside MR Body (02/08/2025 10:55 AM CDT) Narrative [facility] - 02/12/2025 11:37 AM CDT This order has been created and auto-finalized to support the import of outside images. If available, original interpretation can be found on the Media Tab in Chart Review, in Document Viewer, as an image in InfinityView or as an Addendum. If a re-interpretation or overread is required please follow defined workflow. Provider Not In System IMG MRI PROCEDURES Final Result IIGA NA * US Pelvic TA and TV-Outside US Body (02/08/2025 1:05 AM CDT) Narrative [facility] - 02/12/2025 11:33 AM CDT This order has been created and auto-finalized to support the import of outside images. If available, original interpretation can be found on the Media Tab in Chart Review, in Document Viewer, as an image in InfinityView or as an Addendum. If a re-interpretation or overread is required please follow defined workflow. us Provider Not In System IMG US PROCEDURES Final R esult IIMS NA from Last 3 Months Insurance [facility]
--- OUTSIDE RECORDS SUMMARY | 2025-03-01 11:37 | XMS_ITS | CCD ---
Author Name Interface, [id number] lity Address [facility] [place] [phone] [facility] Oncology Address [facility] [place] [phone] Care Team Providers Care Software Applications Developer Name Role Phone Diana Mandel MD Unavailable Unavailable Care Plan Reason for Visit Encounters Diagnostic Results Social History Visits
--- OUTSIDE RECORDS SUMMARY | 2025-03-01 11:37 | XMS_ITS | Patient Health Record ---
Author Organization [facility] Address [address] [place] [address] Care Team Providers Care Community Health Nursing Director Name Role Phone None, No PCP Primary Care Provider Michela Casey Unavailable [phone] Allergies Allergen (clinical drug ingredient) Drug/Non Drug Allergy documented on EMR Reaction Allergy Type Onset Date Status prednisone predniSONE Unknown Drug Allergy Activ e trazodone traZODone Unknown Drug Allergy Active Results Component Value Reference Range Notes 17 HYDROXYPROGESTERONE, LC/M S/MS (Not yet reviewed by provider) Interpretation: Performing Lab:[facility],[address] [facility] Center[facility] Prudence Pedraza MD,PhD,MAX Notes/Report: 0; 0; [...] analytical performance characteristics have been determined by [facility]. It has not been cleared or approved by the FDA. This assay has been validated pursuant to the CLIA regulations and is used for clinical purposes. LIPID PANEL Reviewed date:02/16/2025 07:12:01 PM Interpretation: Performing Lab:Michelle [facility] Maximilian Donahue Notes/Report: 0; 0; 0; 0; [...] of LDL-C. Jaxon NOWAK et al. DAVID. 2013;310(27): 7007-5736 (http://education.[facility]/faq/TUC525) CHOL/HDLC RATIO 4.6 <5.0 (calc) NON HDL CHOLESTEROL 147 <130 mg/dL (calc) For patients with diabetes plus 1 major ASCVD risk factor, treating to a non-HDL-C goal of <100 mg/dL (LDL-C of <70 mg/dL) is considered a therapeutic option. COMPREHENSIVE METABOLIC PANE L ([facility]) Reviewed date:02/16/2025 07:12:01 PM Interpretation: Performing Lab:CB, [facility] Vvkq8533 [facility] Maximilian Donahue Notes/Report: 0; 0; 0; 0; [...] Reviewed date:02/16/2025 07:12:01 PM Interpretation: Performing Lab:ABHISHEK [facility] Maximilian Donahue Notes/Report: 0; 0; 0; 0; [...] MPV 11.3 7.5-12.5 fL ABSOLUTE NEUTROPHILS 5296 6567-1916 cells/uL ABSOLUTE LYMPHOCYTES 2533 850-3900 cells/uL ABSOLUTE MONOCYTES 417 200-950 cells/uL ABSOLUTE EOSINOPHILS 221 15-500 cells/uL ABSOLUTE BASOPHILS 34 0-200 cells/uL NEUTROPHILS 62.3 LYMPHOCYTES 29.8 MONOCYTES 4.9 EOSINOPHILS 2.6 BASOPHILS 0.4 HEMOGLOBIN A1c Reviewed date:02/16/2025 07:12:01 PM Interpretation: Performing Lab:ABHISHEK [facility] Maximilian Donahue Notes/Report: 0; 0; 0; 0; [...] diagnosis of diabetes in children. According to [place] Diabetes Association (ADA) guidelines, hemoglobin A1c <7.0% represents optimal control in non- diabetic patients. Different INSULIN Reviewed date:02/16/2025 07:12:01 PM Interpretation: Performing Lab:CB [facility] [address], [facility] HospitalXxyyLV[address] Maximilian Donahue Notes/Report: 0; 0; 0; 0; 0; 0 INSULIN 27.0 Adult cardiovascular event risk category cut points (optimal, moderate, high) are based on Insulin Reference Interval studies performed at [facility] in 2021. Reference Range < or = 18.4 Risk: Optimal < or = 18.4 Moderate NA High >18.4 DHEA-S (IH) Reviewed date:02/16/2025 07:12:01 PM Interpretation: Performing Lab: Notes/Report: Access 2 ([id number]), [place] [facility] FSH (IH) Reviewed date:02/16/2025 07:12:01 PM Interpretation: Performing Lab: Notes/Report: Access 2 ([id number]), [place] [facility] LH (IH) Reviewed date:02/16/2025 07:12:01 PM Interpretation: Performing Lab: Notes/Report: Access 2 ([id number]), [place] [facility] Prolactin (IH) Reviewed date:02/16/2025 07:12:01 PM Interpretation: Performing Lab: Notes/Report: Access 2 ([id number]), [place] [facility] Testosterone, Total (IH) Reviewed date:02/16/2025 07:12:01 PM Interpretation: Performing Lab: Notes/Report: Access 2 ([id number]), [place] [facility] TSH (IH) Reviewed date:02/16/2025 07:12:01 PM Interpretation: Performing Lab: Notes/Report: Access 2 ([id number]), [place] [facility] Sex Hormone Binding Globulin (IH) Reviewed date:02/16/2025 07:12:01 PM Interpretation: Performing Lab: Notes/Report: Access 2 ([id number]), [place] [facility] Sensitive Estradiol (IH) Reviewed date:02/16/2025 07:12:01 PM Interpretation: Performing Lab: Notes/Report: Access 2 ([id number]), [place] [facility] Testosterone, Free (IH) Reviewed date:02/16/2025 07:12:01 PM Interpretation: Performing Lab: Notes/Report: Access 2 ([id number]), [facility] Lab MVP (Multiplex Vaginitis) (I H) Reviewed date:02/16/2025 07:12:01 PM Interpretation: Performing Lab: Notes/Report: APV Xpert ([id number]), [employer] Lot: [id number], Expiry: 2025-09-23 Dry Cell Assembly Machine Tender: womens THINPREP TIS AND HPV mRNA E6 /E7 W/ REFLEX 16, 18/45HPV Reviewed date:02/16/2025 07:12:01 PM Interpretation: Performing Lab:FRANKIE [facility] Tresa-Mttmjxkhhy6128 Brianna Haji, AzehkicqogMG[address] Mic Banks Notes/Report: CLINICAL INFORMATION: Other high [...] been evaluated with the ThinPrep(R) Imaging System. COMMUNICATION SIGNALS INTELLIGENCE: ITALIA ARAYA(ASCP) CT Screening Location: [address] [address] CLIA [id number] Slide preparation performed at: [facility] [address] CLIA: [id number] COMMENT EXPLANATORY NOTE: The Pap is a [...] mRNA E6/E7 Not Detected Not Detected Methodology: Accounting Systems Analyst-Mediated Amplification This assay detects E6/E7 viral messenger RNA (mRNA) from 14 high-risk HPV types (16,18,31,33,35,39,45,51,5 2,56,58,59,66,68). Cervical sources are required for HPV testing. If a vaginal source from a patient who has had a total hysterectomy with removal of cervix was submitted, please contact the testing laboratory for alternative testing options. For additional information, please refer to http://[employer]/faq/QNR911k0 (This link if provided for information/ educational purposes only.) Reason For Referral Reason [place] Oncology/Hematolo gy Diagnosis 1 Ovarian cyst (N83.20 9) Referral Organization [facility] Referring Provider First Name Michela Referring Provider Last Name Kristen Referred Provider Specialty Oncology General Notes Michela Peterson 02/02 01:53:44 PM CDT > CAN WE REF TO DR JETT PAREDES -[facility]/ONC FOR OVARIAN CYST AND ADHESIVE DISEASE Clinical Notes Shaylee Prater 02/02 11:40:11 AM >Submitted referral through ecw, [place] onc/hem [phone] and phn [phone] Referral Priority Routine Medications Medication SIG (Take, Route, Frequency, Duration) [...] unspecified (N92.6) Active confirmed Problem Ovarian cyst (23218785) Ovarian cyst (N83.209) Active confirmed Problem Insulin resistance (113167311) Insulin resistance (E88.819) Active confirmed Vital Signs Blood pressure diastolic 80 mm Hg 02/27/2025 Height 62.5 in 02/27/2025 Blood pressure systolic 126 mm Hg 02/27/2025 Weight 229.2 lbs 02/27/2025 BMI 41.25 kg/m2 02/27/2025 Encounters Encounter Location Date Provider Diagnosis [facility] [address] [place] [address] 02/27/2025 Michela Peterson Insulin resistance E88.819 and Ovarian cyst N83.209 [facility] [address] [facility] [address] [place], [place] [phone] 02/15/2025 Michela Peterson Annual visit for general adult medical examination without abnormal findings Z00.00 and Irregular menstruation, unspecified N92.6 [facility] [address] [place] [address] [place] [phone] 02/13/2025 Michela Peterson Acute vaginitis N76. 0 [facility] [address] [place] [address] 02/13/2025 Michela Peterson Ovarian cyst N83.209 ; Encounter for gynecological examination (general) (routine) without abnormal findings Z01.419 and Encounter for screening for human papillomavirus (HPV) Z11.51 [place] [address] [place] [address] 02/14/2025 Michela Peterson [place] [address] [place] [address] 02/13/2025 Michela Peterson [facility] [address] [place] [address] 02/26/2025 Michela Peterson [facility] [address] [place] [address] 02/19/2025 Michela Peterson [facility] [address] [place] [address] 02/14/2025 Michela Peterson [place] [address] [place] [address] 02/16/2025 Michela Peterson Assessments Encounter Date Diagnosis (ICD Code) Assessment Notes Treatment Notes Treatment Clinical Notes Section Notes 02/13/2025 Ovarian cyst (ICD-10 - N83.209) PT HERE FOR PCO BUT ACTUALLY FU FROM ER AT [facility]- HX OF LG OVARIAN CYST AND PAIN LAST WEEKEND AND US AND MRI SHOW 8CM WITH AN ECHOGENIC ARE AND NL CA 125- PREV LSO AND RT TUBE REMOVED SEPARATELY AND TOLD WITH ADHESIONS ALMOST HAD A COLON RESECTION- [facility] REF TO [facility] BELT BACK OPERATOR ONC AND REV CAN GET ANOTHER OPINION [...] examination without abnormal findings (ICD-10 - Z00.00) 02/27/2025 Ovarian cyst (ICD-10 - N83.209) APPT WITH [facility] NEXT WK AND ACTIVITY REV AGAIN-NL CA 125 ANDHX OF SEERE ADHESIONS AND [place] REF TO [facility] BELT BACK OPERATOR ONC SO REF TO [facility] 02/27/2025 Insulin resistance (ICD-10 - E88.819) LABS [...] LIPIDS AND EXERCISE AFTER HRECOVERED AFTER SURG 02/13/2025 Encounter for gynecological examination (general) (routine) without abnormal findings (ICD-10 - Z01.419) 02/13/2025 Encounter for screening for human papillomavirus (HPV) (ICD-10 - Z11.51) Plan Of Treatment Pending Test Test Name Order Date 17 HYDROXYPROGESTERONE, LC/MS/MS 025 Next Appt Details Provider Name:Michela Peterson , 04/10/2025 08:45:00 AM, [address] [place], [address], Provider Name:Michela Peterson , 04/17/2025 09:15:00 AM, [address] [place], [address], Insurance Providers Payer Name Payer Address Payer Phone Subscriber Number Group Number Insured Name Patient Relationship to Insured Coverage Start Date Coverage End Date [place] (Ins Bill) [address] [address] [place] [address] [id number] Radha Cheek Self - patient is the insured 5 Medical (General) History Surgical History Surgery Date(Month/Year) Dilation and curettage of uterus after a bortion (procedure) 07/27 Left salpingo-oophorectomy (procedure) 0 07/22 Laparoscopic excision of hydrosalpinx (p rocedure) 07/27 Hospitalization History Reason Date(Month/Year) ovarian cyst. 02/08/25
--- OUTSIDE RECORDS SUMMARY | 2025-03-01 11:37 | XMS_ITS | Clinical Summary ---
Author Organization [facility] Address [address] [place] [address]. [place] [address] Care Team Providers Care Food Service Aide Name Role Phone Esperanza Mcbride MD Primary [...] on file Legal Sex Female 4:34 AM ONLINE MERCHANDISING MANAGER Gender Identity Not on file Sexual Orientation Not on file Last Filed Vital Signs Vital Sign Reading Time Taken Comments Blood Pressure 125/89 06/06/2018 11:24 AM ONLINE MERCHANDISING MANAGER Pulse 112 06/03/2018 5:50 AM ONLINE MERCHANDISING MANAGER Temperature 36.9 C (98.5 F) 06/06/2018 11:24 AM ONLINE MERCHANDISING MANAGER Respiratory Rate 18 06/06/2018 11:24 AM ONLINE MERCHANDISING MANAGER Oxygen Saturation 97% 06/06/2018 11:24 AM ONLINE MERCHANDISING MANAGER Inhaled Oxygen Concentration - - Weight 86.6 kg (191 lb) 06/03/2018 11:53 AM ONLINE MERCHANDISING MANAGER Height 157.5 cm (5' 2) 06/03/2018 11:53 AM ONLINE MERCHANDISING MANAGER Body Mass Index 34.93 06/03/2018 11:53 AM ONLINE MERCHANDISING MANAGER Plan of Treatment Not on file Insurance [employer] Advance Directives For more information, please contact: [phone] * Full Code (Latest Code Status on File) Date Activated Date Inactivated Comments 06/03/2018 12:21 PM 06/06/2018 1:45 PM Question Answer Comments Code status determined by: Discussion with isaiah nt/legal decision maker Care Teams Food Service Aide Relationship Specialty Start Date End Date Esperanza Mcbride MD PCP - General 06/03/18
--- OUTSIDE RECORDS SUMMARY | 2025-03-01 11:37 | XMS_ITS | Encounter Summary ---
Author Organization [facility] Address [address] [place] [address] Care Team Providers Care Bilingual Medical Receptionist Name Role Phone Unavailable Primary Care Provider Unavailabl e Reason for Visit * Reason Onset Date Comments Triage 02/12/2025 Encounter Details Date Type Department Care Team (Late st Contact Info) Description 02/12/2025 Clinical Communication Department of Obstetrics and Gynecology, Division of Gynecologic Oncology in [place], [place] [address] [place] [phone] Prescheduling, Provider Triage Social History Tobacco Use Types Packs/Day Years [...] AM CDT Clinical Communication Virtual Review in [place], [place] 200 [place] [address] 03/09/2025 9:30 AM CDT Comprehensive Visit Department of Obstetrics and Gynecology in [place], [place] [address] [place] [phone] Chen Carlisle M.D. [address] [place] [phone] documented as of this encounter Visit Diagnoses Not on filedocumented in this encounter
--- OUTSIDE RECORDS SUMMARY | 2025-03-01 11:37 | XMS_ITS | Encounter Summary ---
Author Organization [facility] Address [address] [place] [address] Care Team Providers Care Manager Acquisition Name Role Phone Unavailable Primary Care Provider Unavailabl e Encounter Details Date Type Department Care Team (Late st Contact Info) Description 02/14/2025 Orders Only Department of Obstetrics and Gynecology in [place], [place] [address] [place] [phone] Elena Dueñas M.D., M.P.H. [address] [place] [phone] Mass Ovary (Primary Dx) Social History Tobacco Use Types Packs/Day Years [...] AM CDT Clinical Communication Virtual Review in [place], [place] 200 [place] [address] 03/09/2025 9:30 AM CDT Comprehensive Visit Department of Obstetrics and Gynecology in [place], [place] [address] [place] [phone] Chen Carlisle M.D. [address] [place] [phone] documented as of this encounter Results * Interpretation of Outside [...] PELVIS WITHOUT AND WITH IV CONTRAST FROM [facility] DATED 02/08/2025. COMPARISON: Pelvic ultrasound [...] MR PELVIS [facility]25. COMPARISON: Pelvic ultrasound [...] in this encounter Visit Diagnoses Diagnosis Mass Ovary- Primary Mass Ovary documented in this encounter
--- OUTSIDE RECORDS SUMMARY | 2025-03-01 11:37 | XMS_ITS | CCD ---
Author Name Interface, [id number] lity Address [facility] [place] [phone] [facility] Oncology Address [facility] [place] [phone] Care Team Providers Care Switching Clerk Name Role Phone Diana Mandel MD Unavailable Unavailable Care Plan Reason for Visit Encounters Diagnostic Results Social History Visits
[2025-03-01 11:39] VITALS: BP 129/85; PULSE 95; RESP 18; TEMP 36.6; O2SAT 99; BMI 41.5
--- NOTE | 2025-03-01 11:39 | ED_ITS ---
HPI - General Adult General Date Seen: 03/01/25 Chief complaint: Extremity Pain/Injury, Lower Stated complaint: possible sprain on right foot Time Seen by Provider: 03/01/25 11:38 History of Present Illness HPI narrative: 35-year-old female with a past medical history of GERD, anxiety, bipolar, elevated BMI, and recent ER visits on 02/08 and 02/17 for vaginal bleeding. She had a right lower quadrant adnexal mass noted during her ER visit February 08. She was referred to [facility]. She had a repeat ER visit visit on 02/17. 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 She has apparently had flares of pain affecting her right medial midfoot off and on over the years. Beginning 5 days ago last Wednesday she started having a flare of pain there. She has no reason for the pain to flare up. No known injury. No twisting. No fall. She did not do any longstanding or excess of walking. She went to the [facility] orthopedic urgent care in [place] 2 days ago on Wednesday. She says they did x-rays that low she she was told look good. She was given a Joaquin wrap for her foot. They gave her prescription for Celebrex to use twice daily. She has been taking the Celebrex but is not helping with her pain. She feels like her pain is actually worse today than the other day. She expresses frustration because they did give her crutches or a boot. It hurts for her to walk on her foot or even to put her shoe on. She has not noticed any discoloration of the skin of her foot. No redness or warmth. No discoloration or pallor. No swelling. No rash. No numbness in her toes. She is not having any pain ankle, Achilles, calf or more proximally upper leg. No fever or chills. Her only current medications Celebrex. She is due to start metformin tonight because of polycystic ovarian syndrome. Her family drove her here. She has a adult ride home. Related Data Home Medications ?Medication ?Instructions ?Recorded ?Confirmed celecoxib 100 mg capsule 100 mg PO BID 03/01/2503/01 ibuprofen 600 mg tablet 600 mg PO Q6H 03/01/2503/01 Previous Rx's ?Medication ?Instructions ?Recorded hydrocodone 5 mg-acetaminophen 325 1 - 2 tab PO Q4-6H PRN pain #10 03/01/25 mg tablet tabs Allergies Allergy/AdvReac Type Severity Reaction Status Date / Time prednisone AdvReac Mild Mood Swings Verified 03/01/25 11:43 trazodone AdvReac Mild Mood Swings Verified 03/01/25 11:43 PFSH PFSH Medical History Dyspareunia Numbness of left anterior thigh ?R20.0 - Anesthesia of skin (ICD-10) Tubo-ovarian abscess (2018) ?N70.93 - Salpingitis and oophoritis, unspecified (ICD-10) Postoperative ileus ?K91.89 - Other postprocedural complications and disorders of digestive system (ICD-10) ?K56.7 - Ileus, unspecified (ICD-10) Right ovarian cyst (04/25/23) ?N83.201 - Unspecified ovarian cyst, right side (ICD-10) 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 - depression (ICD-10) Hyperemesis gravidarum ?O21.0 - Mild hyperemesis gravidarum (ICD-10) 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 No alcohol use. Smoking Status: Never smoker Do you use any of these nicotine containing products: None Second hand tobacco smoke exposure: No How often do you have a drink containing alcohol: never How often do you have six or more drinks on one occasion: Never AUDIT-C Alcohol total score: 0 Non-prescribed substance use: marijuana (any form) service: No Exam Narrative: Exam Narrative: Constitutional: Appears well-developed and well-nourished. Active. Non-toxic appearing. HENT: Head: Atraumatic. No signs of injury. Nose: No nasal discharge. Mouth/Throat: Mucous membranes are moist. Pharynx is normal. Tonsils symmetric. Uvula midline. Airway patent. Eyes: Conjunctivae normal and EOM are normal. Pupils are equal, round, and reactive to light. Right eye exhibits no discharge. Left eye exhibits no discharge. No icterus. Neck: Normal range of motion. Neck supple. No adenopathy. No stridor. Cardiovascular: Normal rate and regular rhythm. No murmur heard. No murmurs, rubs, or gallops. Brisk capillary refill . Strong DP and PT pulses. Pulmonary/Chest: Effort normal. No stridor. No respiratory distress Musculoskeletal: Normal except for her right foot. -right lower extremity: Hip, femur, quad, hamstring, knee are nontender. Normal range of motion the hip and knee. Proximal fibula and tibia are nontender. Gastrocnemius and soleus are nontender. Achilles nontender. Tibial spine nontender. Normal inspection of her ankle. No tenderness over the medial or lateral ankle malleoli. The lateral foot is nontender. She is tender over the medial side of her foot over the dorsomedial aspect just distal to the medial malleolus. Achilles, sole of the foot, metatarsals including the 5th and 1st metatarsal bases are nontender. There is no redness or warmth. No rash. No bruising. No cyanosis or pallor. No signs of any abrasion or puncture wound. No fluctuance or crepitus. Neurological: Alert. Normal strength. No cranial nerve deficit or sensory deficit. Coordination normal. GCS eye subscore is 4. GCS verbal subscore is 5. GCS motor subscore is 6. Skin: Skin is warm. No rash noted. Const: Vital Signs, click to edit/add: Vital Signs - 24 hr 03/01/25 11:39 Temperature 98 F Pulse Rate [Pulse Oximeter] 95 Respiratory Rate 18 Blood Pressure [Ri ght Upper Arm] 129/85 Pulse Oximetry 99 Oxygen Delivery Me thod Room Air Course Vital Signs Vital signs: Initial Vital Signs Temperature 98 F 03/01/25 11:39 Temperature Source Temporal Artery Scan 03/01/25 11:39 Pulse Rate 95 03/01/25 11:39 Respiratory Rate 18 03/01/25 11:39 Blood Pressure 129/85 03/01/25 11:39 Blood Pressure Mean 99 03/01/25 11:39 Blood Pressure Position Sitting 03/01/25 11:39 Pulse Oximetry 99 03/01/25 11:39 Oxygen Delivery Method Room Air 03/01/25 11:39 Vital Signs Temperature 98 F 03/01/25 11:39 Pulse Rate 95 03/01/25 11:39 Respiratory Rate 18 03/01/25 11:39 Blood Pressure 129/85 03/01/25 11:39 Pulse Oximetry 99 03/01/25 11:39 Oxygen Delivery Method Room Air 03/01/25 11:39 Temperature 98 F 03/01/25 11:39 Pulse Rate 95 03/01/25 11:39 Respiratory Rate 18 03/01/25 11:39 Blood Pressure 129/85 03/01/25 11:39 Pulse Oximetry 99 03/01/25 11:39 Oxygen Delivery Method Room Air 03/01/25 11:39 Medications Administered Medications: Discontinued Medications Generic Name Dose Route Start Last Admin Trade Name Tyshawn PRN Reason Stop Dose Admin Hydrocodone Bitart/Acetaminophen 1 tab 03/01/25 11:57 03/01/25 12:32 Hydrocodone-Acetamin 5-325 Mg 1 Tab PO 03/01/25 11:58 1 tab ONCE ONE Administration Medical Decision Making MDM Narrative Medical decision making narrative: 35-year-old female presenting to the ER today with atraumatic pain involving her right medial midfoot. It started 5 days ago on Wednesday it has been getting worse since then. She notes that she has a history of an accessory navicular bone and apparently has flares of pain like this from time to time. She had already been seen in Orthopedic Urgent Care and had x-rays that were negative for fracture. However she was skeptical about the care she was given at that urgent care. Therefore we did repeat x-rays here in the ER today and they show no acute fracture or dislocation. Differential here is broad. Differential would would include infection but there is no evidence for any redness, warmth, fever. Also unlikely to represent gout given the absence of overlying inflammatory changes. There is no ap preciable ankle or joint swelling in the foot that would be amenable to arthrocentesis. There is no swelling more proximally in the hind foot, ankle, calf or leg to suggest DVT. She has strong pulses in the PT and DP arteries and no signs of limb ischemia. She does not have any associated back pain or other leg pain to suggest a lumbar radiculopathy. Prescription for Brookfield to use p.r.n.. Opiate precautions reviewed. Placed into a cam boot and on crutches to help keep weight off. Plan will be to have her rest, continue her Celebrex for the next couple of days. If not improving within the next 48-72 hours she will recheck with orthopedics. Patient expresses a preference to follow-up with the [facility] rather than [facility]. Precautions for return to the ER reviewed. Imaging Data XR foot: Attestation: I have reviewed the pertinent imaging results. Radiologist's impression: Findings: Bones: Alignment is normal. No fractures or bone lesions. Joint spaces: Joint spaces are well maintained. No degenerative changes. Soft tissues: Unremarkable. Impression: No findings to explain pain. Discharge Plan Discharge Clinical Impression: Acute pain of right foot Patient Disposition: Home, Self-Care Condition: Stable Instructions: Foot Sprain (ED) Additional Instructions: As we discussed, please return to the ER right away if you have worsening pain or new symptoms such as fever, redness or swelling of your foot, or if you have any other problems. Remember, prescription pain killers can cause side effects such as drowsiness, dizziness, constipation, and can be addictive. Do not drive a car for 6 hours after taking Brookfield. If your foot is not substantially improved within the next 48-72 hours, please recheck with your orthopedic doctors at [facility] or with the [facility]. You can call [phone] to schedule appoint with [facility]. If you are unable to get follow-up with Orthopedics, you can come back to the ER for recheck. Prescriptions: New hydrocodone-acetaminophen 5-325 mg tablet 1 - 2 tab PO Q4-6H PRN (Reason: pain) Qty: 10 0RF No Action ibuprofen 600 mg tablet 600 mg PO Q6H celecoxib 100 mg capsule 100 mg PO BID Follow Up/Referrals: Keyona Anderson MD [Primary Care Provider, Family Practice] Stand Alone Forms: Care2Manage Info Instructions
--- NOTE | 2025-03-01 11:57 | CRLHL7_ITS ---
For Patients: As a result of the Century Cures Act, medical imaging exams and procedure reports are released immediately into your electronic medical record. You may view this report before your referring provider. If you have questions, please contact your health care provider. Indication: medial midfoot pain. no injury Technique: Right foot 3 views Comparison: None Findings: Bones: Alignment is normal. No fractures or bone lesions. Joint spaces: Joint spaces are well maintained. No degenerative changes. Soft tissues: Unremarkable. Impression: No findings to explain pain. Dictated by Jani Blair MD @ 03/01/2025 12:17:12 PM (Electronically Signed)
--- OUTSIDE RECORDS SUMMARY | 2025-03-01 12:13 | XMS_ITS | CCD ---
Author Name Interface, [id number] lity Address [facility] [place] [id number] [facility] Address [facility] [place] [id number] Care Team Providers Care Domestic Housekeeper Name Role Phone Diana Mandel MD Unavailable Unavailable Care Plan Reason for Visit Encounters Diagnostic Results Social History Visits
--- OUTSIDE RECORDS SUMMARY | 2025-03-01 12:13 | XMS_ITS | CCD ---
Author Name Interface, [id number] lity Address [facility] [place] [id number] [facility] Address [facility] [place] [id number] Care Team Providers Care Mill Laborer Name Role Phone Diana Mandel MD Unavailable Unavailable Care Plan Reason for Visit Encounters Diagnostic Results Social History Visits
[2025-03-01] MEDS: HYDROCODONE-ACETAMIN 5-325 MG 1 TAB PO (12:32)
== END 2025-03-01 13:13 | disposition home or self-care (01) ==
PROVIDERS: Emergency Provider Emergency Medicine; PCP Family Medicine
DX: M79.671 Pain in right foot (principal)
CPT/HCPCS: 73630; 99282; 99283; 99284; A9270

== ENCOUNTER 2025-06-10 20:51 | Emergency (ER) | payer OTHER, SELFPAY ==
--- OUTSIDE RECORDS SUMMARY | 2025-05-21 08:30 | XMS_ITS | Encounter Summary ---
Author Organization [facility] Address [address], [place] [address] Care Team Providers Care Manager Php Name Role Phone No Primary/Referring, Phy Primary Care Provider Unavailable Reason for Visit * Reason Comments Mask Fit Encounter Details Date Type Department Care Team (Late st Contact Info) Description 05/21/2025 8:30 AM MILL HAND PLATE MILL [facility] [address] [place] [address] Celeste Dash, RT Social History Tobacco Use Types Packs/Day Years [...] on file documented as of this encounter Progress Notes * Celeste Dash RT - 05/21/2025 8:30 AM CST Radha Cheek/[id number]/01/26/1990 was an in person visit 05/21/2025 for a 30-day mask exchange.Patient was shown a variety of masks, but chose airtouch f20 in size small. Patient was advised to change mask style on machine as indicated. Care and cleaning reviewed. No further questions. HAND PLATE MILL documented in this encounter Plan of Treatment Upcoming Encounters Date Type Department Care Team (Late st Contact Info) Description 07/17/2025 9:00 AM MILL HAND [facility]ATE [facility] Office Visit Specialty Center [address] Pulmonary Medicine [address] [place] [address] Ana Paula Alvarez, DINORA [address] [facility] [address] [place] [address] documented as of this encounter Visit Diagnoses Not on filedocumented in this encounter Care Teams Manager Php Relationship Specialty Start Date End Date No Primary/Referring, Phy PCP - General 02/17/22 documented as of this encounter
--- OUTSIDE RECORDS SUMMARY | 2025-05-29 10:54 | XMS_ITS | Encounter Summary ---
Author Organization [facility] Address [address] [place] [address] Care Team Providers Care Curtain Drier Name Role Phone Unavailable Primary Care Provider Unavailabl e Reason for Referral * Outpatient (Routine) - Closed Specialty Diagnoses / Procedures Referred By Contac t Referred To Contact Diagnoses Mass Ovary Procedures US Pelvis Transvaginal and Transabdominal Chen Carlisle M.D. 200 [place] [address] Phone: tel: fax: [facility] Referral ID Status Reason Start Date Expiration Date Visits Re quested Visits Authorized [id number] Closed 03/09/2025 06/09/2026 1 1 THERAPIST Reason for Visit * Outpatient (Routine) - Closed Specialty Diagnoses / Procedures Referred By Contac t Referred To Contact Diagnoses Mass Ovary Procedures US Pelvis Transvaginal and Transabdominal Chen Carlisle M.D. 200 [place] [address] Phone: tel: fax: [facility] Referral ID Status Reason Start Date Expiration Date Visits Re quested Visits Authorized [id number] Closed 03/09/2025 06/09/2026 1 1 Encounter Details Date Type Department Care Team (Latest Contact Info) Description 05/29/2025 10:54 AM ARTS THERAPIST - 05/29/2025 11:59 PM ARTS THERAPIST Hospital Encounter Department of Radiology, [facility], in [place], [place] [address] [place] [address] Chen Carlisle M.D. [address] [place] [address] Mass Ovary Discharge Disposition: Home or Self Care Social History Tobacco Use Types Packs/Day Years Used Date Smoking Tobacco: Never Smokeless Tobacco: Never Alcohol Use Standard Drinks/Week Comments Never 0 (1 standard drink = 0.6 oz pur e alcohol) Hunger Vital Sign Answer Date Recorded Within the past 12 months, y ou worried that your food would run out before you got the money to buy more. Patient declined Within the past 12 months, t he food you bought just didn't last and you didn't have money to get more. Patient declined PRAPARE - Transportation Answer Date Re corded In the past 12 months, has l ack of transportation kept you from medical appointments or from getting medications? No 02/03 In the past 12 months, has l ack of transportation kept you from meetings, work, or from getting things needed for daily living? No 03/02/2025 [facility] Utilities Answer Date Recorded In the past 12 months has e electric, gas, oil, or water company threatened to shut off services in your home? Patient declined 03/02/2025 Housing Stability Answer Date Recorded What is your living situation today? I have a [facility] place to live 03/02/2025 Comments Unknown Sex and Gender Information Value Date Recorded Sex Assigned at Female 03/02/2025 1:40 PM CDT Legal Sex Female 11:00 AM CDT Gender Identity Female 03/02/2025 1:40 PM CDT Sexual Orientation Straight 03/02/2025 1: 40 PM CDT documented as of this encounter Medications at Time of Discharge docusate sodium (Colace) 100 mg capsule Take 100 mg by mouth as needed. 02/08/2025 etonogestreL-eth inyl estradioL (NuvaRing) 0.12-0.015 mg/24 hr vaginal ring Insert vaginally and leave in place for 3 consecutive weeks, then remove for 1 week. 3 each 4 04/02/2025 metFORMIN (Glucophage) 500 mg tablet Take 500 mg by mouth daily. 02/27/2025 diclofenac sodium (Voltaren) 75 mg EC tablet Take 75 mg by mouth as needed. 03/06/2025 5 norethindrone (Aygestin) 5 mg tablet Take 0.5 tablets (2.5 mg total) by mouth daily. 45 tablet 3 03/09/2025 oxyCODONE (Roxicodone) 5 mg immediate release tablet Take 5 mg by mouth 3 (three) times a day as needed. 02/08/2025 5 documented as of this encounter Plan of Treatment Not on file documented as of this encounter Procedures Procedure Name Priority Date/Time Associated Diagnosis Comments US PELVIS TRANSVAGINAL AND TRANSABDOMINAL RAD - Routine (most inpatients and all outpatients) 05/29/2025 12:16 PM ARTS THERAPIST Mass Ovary documented in this encounter Results * US Pelvis Transvaginal and Transabdominal (05/29/2025 12:16 PM ARTS THERAPIST) Anatomical Region Laterality Modality Pelvis, Ultrasound RST LOS, Ultrasound ARZ LOS, Ultrasound FLA LOS N/A Ultrasound Impressions 05/29/2025 12:40 PM ARTS THERAPIST No unfavorable change. Redemonstration of a multilobulated right adnexal cystic mass with overall slightly diminished dimensions compared to previous MR imaging noting that differences could also be attributed to intermodality comparison. Narrative 05/29/2025 12:40 PM ARTS THERAPIST EXAM: US PELVIS TRANSVAGINAL AND TRANSABDOMINAL COMPARISON: [...] of a complex cystic right adnexal mass measuring 5.1 x 5.7 x 5.8 cm. The mass contains a few thin avascular septations. No distinct solid nodule or papillary projections. It appears overall decreased in size compared to previous dimensions of 8.0 x 8.2 x 8.1 cm [...] differences could also be attributed tointermodality comparison. us Chen CHAKRABORTY US PROCEDURE S Final Result documented in this encounter Visit Diagnoses Diagnosis Mass Ovary documented in this encounter
--- OUTSIDE RECORDS SUMMARY | 2025-05-30 09:45 | XMS_ITS | Encounter Summary ---
Author Organization [facility] Address [address] [place] [address] Care Team Providers Care Molding Machine Operator Helper Name Role Phone Unavailable Primary Care Provider Unavailabl e Reason for Visit * Reason Onset Date Comments Pre-visit Intake 05/30/2025 * Appointment Request (Routine) - Authorized Specialty Diagnoses / Procedures Referred By Zoë t Referred To Contact Gynecology Referral ID Status Reason Start Date Expiration Date V isits Requested Visits Authorized [id number] Authorized 03/14/2025 06/14/2026 1 1 Encounter Details Date Type Department Care Team (Latest Contact Info) Description 05/30/2025 9:45 AM HEALTH AND PHYSICAL EDUCATION PROFESSOR Clinical Communication Virtual Review in [place], [place] [address] [place] [address] Pre-visit Intake Social History Tobacco Use Types Packs/Day Years [...] things needed for daily living? No 03/02/2025 [facility] Utilities Answer Date Recorded In the past 12 months has th e electric, gas, oil, or water company threatened to shut off services in your home? Patient declined 03/02/2025 Housing Stability Answer Date Recorded What is your living situation today? I have a [facility] place to live 03/02/2025 Comments Unknown Sex and Gender Information Value Date Recorded Sex Assigned at Female 03/02/2025 1:40 PM CDT Legal Sex Female 11:00 AM CDT Gender Identity Female 03/02/2025 1:40 PM CDT Sexual Orientation Straight 03/02/2025 1: 40 PM CDT documented as of this encounter Plan of Treatment Not on file documented as of this encounter Visit Diagnoses Not on filedocumented in this encounter
--- OUTSIDE RECORDS SUMMARY | 2025-06-04 11:30 | XMS_ITS | Encounter Summary ---
Author Organization [facility] Address [address] [place] [address] Care Team Providers Care Command And Control Systems Integrator Name Role Phone Unavailable Primary Care Provider Unavailabl e Reason for Referral * Physical Therapy (Routine) - Authorized Specialty Diagnoses / Procedures Referred By Contac t Referred To Contact Diagnoses Pelvic Floor Tension Myalgia (Female) Dysfunction Pelvic Floor Female Chen Carlisle M.D. [address] [place] [address] Phone: tel: fax: Referral ID Status Reason Start Date Expiration Date Visits Requested Visits Authorized [id number] Authorized Continuity of Care 06/07/2025 12/07/2026 1 1 OR INTEGRATION ARCHITECT * Outpatient (Routine) - Authorized Specialty Diagnoses / Procedures Referred By Contac t Referred To Contact Obstetrics and Gynecology Chen Carlisle M.D. [address] [place] [address] Phone: tel: fax: [facility] Referral ID Status Reason Start Date Expiration Date V isits Requested Visits Authorized [id number] Authorized 06/04/2025 12/04/2026 1 1 OR INTEGRATION ARCHITECT * Outpatient (Routine) - Authorized Specialty Diagnoses / Procedures Referred By Contac t Referred To Contact Diagnoses Mass Ovary Procedures US Pelvis Transvaginal and Transabdominal Chen Carlisle M.D. [address] [place] [phone] Phone: tel: fax: [facility] Referral ID Status Reason Start Date Expiration Date V isits Requested Visits Authorized [id number] Authorized 06/04/2025 09/04/2026 1 1 OR INTEGRATION ARCHITECT Reason for Visit * Outpatient (Routine) - Closed Specialty Diagnoses / Procedures Referred By Contac t Referred To Contact Obstetrics and Gynecology Chen Carlisle M.D. [address] [place] [phone] Phone: tel: fax: [facility] Referral ID Status Reason Start Date Expiration Date Visits Re quested Visits Authorized [id number] Closed 03/09/2025 09/08/2026 1 1 Encounter Details Date Type Department Care Team (Late st Contact Info) Description 06/04/2025 11:30 AM SENIOR INTEGRATION ARCHITECT Telemedicine Department of Obstetrics and Gynecology in [place], [place] [address] [place] [phone] Chen Carlisle M.D. [address] [place] [phone] Mass Ovary (Primary Dx); Pelvic Floor Tension Myalgia (Female); Dysfunction Pelvic Floor Female Social History Tobacco Use Types Packs/Day Years [...] things needed for daily living? No 03/02/2025 [facility] Utilities Answer Date Recorded In the past 12 months has th e electric, gas, oil, or water company threatened to shut off services in your home? Patient declined 03/02/2025 Housing Stability Answer Date Recorded What is your living situation today? I have a [facility] place to live 03/02/2025 Comments Unknown Sex and Gender Information Value Date Recorded Sex Assigned at Female 03/02/2025 1:40 PM CDT Legal Sex Female 11:00 AM CDT Gender Identity Female 03/02/2025 1:40 PM CDT Sexual Orientation Straight 03/02/2025 1: 40 PM CDT documented as of this encounter Progress Notes [...] has been in a stable relationship since 2013 and since 2016, with no concerns for sexually transmitted infections. [...] care time was 25 minutes in both vcnh-fy-gyrx and non qtnf-qt-ajrz care. [1] Past Medical History: Diagnosis Date Anxiety Generalized Disorder Apnea Sleep Obstructive Depressive Disorder [2] Past Surgical History: Procedure Laterality Date DILATATION AND CURETTAGE 2022 missed miscarriage OOPHORECTOMY 2018 PELVIC LAPAROSCOPY left ovary and left fallopian tube 2018.. 2022 right tube TUBAL LIGATION 2022 [3] No family history on file. OR INTEGRATION ARCHITECT documented in this encounter Miscellaneous Notes * Addendum Note - Macy Ya RKahlilN. - 06/04/2025 11:30 AM CSTAddended by: MACY YA on: 06/07/2025 10:13 AM Modules accepted: Orders OR INTEGRATION ARCHITECT documented in this encounter Plan of Treatment Scheduled Orders Name Type Priority Associated Diagnoses Order Schedule US Pelvis Transvaginal and Transabdominal Imaging RAD - Routine (most inpatients and all outpatients) Mass Ovary Expected: 12/03/2025, Expires: 09/02/2026 Scheduled Referrals Name Type Priority Associated Diagnoses Order Schedule Obstetrics and Gynecology office visit (clinic) Outpatient Referral Routine Expected: 12/03/2025, Expires: 09/02/2026 documented as of this encounter Visit Diagnoses Diagnosis Mass Ovary- Primary Pelvic Floor Tension Myalgia (Female) Dysfunction Pelvic Floor Female documented in this encounter
--- OUTSIDE RECORDS SUMMARY | 2025-06-10 20:57 | XMS_ITS | Clinical Summary ---
Author Organization [facility] Address [address] [place] [address]. [place] [address] Care Team Providers Care Pipe Organ Builder Name Role Phone Esperanza Mcbride MD Primary [...] on file Legal Sex Female 4:34 AM SPOT MACHINE OPERATOR Gender Identity Not on file Sexual Orientation Not on file Last Filed Vital Signs Vital Sign Reading Time Taken Comments Blood Pressure 125/89 06/06/2018 11:24 AM SPOT MACHINE OPERATOR Pulse 112 06/03/2018 5:50 AM SPOT MACHINE OPERATOR Temperature 36.9 C (98.5 F) 06/06/2018 11:24 AM SPOT MACHINE OPERATOR Respiratory Rate 18 06/06/2018 11:24 AM SPOT MACHINE OPERATOR Oxygen Saturation 97% 06/06/2018 11:24 AM SPOT MACHINE OPERATOR Inhaled Oxygen Concentration - - Weight 86.6 kg (191 lb) 06/03/2018 11:53 AM SPOT MACHINE OPERATOR Height 157.5 cm (5' 2) 06/03/2018 11:53 AM SPOT MACHINE OPERATOR Body Mass Index 34.93 06/03/2018 11:53 AM SPOT MACHINE OPERATOR Plan of Treatment Not on file Insurance [employer] Advance Directives For more information, please contact: [phone] * Full Code (Latest Code Status on File) Date Activated Date Inactivated Comments 06/03/2018 12:21 PM 06/06/2018 1:45 PM Question Answer Comments Code status determined by: Discussion with isaiah nt/legal decision maker Care Teams Pipe Organ Builder Relationship Specialty Start Date End Date Esperanza Mcbride MD PCP - General 06/03/18
--- OUTSIDE RECORDS SUMMARY | 2025-06-10 20:57 | XMS_ITS | Encounter Summary ---
Author Organization [facility] Address [address] [place] [address] Care Team Providers Care Program Coordinator Executive Education Name Role Phone Unavailable Primary Care Provider Unavailabl e Encounter Details Date Type Department Care Team (Late st Contact Info) Description 05/29/2025 Results Follow-Up Department of Obstetrics and Gynecology in [place], [place] [address] [place] [phone] Jovanna Ulrich, RKahlilN. [address] [place] [address] US Pelvis Transvaginal and Transabdominal Social History Tobacco Use Types Packs/Day Years [...] things needed for daily living? No 03/02/2025 [facility] Utilities Answer Date Recorded In the past 12 months has e electric, gas, oil, or water company threatened to shut off services in your home? Patient declined 03/02/2025 Housing Stability Answer Date Recorded What is your living situation today? I have a [facility] place to live 03/02/2025 Comments Unknown [...]
--- OUTSIDE RECORDS SUMMARY | 2025-06-10 20:57 | XMS_ITS | Clinical Summary ---
Author Organization [employer] Address [facility] [place] [address] Care Team Providers Care Windows Server Engineer Name Role Phone PeoplesKeyona MD Unavailable [facility] Primary Care Provider Unavailabl e Allergies Active [...] rhinitis, unspecified seasonality, unspecified trigger Inhale 1 [place] into affected nostril(s) once daily. 16 g [...] y.o. 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 Gender Identity Female 02/05/2020 7:38 AM CDT [...] 9 HARTLE Y,BB BERNIE [place] pesek Delivery Location:[facility] (UTD 2000 MB L&D TRIAGE) 2022 SAB [...] 12/11/2020, Additional history exists COVID-19 vaccine series (2024- season) 2025 Influenza Vaccine (#1) 2025 05/17/2019, 2017 Pap test for age 21-65 12/15/2026 , 12/16/2023, 06/03/2020 (Completed outside of [facility]), Additional history exists Tetanus booster 03/03/2028 03/03/2018, 04/29/2017 RSV vaccine for adults or (1 - 1-dose 75+ series) 01/25/2067 HPV series for age 9-45 Completed 09/05/19 08, 05/05/2007, 03/04/2007 HIV for age 15-65 Completed 10/12/2017 Pneumococcal series for age 6-49 Aged Out No longer eligible based on patient's age to complete this topic Procedures Procedure Name Priority Date/Time Associated Diagnosis Comments RAILWAY TRACTION LINE WORKER THIN PREP PAP SCREEN IMAGED Routine 12/16/2023 2:17 PM CDT ANTI HIV 1/2 Routine 10/12/2017 1:32 PM CDT Encounter for supervision of normal first , unspecified trimester (HC) from Last 3 Months or Most Recently Relevant to Health Maintenance Results * RAILWAY TRACTION LINE WORKER THIN PREP PAP SCREEN IMAGED (12/16/2023 2:17 PM CDT) Case Report Gynecologic Cytology Report Case: [id number] Authorizing Provider: Keyona Anderson MD Collected: 12/16/2023 1417 Ordering Location: [facility] Received: 12/20/2023 1247 First Screen: Nieves Hartley Specimen: RAILWAY TRACTION LINE WORKER ThinPrep Vial Screening, Cervical/Vaginal 12/28/2023 11:14 AM CDT [facility] INTERPRETATION/ RESULT NEGATIVE FOR INTRAEPITHELIAL LESION OR MALIGNANCY (NIL) (none) 12/28/2023 11:14 AM CDT [facility] at 1114 CDT SPECIMEN ADEQUACY Satisfactory for evaluation Endocervical component present 12/28/2023 11:14 AM CDT [facility] HPV REQUEST HPV and PAP 12/28/2023 11:14 AM CDT [facility] Date of LMP 10/14/2023 12/28/2023 11:14 AM CDT [facility] Last Pap Date 12/28/2023 11:14 AM CDT [facility] Comment:unknown Last Pap Result First Pap/Unknown 11:14 AM CDT [facility] Abnormal Pap or Carrizozo Bx in last 5 years No 12/28/2023 11:14 AM CDT [facility] Menstrual Status Irregular Periods 12/28/2023 11:14 AM CDT [facility] Carrizozo Bx Done Today No 12/28/2023 11:14 AM CDT [facility] Additional Information 12/28/2023 11:14 AM T [facility] Comment: Interpreted at [facility] - [address], [place] [address] Automated Review Successful 12/28/2023 11:14 AM T [facility] Comment:Specimen processed s uccessfully by automated hot tamale man device, ThinPrep Imaging System, [employer] ANCILLARY TESTING RAILWAY TRACTION LINE WORKER HPV Ordered, Please see separate report 12/28/2023 11:14 AM T [facility] Note The pap test is [...] and malignant lesions. 12/28/2023 11:14 AM CDT [facility] Other (Cervical/Vagina l) 12/16/2023 2:17 PM CDT 12/20/2023 12:47 PM CDT Keyona Anderson MD PATHOLOGY/CYTOLOGY Final Result [facility] [address] [place] [address], * ANTI HIV 1/2 (10/12/2017 1:32 PM CDT) HIV-1/HIV-2 ANTIBODY Non-Reacti ve Non-Reacti ve 10/12/2017 9:51 PM CDT [facility] Comment:HIV-1 p24 and HIV-1/ HIV-2 Ab not detected. Blood BLOOD SPECIMEN / Unknown Venipuncture / Unknown 10/12/2017 1:32 PM CDT 10/12/2017 1:32 PM CDT Esperanza Mcbride MD SEND OUTS Final Res ult [facility] [address] [place] [address], from Last 3 Months or Most Recently Relevant to Health Maintenance Insurance [facility] Advance Directives * Full Code (Latest Code Status on File) Date Activated Date Inactivated Comments 03/10/2023 12:39 PM 03/10/2023 5:51 PM Question Answer Comments Code Status Discussion: Reviewed Preferences * Full Code Date Activated Date Inactivated Comments 04/17/2018 12:16 AM 04/18/2018 4:07 PM * Full Code Date Activated Date Inactivated Comments 04/29/2007 12:45 AM 04/29/2007 10:54 PM Care Teams Windows Server Engineer Relationship Specialty Start Date End Date [facility] PCP - General 11/13/24 Keyona Whitt MD Obstetrics and Gynecology 03/29/23
--- OUTSIDE RECORDS SUMMARY | 2025-06-10 20:57 | XMS_ITS | Encounter Summary ---
Author Organization [employer] Address [address] [address] Care Team Providers Care Assistant Center Director Name Role Phone No Primary/Referring, Phy Primary Care Provider Unavailable Encounter Details Date Type Department Care Team (Late st Contact Info) Description 04/26/2025 Telephone Specialty Center 39[address] Pulmonary Medicine [address] [place], [place] [phone] Ana Paula Alvarez PA-C [address] [facility] [address] [place], [place] [phone] Social History Tobacco Use Types Packs/Day Years [...] as of this encounter Nursing Notes * Katelyn Jackson RN - 04/27/2025 8:32 AM CDT Left vm and copy sent via [employer]. * Dee Ocasio RN - 04/26/2025 2:28 PM CDT ----- Message from Ana Paula Alvarez sent at 04/25/2025 3:59 PM CDT ----- Please inform ferritin returned mildly low at 67. Rec: OTC Ferrous Sulfate 325 mg daily. Take at least 2 hours separate from other meds. Side effects: black stool, stomach upset, constipation. If side effects intolerable, rec taking every other day. Will recheck in 3-6 months. Thanks! documented in this encounter Plan of Treatment Upcoming Encounters Date Type Department Care Team (Late st Contact Info) Description 07/17/2025 9:00 AM NEON SIGN INSTALLER Office Visit Specialty Center [address] Pulmonary Medicine [address] [place], [place] [phone] Ana Paula Alvarez, PACheikhC [address] [facility] [address] [place], [place] [phone] documented as of this encounter Visit Diagnoses Not on filedocumented in this encounter Care Teams Assistant Center Director Relationship Specialty Start Date End Date No Primary/Referring, Phy PCP - General 02/17/22 documented as of this encounter
--- OUTSIDE RECORDS SUMMARY | 2025-06-10 20:57 | XMS_ITS | Clinical Summary ---
Author Organization [facility] Address [address] [place] [address] Care Team Providers Care Lead Cargoman Name Role Phone Unavailable Primary Care Provider Unavailabl e Source Comments Patient records contain information from all sites at [facility]. For routine questions regarding patient records, call [phone] during business hours, M-F 8:00 AM - 5:00 PM Central Time. Record requests for emergency care only can be directed to [phone] at any time.[facility] Allergies Active Allergy Reactions Criticality Noted Date Comments Prednisone Other (see comments) Low 02/05/2020 Mood swings Trazodone Other (see comments) Low 02/05/2020 Mood swings Medications metFORMIN (Glucophage) 500 mg tablet Take 500 mg by mouth daily. 02/28/20 25 Active etonogestreL-e thinyl estradioL (NuvaRing) 0.12-0.015 mg/24 hr vaginal ring Insert vaginally and leave in place for 3 consecutive weeks, then remove for 1 week. 3 each 4 04/02/20 25 Active docusate sodium (Colace) 100 mg capsule Take 100 mg by mouth as needed. 02/09/20 25 Active oxyCODONE (Roxicodone) 5 mg immediate release tablet Take 5 mg by mouth 3 (three) times a day as needed. 02/09/20 25 025 Discontinued diclofenac sodium (Voltaren) 75 mg EC tablet Take 75 mg by mouth as needed. 03/06/20 25 025 Discontinued norethindrone (Aygestin) 5 mg tablet Take 0.5 tablets (2.5 mg total) by mouth daily. 45 tablet 3 03/09/20 025 Discontinued Encounters Date Type Department Care Team Description 06/04/2025 11:30 AM CERTIFIED PHYSICIAN ASSISTANT Telemedicine Department of Obstetrics and Gynecology in [place], [place] [address] [place] [phone] Chen Carlisle M.D. Mass Ovary (Primary Dx); Pelvic Floor Tension Myalgia (Female); Dysfunction Pelvic Floor Female 05/30/2025 9:45 AM CERTIFIED PHYSICIAN ASSISTANT Clinical Communication Virtual Review in [place], [place] [address] [place] [address] Pre-visit Intake 05/29/2025 10:54 AM CERTIFIED PHYSICIAN ASSISTANT - 05/29/2025 11:59 PM CERTIFIED PHYSICIAN ASSISTANT Hospital Encounter Department of Radiology, [facility], in [place], [place] [address] [place] [phone] Chen Carlisle M.D. Mass Ovary Discharge Disposition: Home or Self Care 05/29/2025 Results Follow-Up Department of Obstetrics and Gynecology in [address] [phone] Jovanna Ulrich, RKahlilN. US Pelvis Transvaginal and Transabdominal from Last 3 Months Social History Tobacco [...] things needed for daily living? No 03/02/2025 [facility] Utilities Answer Date Recorded In the past 12 months has [facility] [employer], [employer], or [employer] threatened to shut off services in your home? Patient declined 03/02/2025 Housing Stability Answer Date Recorded What is your living situation today? I have a [facility] place to live 03/02/2025 Comments Unknown Sex and Gender Information Value Date Recorded Sex Assigned at Female 03/02/2025 1:40 PM CDT Legal Sex Female 11:00 AM CDT Gender Identity Female 03/02/2025 1:40 PM CDT Sexual Orientation Straight 03/02/2025 1: 40 PM CDT Last Filed Vital Signs Vital Sign Reading Time Taken Comments Blood Pressure 137/84 03/09/2025 9:29 AM CDT Pulse 103 03/09/2025 9:29 AM CDT Temperature - - Respiratory Rate - - Oxygen Saturation - - Inhaled Oxygen Concentration - - Weight - - Height - - Body Mass Index - - Plan of Treatment Health Maintenance Due Date Last Done Comments HIV Screening 1992 Hepatitis C Screening 1990 Hepatitis B Vaccines (1 of 3 - 19+ 3-dose series) 01/25/2011 Depression Screening (Annual PHQ-2) 07/05/2024 COVID-19 Vaccine (1 - 2024-2 6 season) 2025 Influenza Vaccine (#1) 2025 9, 03/18/2018 Cervical/Vaginal [...] inpatients and all outpatients) 05/29/2025 12:16 PM CERTIFIED PHYSICIAN ASSISTANT Mass Ovary from Last 3 Months Results * US Pelvis Transvaginal and Transabdominal (05/29/2025 12:16 PM CERTIFIED PHYSICIAN ASSISTANT) Anatomical Region Laterality Modality Pelvis, Ultrasound RST LOS, Ultrasound ARZ LOS, Ultrasound FLA LOS N/A Ultrasound Impressions 05/29/2025 12:40 PM CERTIFIED PHYSICIAN ASSISTANT No unfavorable change. Redemonstration of a multilobulated right adnexal cystic mass with overall slightly diminished dimensions compared to previous MR imaging noting that differences could also be attributed to intermodality comparison. Narrative 05/29/2025 12:40 PM CERTIFIED PHYSICIAN ASSISTANT EXAM: US PELVIS TRANSVAGINAL AND TRANSABDOMINAL COMPARISON: [...] Chen CHAKRABORTY US PROCEDURE S Final Result from Last 3 Months
--- OUTSIDE RECORDS SUMMARY | 2025-06-10 20:57 | XMS_ITS | Clinical Summary ---
Author Organization [employer] Address [address], [place] [address] Care Team Providers Care Fpga Design Engineer Name Role Phone No Primary/Referring, Phy Primary Care Provider Unavailable Source Comments You are receiving this document as you are listed as the primary care provider,follow-up provider, or the patient has been referred to you for consultation.This is in compliance with the Medicare and[facility] Centercaid EHR Incentive Program,which states Providers who transition their patient to another setting of careor provider of care or refers their patient to another provider of care shouldprovide summary care record for each transition of care or referral. [employer] Allergies Active Allergy Reactions Criticality Noted Date Comments Prednisone Other, see comments 02/05/2020 Mood swings Trazodone Other, see comments 02/05/2020 Mood swings Medications clindamycin (CLEOCIN T) 1 % external solutionIndicat ions:Hidradenit is suppurativa Apply twice daily to areas prone to hidradenitis suppurativa bumps 60 mL 6 2 Active metFORMIN (GLUCOPHAGE) 500 MG tablet Take 1 Tablet (500 mg) by mouth daily. 5 Active Active Problems Problem Noted Date Diagnosed [...] y.o. Medical concerns: hyperemesis - was in [place] ED 09/20/17 and received IV fluids and [...] 08/17/2022 Overview (05/07/2021): Overview: Uses OTC prilosec Encounters Date Type Department Care Team Description 05/21/2025 8:30 AM OPERATIONS SECTION MANAGER [facility] [address] CPAP Services [address] [place] [address] Celeste Dash, RT 04/26/2025 Telephone Specialty Center [address] Pulmonary Medicine [address] [place] [address] Ana Paula Alvarez PA-C 04/25/2025 11:15 AM CDT Lab [facility] [address] [place] [address] RLS (restless legs syndrome); Disorder of iron metabolism 04/25/2025 10:00 AM CDT Office Visit Specialty Center [address] Pulmonary Medicine [address] [place] [address] Ana Paula Alvarez, PAUbaldo Mild obstructive sleep apnea (Primary Dx); RLS (restless legs syndrome); Disorder of iron metabolism 04/25/2025 Notes/Orders [facility] [address] [place] [address] Isaac Camacho MD Routine general medical examination at [facility] care facility 04/14/2025 10:30 AM CDT Therapy [facility] [address] [address] Gloria Roger M, PT Posterior tibial tendinitis of right leg (Primary Dx) 03/31/2025 10:30 AM CDT Therapy [facility] [address] [address] Ivonne Vasquez M, PT Posterior tibial tendinitis of right leg (Primary Dx); Pain in right foot; Impaired mobility and ADLs; Ankle weakness 03/17/2025 1:15 PM CDT Therapy [facility] [address] [address] Christiano Mcgrath R, PT Posterior tibial tendinitis of right leg (Primary Dx); Pain in right foot; Impaired mobility and ADLs; Ankle weakness from Last 3 Months Immunizations Immunization Administration Dates Next Due 4vHPV (Gardasil) 09/05/2007,05/05/2007, 7 Influenza IIV4 (Quadrivalent) 0.5mL (26540) 05/05,03/18/2018 Tdap 03/03/2018,04/29/2017 Social History Tobacco Use [...] Pressure 127/88 10/12/2022 1:46 PM CDT Pulse 85 04/25/2025 9:55 AM CDT Temperature 36.9 C (98.4 F) 03/06/2025 2:03 PM CDT Respiratory Rate 16 04/16/2022 6:05 AM CDT Oxygen Saturation 100% 04/25/2025 9:55 AM CDT Inhaled Oxygen Concentration - - Weight 104.3 kg (230 lb) 04/25/2025 9:55 AM CDT Height 157.5 cm (5' 2) 04/25/2025 9:55 AM CDT Body Mass Index 42.07 04/25/2025 9:55 AM CDT Plan of Treatment Upcoming Encounters Date Type Department Care Team (Late st Contact Info) Description 07/17/2025 9:00 AM OPERATIONS SECTION MANAGER Office Visit Specialty Center 39[address] Pulmonary Medicine [address] [place], [place] [phone] Ana Paula Alvarez, PACheikhC [address] [facility] [address] [place] [address] Health Maintenance Due Date Last Done Comments Hep C Screening (Preventive Services) 1990 Adult Preventive Visit 01/25/2010 HepB Vaccine (1) 01/25/2011 Cervical Cancer Screening 03/26/20242020, 04/29/2017 (Completed) COVID-19 Vaccine (1 - 2024-2 6 season) 2025 Influenza Vaccine (#1) 2025 9, 03/18/2018 DTaP/Tdap/Td Vaccine (3 - Tdap) 03/03/2028 03/03/2018, 04/29/2017 Zoster/Shingles Vaccine (1 o f 2) 01/25/2042 HPV Vaccine Completed 09/05/2007, 05/05/2007, 03/04/2007 HIV Screening (Preventive Services) Completed 10/12/2017 HepA Vaccine Aged Out No longer eligi [...] Procedure Name Priority Date/Time Associated Diagnosis Comments FERRITIN Routine 04/25/2025 11:17 AM CDT RLS (restless legs syndrome) Disorder of iron metabolism from Last 3 Months Results * Ferritin (04/25/2025 11:17 AM CDT) Ferritin 67 9 - 204 ng/mL 04/25/2025 12:16 PM CDT [facility] Blood Venipuncture / Unknown 04/25/2025 11:17 AM CDT 04/25/2025 11:29 AM CDT us Ana Paula Alvarez PA-C LAB_1 Final R esult [facility] CLIA: [id number] [address] [place] [address], [facility] from Last 3 Months Insurance [facility] Care Teams Fpga Design Engineer Relationship Specialty Start Date End Date No Primary/Referring, Phy PCP - General 02/17/22
[2025-06-10 21:01] VITALS: BP 130/81; PULSE 154; RESP 24; TEMP 38.6; O2SAT 98; BMI 42.1
--- NOTE | 2025-06-10 21:20 | ED.GENADULT ---
HPI - General Adult General Chief complaint: Cough Stated complaint: Fever, chills, -sick Time Seen by Provider: 06/10/25 20:56 History of Present Illness HPI narrative: This 35-year-old female comes in reporting onset of upper respiratory symptoms this afternoon including cough, sore throat, nasal congestion, fever, and body aches and pains. She states that she did take Tylenol but it did not help her. She arrives here with a temperature at 101.4? F. Related Data Home Medications ?Medication ?Instructions ?Recorded ?Confirmed ibuprofen 600 mg tablet 600 mg PO Q6H 03/01/25 06/10/25 etonogestrel 0.12 mg-ethinyl 1 vag ring vaginal DIRECTED 06/10/25 06/10/25 estradiol 0.015 mg/24 hr vaginal ring (EluRyng) norethindrone acetate 5 mg tablet 2.5 mg PO DAILY 06/10/25 06/10/25 Allergies Allergy/AdvReac Type Severity Reaction Status Date / Time prednisone AdvReac Mild Mood Swings Verified 06/10/25 21:03 trazodone AdvReac Mild Mood Swings Verified 06/10/25 21:03 Review of Systems Status of ROS: Reports: 10 or more systems reviewed and unremarkable except as noted in History and below Narrative: Constitutional: No weight gain or loss. She reports a fever. Eyes: No discharge. No vision changes. HENT: No ear pain. Sore throat and nasal congestion is present. Cardiovascular: No chest pain, no palpitations. Respiratory: No shortness of breath, no wheezes. Frequent cough. Gastrointestinal: No abdominal pain, no vomiting, no diarrhea. Genitourinary: No dysuria, no hematuria. Musculoskeletal: Normal range of motion. Skin: No rashes, no pruritis. Neurological: No dizziness, weakness, sensory change, speech change. Endo/Heme/Allergies: No bruising or bleeding. No polydipsia. Pysch: no suicidality, no anxiety, no insomnia. All other systems reviewed and are negative. 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 No alcohol use. Smoking Status: Never smoker Do you use any of these nicotine containing products: None Second hand tobacco smoke exposure: No How often do you have a drink containing alcohol: never How often do you have six or more drinks on one occasion: Never AUDIT-C Alcohol total score: 0 Non-prescribed substance use: marijuana (any form) service: No Exam Narrative: Exam Narrative: Constitutional: Well-developed, well-nourished. HEENT: Normocephalic, atraumatic. Neck: Normal range of motion. Nontender. Supple. Heart: Regular. No murmurs. Normal rate. Intact distal pulses. Lungs: Clear to auscultation. No chest discomfort. No wheezes, rhonchi, or rales. Abdomen: Normal bowel sounds. Nontender. No rebound tenderness. Genitalia: Deferred. Back: No midline tenderness. Normal range of motion. Extremities: Normal range of motion. No injury. Skin: Intact. No rash. Warm. No erythema or pallor. Neurologic: No altered sensation. No weakness. Alert and oriented. Psychiatric: No suicidality. No anxiety or depression. No insomnia. Nursing notes and vitals signs are reviewed. Const: Vital Signs, click to edit/add: Vital Signs - 24 hr 06/10/25 21:01 Temperature 101.4 F H Pulse Rate [Right Pulse Oximeter] 154 H Respiratory Rate 24 Blood Pressure [Le ft Upper Arm] 130/81 Pulse Oximetry 98 Oxygen Delivery Me thod Room Air Course Vital Signs Vital signs: Initial Vital Signs Temperature 101.4 F H 06/10/25 21:01 Temperature Source Temporal Artery Scan 06/10/25 21:01 Pulse Rate 154 H 06/10/25 21:01 Respiratory Rate 24 06/10/25 21:01 Blood Pressure 130/81 06/10/25 21:01 Blood Pressure Mean 97 06/10/25 21:01 Blood Pressure Position Sitting 06/10/25 21:01 Pulse Oximetry 98 06/10/25 21:01 Oxygen Delivery Method Room Air 06/10/25 21:01 Vital Signs Temperature 101.4 F H 06/10/25 21:01 Pulse Rate 154 H 06/10/25 21:01 Respiratory Rate 24 06/10/25 21:01 Blood Pressure 130/81 06/10/25 21:01 Pulse Oximetry 98 06/10/25 21:01 Oxygen Delivery Method Room Air 06/10/25 21:01 Temperature 101.4 F H 06/10/25 21:01 Pulse Rate 154 H 06/10/25 21:01 Respiratory Rate 24 06/10/25 21:01 Blood Pressure 130/81 06/10/25 21:01 Pulse Oximetry 98 06/10/25 21:01 Oxygen Delivery Method Room Air 06/10/25 21:01 Medications Administered Medications: Generic Name Dose Route Start Last Admin Trade Name Freq PRN Reason Stop Dose Admin Acetaminophen 1,000 mg 06/10/25 21:16 06/10/25 21:27 Acetaminophen 500 Mg Tablet PO 06/10/25 21:17 1,000 mg ONCE ONE Administration Ketorolac Tromethamine 10 mg 06/10/25 21:16 06/10/25 21:27 Ketorolac 10 Mg Tablet PO 06/10/25 21:17 10 mg ONCE ONE Administration Medical Decision Making MDM Narrative Medical decision making narrative: This patient comes in with classical symptoms of influenza and her nasal pharyngeal swab does turn positive for influenza A. She did receive oral doses of Toradol and Zofran here. She also received an oral dose of dexamethasone 10 mg. A [employer] prescription of Tamiflu is provided also. Lab Data Labs: Lab Results 06/10/25 Range/Units 21:01 SARS-CoV-2 (PCR) Negative SARS-CoV-2 (Negative) Influenza Type A (PCR) POSITIVE PCR FLU A A (Negative) Influenza Type B (PCR) Negative PCR FLU B (Negative) RSV (PCR) Negative PCR RSV (Negative) Group A Strep DNA NOT DETECTED (Not Detectd) Discharge Plan Discharge Clinical Impression: Influenza A Patient Disposition: Home, Self-Care Condition: Stable Additional Instructions: Take medication as prescribed. Use [id number] medicines also for symptomatic relief. Follow up with MD return if worsening. Prescriptions: No Action ibuprofen 600 mg tablet 600 mg PO Q6H etonogestrel-ethinyl estradiol [EluRyng] 0.12-0.015 mg/24 hr ring 1 vag ring VAGINAL DIRECTED Patient Comments: INSERT VAGINALLY AND LEAVE IN PLACE FOR 3 CONSECUTIVE WEEKS, THEN REMOVE FOR 1 WEEK norethindrone acetate 5 mg tablet 2.5 mg PO DAILY Follow Up/Referrals: Keyona Anderson MD [Primary Care Provider, Family Practice] Stand Alone Forms: [employer] Info Instructions
[2025-06-10] MEDS: KETOROLAC 10 MG TABLET PO (21:27)
[2025-06-10] MEDS: ACETAMINOPHEN 500 MG TABLET 1000 MG PO (21:27)
[2025-06-10 21:34] LABS: Strep A DNA Probe* NOT DETECTED (Not Detectd)
[2025-06-10 21:46] LABS: PCR FLU A POSITIVE PCR FLU A (Negative); PCR FLU B Negative PCR FLU B (Negative); PCR RSV Negative PCR RSV (Negative); SARS PCR* Negative SARS-CoV-2 (Negative)
== END 2025-06-10 22:06 | disposition home or self-care (01) ==
PROVIDERS: Emergency Provider Emergency Medicine Emergency Medical Services; PCP Family Medicine
DX: J10.1 Influenza due to other identified influenza virus with other respiratory manifestations (principal)
CPT/HCPCS: 87631; 87651; 99283; 99284; A9270; J1100

== ENCOUNTER 2025-07-03 11:08 | Emergency (ER) | payer OTHER, SELFPAY ==
--- OUTSIDE RECORDS SUMMARY | 2025-05-21 08:30 | XMS_ITS | Encounter Summary ---
Author Organization [employer] Address [address], [place] [address] Care Team Providers Care Lending Consultant Name Role Phone No Primary/Referring, Phy Primary Care Provider Unavailable Reason for Visit * ReasonCommentsMask Fit Encounter Details DateTypeDepartmentCare Team (Latest Contact Info)Gcgrnbprlvk69/17/2025 8:30 AM [facility] [address] [place] [address] Celeste Dash, RT Social History Tobacco UseTypesPacks/DayYears UsedDateSmoking Tobacco: NeverSmokeless Tobacco: NeverAlcohol UseStandard Drinks/WeekCommentsNot Currently0 (1 standard drink = 0.6 oz pure alcohol)CommentsNoSex and Gender InformationValueDate RecordedSex Assigned at BirthNot on fileLegal YemDwkrjp89/17/2015 10:13 PM CDT Gender IdentityNot on fileSexual OrientationNot on filedocumented as of this encounter Progress Notes * Celeste Dash, RT - 05/21/2025 8:30 AM CST Radha Cheek/[id number]/01/26/1990 was an in person visit 05/21/2025 for a 30-day mask exchange.Patient was shown a variety of masks, but chose airtouch f20 in size small. Patient was advised to change mask style on machine as indicated. Care and cleaning reviewed. No further questions. ENER FLORIST documented in this encounter Plan of Treatment DateTypeDepartmentCare Team (Latest Contact Info)Sutgtufoouh29/13/2026 9:00 AM CSTOffice Visit Specialty Center [address] Pulmonary Medicine [address] [place], [place] [phone] Ana Paula Alvarez, PAUbaldo [address] [facility] [address] [place], [place] [phone] documented as of this encounter Visit Diagnoses Not on filedocumented in this encounter Care Teams Team MemberRelationshipSpecialtyStart DateEnd Date No Primary/Referring, Phy PCP - General02/17/22documented as of this encounter
--- OUTSIDE RECORDS SUMMARY | 2025-05-29 10:54 | XMS_ITS | Encounter Summary ---
Author Organization [facility] Address [address] [place] [address] Care Team Providers Care Gem Technician Name Role Phone Unavailable Primary Care Provider Unavailabl e Reason for Referral * Outpatient (Routine) - ClosedSpecialtyDiagnoses / ProceduresReferred By ContactReferred To Contact Diagnoses Mass Ovary Procedures US Pelvis Transvaginal and Transabdominal Chen Carlisle M.D. [address] [place] [address] Phone: tel: fax: [facility] Referral IDStatusReasonStart DateExpiration DateVisits RequestedVisits [id number] STANT CENTER DIRECTOR Reason for Visit * Outpatient (Routine) - ClosedSpecialtyDiagnoses / ProceduresReferred By ContactReferred To Contact Diagnoses Mass Ovary Procedures US Pelvis Transvaginal and Transabdominal Chen Carlisle M.D. [address] [place] [address] Phone: tel: fax: [facility] Referral IDStatusReasonStart DateExpiration DateVisits RequestedVisits [id number] Encounter Details DateTypeDepartmentCare Team (Latest Contact Info)Dulmqnzdgzt75/25/2025 10:54 AM ASSISTANT CENTER DIRECTOR - 05/29/2025 11:59 PM CSTHospital Encounter Department of Radiology, [facility] [place], [place] [address] [place] [address] Chen Carlisle M.D. [address] [place] [address] Mass Ovary Discharge Disposition: Home or Self Care Social History Tobacco UseTypesPacks/DayYears UsedDateSmoking Tobacco: NeverSmokeless Tobacco: NeverAlcohol UseStandard Drinks/WeekCommentsNever0 (1 standard drink = 0.6 oz pure alcohol)Hunger Vital SignAnswerDate RecordedWithin the past 12 months, you worried that your food would run out before you got the money to buymore.Patient jsijqnak36/29/2025Within the past 12 months, the food you bought just didn't last and you didn't have money to get more.Patient twrunpdx68/29/2025PRAPARE - TransportationAnswerDate RecordedIn the past 12 months, has lack of transportation kept you from medical appointments or from getting medications?No 03/02/2025In the past 12 months, has lack of transportation kept you from meetings, work, or from getting things needed for daily living?No03/02/2025HC UtilitiesAnswerDate RecordedIn the past 12 months has the electric, gas, oil, or water company threatened to shut off services in your home?Patient declined 03/02/2025Housing StabilityAnswerDate RecordedWhat is your living situation today?I have a steady place to live03/02/2025CommentsUnknownSex and Gender InformationValueDate RecordedSex Assigned at UleyhRygvrg12/29/2025 1:40 PM CDTLegal NdbPvdegp81/11/2025 11:00 AM CDTGender MgacsbugCmiieq22/29/2025 1:40 PM CDTSexual AfmaztkimghJkezvsfg60/29/2025 1:40 PM CDTdocumented as of this encounter Medications at Time of Discharge MedicationSigDispense QuantityRefillsLast FilledStart DateEnd Date docusate sodium (Colace) 100 mg capsule Take 100 mg by mouth as needed.02/08/2025 etonogestreL-ethinyl estradioL (NuvaRing) 0.12-0.015 mg/24 hr vaginal ring Insert vaginally and leave in place for 3 consecutive weeks, then remove for 1 week. 3 each metFORMIN (Glucophage) 500 mg tablet Take 500 mg by mouth daily.02/27/2025 diclofenac sodium (Voltaren) 75 mg EC tablet Take 75 mg by mouth as needed. norethindrone (Aygestin) 5 mg tablet Take 0.5 tablets (2.5 mg total) by mouth daily. 45 tablet oxyCODONE (Roxicodone) 5 mg immediate release tablet Take 5 mg by mouth 3 (three) times a day as needed. documented as of this encounter Plan of Treatment Not on file documented as of this encounter Procedures Procedure NamePriorityDate/TimeAssociated DiagnosisCommentsUS PELVIS TRANSVAGINAL AND TRANSABDOMINALRAD - Routine (most inpatients and all outpatients)05/29/2025 12:16 PM ASSISTANT CENTER DIRECTOR [place] Ovary documented in this encounter Results * US Pelvis Transvaginal and Transabdominal (05/29/2025 12:16 PM ASSISTANT CENTER DIRECTOR)Anatomical RegionLateralityModalityPelvis, Ultrasound RST LOS, Ultrasound ARZ LOS, Ultrasound FLA LOSN/AUltrasoundSpecimen (Source)Anatomical Location / LateralityCollection Method / VolumeCollection TimeReceived Time Impressions 05/29/2025 12:40 PM ASSISTANT CENTER DIRECTOR No unfavorable change. Redemonstration of a multilobulated right adnexal cystic mass with overall slightly diminished dimensions compared to previous MR imaging noting that differences could also be attributed to intermodality comparison. Narrative 05/29/2025 12:40 PM ASSISTANT CENTER DIRECTOR EXAM: US PELVIS TRANSVAGINAL AND TRANSABDOMINAL COMPARISON: MRI pelvis 02/08/2025 and pelvic ultrasound from 05/17/2023. TECHNIQUE: Transabdominal and transvaginal. Transvaginal exam performed to better visualize the uterus and/or adnexal regions. FINDINGS: Uterus: 3.4 cm x 4.6 cm x 7.2 cm. Anteverted. Myometrium: Normal. Small nabothian cysts at the cervix. Endometrium: Normal. Thickness: 4 mm. Right ovary: Ovarian volume: 9 ml. Redemonstration of a complex cystic right adnexal mass measuring5.1 x 5.7 x 5.8 cm. The mass contains a few thin avascular septations. No distinct solid nodule or papillary projections. It appears overall decreased in size compared to previous dimensions of 8.0 x8.2 x 8.1 cm on MRI from 02/08/2025 although differences could be due to intermodality comparison. Left ovary: Surgically absent. No adnexal abnormality. Intraperitoneal Fluid: None. Procedure Note Genet Llamas M.D. - 05/29/2025 EXAM: US PELVIS TRANSVAGINAL AND TRANSABDOMINAL COMPARISON: MRI pelvis 02/08/2025 and pelvic ultrasound from 05/17/2023. TECHNIQUE: Transabdominal and transvaginal. Transvaginal exam performed tobetter visualize the uterus and/or adnexal regions. FINDINGS: Uterus: 3.4 cm x 4.6 cm x 7.2 cm. Anteverted. Myometrium: Normal. Small nabothian cysts at the cervix. Endometrium: Normal. Thickness: 4 mm. Right ovary: Ovarian volume: 9 ml. Redemonstration of a complex cysticright adnexal mass measuring 5.1 x 5.7 x 5.8 cm. The mass contains a fewthin avascular septations. No distinct solid nodule or papillaryprojections. It appears overall decreased in size compared to previousdimensions of 8.0 x 8.2 x 8.1 cm on MRI from 02/08/2025 althoughdifferences could be due to intermodality comparison. Left ovary: Surgically absent. No adnexal abnormality. Intraperitoneal Fluid: None. IMPRESSION: No unfavorable change. Redemonstration of a multilobulated right adnexalcystic mass with overall slightly diminished dimensions compared toprevious MR imaging noting that differences could also be attributed tointermodality comparison. Authorizing ProviderResult TypeResult StatusShileana JI US PROCEDURESFinal Result documented in this encounter Visit Diagnoses Diagnosis Mass Ovary documented in this encounter
--- OUTSIDE RECORDS SUMMARY | 2025-05-30 09:45 | XMS_ITS | Encounter Summary ---
Author Organization [facility] Address [address] [place] [address] Care Team Providers Care Sanitation Superintendent Name Role Phone Unavailable Primary Care Provider Unavailabl e Reason for Visit * ReasonOnset DateCommentsPre-visit Rdvaba7405/30/2025 * Appointment Request (Routine) - AuthorizedSpecialtyDiagnoses / Procedures Referred By ContactReferred To ContactGynecology Referral IDStatusReasonStart DateExpiration DateVisits RequestedVisits [id number]/10/202512/11/202611 Encounter Details DateTypeDepartmentCare Team (Latest Contact Info)Wcqcwttxulg35/26/2025 9:45 AM CSTClinical Communication Virtual Review in [place], [place] 200 [place] [address] Pre-visit Intake Social History Tobacco UseTypesPacks/DayYears UsedDateSmoking Tobacco: NeverSmokeless Tobacco: NeverAlcohol UseStandard Drinks/WeekCommentsNever0 (1 standard drink = 0.6 oz pure alcohol)Hunger Vital SignAnswerDate RecordedWithin the past 12 months, you worried that your food would run out before you got the money to buymore.Patient jxztegmk18/29/2025Within the past 12 months, the food you bought just didn't last and you didn't have money to get more.Patient ikbqdsgi21/29/2025PRAPARE - TransportationAnswerDate RecordedIn the past 12 months, has lack of transportation kept you from medical appointments or from getting medications?No 03/02/2025In the past 12 months, has lack of transportation kept you from meetings, work, or from getting things needed for daily living?No08/29/2025[facility] UtilitiesAnswerDate RecordedIn the past 12 months has the electric, gas, oil, or water company threatened to shut off services in your home?Patient declined 03/02/2025Housing StabilityAnswerDate RecordedWhat is your living situation today?I have a steady place to live03/02/2025CommentsUnknownSex and Gender InformationValueDate RecordedSex Assigned at RogujSpplwf89/29/2025 1:40 PM CDTLegal DllRjspzj57/11/2025 11:00 AM CDTGender HfqovizqLzewfa17/29/2025 1:40 PM CDTSexual OjknjjbyrshYbfncell87/29/2025 1:40 PM CDTdocumented as of this encounter Plan of Treatment Not on file documented as of this encounter Visit Diagnoses Not on filedocumented in this encounter
--- OUTSIDE RECORDS SUMMARY | 2025-06-04 11:30 | XMS_ITS | Encounter Summary ---
Author Organization [facility] Address [address] [place] [address] Care Team Providers Care Asset Protection Officer Name Role Phone Unavailable Primary Care Provider Unavailabl e Reason for Referral * Physical Therapy (Routine) - AuthorizedSpecialtyDiagnoses / ProceduresReferred By ContactReferred To Contact Diagnoses Pelvic Floor Tension Myalgia (Female) Dysfunction Pelvic Floor Female Chen Carlisle M.D. [address] [place] [address] Phone: tel: fax: Referral IDStatusReasonStart DateExpiration DateVisits RequestedVisits [id number] Continuity of Care / RVISOR PHOSPHATIC FERTILIZER * Outpatient (Routine) - AuthorizedSpecialtyDiagnoses / ProceduresReferred By ContactReferred To ContactObstetrics and Gynecology Chen Carlisle M.D. [address] [place] [address] Phone: tel: fax: [facility] Referral IDStatusReasonStart DateExpiration DateVisits RequestedVisits [id number]/1/20256/ RVISOR PHOSPHATIC FERTILIZER * Outpatient (Routine) - AuthorizedSpecialtyDiagnoses / ProceduresReferred By ContactReferred To Contact Diagnoses Mass Ovary Procedures US Pelvis Transvaginal and Transabdominal Chen Carlisle M.D. [address] [place] [address] Phone: tel: fax: [facility] Referral IDStatusReasonStart DateExpiration DateVisits RequestedVisits [id number]/1/20253/ RVISOR PHOSPHATIC FERTILIZER Reason for Visit * Outpatient (Routine) - ClosedSpecialtyDiagnoses / ProceduresReferred By ContactReferred To ContactObstetrics and Gynecology Chen Carlisle M.D. [address] [place] [address] Phone: tel: fax: [facility] Referral IDStatusReasonStart DateExpiration DateVisits RequestedVisits [id number]/5/20253/ Encounter Details DateTypeDepartmentCare Team (Latest Contact Info)Qwbdvhjpejt00/01/2025 11:30 AM CSTTelemedicine Department of Obstetrics and Gynecology in [place], [place] [address] [place] [phone] Chen Carlisle M.D. [address] [place] [phone] Mass Ovary (Primary Dx); Pelvic Floor Tension Myalgia (Female); Dysfunction Pelvic Floor Female Social History Tobacco UseTypesPacks/DayYears UsedDateSmoking Tobacco: NeverSmokeless Tobacco: NeverAlcohol UseStandard Drinks/WeekCommentsNever0 (1 standard drink = 0.6 oz pure alcohol)Hunger Vital SignAnswerDate RecordedWithin the past 12 months, you worried that your food would run out before you got the money to buymore.Patient culhjbgg20/29/2025Within the past 12 months, the food you bought just didn't last and you didn't have money to get more.Patient zhkhttoj31/29/2025PRAPARE - TransportationAnswerDate RecordedIn the past 12 months, has lack of transportation kept you from medical appointments or from getting medications?No 03/02/2025In the past 12 months, has lack of transportation kept you from meetings, work, or from getting things needed for daily living?No03/02/2025[facility] UtilitiesAnswerDate RecordedIn the past 12 months has the [employer], [employer], [employer], or water [employer] or [employer] threatened to shut off services in your home?Patient declined 03/02/2025Housing StabilityAnswerDate RecordedWhat is your living situation today?I have a steady place to live03/02/2025CommentsUnknownSex and Gender InformationValueDate RecordedSex Assigned at YjeogBvxuzv82/29/2025 1:40 PM CDTLegal RiuUblaot10/11/2025 11:00 AM CDTGender ZoppraveXoazjc07/29/2025 1:40 PM CDTSexual HofgpiudmmzHjngjxbu13/29/2025 1:40 PM CDTdocumented as of this encounter Progress Notes * Chen Carlisle M.D. - 06/04/2025 11:30 AM CST Return visit The patient verbally consented to an audio recording of their visit to assist with the completion of documentation. History of Present Illness Radha Cheek is a 35 year old female with a history of ovarian cysts who presents for follow-up of a right-sided ovarian cyst. She notes improvement in her condition since the last visit. The right-sided ovarian cyst, previously measured at 10 cm on US, then 8 cm on MRI, has reduced to 5.8 cm on ultrasound. She has a historyof left ovary removal and no fallopian tubes. She started on Aygestin on March 09 but switched to NuvaRing due to mood disturbances. She is currently on her third NuvaRing and reports improved mood stability compared to Aygestin. However, she experiences mood swings during the ring-free interval and notes some water retention, which she attributes to the NuvaRing. She experiences pain during ultrasounds and sometimes during intercourse. She has a history of pelvic floor physical therapy but discontinued due to loss of insurance. She now has insurance again andis considering resuming therapy. She has been in a stable relationship since 2014 and since 2017, with no concerns for sexually transmitted infections. She reports occasional pain during intercourse and during the ultrasound, particularly around the cervix. Medical History[1] Surgical History[2] Family History[3] Assessment & Plan Complex right ovarian cyst The right ovarian cyst has decreased in size from 10 x 7 x 7.5 cm on February 08, 2025, to 5.8 cm onrecent ultrasound. It is a complex cyst with thin avascular septations, no solid areas, and no papillary projections. The reduction in size is reassuring, with no unfavorable changes. It is likely a hemorrhagic cyst, expected to resolve without surgery, preserving the ovary. Oophorectomy would require hormone replacement therapy, which is less effective than natural hormone regulation. For irregular menses and cyst reduction, we will plan to continue NuvaRing continuously without a placebo week. A follow-up ultrasound is ordered in six months to monitor cyst size. Monitor for pain or other symptoms. Pelvic floor dysfunction Previous physical therapy was beneficial but discontinued due to loss of insurance. Current symptoms include pain during intercourse and ultrasound, likely related to pelvic floor tension. Reassessment and treatment are necessary to prevent worsening and to differentiate muscle pain from other sources. Referred to pelvic floor physical therapy for evaluation and treatment. Total patient care time was 25 minutes in both yadc-xd-eodv and non ybnm-zk-gahf care. [1] Past Medical History: Diagnosis Date Anxiety Generalized Disorder Apnea Sleep Obstructive Depressive Disorder [2] Past Surgical History: Procedure Laterality Date DILATATION AND CURETTAGE 2022 missed miscarriage OOPHORECTOMY 2018 PELVIC LAPAROSCOPY left ovary and left fallopian tube 2018.. 2022 right tube TUBAL LIGATION 2022 [3] No family history on file. RVISOR PHOSPHATIC FERTILIZER documented in this encounter Miscellaneous Notes * Addendum Note - Macy Ya RKahlilN. - 06/04/2025 11:30 AM CSTAddended by: MACY YA on: 06/07/2025 10:13 AM Modules accepted: Orders RVISOR PHOSPHATIC FERTILIZER documented in this encounter Plan of Treatment NameTypePriorityAssociated DiagnosesOrder ScheduleUS Pelvis Transvaginal and TransabdominalImagingRAD - Routine (most inpatients and all outpatients) Mass Ovary Expected: 12/03/2025, Expires: 09/02/2026NameTypePriorityAssociated Diagnoses Order ScheduleObstetrics and Gynecology office visit (clinic)Outpatient Referral RoutineExpected: 12/03/2025, Expires: 09/02/2026documented as of this encounter Visit Diagnoses Diagnosis Mass Ovary- Primary Pelvic Floor Tension Myalgia (Female) Dysfunction Pelvic Floor Female documented in this encounter
[2025-07-03 11:20] VITALS: BP 131/86; PULSE 130; RESP 20; TEMP 37.1; O2SAT 98; BMI 42.1
--- OUTSIDE RECORDS SUMMARY | 2025-07-03 11:43 | XMS_ITS | Clinical Summary ---
Author Organization [facility] Address [address] [place] [address]. [place] [address] Care Team Providers Care Used Car Lot Porter Name Role Phone Esperanza Mcbride MD Primary Care Provider Allergies No known active allergies Medications No known medications Active Problems ProblemNoted DateDiagnosed DatePID (pelvic inflammatory disease)06/04/2018LLQ abdominal pain06/03/2018Encounter for care of lactating mother 06/03/2018IUD (intrauterine device) in place06/03/2018Bacterial vaginosis 06/03/2018Left ovarian cyst06/03/20184899Fmasvgfhhkoc00/30/2018 Family History Medical HistoryRelationCommentsDiabetesFatherKidney DiseaseFatheron dialysis Bipolar DisorderMotherGlaucomaNo family hx ofMacular DegenerationNo family hx of RelationStatusCommentsFatherMother Social History Tobacco UseTypesPacks/DayYears UsedDateSmoking Tobacco: NeverSmokeless Tobacco: NeverAlcohol UseStandard Drinks/WeekCommentsNo0 (1 standard drink = 0.6 oz pure alcohol)Adolescent EducationAnswerDate RecordedGetting School Help NeededNot on file3CommentsNoSex and Gender InformationValueDate RecordedSex Assigned at BirthNot on fileLegal XdjAztoos02/04/2012 4:34 AM CSTGender Identity Not on fileSexual OrientationNot on file Last Filed Vital Signs Vital SignReadingTime TakenCommentsBlood Lbqbiaas130/8912 11:24 AM 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 Tijcu07621/30/2018 5:50 AM YIKGyhbnjuldpf95.9 ??C (98.5 ??F)06/06/2018 11:24 AM CSTRespiratory Yftu316608/07/2017 11:24 AM CSTOxygen Xolqnszktu82%06/06/2018 11:24 AM CSTInhaled Oxygen Concentration--Cexcep66.6 kg (191 lb)06/03/2018 11:53 AM HEFFvvshk771.5 cm (5' 2)06/03/2018 11:53 AM CSTBody Mass Index34.9306/03/2018 11:53 AM 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
--- OUTSIDE RECORDS SUMMARY | 2025-07-03 11:43 | XMS_ITS | Patient Health Record ---
Author Organization [facility] Address [address] [place] [address] Care Team Providers Care Account Service Representative Name Role Phone None, No PCP Primary Care Provider Michela Casey Unavailable [phone] Allergies Allergen (clinical drug ingredient) Drug/Non Drug Allergy documented on EMR Reaction Allergy Type Onset Date Status prednisone predniSONE Unknown Drug Allergy ActivetrazodonetraZODoneUnknownDrug AllergyActive Results Component Value Reference Range Notes LIPID PANEL Reviewed date:02/16/2025 07:12:01 PM Interpretation: Performing Lab:ABHISHEK, [facility] Hpkj1780 [facility], [facility] HospitalCdcgKO[address] Maximilian Donahue Notes/Report: 0; 0; 0; 0; 0; 0 CHOLESTEROL, TOTAL 188 <200 mg/dL HDL BLXHYXFLEBL93> OR = 50 mg/tZYOOYBTSMMQJTF160<150 mg/dLLDL-ZGUQQYXTCOU240 Reference range: <100 Desirable range <100 mg/dL for primary prevention; <70 mg/dL for patients with CHD or diabetic patients with > or = 2 CHD risk factors. LDL-C is now calculated using the Jaxon-Cesar calculation, which is a validated novel method providing better accuracy than the Friedewald equation in the estimation of LDL-C. Jaxon SS et al. DAVID. 2013;310(19): 1330-4432 (http://education.[employer].Zoomin.com/faq/ELB311) CHOL/HDLC RATIO4.6<5.0 (calc)NON HDL OMEIINSRJKC012<130 mg/dL (calc) For patients with diabetes plus 1 major ASCVD risk factor, treating to a non-HDL-C goal of <100 mg/dL (LDL-C of <70 mg/dL) is considered a therapeutic option. 17 HYDROXYPROGESTERONE, LC/MS/MS Reviewed date:04/22/2025 08:06:28 PM Interpretation: Performing Lab:Michelle BHANDARI/Nayeli [facility] [place] [place],[address] [address]leg[address], DickersonIdwazrkedrYG[address] Prudence Pedraza MD,PhD,MAX Notes/Report: 0 017-FONEEOHGAZZBTVJJMHN59 Adult Female Reference Ranges for 17-Hydroxyprogesterone: : First Trimester: 78-457 ng/dL Second Trimester: 90-357 ng/dL Third Trimester: 144-578 ng/dL This test was developed and its analytical performance characteristics have been determined by [employer]. It has not been cleared or approved by the FDA. This assay has been validated pursuant to the CLIA regulations and is used for clinical purposes. Pre-Menopausal Mid Follicular: 23-102 ng/dL Pre-Menopausal Surge: 67-349 ng/dL Pre-Menopausal Mid Luteal: 139-431 ng/dL Postmenopausal Phase: < or = 45 ng/dL INSULIN Reviewed date:04/13/2025 08:35:52 AM Interpretation: Performing Lab:Michelle WEISS-Jim Cfkj3031 [facility], Rexahn PharmaceuticalsRcdhWC[address] Maximilian Donahue Notes/Report: 0 8EJMSTQE17.5 Reference Range < or = 18.4 Risk: Optimal < or = 18.4 Moderate NA High >18.4 Adult cardiovascular event risk category cut points (optimal, moderate, high) are based on Insulin Reference Interval studies performed at [facility] in 2021. NO COLLECTION DATE RECEIVED. WE HAVE USED THE DATE THE SPECIMEN WAS RECEIVED BY THIS LABORATORY THE COLLECTION DATE. IF THIS IS INCORRECT, PLEASE CONTACT CLIENT SERVICES. PHONE NUMBER: [phone] COMPREHENSIVE METABOLIC PANEL (CMP) Reviewed date:02/16/2025 07:12:01 PM Interpretation: Performing Lab:Michelle WEISS-Jim [address], LesConciergesHyovWW[address] Maximilian Donahue Notes/Report: 0; 0; 0; 0; 0; 5MWRVOSF1809-04 mg/dLFasting reference intervalUREA NITROGEN (BUN)127-25 mg/dLCREATININE0.820.50-0.97 mg/qNDEDI15> OR = 60 mL/min/1.73m2 BUN/CREATININE RATIOSEE NOTE:6-22 (calc) Not Reported: BUN and Creatinine are within reference range. RQRWZW477626-850 mmol/LPOTASSIUM4.13.5-5.3 mmol/JKVWYJJSW31400-436 mmol/LCARBON ZWLMSBX9300-59 mmol/LCALCIUM9.08.6-10.2 mg/dLPROTEIN, TOTAL7.26.1-8.1 g/dL ALBUMIN4.33.6-5.1 g/dLGLOBULIN2.91.9-3.7 g/dL (calc)ALBUMIN/GLOBULIN RATIO1.5 1.0-2.5 (calc)BILIRUBIN, TOTAL0.60.2-1.2 mg/dLALKALINE MINPQACGCNV6980-600 U/L GRP1807-64 U/YHPX862-40 U/LCBC (INCLUDES DIFF/PLT) Reviewed date:02/16/2025 07:12:01 PM Interpretation: Performing Lab:CB, [facility] Yfbi7380 [facility] Hospitalte[facility], [facility] ClinicYurmPJ[address] Maximilian Donahue Notes/Report: 0; 0; 0; 0; 0; 0WHITE BLOOD CELL COUNT8.53.8-10.8 Thousand/uLRED BLOOD CELL COUNT4.593.80-5.10 Million/nKUVEEBKMBSB63.311.7-15.5 g/fARTLJSIXOFX89.635.0-45.0 %MCV84.180.0-100.0 fLMCH26.827.0-33.0 peUPEP92.932.0-36.0 g/dL For adults, a slight decrease in the calculated MCHC value (in the range of 30 to 32 g/dL) is most likely not clinically significant; however, it should be interpreted with caution in correlation with other red cell parameters and the patient's clinical condition. RDW13.911.0-15.0 %PLATELET VJGOY919127-673 Thousand/uLMPV11.37.5-12.5 fLABSOLUTE NVJSIUMDMBX41575006-8427 cells/uLABSOLUTE JANDBHJALNH5691147-7387 cells/uL ABSOLUTE NIHZFSOTT900654-786 cells/uLABSOLUTE LHKKUTUNYJX15880-696 cells/uL ABSOLUTE PNAKXUWWM979-784 cells/fIPLLEFUYUDST15.1HCWHFFPOZHO11.8LEKZGMIQS8.9 EOSINOPHILS2.4FBAJLHTJP4.4HEMOGLOBIN A1c Reviewed date:02/16/2025 07:12:01 PM Interpretation: Performing Lab:Michelle WEISS-[place] Gata9505 MailLiftteCentraState Healthcare System, [place] RxisYN[address] Maximilian Donahue Notes/Report: 0; 0; 0; 0; 0; 0HEMOGLOBIN A1c5.6<5.7 % metrics may apply to specific patient [...] diagnosis of diabetes in children. According to [place] Diabetes Association (ADA) guidelines, hemoglobin A1c <7.0% represents optimal control in non- diabetic patients. Different INSULIN Reviewed date:02/16/2025 07:12:01 PM Interpretation: Performing Lab:Michelle WEISS-[place] Idge4858 [facility], [facility] ClinicUwjgES[address] Maximilian Donahue Notes/Report: 0; 0; 0; 0; 0; 2LCTMEVY85.0 Adult cardiovascular event risk category cut points (optimal, moderate, high) are based on Insulin Reference Interval studies performed at [facility] in 2021. Reference Range < or = 18.4 Risk: Optimal < or = 18.4 Moderate NA High >18.4 17 HYDROXYPROGESTERONE, LC/MS/MS Reviewed date:03/12/2025 10:11:12 AM Interpretation: Performing Lab:Michelle BHANDARI/Nayeli [facility],[address] [address] [facility] HospitalCA[address] Prudence Pedraza MD,PhD,MAX Notes/Report: 0; 0; 0; 0; 0; 017-ILICERKTKKDRNKYSEFQ01 Adult Female Reference Ranges for 17-Hydroxyprogesterone: Pre-Menopausal Mid Follicular: 23-102 ng/dL Pre-Menopausal Surge: 67-349 ng/dL Pre-Menopausal Mid Luteal: 139-431 ng/dL Postmenopausal Phase: < or = 45 ng/dL : First Trimester: 78-457 ng/dL Second Trimester: 90-357 ng/dL Third Trimester: 144-578 ng/dL This test was developed and its analytical performance characteristics have been determined by [employer]. It has not been cleared or approved by the FDA. This assay has been validated pursuant to the CLIA regulations and is used for clinical purposes. DHEA-S (IH) Reviewed date:02/16/2025 07:12:01 PM Interpretation: Performing Lab: Notes/Report: Access 2 ([id number]), [place] - LabFSH (IH) Reviewed date:02/16/2025 07:12:01 PM Interpretation: Performing Lab: Notes/Report: Access 2 ([id number]), [place] - LabLH (IH) Reviewed date:02/16/2025 07:12:01 PM Interpretation: Performing Lab: Notes/Report: Access 2 ([id number]), [place] - LabProlactin (IH) Reviewed date:02/16/2025 07:12:01 PM Interpretation: Performing Lab: Notes/Report: Access 2 ([id number]), [place] - LabTestosterone, Total (IH) Reviewed date:02/16/2025 07:12:01 PM Interpretation: Performing Lab: Notes/Report: Access 2 ([id number]), [place] - LabTSH (IH) Reviewed date:02/16/2025 07:12:01 PM Interpretation: Performing Lab: Notes/Report: Access 2 ([id number]), [place] - LabSex Hormone Binding Globulin (IH) Reviewed date:02/16/2025 07:12:01 PM Interpretation: Performing Lab: Notes/Report: Access 2 ([id number]), [place] - LabSensitive Estradiol (IH) Reviewed date:02/16/2025 07:12:01 PM Interpretation: Performing Lab: Notes/Report: Access 2 ([id number]), [place] - LabTestosterone, Free (IH) Reviewed date:02/16/2025 07:12:01 PM Interpretation: Performing Lab: Notes/Report: Access 2 ([id number]), [place] - LabTHINPREP TIS AND HPV mRNA E6/E7 W/ REFLEX 16, 18/45HPV Reviewed date:02/16/2025 07:12:01 PM Interpretation: Performing Lab:FRANKIE, [facility]-Gcjzznpjvm4215 Brianna Haji, PysyjhfuzqLM[address] Mic Banks Notes/Report:CLINICAL INFORMATION: Other high risk factor, specify ANNUAL LMP:NONE GIVENPREV. PAP:NONE GIVENPREV. BX:NONE GIVENSOURCE:Cervix, Endocervix STATEMENT OF ADEQUACY: Satisfactory for evaluation. Endocervical/transformation zone component present. Age and/or menstrual status not provided INTERPRETATION/RESULT: Cytology Results: Negative for intraepithelial lesion or malignancy. COMMENT: This Pap test has been evaluated with the [employer]i Technologiesp(R) Imaging System. LABEL FOLDER: ITALIA ARAYA(ASCP) CT Screening Location: [address] [address] CLIA [id number] Slide preparation performed at: [employer], [address] [place] [address] CLIA: [id number] COMMENT EXPLANATORY NOTE: The Pap is a screening test for cervical cancer. It is not a diagnostic test and is subject to false negative and false positive results. It is most reliable when a satisfactory sample, regularly obtained, is submitted with relevant clinical findings and history, and when the Pap result is evaluated along with historic and current clinical information. HPV mRNA E6/E7Not DetectedNot Detected Methodology: Classifying Machine Operator-Mediated Amplification This assay detects E6/E7 viral messenger RNA (mRNA) from 14 high-risk HPV types (16,18,31,33,35,39,45,51,52,56,58,59,66,68). Cervical sources are required for HPV testing. If a vaginal source from a patient who has had a total hysterectomy with removal of cervix was submitted, please contact the testing laboratory for alternative testing options. 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 Reason For Referral Reason [place] Oncology/Hematolo gy Diagnosis 1 Ovarian cyst (N83.20 9) Referral Organization [facility] Referring Provider First Name Michela Referring Provider Last Name Kristen Referred Provider Specialty Oncology General Notes Michela Peterson 02/02 01:53:44 PM CDT > CAN WE REF TO DR JETT PAREDES -[place]-[facility] FOR OVARIAN CYST AND ADHESIVE DISEASE Clinical Notes Shaylee Prater 02/02 11:40:11 AM >Submitted referral through ecw, [place] onc/hem [phone] and n [phone] Referral Priority Routine Reason [facility] Endocrinology Diagnosis 1 Insulin resistance ( E88.819) Referral Organization [facility] Referring Provider First Name Michela Referring Provider Last Name Kristen Referred Provider Specialty Endocrinolog y Clinical Notes Shaylee Prater 04/05 08:56:57 AM > Submitted referral [facility] Endocrinology [phone] and n [phone]. Emailed pt referral details and contact info Referral Priority Routine Medications Medication SIG (Take, Route, Frequency, Duration) Notes Start Date End Date Status Macrobid Not-TakingmetFORMIN HCl 500 MG1 tablet with a meal Orally Once a day; Duration: 90 days5Active Social History Tobacco Use: Social History Observation Description Date Details (start date - stop date) Never Smoker NA - NA Tobacco Use/Smoking Question Answer Notes Are you a nonsmoker Problems Problem Type SNOMED Code ICD Code Onset Dates Problem Status W/U Status Risk Notes Problem Irregular menstruation (17334836 ) Irregular menstruation, unspecified (N92.6) ActiveconfirmedProblemPolycystic ovary syndrome (disorder) (838848346)PCOS (polycystic ovarian syndrome) (E28.2)ActiveconfirmedProblemPolycystic bilateral ovaries (disorder) (002565321)PCO (polycystic ovaries) (E28.2)Activeconfirmed ProblemOvarian cyst (97276145)Ovarian cyst (N83.209)ActiveconfirmedProblem Insulin resistance (761684901)Insulin resistance (E88.819)Activeconfirmed Vital Signs Blood pressure diastolic 80 mm Hg 02/27/2025 Afnovo15.5 in02/27/2025lood pressure rcqlvass692 mm Hg02/27/20252978Wzxrdf967.2 lbs 02/27/2025BMI41.25 kg/m202/27/2025 Encounters Encounter Location Date Provider Diagnosis [address] [address] 02/13/2025 Michela Peterson Ovarian cyst N83.209 ; Encounter for gynecological examination (general) (routine) without abnormal findings Z01.419 and Encounter for screening for human papillomavirus (HPV) Z11.[address] [place] [id number] 02/13/2025 Michela Peterson Acute vaginitis N76. [address] [place] [id number] 02/15/2025 Michela Peterson Annual visit for general adult medical examination without abnormal findings Z00.00 and Irregular menstruation, unspecified N92.[address] [address] 02/27/2025 Michela Peterson Insulin resistance E88.819 and Ovarian cyst N83.[address] [address] 04/10/2025 Michela Peterson PCOS (polycystic ovarian syndrome) E28.[address] [address] 04/17/2025 Michela Peterson Ovarian cyst N83.209 and PCO (polycystic ovaries) E28.2 [facility] [address] [place] [address] 02/13/2025 Michela Peterson [facility] [place] [address] 02/14/2025maximino [facility]Sent[facility] [place] [address]maximino PetersonJohnston [facility] Hospital [address] [place] [address]/nnette [facility] [address] [place] [address]/ Michela [facility] [id number] [place] [address]/nnette [facility] Gohbkj[address] [place] [address]/nnette [facility] [id number] [place] [address]/nnette [facility] Ivsuey[address] [place] [address]/nn[facility] Uogysi[address] [place] [address]/nngilda [facility] [id number] [place] [address]/[facility] Assessments Encounter Date Diagnosis (ICD Code) Assessment Notes Treatment Notes Treatment Clinical Notes Section Notes 02/13/2025 Ovarian cyst (ICD-10 - N83.209) PT HERE FOR PCO BUT ACTUALLY FU FROM ER AT [facility]- HX OF LG OVARIAN CYST AND PAIN LAST WEEKEND AND US AND MRI SHOW 8CM WITH AN ECHOGENIC ARE AND NL CA 125- PREV LSO AND RT TUBE REMOVED SEPARATELYAND TOLD WITH ADHESIONS ALMOST HAD A COLON RESECTION- [facility] REF TO [facility] AND REV CAN GET ANOTHER OPINION FROM [facility]=DR JETT PAREDES- WILL REF THERE AND ACTIVITY REV AND IF INCREASED PAIN ER- REV NO EVIDENCE OF PCO ON ULTRASOUND BUT IF WANTS LABS WILL ORDER WITH ANNUAL LABS AND PCO LABS - QUES HJFSIVWM62/12/2025ute vaginitis (ICD-10 - N76.0)02/15/2025Irregular menstruation, unspecified (ICD-10 - N92.6)02/15/2025 Annual visit for general adult medical examination without abnormal findings (ICD-10 - Z00.00)02/27/2025Ovarian cyst (ICD-10 - N83.209)APPT WITH [facility] NEXT WK AND ACTIVITY REV AGAIN-NL CA 125 [facility] OF SEERE ADHESIONS AND [facility] REF TO [facility] SO REF TO VWYBVPD9202/27/2025Insulin resistance (ICD-10 - E88.819)LABS REV ADN INSULIN RESISTANT AND PROB PCO WITH IRREG MENSES BUT LSO AND LG CYST ON RT OVARY HARDTO DX PCO BUT WITH ELEVATED INSULIN NEEDS METFORMIN AND WILL START 500QHS ADN SE REV ADN AFTER SURG 1MTH OUT RTC AND REDO INSULIN AND SEE IF NEEDS INCREASE TO 500 IN AM- RBA REV AND DAD WITH 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 AND IN HIS 60S- HER HGB A1C AND FASTING NL- REV LIPIDS AND EXERCISE AFTER HRECOVERED AFTER SURG04/10/2025PCOS (polycystic ovarian syndrome) (ICD-10 - E28.2)04/17/2025PCO (polycystic ovaries) (ICD-10 - E28.2)LABS PREV REV AND DID START METFORMIN BUT PT RELAYED ISNT GOOD AT TAKING QHS SO REV NEEDS TO DO BUTWITH REDO INSULIN HIGHER REC SHE SEE ENDOCRINE SILAS WITH POS FH- HER HGB A1C AND FASTING GLU ARE NL-HAVE LABS SENT TO ENDO BF APPT- REC BID FOR NOW AND DEF NEEDS TO SEE ENDO- IS ON RING PER [facility]- 20 MIN REV AND DOCUMENTING ADN WITH CALLPT ALSO STATED DID SEE ORTH FOR FOOT AND IS IN PT AND HAGNUYVNJH20/14/2025Ovarian cyst (ICD-10 - N83.209)WAS TO BE VIRTUAL AND COULD SEE PT BUT SHE COULD NOT HEAR ME SO CALLED- 13 MIN ON PHONE- SHE IS FU [facility] AND [facility] FOR OVARIAN CYST AND NO SURG AT THIS TIME- FELT TO BE CYSTIC RELATED TO PREV SURG AND PLACED ON NUVA RING FOR SUPRESSION AND MRI WITH [facility] AND ULTRASOUND FU WITH [facility] AND NO PAIN AT CYMLUJFE19/12/2025Encounter for gynecological examination (general) (routine) without abnormal findings (ICD-10 - Z01.419)02/13/2025Encounter for screening for human papillomavirus (HPV) (ICD- 10 - Z11.51) Plan Of Treatment No Information Insurance Providers Payer Name Payer Address Payer Phone Subscriber Number Group Number Insured Name Patient Relationship to Insured Coverage Start Date Coverage End Date [place] (Ins Bill) [address] [address] [place] [address] [id number], BrittanySelf - patient is the [id number] 2024 Medical (General) History Surgical History Surgery Date(Month/Year) Dilation and curettage of uterus after a bortion (procedure) 07/27 Left salpingo-oophorectomy (procedure) 0 07/22 Laparoscopic excision of hydrosalpinx (p rocedure) 07/27 Hospitalization History Reason Date(Month/Year) ovarian cyst. 02/08/25
--- OUTSIDE RECORDS SUMMARY | 2025-07-03 11:43 | XMS_ITS | Clinical Summary ---
Author Organization [facility] Address [facility] [place] [address] Care Team Providers Care Glass Beveler Name Role Phone Peoples, Keyona Dinero MD Unavailable [facility] Primary Care Provider Unavailabl e Allergies Active AllergyReactionsCriticalityNoted DateCommentsPrednisoneOther - Describe In Comment Field02/05/2020 Mood swings TrazodoneOther - Describe In Comment Field02/05/2020 Mood swings Medications MedicationSigDispense QuantityRefillsLast FilledStart DateEnd DateStatus clindamycin phosphate 1% topical 1 % external solution APPLY TWICE DAILY TO AREAS PRONE TO HIDRADENITIS SUPPURATIVA BUMPS03/15/2022 Active fluticasone (50 mcg per actuation) nasal solution (FLONASE) Indications:Allergic rhinitis, unspecified seasonality, unspecified trigger Inhale 1 Counce into affected nostril(s) once daily. 16 g 310/2Active escitalopram oxalate (LEXAPRO) 20 mg tablet Take 20 mg by mouth once daily.2Active Active Problems ProblemNoted DateDiagnosed DateEustachian tube disorder, ubxffzrkq39/24/2022GAD (generalized anxiety disorder)12/13/2020Insomnia, dbyapifwyo11/11/2021GERD with /10/2020Overweight (BMI 25.0-29.9)10/28/2012Unspecified contraceptive bulrjgtspz03/26/2013 Overview (10/28/2012): [facility] Other acne10/28/2012DEPRESSION under psychiatry care09/01/2006 Overview (10/28/2012): On prozac and wellbutrin Resolved Problems ProblemNoted DateDiagnosed DateResolved DateIUD (intrauterine device) in place NSVD (normal spontaneous vaginal delivery)04/16/2018 10/14/2019Preterm premature rupture of membranes (PPROM) with onset of labor within 24 hours of rupture in third trimester, ciuyvwdspu92 Wwopmyfmgwt26Hyperemesis nkrldpxkqo68 Encounter for supervision of normal first , unspecified trimester Overview (10/12/2017): 27 y.o. Medical concerns: hyperemesis - was in [place] ED 09/20/17 and received IV fluids and script for ODT Zofran, which is helping; History of miscarriage; History of bipolar disorder - not currently onmedication for this; Recurrent UTIs, GERD Early GTT [...] to FOB: Barber GERD (gastroesophageal reflux disease) Overview (10/28/2012): Uses OTC prilosec Abdominal pain, other specified site Overview (04/29/2007): Suprapubic Urinary tract infection, site not ifspvzwhz34 Overview (04/29/2007): Urine Culture + for >100,000 colonies of e.coli sensitive to Septra Started on Septra 04/25 but has only taken 2 tablets since then. Unspecified , without mention of complication, upturdfyeol68/31/2007 10/14/2019BIPOLAR DISORDER in childhood per patinet report, under psychiatry care Immunizations ImmunizationAdministration DatesNext DueHuman Papilloma Virus Ckqgboh6209/05/2007, 05/05/2007,/10/2007Influenza, WIW62007/17/2018,03/18/2018Tdap 03/03/2018,04/29/2017 Family History Medical HistoryRelationNameCommentsDiabetesFatherDiabetes type IIFatherGood HealthFatherHypertensionMaternal GrandfatherDiabetes type IIMaternal Grandmother Heart DiseaseMaternal GrandmotherHypertensionMaternal GrandmotherPsychiatric illnessMaternal GrandmotherdepressionAllergiesMotherGood HealthMotherPsychiatric illnessMotherbipolarRelationNameStatusCommentsFatherAliveMaternal Grandfather AliveMaternal GrandmotherAliveMotherAlivePaternal GrandfatherDad adoptedOther Paternal GrandmotherDad adoptedAlive Social History Tobacco UseTypesPacks/DayYears UsedDateSmoking Tobacco: NeverPassive Smoke Exposure: NeverSmokeless Tobacco: Never Tobacco Cessation:Counseling Given: Not Answered Alcohol UseStandard Drinks/WeekCommentsNo0 (1 standard drink = 0.6 oz pure alcohol)PHQ-2AnswerDate RecordedPHQ-2 TOTAL NDHXZ61008/09/2021ocial Connections AnswerDate RecordedFrequency of Communication with Friends and FamilyNot on file 07/05/2021Financial Resource StrainAnswerDate RecordedDifficulty of Paying Living ExpensesNot on file2Difficulty of Paying Living ExpensesNot on file07/05/2021CommentsUnknownSex and Gender InformationValueDate RecordedSex Assigned at BrmwfVfuvxv87/03/2020 7:38 AM CDTLegal SexFemale 07/18/2012 5:41 AM CSTGender YceobhizGlafur33/03/2020 7:38 AM CDTSexual XitmzsbhphlDurhjpuv99/03/2020 7:38 AM CDTOccupationIndustryJob Start DateJob End DatestudentNot on fileNot on fileNot on file Obstetrics History GravidaParaTermPretermABIABSABEctopicMultipleLivingLive Lkgcop72809540657Mjdv OutcomeGATotal LaborLabor/2nd/0irBbusabEbiQcwjHmdhVRJDscQ2P7XvzsWjse17/07/2006 IAB1//5647PKB9w5c74/0482Yzijnek33t0s4.65 kg (5 lb 13.5 oz)MVagIV Meds, NyothnytPNoqjyo01RNHMXTF,BB BRITTANYpesekDelivery Location:[facility] (UTD 2000 MB L&D TRIAGE)10/10/2022SABSPONTANEOUSGravida Last Filed Vital Signs Vital SignReadingTime TakenCommentsBlood Hpphbmgy322/7504/23/2023 6:53 PM CDT Ygbhr28454/20/2023 6:53 PM NYLXyscxmfeysn16.6 ??C (97.8 ??F)04/23/2023 6:53 PM CDTRespiratory Kqia507904/23/2023 6:53 PM CDTOxygen Dvmkilpqhd39%04/23/2023 6:53 PM CDTInhaled Oxygen Concentration--Jnafsw111.3 kg (230 lb)04/23/2023 6:53 PM SPMFoypsx468.5 cm (5' 2)03/10/2023 12:42 PM CDTBody Mass Index42.0703/10/2023 12:42 PM CDT Plan of Treatment Health MaintenanceDue DateLast DoneCommentsHepatitis C screening for age 18-79 01/25/2010Hepatitis B series for 19+ (1 of 3 - 19+ 3-dose series)01/25/2011MI (ht and wt on same day) for age 18+/11/2021, 07/17/2021, 11/09/2020, Additional history existsDepression screening for age 12+12/05/, 06/08/2022, 12/11/2020, Additional history existsCOVID-19 vaccine series (2024- season)2025Influenza Vaccine (#1)5107/17/2018, 03/18/2018 Pap test for age 21-650/706/, 12/16/2023, 06/03/2020 ([facility] Additional history existsTetanus fosjgjb8903/03/2028 03/03/2018, 04/29/2017HPV series for age 9-55Jtfdmnafm77/03/2008, 05/05/2007, 03/04/2007HIV for age 15-04Vibatuzpz24/10/2018Pneumococcal series for age 6-49 Aged OutNo longer eligible based on patient's age to complete this topic Procedures Procedure NamePriorityDate/TimeAssociated DiagnosisCommentsGYN THIN PREP PAP SCREEN ONQROWGrrpldd43/13/2024 2:17 PM CDT ANTI HIV 8Xwzcmqy51/10/2018 1:32 PM CDT Encounter for supervision of normal first , unspecified trimester (HC) from Last 3 Months or Most Recently Relevant to Health Maintenance Results * FINE ARTS CHAIR THIN PREP PAP SCREEN IMAGED (12/16/2023 2:17 PM CDT)ComponentValueRef RangeTest MethodAnalysis TimePerformed AtPathologist SignatureCase Report Gynecologic Cytology Report ? Case: [id number] ? Authorizing Provider: ??Keyona Anderson MD ?? Collected: ? 12/16/2023 1417 ? Ordering Location: ? [facility] ?Received: ?12/20/2023 1247 ? First Screen: ?Nieves Hartley ? Specimen: ?FINE ARTS CHAIR ThinPrep Vial Screening, Cervical/Vaginal ? 12/28/2023 11:14 AM [facility] INTERPRETATION/RESULTNEGATIVE FOR INTRAEPITHELIAL LESION OR MALIGNANCY (NIL) (none)12/28/2023 11:14 AM [facility] at 1114 CDTSPECIMEN ADEQUACYSatisfactory for evaluation Endocervical component ttbixtk0912/28/2023 11:14 AM [facility]- CENTRAL LABORATORYHPV REQUESTHPV and PAP12/28/2023 11:14 AM [facility]ORATORYDate of LMP4/ 11:14 AM [facility]ORYLast Pap Date12/28/2023 11:14 AM [facility]-CENTRAL LABORATORYComment:unknownLast Pap ResultFirst Pap/Uvwbgxz8112/28/2023 11:14 AM [facility] Abnormal Pap or [place] Bx in last 5 fgsokBl4812/28/2023 11:14 AM [facility] LABORATORYMenstrual StatusIrregular Ecnienl1612/28/2023 11:14 AM [facility]-C[facility]AL LABORATORYColp Bx Done IomfdPy4612/28/2023 11:14 AM [facility]ORYAdditional Information 12/28/2023 11:14 AM [facility]CENTRAL LABORATORYComment: Interpreted at [facility] - [address], [place] [address] Automated TjkvtoZdtcbqcmga91/25/2024 11:14 AM [facility] C[facility]TRAL LABORATORYComment:Specimen processed successfully by automated chicken sexer device, ThinPrep Imaging System, [employer]ANCILLARY TESTING GYNHPV Ordered, Please see separate iglnzz3812/28/2023 11:14 AM [facility] C[facility]AL LABORATORYNoteThe pap test is a screening technique, not a diagnostic procedure. It is used primarily to screen for squamous cancers and precursor lesions. Published studies have shown that it is subject to both false negative and false positive results. The pap test should not be used as the sole means to diagnose or exclude pre-malignant and malignant lesions.12/28/2023 11:14 AM CDT [facility]YSpecimen (Source)Anatomical Location / LateralityCollection Method / VolumeCollection TimeReceived TimeOther (Cervical/Vaginal)12/16/2023 2:17 PM CDT12/20/2023 12:47 PM CDT Narrative Authorizing ProviderResult TypeResult StatusKeyona Anderson MD PATHOLOGY/CYTOLOGYFinal ResultPerforming OrganizationAddressCity/State/ZIP Code Phone Number [facility] [address] [place] [address], * ANTI HIV 1/2 (10/12/2017 1:32 PM CDT)ComponentValueRef RangeTest Method Analysis TimePerformed AtPathologist SignatureHIV-1/HIV-2 ANTIBODYNon-Reactive Non-Fbazbjyb32/10/2018 9:51 PM [facility] Comment:HIV-1 p24 and HIV-1/HIV-2 Ab not detected.Specimen (Source)Anatomical Location / LateralityCollection Method / VolumeCollection TimeReceived Time BloodBLOOD SPECIMEN / UnknownVenipuncture / Nhiloon1810/12/2017 1:32 PM CDT 10/12/2017 1:32 PM CDT Narrative Authorizing ProviderResult TypeResult StatusElimorgan JOHNSONEND OUTSFinal ResultPerforming OrganizationAddressCity/State/ZIP CodePhone Number [facility] [address] [place] [address], [place] from Last 3 Months or Most Recently Relevant to Health Maintenance Insurance * Guarantor: Radha Cheek TypeRelation to PatientDate of PhoneBilling AddressPersonal/IqnkjmSchk1990 [address] [address] [place] [address] * Guarantor: Ligia Cyr TypeRelation to PatientDate of BirthPhone Billing AddressPersonal/XzmzzrQwubia21/13/1969 [address], [place] [address] Advance Directives * Full Code (Latest Code Status on File) Date ActivatedDate InactivatedComments03/10/2023 12:39 PM03/10/2023 5:51 PMQuestion AnswerCommentsCode Status Discussion:* Reviewed Preferences * Full Code Date ActivatedDate UwbdnajftfoQezgoaqq39/14/2018 12:16 AM04/18/2018 4:07 PM * Full Code Date ActivatedDate PjbenlczoxrBbaqqtky41/26/2007 12:45 AM04/29/2007 10:54 PM Care Teams Team MemberRelationshipSpecialtyStart DateEnd Date [facility] PCP - General11/13/24 Keyona Whitt MD Obstetrics and Gynecology03/29/23
--- OUTSIDE RECORDS SUMMARY | 2025-07-03 11:43 | XMS_ITS | Clinical Summary ---
Author Organization [facility] Address [address] [address] Care Team Providers Care Loaf Counter Name Role Phone No Primary/Referring, Phy Primary Care Provider Unavailable Source Comments You are receiving this document as you are listed as the primary care provider,follow-up provider, or the patient has been referred to you for consultation.This is in compliance with the Medicare andMedicaid EHR Incentive Program,which states Providers who transition their patient to another setting of careor provider of care or refers their patient to another provider of care shouldprovide summary care record for each transition of care or referral. [facility] VegasRev[facility] Foods Allergies Active AllergyReactionsCriticalityNoted DateCommentsPrednisoneOther, see shocpoej04/03/2020 Mood swings TrazodoneOther, see /03/2020 Mood swings Medications MedicationSigDispense QuantityRefillsLast FilledStart DateEnd DateStatus clindamycin (CLEOCIN T) 1 % external solution Indications:Hidradenitis suppurativaApply twice daily to areas prone to hidradenitis suppurativa bumps 60 mL 602Active metFORMIN (GLUCOPHAGE) 500 MG tablet Take 1 Tablet (500 mg) by mouth daily.5Active Active Problems ProblemNoted DateDiagnosed DateClass 3 severe obesity with body mass index (BMI) of 40.0 to 44.9 in adult6377Zyjquxteyomu14/02/2022GAD (generalized anxiety disorder)12/13/2020Insomnia, oyhqxgzuzd62/11/2021GERD with umkbxgivzfs24/10/2020 Fstjwjlpdwy26/12/2018Other acne10/28/2012Overweight (BMI 25.0-29.9)10/28/2012 Depressive uatbrnse64/28/2007 Overview (05/07/2021): Overview: On prozac and wellbutrin Resolved Problems ProblemNoted DateDiagnosed DateResolved DatePID (pelvic inflammatory disease) acterial swajvfwsh19Encounter for care of lactating hvucmc99Endometritis06/03/2018 08/17/2022LLQ abdominal painIUD (intrauterine device) in placeLeft ovarian cystNSVD (normal spontaneous vaginal delivery)reterm premature rupture of membranes (PPROM) with onset of labor within 24 hours of rupture in third trimester, djrsdvmosn59Hyperemesis dydemdqzqt97/12/2018 08/17/2022Encounter for supervision of normal first , unspecified giavufqoj72 Overview (05/07/2021): 27 y.o. Medical concerns: hyperemesis - was in [place] ED 09/20/17 and received IV fluids and [...] FOB: Barber GERD (gastroesophageal reflux disease) Overview (05/07/2021): Overview: Uses OTC prilosec Encounters DateTypeDepartmentCare SaoxLewsdldeivv89/17/2025 8:30 AM [facility]ST[facility] [address] [place] [address] Celeste Dash, RT 04/26/2025Telephone Specialty Center [address] Pulmonary Medicine [address] [place] [address] An aPaula Alvarez PA-C 04/25/2025 11:15 AM CDTLab Visit [facility] [address] [facility] [address] RLS (restless legs syndrome); Disorder of iron fhfowjaxkd51/22/2025 10:00 AM CDTOffice Visit Specialty Center [address] [place] [address] Ana Paula Alvarez, DINORA Mild obstructive sleep apnea (Primary Dx); RLS (restless legs syndrome); Disorder of iron zzumhmbwcq99/22/2025Notes/Orders [facility] [address] [place] [address] Isaac Camacho MD Routine general medical examination at health care voccdpsq45/11/2025 10:30 AM CDTTherapy [facility] [address] [address] Gloria Roger, PT Posterior tibial tendinitis of right leg (Primary Dx)from Last 3 Months Immunizations ImmunizationAdministration DatesNext Lxb4gZQY (Gardasil)09/05/2007,05/05/2007, 03/04/2007Influenza IIV4 (Quadrivalent) 0.5mL (73166)05/17/2019,03/18/2018Tdap 03/03/2018,04/29/2017 Social History Tobacco UseTypesPacks/DayYears UsedDateSmoking Tobacco: NeverSmokeless Tobacco: NeverAlcohol UseStandard Drinks/WeekCommentsNot Currently0 (1 standard drink = 0.6 oz pure alcohol)CommentsNoSex and Gender InformationValueDate RecordedSex Assigned at BirthNot on fileLegal ZseDledqy53/17/2015 10:13 PM CDT Gender IdentityNot on fileSexual OrientationNot on file Last Filed Vital Signs Vital SignReadingTime TakenCommentsBlood Wzbaompe710/8804/04/2023 1:46 PM CDT Fyoca990904/25/2025 9:55 AM OBGEzivgjmbbzw18.9 ??C (98.4 ??F)03/06/2025 2:03 PM CDTRespiratory Szhi0941 6:05 AM CDTOxygen Lvlupifdre845%04/25/2025 9:55 AM CDTInhaled Oxygen Concentration--Sdvthn751.3 kg (230 lb)04/25/2025 9:55 AM QKIRhpbcn748.5 cm (5' 2)04/25/2025 9:55 AM CDTBody Mass Index42.0704/25/2025 9:55 AM CDT Plan of Treatment DateTypeDepartmentCare Team (Latest Contact Info)Eofepwysyjl71/13/2026 9:00 AM CSTOffice Visit Specialty Center 3931 Pulmonary Medicine [address] [place] [address] Ana Paula Alvarez, PA-C [address] [facility] [address] [place] [address] Health MaintenanceDue DateLast DoneCommentsHep C Screening (Preventive Services) 1992Adult Preventive Visit01/25/2010HepB Vaccine (1)01/25/2011Cervical Cancer Rdhijxwwl96/, 04/29/2017 (Completed)COVID-19 Vaccine (1 - 2024- season)2025Influenza Vaccine (#1)5107/17/2018, 03/18/2018DTaP/Tdap/Td Vaccine (3 - Tdap)8003/03/2018, 04/29/2017 Zoster/Shingles Vaccine (1 of 2)01/25/2042HPV EsxstlbMzzwmmigk16/03/2008, 05/05/2007, 03/04/2007HIV Screening (Preventive Services)Wokeqshxd22/10/2018HepA VaccineAged OutNo longer eligible based on patient's age to complete this topic Hib VaccineAged OutNo longer eligible based on patient's age to complete this topicIPV (Polio) VaccineAged OutNo longer eligible based on patient's age to complete this topicMCV4 VaccineAged OutNo longer eligible based on patient's age to complete this topicMeningococcal B VaccineAged OutNo longer eligible based on patient's age to complete this topicPneumococcal VaccineAged OutNo longer eligible based on patient's age to complete this topic Procedures Procedure NamePriorityDate/TimeAssociated DiagnosisCommentsFERRITINRoutine 04/25/2025 11:17 AM CDT RLS (restless legs syndrome) Disorder of iron metabolism from Last 3 Months Results * Ferritin (04/25/2025 11:17 AM CDT)ComponentValueRef RangeTest MethodAnalysis TimePerformed AtPathologist EqcsbkpluMiyjxlux765 - 204 ng/mL04/25/2025 12:16 PM CDETHST. LUKE'S BAPTIST H[facility]ITAL LABORATORYSpecimen (Source)Anatomical Location / LateralityCollection Method / VolumeCollection TimeReceived TimeBlood Venipuncture / Tiayrtn6904/25/2025 11:17 AM CDT1 11:29 AM CDT Narrative Authorizing ProviderResult TypeResult StatusJomireya ZAMBRANO_1Final ResultPerforming OrganizationAddressCity/State/ZIP CodePhone Number [facility] CLIA: [id number] [address] [place] [address], [facility] from Last 3 Months Insurance * Guarantor: Radha Cheek TypeRelation to PatientDate of PhoneBilling AddressPersonal/CogfmoAyix1990 [address] [place] [address] * Guarantor: Radha Cheek TypeRelation to PatientDate of PhoneBilling AddressPersonal/UjemhoJomw1990 [address] [place] [address] Care Teams Team MemberRelationshipSpecialtyStart DateEnd Date No Primary/Referring, Armin PCP - General02/17/22
--- OUTSIDE RECORDS SUMMARY | 2025-07-03 11:43 | XMS_ITS | Clinical Summary ---
Author Organization [facility] Address [address] [place] [address] Care Team Providers Care Gauntlet Pairer Name Role Phone Unavailable Primary Care Provider Unavailabl e Source Comments Patient records contain information from all sites at [facility]. For routine questions regarding patient records, call [phone] during business hours, M-F 8:00 AM - 5:00 PM Central Time. Record requests for emergency care only can be directed to [phone] at any time.[facility] Allergies Active AllergyReactionsCriticalityNoted DateCommentsPrednisoneOther (see comments)Low02/05/2020 Mood swings TrazodoneOther (see comments)Low02/05/2020 Mood swings Medications MedicationSigDispense QuantityRefillsLast FilledStart DateEnd DateStatus metFORMIN (Glucophage) 500 mg tablet Take 500 mg by mouth daily.5Active etonogestreL-ethinyl estradioL (NuvaRing) 0.12-0.015 mg/24 hr vaginal ring Insert vaginally and leave in place for 3 consecutive weeks, then remove for 1 week. 3 each 5Active docusate sodium (Colace) 100 mg capsule Take 100 mg by mouth as needed.5Active Encounters DateTypeDepartmentCare RtxqQunirtnjnrb54/01/2025 11:30 AM CSTTelemedicine Department of Obstetrics and Gynecology in [place], [place] [address] [place] [phone] Chen Carlisle M.D. Mass Ovary (Primary Dx); Pelvic Floor Tension Myalgia (Female); Dysfunction Pelvic Floor Eykxgc4005/30/2025 9:45 AM CSTClinical Communication Virtual Review in [place], [place] [address] [place] [address] Pre-visit Nvhumc5705/29/2025 10:54 AM PACK MULE WORKER - 05/29/2025 11:59 PM CSTHospital Encounter Department of Radiology, [facility], in [place], [place] [address] [place] [address] Chen Carlisle M.D. Mass Ovary Discharge Disposition: Home or Self Care05/29/2025Results Follow-Up Department of Obstetrics and Gynecology in [place], [place] [address] [place] [address] Jovanna Ulrich R.N. [place] Pelvis Transvaginal and Transabdominalfrom Last 3 Months Social History Tobacco UseTypesPacks/DayYears UsedDateSmoking Tobacco: NeverSmokeless Tobacco: NeverAlcohol UseStandard Drinks/WeekCommentsNever0 (1 standard drink = 0.6 oz pure alcohol)Hunger Vital SignAnswerDate RecordedWithin the past 12 months, you worried that your food would run out before you got the money to buymore.Patient xmaxcryz60/29/2025Within the past 12 months, the food you bought just didn't last and you didn't have money to get more.Patient /29/2025PRAPARE - TransportationAnswerDate RecordedIn the past 12 months, has lack of transportation kept you from medical appointments or from getting medications?No 03/02/2025In the past 12 months, has lack of transportation kept you from meetings, work, or from getting things needed for daily living?No03/02/2025HC UtilitiesAnswerDate RecordedIn the past 12 months has the [place], gas, oil, or water [employer] threatened to shut off services in your home?Patient declined 03/02/2025Housing StabilityAnswerDate RecordedWhat is your living situation today?I have a steady place to live03/02/2025CommentsUnknownSex and Gender InformationValueDate RecordedSex Assigned at BkdfqWzmgrq89/29/2025 1:40 PM CDTLegal AloGoabut93/11/2025 11:00 AM CDTGender OgcnhweuYgwdas25/29/2025 1:40 PM CDTSexual RmqpagkhwwjIcdtszxn42/29/2025 1:40 PM CDT Last Filed Vital Signs Vital SignReadingTime TakenCommentsBlood Wupozxcd789/8409 9:29 AM CDT Tkexq92587/05/2025 9:29 AM CDTTemperature--Respiratory Rate--Oxygen Saturation-- Inhaled Oxygen Concentration--Weight--Height--Body Mass Index-- Plan of Treatment Health MaintenanceDue DateLast DoneCommentsHIV Gdwdjqdcj1992Hepatitis C Dhpykfila1992Hepatitis B Vaccines (1 of 3 - 19+ 3-dose series)01/25/2011 Depression Screening (Annual PHQ-2)07/05/2024OVID-19 Vaccine ( - 2024- season)2025Influenza Vaccine (#1), 03/18/2018 Cervical/Vaginal Cancer Jydhvmaho91/4DTaP,Tdap,and Td Vaccines (3 - Td or Tdap), 04/29/2017HPV MzyruwhnMefdcgzpg33/03/2008, 05/05/2007, 03/04/2007IPV VaccinesAged OutNo longer eligible based on patient's age to complete this topicPneumococcal vaccine (0-49 years)Aged OutNo longer eligible based on patient's age to complete this topic Procedures Procedure NamePriorityDate/TimeAssociated DiagnosisCommentsUS PELVIS TRANSVAGINAL AND TRANSABDOMINALRAD - Routine (most inpatients and all outpatients)05/29/2025 12:16 PM PACK MULE WORKER Mass Ovary from Last 3 Months Results * US Pelvis Transvaginal and Transabdominal (05/29/2025 12:16 PM PACK MULE WORKER)Anatomical RegionLateralityModalityPelvis, Ultrasound RST LOS, Ultrasound ARZ LOS, Ultrasound FLA LOSN/AUltrasoundSpecimen (Source)Anatomical Location / LateralityCollection Method / VolumeCollection TimeReceived Time Impressions 05/29/2025 12:40 PM PACK MULE WORKER No unfavorable change. Redemonstration of a multilobulated right adnexal cystic mass with overall slightly diminished dimensions compared to previous MR imaging noting that differences could also be attributed to intermodality comparison. Narrative 05/29/2025 12:40 PM PACK MULE WORKER EXAM: US PELVIS TRANSVAGINAL AND TRANSABDOMINAL COMPARISON: [...] be attributed tointermodality comparison. Authorizing ProviderResult TypeResult StatusChen JI US PROCEDURESFinal Result from Last 3 Months
--- OUTSIDE RECORDS SUMMARY | 2025-07-03 11:44 | XMS_ITS | Encounter Summary ---
Author Organization [facility] Address [address] [place] [address] Care Team Providers Care Security Director Name Role Phone Unavailable Primary Care Provider Unavailabl e Encounter Details DateTypeDepartmentCare Team (Latest Contact Info)Mrfiqehwezk95/25/2025Results Follow-Up Department of Obstetrics and Gynecology in [place], [place] [address] [place] [address] Jovanna Ulrich R.N. [address] [place] [id number] [place] Pelvis Transvaginal and Transabdominal Social History Tobacco UseTypesPacks/DayYears UsedDateSmoking Tobacco: NeverSmokeless Tobacco: NeverAlcohol UseStandard Drinks/WeekCommentsNever0 (1 standard drink = 0.6 oz pure alcohol)Hunger Vital SignAnswerDate RecordedWithin the past 12 months, you worried that your food would run out before you got the money to buymore.Patient ekrhlyek88/29/2025Within the past 12 months, the food you bought just didn't last and you didn't have money to get more.Patient kdmbezyi87/29/2025PRAPARE - TransportationAnswerDate RecordedIn the past 12 months, [...] live03/02/2025CommentsUnknownSex and Gender InformationValueDate RecordedSex Assigned at SbumcUuxxov15/29/2025 1:40 PM CDTLegal YfqHxooup59/11/2025 11:00 AM CDTGender JkltfqkpQfsqfd64/29/2025 1:40 PM CDTSexual NizqcksdsbtDfiluoba33/29/2025 1:40 PM CDTdocumented as of this encounter Plan of Treatment Not on file documented as of this encounter Visit Diagnoses Not on filedocumented in this encounter
--- NOTE | 2025-07-03 11:45 | ED.ABDPAIN ---
HPI - Abdominal Pain General Chief Complaint: Abdominal Pain Stated Complaint: Abdominal pain, fever Time Seen by Provider: 07/03/25 11:31 History of Present Illness HPI narrative: This 35-year-old female comes in reporting upper epigastric abdominal pain that began last evening. She states that it is a constant pain. She did have 1 vomiting episode. She does not report any fevers. She has had a persistent cough and was diagnosed with influenza a about 3 weeks ago. She did complete Tamiflu treatment at that time. She also wonders if she might have a urinary tract infection. Related Data Home Medications ?Medication ?Instructions ?Recorded ?Confirmed ibuprofen 600 mg tablet 600 mg PO Q6H 03/01/25 06/10/25 etonogestrel 0.12 mg-ethinyl 1 vag ring vaginal DIRECTED 06/10/25 06/10/25 estradiol 0.015 mg/24 hr vaginal ring (EluRyng) norethindrone acetate 5 mg tablet 2.5 mg PO DAILY 06/10/25 06/10/25 Previous Rx's ?Medication ?Instructions ?Recorded acetaminophen 300 mg-codeine 30 mg 1 tab PO Q6H PRN pain #15 tabs 07/03/25 tablet cephalexin 500 mg capsule 500 mg PO TID 7 days #21 caps 07/03/25 ondansetron HCl 4 mg tablet 4 mg PO Q6H #10 tabs 07/03/25 Allergies Allergy/AdvReac Type Severity Reaction Status Date / Time prednisone AdvReac Mild Mood Swings Verified 06/10/25 21:03 trazodone AdvReac Mild Mood Swings Verified 06/10/25 21:03 Review of Systems Status of ROS Reports: 10 or more systems reviewed and unremarkable except as noted in History and below Narrative Constitutional: No fevers, no weight gain or loss. Eyes: No discharge. No vision changes. HENT: No congestion, no sore throat, no ear pain. Cardiovascular: No chest pain, no palpitations. Respiratory: No shortness of breath, no wheezes. Frequent nonproductive cough. Gastrointestinal: No diarrhea. Upper epigastric abdominal pain with 1 episode of vomiting. Genitourinary: No dysuria, no hematuria. Musculoskeletal: Normal range of motion. Skin: No rashes, no pruritis. Neurological: No dizziness, weakness, sensory change, speech change. Endo/Heme/Allergies: No bruising or bleeding. No polydipsia. Pysch: no suicidality, no anxiety, no insomnia. All other systems reviewed and are negative. 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 No alcohol use. Smoking Status: Never smoker Do you use any of these nicotine containing products: None Second hand tobacco smoke exposure: No How often do you have a drink containing alcohol: never How often do you have six or more drinks on one occasion: Never AUDIT-C Alcohol total score: 0 Non-prescribed substance use: marijuana (any form) service: No Exam Narrative: Exam Narrative: Constitutional: Well-developed, well-nourished, no acute distress. HEENT: Normocephalic, atraumatic. Neck: Normal range of motion. Nontender. Supple. Heart: Regular. No murmurs. Normal rate. Intact distal pulses. Lungs: Clear to auscultation. No chest discomfort. No wheezes, rhonchi, or rales. Abdomen: Normal bowel sounds. Diffuse tenderness in the upper epigastric region. No pain when palpating over her gallbladder or McBurney's point. No rebound tenderness. Genitalia: Deferred. Back: No midline tenderness. Normal range of motion. Extremities: Normal range of motion. No injury. Skin: Intact. No rash. Warm. No erythema or pallor. Neurologic: No altered sensation. No weakness. Alert and oriented. Psychiatric: No suicidality. No anxiety or depression. No insomnia. Nursing notes and vitals signs are reviewed. Const: Vital Signs, click to edit/add: Vital Signs - 24 hr 07/03/25 11:20 Temperature 98.7 F Pulse Rate [Pulse Oximeter] 130 H Respiratory Rate 20 Blood Pressure [Ri ght Upper Arm] 131/86 Pulse Oximetry 98 Oxygen Delivery Me thod Room Air Course Vital Signs Vital signs: Initial Vital Signs Temperature 98.7 F 07/03/25 11:20 Temperature Source Temporal Artery Scan 07/03/25 11:20 Pulse Rate 130 H 07/03/25 11:20 Respiratory Rate 20 07/03/25 11:20 Blood Pressure 131/86 07/03/25 11:20 Blood Pressure Mean 101 07/03/25 11:20 Blood Pressure Position Sitting 07/03/25 11:20 Pulse Oximetry 98 07/03/25 11:20 Oxygen Delivery Method Room Air 07/03/25 11:20 Vital Signs Temperature 98.7 F 07/03/25 11:20 Pulse Rate 130 H 07/03/25 11:20 Respiratory Rate 20 07/03/25 11:20 Blood Pressure 131/86 07/03/25 11:20 Pulse Oximetry 98 07/03/25 11:20 Oxygen Delivery Method Room Air 07/03/25 11:20 Temperature 98.7 F 07/03/25 11:20 Pulse Rate 130 H 07/03/25 11:20 Respiratory Rate 20 07/03/25 11:20 Blood Pressure 131/86 07/03/25 11:20 Pulse Oximetry 98 07/03/25 11:20 Oxygen Delivery Method Room Air 07/03/25 11:20 Medications Administered Medications: Discontinued Medications Generic Name Dose Route Start Last Admin Trade Name Frefrancisca PRN Reason Stop Dose Admin Sodium Chloride 500 mls @ 500 mls/hr 07/03/25 11:44 07/03/25 13:00 0.9 % Sodium Chloride 500 Ml IV 07/03/25 12:43 500 mls/hr .Q1H ONE Administration Ketorolac Tromethamine 30 mg 07/03/25 11:44 07/03/25 12:44 Ketorolac 30 Mg/Ml Inj IVP 07/03/25 11:45 30 mg ONCE ONE Administration Lidocaine/Aluminum/Magnesium/Simeth 30 ml 07/03/25 11:44 07/03/25 12:44 Gi Cocktail (Visc Lido/Antacid) 30 Ml PO 07/03/25 11:45 30 ml ONCE ONE Administration Ondansetron HCl 4 mg 07/03/25 11:44 07/03/25 12:45 Ondansetron 2 Mg/Ml Inj IVP 07/03/25 11:45 4 mg ONCE ONE Administration MDM - Abdominal Pain MDM Narrative Medical decision making narrative: This patient comes in with upper epigastric pain and suspects that she may have a urinary tract infection. I did place an IV and she received Toradol and Zofran. She also received an oral dose of GI cocktail. She states that the medicines did not affect her upper epigastric pain that much. Labs returned with reassuring results except her urinalysis does show sign of infection. The patient did receive 500 mL of normal saline. She is feeling okay to return home. She has a persistent cough over these past 3 weeks because of an influenza a infection. I did provide prescription for Keflex, Tylenol 3, and Zofran. Lab Data Labs: Lab Results 07/03/25 07/03/25 Range/Units 12:20 12:35 WBC 10.47 (4.50-11.00) K/uL RBC 4.63 (4.00-5.20) m/uL Hgb 12.3 (12.0-16.0) gm/dL Hct 37.8 (33.0-51.0) % MCV 82 (80-100) fL MCH 27 (26-34) pg MCHC 33 (32-36) gm/dL RDW Coeff of Foster 14.6 (11.5-15.5) % Plt Count 245 (140-440) K/uL Neut % (Auto) 85.8 H (42.0-72.0) % Lymph % (Auto) 7.9 L (20-44) % [place] % (Auto) 5.5 (0.0-11.0) % Eos % (Auto) 0.6 (0.0-7.0) % Baso % (Auto) 0.1 (0.0-3.0) % Neut # (Auto) 9.00 H (1.7-7.0) K/uL Lymph # (Auto) 0.80 L (0.90-2.90) K/uL [place] # (Auto) 0.60 (0.00-0.90) K/UL Eos # (Auto) 0.06 (0.00-0.50) K/uL Baso # (Auto) 0.01 (0.00-0.30) K/uL Abs Immat Gran (auto) 0.01 (0.00-0.30) K/uL Imm/Tot Granulo (auto) 0.1 % Sodium 136 (135-149) mmol/L Potassium 3.8 (3.6-5.1) mmol/L Chloride 105 (96-114) mmol/L Carbon Dioxide 21 (20-32) mmol/L Anion Gap 10 (7-15) mEq/L BUN 10 (5-24) mg/dL Creatinine 0.8 (0.5-1.5) mg/dL Estimated Creat Clear 79.11 Estimated GFR 100 ml/min Glucose 106 (60-115) mg/dL Calcium 8.9 (8.4-10.6) mg/dL Urine Color Yellow (Yellow) Urine Appearance Slightly Cloudy A (Clear) Urine pH 8.5 (5.0-8.5) Ur Specific [place] 1.025 (1.000-1.030) Urine Protein Negative (Negative) Urine Glucose (UA) Negative (Negative) Urine Ketones Trace A (Negative) Urine Blood Trace-intact A (Negative) Urine Nitrite Negative (Negative) Urine Bilirubin Negative (Negative) Urine Urobilinogen 0.2 (0.2-1.0) Ur Leukocyte Esterase Trace A (Negative) Urine RBC 0-2 (0-2) Urine WBC 10-25 A (0-5) Ur Squamous Epith Cells Moderate A (None-Few) Urine Bacteria Many A (None) Discharge Plan Discharge Clinical Impression: Urinary tract infection, Influenza A Patient Disposition: Home, Self-Care Condition: Stable Additional Instructions: take medication as directed. Follow up with MD return if worsening symptoms occur. Prescriptions: New ondansetron HCl 4 mg tablet 4 mg PO Q6H Qty: 10 0RF acetaminophen-codeine 300-30 mg tablet 1 tab PO Q6H PRN (Reason: pain) Qty: 15 0RF cephalexin 500 mg capsule 500 mg PO TID 7 Days Qty: 21 0RF No Action ibuprofen 600 mg tablet 600 mg PO Q6H etonogestrel-ethinyl estradiol [EluRyng] 0.12-0.015 mg/24 hr ring 1 vag ring VAGINAL DIRECTED Patient Comments: INSERT VAGINALLY AND LEAVE IN PLACE FOR 3 CONSECUTIVE WEEKS, THEN REMOVE FOR 1 WEEK norethindrone acetate 5 mg tablet 2.5 mg PO DAILY Follow Up/Referrals: Keyona Anderson MD [Staff Physician, Family Practice] Stand Alone Forms: [place] [place] [employer] Info Instructions
[2025-07-03] MEDS: GI COCKTAIL (VISC LIDO/ANTACID) 30 ML PO (12:44)
[2025-07-03] MEDS: ONDANSETRON 2 MG/ML inj 4 MG IVP (12:45)
[2025-07-03 12:47] LABS: Hematocrit* 37.8 % (33.0-51.0); Hemoglobin* 12.3 gm/dL (12.0-16.0); Immature Granulocytes Abs Auto 0.01 K/uL (0.00-0.30); Immature Granulocytes Pct Auto 0.1 %; Mean Corpuscular HGB Conc 33 gm/dL (32-36); Mean Corpuscular Hemoglobin 27 pg (26-34); Mean Corpuscular Volume 82 fL (80-100); RDW Coefficient of Variation % 14.6 % (11.5-15.5); Red Blood Count* 4.63 m/uL (4.00-5.20); White Blood Count* 10.47 K/uL (4.50-11.00)
[2025-07-03 12:47] LABS: Appearance Urine Slightly Cloudy (Clear)
[2025-07-03 12:52] LABS: Lymphocytes Absolute Auto 0.80 K/uL (0.90-2.90); Slide Review Reflex No
[2025-07-03 12:59] LABS: Chloride* 105 mmol/L (96-114); Sodium* 136 mmol/L (135-149)
[2025-07-03 13:00] LABS: Potassium* 3.8 mmol/L (3.6-5.1)
[2025-07-03] MEDS: 0.9 % SODIUM CHLORIDE 500 ML 500 ML IV (13:00)
[2025-07-03 13:02] LABS: Blood Urea Nitrogen* 10 mg/dL (5-24); Creatinine* 0.8 mg/dL (0.5-1.5); Est. Creatinine Clearance* 79.11; Estimated Glomerular Filt Rate 100 ml/min
[2025-07-03 13:03] LABS: Anion Gap 10 mEq/L (7-15); Calcium* 8.9 mg/dL (8.4-10.6); Carbon Dioxide* 21 mmol/L (20-32); Glucose* 106 mg/dL (60-115)
[2025-07-03 14:43] VITALS: BP 131/118; PULSE 126; RESP 20; O2SAT 98
== END 2025-07-03 14:46 | disposition home or self-care (01) ==
PROVIDERS: Emergency Provider Emergency Medicine Emergency Medical Services
DX: N39.0 Urinary tract infection, site not specified (principal); J10.1 Influenza due to other identified influenza virus with other respiratory manifestations
CPT/HCPCS: 36415; 80048; 81001; 85025; 87086; 96361; 96374; 96375; 99284; 99285; A9270; J1885; J2405; J7030